=== PATIENT | female | born 1950 | race Caucasian/White ===

== ENCOUNTER 2016-08-23 17:43 | Emergency (ER) | payer MEDICARE ==
[2016-08-23 17:59] VITALS: BP 163/94
--- NOTE | 2016-08-23 18:48 | EDM.PDOC ---
ED HISTORY OF PRESENT ILLNESS - General Chief Complaint: Chest Pain Stated Complaint: [facility] Time Seen by Provider: 08/23/16 18:20 Source of Information: Reports: Patient History Limitations: Reports: No limitations - History of Present Illness INITIAL COMMENTS - FREE TEXT/NARRATIVE: Marina is a 66yo female patient from [facility] who presents with intermittent chest pain, off and on throughout the day today. She states pain is left sided, intermittent. She summoned nursing for help who gave her one nitroglycerine, CP resolved and then came back. This pain started initially this morning and has come and gone several times throughout the day today. She denies sensation of palpitations, headache. She is chronically SOB and has chronic GALVAN- these are no worse than usual today. She wears supplemental oxygen at the [place] chronically. Upon my exam she states her pain is completely gone and she is hungry, would like something to eat. Timing/Duration: Reports: Hour(s): Severity: mild Quality: Reports: Dull, Pressure Improves with: Reports: None Worsens with: Reports: None Associated Symptoms (General): Reports: no other symptoms. 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: Other (see below) (see HPI; she had nitro SL x 1 at [place] ) - Related Data Allergies/ADRs: Allergies Allergy/AdvReac Type Severity Reaction Status Date / Time cefepime Allergy Hives Verified 07/16/16 15:14 ciprofloxacin [From Cipro] Allergy Hives Verified 07/16/16 15:14 ciprofloxacin HCl Allergy Hives Verified 07/16/16 15:14 [From Cipro] fosfomycin Allergy Hives Verified 07/16/16 15:14 levofloxacin [From Levaquin] Allergy Anaphylactic Verified 08/23/16 17:54 Shock metronidazole [From Flagyl] Allergy Rash Verified 07/16/16 15:14 Metronidazole HCl Allergy Hives Verified 07/16/16 15:14 [From Flagyl] pertussis vaccine,adsorbed Allergy Cannot Verified 07/16/16 15:14 [Pertussis Vaccine,Adsorbed] Remember vancomycin Allergy Hives Verified 07/16/16 15:14 meperidine HCl [From Demerol] AdvReac Vomiting Verified 07/16/16 15:14 Home Meds: Home Meds Aspirin [Halfprin] 81 mg PO DAILY 10/10/14 [History] Levothyroxine 25 mcg PO DAILY 10/10/14 [History] Metoprolol Tartrate [Lopressor] 75 mg PO BID 10/10/14 [History] Multivitamin [Daily Vitamin] 1 tab PO DAILY 10/10/14 [History] Sertraline [Zoloft] 100 mg PO DAILY 10/10/14 [History] Zolpidem Tartrate [Ambien] 5 mg PO BEDTIME PRN 10/10/14 [History] amLODIPine [Norvasc] 10 mg PO DAILY 10/10/14 [History] atorvaSTATin [Lipitor] 10 mg PO BEDTIME 10/10/14 [History] oxyCODONE HCl/Acetaminophen [Percocet 5-325 mg Tablet] 1 tab PO Q6H PRN [History] Albuterol [Proventil Neb Soln] 1 dose INH Q6HR PRN 07/16/16 [History] Indomethacin [Indocin] 25 mg PO BID 07/16/16 [History] SitaGLIPtin [Januvia] 50 mg PO DAILY 07/16/16 [History] Tapentadol HCl [Nucynta] 75 mg PO Q6HR PRN 07/16/16 [History] Triamcinolone Acetonide [Nasacort] 1 spray INH Q6HR PRN 07/16/16 [History] Levothyroxine Sodium [Synthroid] 200 mcg PO DAILY 07/17/16 [History] Miconazole [Miconazole 2% Crm] 1 applic TOP BID PRN 07/17/16 [History] Nystatin [Nystop] 1 applic TP BID PRN 07/17/16 [History] Acetaminophen [Tylenol] 650 mg PO Q4H PRN #0 tablet 07/22/16 [Rx] Albuterol/Ipratropium [DuoNeb 3.0-0.5 MG/3 ML] 3 ml NEB QIDRT PRN #1 box [Rx] Bumetanide [Bumex] 1 mg PO DAILY #30 tablet 07/22/16 [Rx] Docusate Sodium [Colace] 200 mg PO BID #60 cap 07/22/16 [Rx] Hydrochlorothiazide 25 mg PO BIDDIURETIC #60 tablet 07/22/16 [Rx] Losartan [Cozaar] 25 mg PO DAILY #30 tablet 07/22/16 [Rx] Magnesium Hydroxide [Milk of Magnesia] 30 ml PO BID PRN #1 bottle 07/22/16 [Rx] Prednisone [IJD: Prednisone] 10 mg PO DAILY #30 tab 07/22/16 [Rx] SitaGLIPtin [Januvia] 50 mg PO DAILY #30 tablet 07/22/16 [Rx] Spironolactone [Aldactone] 25 mg PO DAILY #30 tablet 07/22/16 [Rx] amLODIPine [Norvasc] 10 mg PO BEDTIME #30 tablet 07/22/16 [Rx] Past Medical History HEENT History: Reports: Impaired vision Other HEENT History: wears eyeglasses Cardiovascular History: Reports: Heart murmur, Hypertension, Other (see below) Other Cardiovascular History: bundle branch block, lymphedema Respiratory History: Reports: COPD Other Respiratory History: wears O2 at night while at home; but is now on 2L at [facility] (rehab) Gastrointestinal History: Reports: Hemorrhoids, Other (see below) Other Gastrointestinal History: hx:cdiff Genitourinary History: Reports: Chronic renal insuffiency, Renal calculus, UTI, recurrent Other Genitourinary History: renal failure from an infection Musculoskeletal History: Reports: Arthritis Neurological History: Reports: Migraines, Neuropathy, peripheral, Vertigo Other Neuro History: Lupus Psychiatric History: Reports: Anxiety, Depression, Panic attack Endocrine/Metabolic History: Reports: Diabetes, type II, Hypothyroidism Hematologic History: Reports: Iron deficiency Immunologic History: Reports: SLE Oncologic (Cancer) History: Reports: Basal cell carcinoma, Other (see below) Other Oncologic History: Basal cell carcinoma face Dermatologic History: Reports: Cellulitis, Other (see below) Other Dermatologic History: Lymphedema, severe dry skin, Chronic sores to backs of legs, - Infectious Disease History Infectious Disease History: Reports: C-difficile, Chicken pox, Hepatitis A, Influenza, Measles, Mumps, Rubella, Shingles - Past Surgical History HEENT Surgical History: Reports: Tonsillectomy GI Surgical History: Reports: Appendectomy, Colonoscopy Neurological Surgical History: Reports: Lumbar spine Musculoskeletal Surgical History: Reports: Arthroscopic knee, Hip replacement, Other (see below) Other Musculoskeletal Surgeries/Procedures:: back surgery L3, knee surgery Social & Family History - Family History Family Medical History: Noncontributory Cardiac: Reports: Heart failure : Reports: Renal disease/insufficiency Oncologic: Reports: Lung - Tobacco Use Smoking Status *Q: Former Smoker Years of Tobacco use: 18 Packs/Tins Daily: 2 Used Tobacco, but Quit: Yes Month Tobacco Last Used: 1986 Second Hand Smoke Exposure: No - Caffeine Use Caffeine Use: Reports: Coffee - Alcohol Use Days Per Week of Alcohol Use: 0 - Recreational Drug Use Recreational Drug Use: No ED ROS GENERAL - Review of Systems Review Of Systems: See Below Constitutional: Reports: weakness, fatigue HEENT: Reports: No symptoms Respiratory: Reports: Shortness of Breath (chronic, no owrse than usual) Cardiovascular: Reports: Chest pain (atypical, left sided, intermittent throughout the day today), Dyspnea on exertion (no worse than usual), Edema ( chronic; legs with flavio wraps bilat for lympyhedema). Denies: Lightheadedness, Palpitations Endocrine: Reports: no symptoms GI/Abdominal: Reports: No symptoms. Denies: Abdominal pain, Nausea, Vomiting : Reports: no symptoms, incontinence (chronic) Neurological: Reports: No Symptoms Psychiatric: Reports: Anxiety, Depression ED EXAM, GENERAL - Physical Exam Exam: See Below General Appearance: alert, WD/WN, no apparent distress Eye Exam: bilateral eye: EOMI, PERRL Ears: normal external exam, hearing grossly normal Nose: normal inspection, normal mucosa Throat/Mouth: Normal inspection, Normal lips, Normal voice, No airway compromise Head: atraumatic, normocephalic Neck: normal inspection, supple Respiratory/Chest: no respiratory distress, lungs clear, normal breath sounds, other (decreased mid to lower lobes) Cardiovascular: regular rate, rhythm, systolic murmur Peripheral Pulses: 1+: dorsalis pedis (L), dorsalis pedis (R) GI/Abdominal: normal bowel sounds, soft, other (obese) (Female) Exam: Deferred Rectal (Female) Exam: Deferred Extremities: other (flavio wraps to LE bilat due to chronic lymphedema) Neurological: alert, oriented, CN II-XII intact, normal cognition, normal gait Psychiatric: normal affect, normal mood Skin Exam: Warm, Dry, Intact EKG INTERPRETATION EKG Date: 08/23/16 Rhythm: other (sinus rhythm with LBBB rate of 60bpm) EKG Interpretation Comments: reviewed with Dr. Capone Course - Vital Signs Last Recorded V/S: Last Vital Signs Temp 98.1 F 08/23/16 17:55 Pulse 61 08/23/16 17:55 Resp 17 08/23/16 17:55 BP 163/94 H 08/23/16 17:55 Pulse Ox 94 L 08/23/16 17:55 - Orders/Labs/Meds Labs: Laboratory Tests 08/23/16 08/23/16 Range/Units 19:07 19:07 WBC 3.89 L (3.98-10.04) K/mm3 RBC 4.20 (3.98-5.22) M/mm3 Hgb 13.3 (11.2-15.7) gm/L Hct 41.2 (34.1-44.9) % MCV 98.1 H (79.4-94.8) fl MCH 31.7 (25.6-32.2) pg MCHC 32.3 (32.2-35.5) g/dl RDW Std Deviation 50.0 H (36.4-46.3) fL Plt Count 95 L (182-369) K/mm3 MPV 11.0 (9.4-12.3) fl Neut % (Auto) 55.5 (34.0-71.1) % Lymph % (Auto) 26.7 (19.3-51.7) % [place] % (Auto) 14.4 H (4.7-12.5) % Eos % (Auto) 2.6 (0.7-5.8) Baso % (Auto) 0.5 (0.1-1.2) % Neut # (Auto) 2.16 (1.56-6.13) K/mm3 Lymph # (Auto) 1.04 L (1.18-3.74) K/mm3 [place] # (Auto) 0.56 H (0.24-0.36) K/mm3 Eos # (Auto) 0.10 (0.04-0.36) K/mm3 Baso # (Auto) 0.02 (0.01-0.08) K/mm3 Manual Slide Review Abnormal smear Sodium 141 (136-145) mEq/L Potassium 4.5 (3.5-5.1) mEq/L Chloride 104 (98-107) mEq/L Carbon Dioxide 34 H (21-32) mEq/L Anion Gap 7.5 (5-15) BUN 27 H (7-18) mg/dL Creatinine 1.1 H (0.55-1.02) mg/dL Est Cr Clr Drug Dosing 50.06 mL/min Estimated GFR (MDRD) 50 (>60) mL/min BUN/Creatinine Ratio 24.5 H (14-18) Glucose 103 (80-115) mg/dL Calcium 8.9 (8.5-10.1) mg/dL Total Bilirubin 0.4 (0.2-1.0) mg/dL AST 14 L (15-37) U/L ALT 22 (14-59) U/L Alkaline Phosphatase 93 (46-116) U/L Troponin I < 0.017 (0.00-0.056) ng/mL Total Protein 7.1 (6.4-8.2) g/dl Albumin 3.5 (3.4-5.0) g/dl Globulin 3.6 gm/dL Albumin/Globulin Ratio 1.0 (1-2) - Radiology Interpretation Free Text/Narrative:: One view CXR: unremarkable for acute infiltrates/consolidations by my review; will await [facility] final report - Re-Assessments/Exams Free Text/Narrative Re-Assessment/Exam: 08/23/16 20:24 Reviewed essentially negative cardiac workup with patient today. She states chest pain was gone upon arrival or shortly thereafter and has not had further chest pain since arriving. Will discharge patient back to [facility], continue all usual medications and orders. Departure - Departure Time of Disposition: 20:26 Disposition: DC/Tfer to [place] [id number] Reason for Transfer *Q: Other Clinical Impression: Atypical chest pain Instructions: Nonspecific Chest Pain, [id number] Referrals: Jose Alfredo Hale MD [Primary Care Provider] - Forms: ED Department Discharge Additional Instructions: Eval in ER today is essentially unremarkable for acute findings -Chest xray is unremarkable or normal -labs are essentially normal, without acute findings, normal or negative troponin, electrolytes WNL and stable Continue with all current medications, treatments and orders; nitroglycerine sublingual if needed for chest pain
--- NOTE | 2016-08-25 06:52 | CR ---
Chest: Portable view of the chest was obtained. Comparison: Previous chest x-ray of 07/16/16 and 10/19/15. Nodular density seen within the right hilum compatible with slightly enlarged pulmonary artery which is stable. Heart size is within normal limits for portable technique. Tortuous thoracic aorta is noted. Lungs are clear with no acute infiltrates. Bony structures are osteopenic. Old healed right lower rib fracture is noted. Impression: 1. Incidental findings. Nothing acute is seen on portable chest x-ray. Diagnostic code #2
== END 2016-08-23 21:22 ==
LOC: JD.ED 17:43
DX: R07.89 Other chest pain (principal); J44.9 Chronic obstructive pulmonary disease, unspecified; I12.9 Hypertensive chronic kidney disease with stage 1 through stage 4 chronic kidney disease, or unspecified chronic kidney disease; N18.9 Chronic kidney disease, unspecified; E11.42 Type 2 diabetes mellitus with diabetic polyneuropathy; F41.0 Panic disorder [episodic paroxysmal anxiety]; F32.9 Major depressive disorder, single episode, unspecified; E03.9 Hypothyroidism, unspecified; Z85.828 Personal history of other malignant neoplasm of skin; M32.9 Systemic lupus erythematosus, unspecified; Z90.49 Acquired absence of other specified parts of digestive tract; Z98.890 Other specified postprocedural states; Z96.649 Presence of unspecified artificial hip joint; Z79.899 Other long term (current) drug therapy; Z88.6 Allergy status to analgesic agent; Z88.7 Allergy status to serum and vaccine; Z88.8 Allergy status to other drugs, medicaments and biological substances; Z88.1 Allergy status to other antibiotic agents
CPT/HCPCS: 36415; 71010; 71010-26; 80053; 84484; 85025; 93005; 99285; 99285-25

== ENCOUNTER 2017-02-07 20:24 | Inpatient (IN) | payer MEDICARE ==
[2017-02-07] MEDS ORDERED: Sodium Chloride 0.9% 10 ML Syringe FLUSH PRN (20:59)
--- NOTE | 2017-02-07 21:00 | EDM.PDOC ---
ED HPI GENERAL MEDICAL PROBLEM - General Chief Complaint: Genitourinary Problem Stated Complaint: [facility] Time Seen by Provider: 02/07/17 20:52 Source of Information: Reports: Patient History Limitations: Reports: No Limitations - History of Present Illness INITIAL COMMENTS - FREE TEXT/NARRATIVE: 66-year-old female presents to the ED per ambulance from local [facility]. She reports that she was started on Bactrim no strength yesterday for urinary tract infection received first dose last night and second dose this evening. She is appreciated a temperature of 101.1 with intermittent rigors and chills since yesterday. She feels more short of breath and dyspneic today. She reports that she feels she's gained about 5 pounds over the last week. Did eat today but appetite is less than normal. She's had urinary tract sepsis several times in the past. She has known multiple renal stones. She is type II diabetic. Sugar in the ED was 150. Patient is allergic to multiple medications. Particularly to Levaquin and Cipro. Patient is oxygen dependent at 2 L/m at all times due to COPD. She is increased to 3 L at this time to keep her sats at 95% . She has or has a history of congestive heart failure and is on Bumex 1 mg twice daily. Onset: Gradual Onset Date: 02/05/17 (Mild dysuria and low-grade fever.) Duration: Day(s): Location: Reports: Other (Genitourinary symptoms.) Quality: Reports: Ache, Other Severity: Moderate (Generalized weakness and myalgia.) Improves with: Reports: None Worsens with: Reports: Movement Associated Symptoms: Reports: Cough, Diaphoresis, Fever/Chills (With rigors), Headaches, Loss of Appetite, Malaise, Shortness of Breath, Weakness (Two-week to do her own). Denies: Confusion, Chest Pain, cough w sputum (Nonproductive), Rash, Seizure Treatments PRIVACY MANAGER: Reports: Acetaminophen ( activities such as brushing her teeth etc.) Lower Back Pain Score (Numeric/FACES): 6 - Related Data Allergies Allergy/AdvReac Type Severity Reaction Status Date / Time cefepime Allergy Hives Verified 07/16/16 15:14 ciprofloxacin [From Cipro] Allergy Hives Verified 07/16/16 15:14 ciprofloxacin HCl Allergy Hives Verified 07/16/16 15:14 [From Cipro] fosfomycin Allergy Hives Verified 07/16/16 15:14 levofloxacin [From Levaquin] Allergy Anaphylactic Verified 08/23/16 17:54 Shock metronidazole [From Flagyl] Allergy Rash Verified 07/16/16 15:14 Metronidazole HCl Allergy Hives Verified 07/16/16 15:14 [From Flagyl] pertussis vaccine,adsorbed Allergy Cannot Verified 07/16/16 15:14 [Pertussis Vaccine,Adsorbed] Remember vancomycin Allergy Hives Verified 07/16/16 15:14 meperidine HCl [From Demerol] AdvReac Vomiting Verified 07/16/16 15:14 Home Meds: Home Meds Aspirin [Halfprin] 81 mg PO DAILY 10/10/14 [History] Metoprolol Tartrate [Lopressor] 75 mg PO BID 10/10/14 [History] Multivitamin [Daily Vitamin] 1 tab PO DAILY 10/10/14 [History] Sertraline [Zoloft] 150 mg PO DAILY 10/10/14 [History] atorvaSTATin [Lipitor] 10 mg PO BEDTIME 10/10/14 [History] oxyCODONE HCl/Acetaminophen [Percocet 5-325 mg Tablet] 1 tab PO Q6H PRN [History] Albuterol [Proventil Neb Soln] 1 dose INH Q6HR PRN 07/16/16 [History] Indomethacin [Indocin] 25 mg PO BID PRN 07/16/16 [History] Tapentadol HCl [Nucynta] 75 mg PO Q6HR PRN 07/16/16 [History] Triamcinolone Acetonide [Nasacort] 1 spray INH Q6HR PRN 07/16/16 [History] Levothyroxine Sodium [Synthroid] 250 mcg PO DAILY 07/17/16 [History] Miconazole [Miconazole 2% Crm] 1 applic TOP BID PRN 07/17/16 [History] Albuterol/Ipratropium [DuoNeb 3.0-0.5 MG/3 ML] 3 ml NEB QIDRT PRN #1 box [Rx] Docusate Sodium [Colace] 200 mg PO BID #60 cap 07/22/16 [Rx] Losartan [Cozaar] 25 mg PO DAILY #30 tablet 07/22/16 [Rx] SitaGLIPtin [Januvia] 50 mg PO DAILY #30 tablet 07/22/16 [Rx] Spironolactone [Aldactone] 25 mg PO DAILY #30 tablet 07/22/16 [Rx] Aspirin/Acetaminophen/Caffeine [Eql Migraine Formula Caplet] 1 each PO TID PRN 02/07/17 [History] Bumetanide [Bumex] 1 mg PO BID 02/07/17 [History] Chlorhexidine Gluconate [Peridex 0.12% Rinse] 15 ml MM BID 02/07/17 [History] Ipratropium/Albuterol Sulfate [Iprat-Albut 0.5-3(2.5) MG/3 ML] 3 ml IH Q6H PRN 02/07/17 [History] Nitroglycerin [Nitrostat] 0.4 mg SL Q5M PRN 02/07/17 [History] Sulfamethoxazole/Trimethoprim [Bactrim Ds Tablet] 1 each PO BID 02/07/17 [ History] T-Pump 1 dose TOP TID PRN 02/07/17 [History] Temazepam [Restoril] 15 mg PO BEDTIME 02/07/17 [History] Umeclidinium [place] [Incruse Ellipta*] 62.5 mcg IH DAILY 02/07/17 [History] Zinc Oxide [Diaper Rash Ointment] 1 dose TP DAILY 02/07/17 [History] amLODIPine [Norvasc] 10 mg PO DAILY 02/07/17 [History] Past Medical History HEENT History: Reports: Impaired Vision Other HEENT History: wears eyeglasses Cardiovascular History: Reports: Heart Murmur, Hypertension, Other (See Below) Other Cardiovascular History: bundle branch block, lymphedema Respiratory History: Reports: COPD Other Respiratory History: wears O2 at night while at home; but is now on 2L at [facility] (rehab) Gastrointestinal History: Reports: Hemorrhoids, Other (See Below) Other Gastrointestinal History: hx:cdiff Genitourinary History: Reports: Chronic Renal Insuffiency, Renal Calculus, UTI, Recurrent (Has known renal calculi whether they're continuing to recurrent infection is unclear. She has been septic twice in the last year from urosepsis. ) Other Genitourinary History: renal failure from an infection Musculoskeletal History: Reports: Arthritis Neurological History: Reports: Migraines, Neuropathy, Peripheral, Vertigo Other Neuro History: Lupus Psychiatric History: Reports: Anxiety, Depression, Panic Attack Endocrine/Metabolic History: Reports: Diabetes, Type II, Hypothyroidism Hematologic History: Reports: Iron Deficiency Immunologic History: Reports: SLE Oncologic (Cancer) History: Reports: Basal Cell Carcinoma, Other (See Below) Other Oncologic History: Basal cell carcinoma face Dermatologic History: Reports: Cellulitis, Other (See Below) Other Dermatologic History: Lymphedema, severe dry skin, Chronic sores to backs of legs, - Infectious Disease History Infectious Disease History: Reports: C-Difficile, Chicken Pox, Hepatitis A, Influenza, Measles, Mumps, Rubella, Shingles - Past Surgical History Endocrine Surgical History: Reports: None, Other (See Below) Neurological Surgical History: Reports: Lumbar Spine Musculoskeletal Surgical History: Reports: Arthroscopic Knee, Hip Replacement, Other (See Below) Social & Family History - Family History Family Medical History: Noncontributory Cardiac: Reports: Heart Failure : Reports: Renal Disease/Insufficiency Oncologic: Reports: Lung - Tobacco Use Smoking Status *Q: Former Smoker Years of Tobacco use: 18 Packs/Tins Daily: 2 Used Tobacco, but Quit: Yes Month Tobacco Last Used: 1986 Second Hand Smoke Exposure: No - Caffeine Use Caffeine Use: Reports: Coffee - Alcohol Use Days Per Week of Alcohol Use: 0 - Recreational Drug Use Recreational Drug Use: No - Living Situation & Occupation Living situation: Reports: Extended Care Facility Occupation: Retired ED ROS GENERAL - Review of Systems Review Of Systems: See Below Constitutional: Reports: Fever, Chills, Malaise, Weakness, Fatigue, Weight Gain (5-6 pounds over the last week. She feels that her lower extremities and her abdomen feel full and she feels she can't get a full deep breath.) HEENT: Reports: No Symptoms Respiratory: Reports: Shortness of Breath, Cough. Denies: Wheezing (At rest but much worse with minimal exertion), Pleuritic Chest Pain, Sputum, Hemoptysis (Dry cough) Cardiovascular: Reports: Blood Pressure Problem, Dyspnea on Exertion ( Chronically in her lower extremities), Edema, Lightheadedness. Denies: Chest Pain, Claudication (Running low the last few days.), Orthopnea Endocrine: Reports: Fatigue, Other GI/Abdominal: Reports: Constipation, Other (Markedly obese.). Denies: Abdominal Pain : Reports: Incontinence (Stress and urge components.) Musculoskeletal: Reports: Back Pain, Joint Pain Skin: Reports: No Symptoms (Hips back and shoulders at times) Neurological: Reports: No Symptoms Psychiatric: Reports: No Symptoms Hematologic/Lymphatic: Reports: No Symptoms ED EXAM, GENERAL - Physical Exam Exam: See Below Exam Limited By: No Limitations General Appearance: Alert, WD/WN, Mild Distress, Other (He is quite anxious does feel warm to palpation. Temperature recheck was 100) Eye Exam: Bilateral Eye: Normal Inspection Ears: Normal TMs Throat/Mouth: Normal Inspection, Normal Lips, Normal Oropharynx, Other Head: Atraumatic, Normocephalic Neck: Normal Inspection, Supple, Non-Tender, Full Range of Motion. No: Carotid Bruit, Lymphadenopathy (L), Lymphadenopathy (R) Respiratory/Chest: Respiratory Distress (Mild tachypnea at rest 22-26/m. O2 sats were 91% on 2 L but 95% on 3 L/m by nasal specks.), Decreased Breath Sounds (Breasts undiminished of the lower 30% of lung beltran.), Rales (In both lower lung beltran a little worse on the left as compared to the right.). No: Rhonchi, Wheezing Cardiovascular: Regular Rate, Rhythm, No Gallop, No Murmur, No Rub. No: Normal Peripheral Pulses, No Edema Peripheral Pulses: 1+: Posterior Tibial (L), Posterior Tibial (R), Dorsalis Pedis (L), Dorsalis Pedis (R) GI/Abdominal: Normal Bowel Sounds, Soft, Non-Tender, No Organomegaly, Other ( Abdominal girth limits ability to palpate any solid organs.) Extremities: Normal Inspection, Normal Range of Motion, Non-Tender, No Pedal Edema, Normal Capillary Refill Neurological: Alert, Oriented, CN II-XII Intact, Normal Cognition, Other Psychiatric: Normal Affect (Patient is usually able to ambulate with the aid of a walker on her own volition but could not do so today.), Normal Mood Skin Exam: Warm, Dry, Intact, Normal Color EKG INTERPRETATION EKG Date: 02/07/17 Time: 20:00 Rhythm: NSR Rate (Beats/Min): 67 [place]: LAD-Left [place] Deviation (-31) P-Wave: Present QRS: LBBB ST-T: Normal QT: Prolonged EKG Interpretation Comments: Unchanged from previous ECGs Course - Vital Signs Last Recorded V/S: Last Vital Signs Temp 37.8 C 02/07/17 21:29 Pulse 64 02/07/17 20:31 Resp 22 H 02/07/17 20:31 BP 125/44 L 02/07/17 20:31 Pulse Ox 91 L 02/07/17 20:31 - Orders/Labs/Meds Orders: Active Orders 24 hr Category Date Time Status EKG Documentation Completion [RC] STAT Care 02/07/17 21:39 Active Jeffries Catheter Insertion [Insert Urinary Catheter] [OM. Care 02/07/17 21:00 Ordered PC] Q24H Oxygen Therapy [RC] ASDIRECTED Care 02/07/17 20:58 Active Peripheral IV Care [RC] . DIRECTED Care 02/07/17 20:59 Active Urinary Catheter Assessment [RC] ASDIRECTED Care 02/07/17 20:57 Active Chest 1V Frontal [CR] Stat Exams 02/07/17 20:55 Taken CULTURE BLOOD [BC] Stat Lab 02/07/17 21:30 Received CULTURE BLOOD [BC] Stat Lab 02/07/17 21:42 Received CULTURE URINE [RM] Stat Lab 02/07/17 21:05 Received Sodium Chloride 0.9% [Saline Flush] Med 02/07/17 20:59 Active 10 ml FLUSH ASDIRECTED PRN Blood Culture x2 Reflex Set [OM.PC] Stat Oth 02/07/17 20:59 Ordered Peripheral IV Insertion Adult [OM.PC] Stat Oth 02/07/17 20:59 Ordered Medication Orders Sodium Chloride (Saline Flush) 10 ml FLUSH ASDIRECTED PRN PRN Reason: Keep Vein Open Last Admin: 02/07/17 21:31 Dose: 10 ml Labs: Laboratory Tests 02/07/17 02/07/17 02/07/17 Range/Units 21:05 21:15 21:15 WBC 5.77 (3.98-10.04) K/mm3 RBC 4.34 (3.98-5.22) M/mm3 Hgb 13.9 (11.2-15.7) gm/L Hct 43.6 (34.1-44.9) % MCV 100.5 H (79.4-94.8) fl MCH 32.0 (25.6-32.2) pg MCHC 31.9 L (32.2-35.5) g/dl RDW Std Deviation 46.0 (36.4-46.3) fL Plt Count 106 L (182-369) K/mm3 MPV 11.4 (9.4-12.3) fl Neutrophils % (Manual) 86 H (40-60) % Band Neutrophils % 0 (0-10) % Lymphocytes % (Manual) 7 L (20-40) % Atypical Lymphs % 0 % Monocytes % (Manual) 3 (2-10) % Eosinophils % (Manual) 3 (0.7-5.8) % Basophils % (Manual) 1 (0.1-1.2) Platelet Estimate Decreased RBC Morph Comment Normal ESR (0-20) mm/hr PT 11.4 (8.0-13.0) SECONDS INR 1.04 Sodium (136-145) mEq/L Potassium (3.5-5.1) mEq/L Chloride (98-107) mEq/L Carbon Dioxide (21-32) mEq/L Anion Gap (5-15) BUN (7-18) mg/dL Creatinine (0.55-1.02) mg/dL Est Cr Clr Drug Dosing Estimated GFR (MDRD) (>60) mL/min BUN/Creatinine Ratio (14-18) Glucose (80-115) mg/dL Lactic Acid (0.4-2.0) mmol/L Calcium (8.5-10.1) mg/dL Magnesium (1.8-2.4) mg/dl Total Bilirubin (0.2-1.0) mg/dL AST (15-37) U/L ALT (14-59) U/L Alkaline Phosphatase (46-116) U/L CK-MB (CK-2) (0-3.6) ng/ml Troponin I (0.00-0.056) ng/mL C-Reactive Protein (<1.0) mg/dL NT-Pro-B Natriuret Pep (0-125) pg/mL Total Protein (6.4-8.2) g/dl Albumin (3.4-5.0) g/dl Globulin gm/dL Albumin/Globulin Ratio (1-2) Urine Color Yellow (Yellow) Urine Appearance Clear (Clear) Urine pH 7.0 (5.0-8.0) Ur Specific [place] 1.015 (1.005-1.030) Urine Protein Negative (Negative) Urine Glucose (UA) Negative (Negative) Urine Ketones Negative (Negative) Urine Occult Blood Negative (Negative) Urine Nitrite Negative (Negative) Urine Bilirubin Negative (Negative) Urine Urobilinogen 0.2 (0.2-1.0) Ur Leukocyte Esterase Trace H (Negative) Urine RBC 0-5 (0-5) /hpf Urine WBC 5-10 H (0-5) /hpf Ur Epithelial Cells 0-5 (0-5) /hpf Urine Bacteria Few (FEW) /hpf Urine Mucus Not seen (FEW) /hpf 02/07/17 02/07/17 02/07/17 Range/Units 21:15 21:15 21:30 WBC (3.98-10.04) K/mm3 RBC (3.98-5.22) M/mm3 Hgb (11.2-15.7) gm/L Hct (34.1-44.9) % MCV (79.4-94.8) fl MCH (25.6-32.2) pg MCHC (32.2-35.5) g/dl RDW Std Deviation (36.4-46.3) fL Plt Count (182-369) K/mm3 MPV (9.4-12.3) fl Neutrophils % (Manual) (40-60) % Band Neutrophils % (0-10) % Lymphocytes % (Manual) (20-40) % Atypical Lymphs % % Monocytes % (Manual) (2-10) % Eosinophils % (Manual) (0.7-5.8) % Basophils % (Manual) (0.1-1.2) Platelet Estimate RBC Morph Comment ESR 36 H (0-20) mm/hr PT (8.0-13.0) SECONDS INR Sodium 136 (136-145) mEq/L Potassium 4.2 (3.5-5.1) mEq/L Chloride 99 (98-107) mEq/L Carbon Dioxide 34 H (21-32) mEq/L Anion Gap 7.2 (5-15) BUN 24 H (7-18) mg/dL Creatinine 1.3 H (0.55-1.02) mg/dL Est Cr Clr Drug Dosing TNP Estimated GFR (MDRD) 41 (>60) mL/min BUN/Creatinine Ratio 18.5 H (14-18) Glucose 130 H (80-115) mg/dL Lactic Acid 0.6 (0.4-2.0) mmol/L Calcium 9.4 (8.5-10.1) mg/dL Magnesium 2.0 (1.8-2.4) mg/dl Total Bilirubin 0.7 (0.2-1.0) mg/dL AST 18 (15-37) U/L ALT 26 (14-59) U/L Alkaline Phosphatase 79 (46-116) U/L CK-MB (CK-2) < 0.5 (0-3.6) ng/ml Troponin I < 0.017 (0.00-0.056) ng/mL C-Reactive Protein 1.9 H* (<1.0) mg/dL NT-Pro-B Natriuret Pep 1035 H (0-125) pg/mL Total Protein 7.3 (6.4-8.2) g/dl Albumin 3.4 (3.4-5.0) g/dl Globulin 3.9 gm/dL Albumin/Globulin Ratio 0.9 L (1-2) Urine Color (Yellow) Urine Appearance (Clear) Urine pH (5.0-8.0) Ur Specific [place] (1.005-1.030) Urine Protein (Negative) Urine Glucose (UA) (Negative) Urine Ketones (Negative) Urine Occult Blood (Negative) Urine Nitrite (Negative) Urine Bilirubin (Negative) Urine Urobilinogen (0.2-1.0) Ur Leukocyte Esterase (Negative) Urine RBC (0-5) /hpf Urine WBC (0-5) /hpf Ur Epithelial Cells (0-5) /hpf Urine Bacteria (FEW) /hpf Urine Mucus (FEW) /hpf Meds: Medications Generic Name Dose Route Start Last Admin Trade Name Freq PRN Reason Stop Dose Admin Sodium Chloride 10 ml 02/07/17 20:59 02/07/17 21:31 Saline Flush FLUSH 10 ml ASDIRECTED PRN Administration Keep Vein Open Discontinued Medications Generic Name Dose Route Start Last Admin Trade Name Freq PRN Reason Stop Dose Admin Acetaminophen 325 mg 02/07/17 21:13 02/07/17 21:29 Tylenol PO 09/09/17 21:14 325 mg NOW ONE Administration Bumetanide 1 mg 02/07/17 21:11 02/07/17 21:29 Bumex IVPUSH 02/07/17 21:12 1 mg ONETIME ONE Administration Linezolid 600 mg/ Premix 300 mls @ 300 mls/hr 02/07/17 21:12 02/07/17 21:29 IV 02/07/17 22:11 300 mls/hr ONETIME ONE Administration Oxycodone/Acetaminophen 1 tab 02/07/17 21:12 02/07/17 21:30 Percocet 325-5 Mg PO 02/07/17 21:13 1 tab ONETIME ONE Administration - Radiology Interpretation Free Text/Narrative:: 66-year-old female [facility] ED [facility] local [facility] with a temperature of 101.1 reported throughout most of today. Illness started 2 days ago with low-grade fever and mild urinary tract symptoms with foul-smelling urine. She was started on Bactrim double strength last evening and took one dose this morning. She hasn't had fever chills riders since yesterday afternoon. They continued this morning. Appetite has remained about half normal. Meaning no diarrhea. She came because she is feeling much more short of breath than normal. Feels she is filling up with fluid. Just be the fever causing high output failure. Feels so she may have gained 5 or 6 pounds over the last week. No history of COPD and is oxygen dependent at 2 L/m all times. She is increased to 3 litres per minute her to keep her at 95%. Plan chest x- ray routine labs blood cultures 2 serum magnesium. I will give her Zosyn 600 mg IV as soon as blood cultures are collected. Given 1 Percocet 5//25 milligrams and 325 mg of Tylenol for fever and pain relief. - Re-Assessments/Exams Free Text/Narrative Re-Assessment/Exam: 02/07/17 22:38 ECG reveals sinus rhythm at 67/m. There is a left bundle branch block pattern which is unchanged from previous ECGs QT is moderately prolonged. Chest x-ray reveals mild cardiomegaly. There is a tortuous thoracic aorta. There is diffuse vascular congestion pattern. 02/07/17 23:39 lab work shows a normal white count at 5.77 with 86% neutrophil count however--Lt shift. Hemoglobin is normal at 13.9 with hematocrit of 43.6. Platelets low normal at 106,000. Coags are essentially normal. Urinalysis shows 5-10+ cells per high-power field. Urine culture ordered. Sodium is 136 potassium is 4.2. Chloride 99 bicarbonate is 34 i.e. CO2 retainer. Anion gap is 7.2 be when was 24. Creatinine 1.3 EGFR is 41 stage III kidney disease glucose 1 :30 CRP is mildly elevated 1.9 BNP is elevated at 1035 he needs them 2.0. Troponin and CK-MB fractions are normal. 02/07/17 23:40 patient reports she is having more pain in her left flank area she believes it's or kidney. A pressure remains low with systolics of 93-95. Makes it difficult for pain management give fentanyl 50 g IV as it's less likely to lower her blood pressure. Currently she's diaphoretic as her fever is breaking. Case discussed with on-call hospice and the patient be admitted to the med surgery floor on telemetry. Diagnosis is acute exacerbation of congestive heart failure likely due to high output failure from febrile illness. Urinary tract infection --upper. Stable type 2 diabetes mellitus. Acute febrile illness Departure - Departure Time of Disposition: 23:43 Disposition: Admitted As Inpatient 65 Condition: Fair Clinical Impression: Acute febrile illness, Upper urinary tract infection Acute exacerbation of congestive heart failure Qualifiers: Congestive heart failure type: diastolic Qualified Code(s): I50.33 - Acute on chronic diastolic (congestive) heart failure Hypotension Qualifiers: Hypotension type: other hypotension type Qualified Code(s): I95.89 - Other hypotension COPD (chronic obstructive pulmonary disease) Qualifiers: COPD type: unspecified COPD Qualified Code(s): J44.9 - Chronic obstructive pulmonary disease, unspecified Forms: ED Department Discharge - My Orders Last 24 Hours: My Active Orders 02/07/17 20:55 Chest 1V Frontal [CR] Stat 02/07/17 20:57 Urinary Catheter Assessment [RC] ASDIRECTED 02/07/17 20:58 Oxygen Therapy [RC] ASDIRECTED 02/07/17 20:59 Peripheral IV Care [RC] . DIRECTED Sodium Chloride 0.9% [Saline Flush] 10 ml FLUSH ASDIRECTED PRN Blood Culture x2 Reflex Set [OM.PC] Stat Peripheral IV Insertion Adult [OM.PC] Stat 02/07/17 21:00 Jeffries Catheter Insertion [Insert Urinary Catheter] [OM.PC] Q24H 02/07/17 21:05 CULTURE URINE [RM] Stat 02/07/17 21:30 CULTURE BLOOD [BC] Stat 02/07/17 21:39 EKG Documentation Completion [RC] STAT 02/07/17 21:42 CULTURE BLOOD [BC] Stat - Assessment/Plan Last 24 Hours: My Active Orders 02/07/17 20:55 Chest 1V Frontal [CR] Stat 02/07/17 20:57 Urinary Catheter Assessment [RC] ASDIRECTED 02/07/17 20:58 Oxygen Therapy [RC] ASDIRECTED 02/07/17 20:59 Peripheral IV Care [RC] . DIRECTED Sodium Chloride 0.9% [Saline Flush] 10 ml FLUSH ASDIRECTED PRN Blood Culture x2 Reflex Set [OM.PC] Stat Peripheral IV Insertion Adult [OM.PC] Stat 02/07/17 21:00 Jeffries Catheter Insertion [Insert Urinary Catheter] [OM.PC] Q24H 02/07/17 21:05 CULTURE URINE [RM] Stat 02/07/17 21:30 CULTURE BLOOD [BC] Stat 02/07/17 21:39 EKG Documentation Completion [RC] STAT 02/07/17 21:42 CULTURE BLOOD [BC] Stat
[2017-02-07] MEDS ORDERED: Bumetanide 1 MG/4 ML MDV IVPUSH ONE (21:11)
[2017-02-07] MEDS ORDERED: Acetaminophen/oxyCODONE 325-5 MG Tab PO ONE (21:12)
[2017-02-07] MEDS ORDERED: Linezolid 600 MG in Premix Bag 1 BAG IV ONE (21:12)
[2017-02-07] MEDS ORDERED: Acetaminophen 325 MG Tab PO ONE (21:13)
[2017-02-07] MEDS ORDERED: fentaNYL 100 MCG/2 ML SDV IVPUSH ONE (23:44)
[2017-02-08] MEDS ORDERED: HYDROmorphone 1 MG/ML Syringe IM ONE (02:49)
[2017-02-08] MEDS ORDERED: Pneumococcal Polyvalent-23 Vaccine 0.5 ML SDV IM ONE (02:53)
[2017-02-08] MEDS ORDERED: Piperacillin/Tazobactam 4.5 GM in Sodium Chloride 0.9% 100 ML IV ONE (06:00)
[2017-02-08] MEDS ORDERED: Enoxaparin 30 MG/0.3 ML Syringe SUBCUT SCH (09:00)
[2017-02-08] MEDS ORDERED: Furosemide 40 MG/4 ML VIAL IVPUSH ONE (09:00)
[2017-02-08] MEDS ORDERED: Piperacillin/Tazobactam 4.5 GM in Sodium Chloride 0.9% 100 ML IV SCH (09:45)
--- NOTE | 2017-02-08 10:35 | PCM.HP ---
H&P History of Present Illness - General Date of Service: 02/08/17 Source of Information: Patient, Provider History Limitations: Reports: No Limitations - History of Present Illness Initial Comments - Free Text/Narative: 66 year old patient [facility] resident has not been feeling well for over a week. Had a UA/UC performed at [facility], she was not started on Bactrim DS until the sensitivity had been reported. In the meantime, she became more ill, and progressed from malaise and weakness to fever/chills/rigor with SOB. By the time she was started on Bactrim 4-5 days after her initial complaint she required treatment for AUTI as well as CHF. She has been admitted to [facility] for AUTI and acute exacerbation of CHF. Onset of Symptoms: Reports: Unknown/Unsure Duration of Symptoms: Reports: Getting Worse Location: Reports: Abdomen, Generalized Quality: Reports: Same as Previous Episode Severity: Moderate Improves with: Reports: Medication Worsens with: Reports: None Context: Reports: Other Lower Back Pain Score (Numeric/FACES): 6 - Related Data Allergies/Adverse Reactions: Allergies Allergy/AdvReac Type Severity Reaction Status Date / Time cefepime Allergy Hives Verified 07/16/16 15:14 ciprofloxacin [From Cipro] Allergy Hives Verified 07/16/16 15:14 ciprofloxacin HCl Allergy Hives Verified 07/16/16 15:14 [From Cipro] fosfomycin Allergy Hives Verified 07/16/16 15:14 levofloxacin [From Levaquin] Allergy Anaphylactic Verified 08/23/16 17:54 Shock metronidazole [From Flagyl] Allergy Rash Verified 07/16/16 15:14 Metronidazole HCl Allergy Hives Verified 07/16/16 15:14 [From Flagyl] pertussis vaccine,adsorbed Allergy Cannot Verified 07/16/16 15:14 [Pertussis Vaccine,Adsorbed] Remember vancomycin Allergy Hives Verified 07/16/16 15:14 meperidine HCl [From Demerol] AdvReac Vomiting Verified 07/16/16 15:14 Home Medications: Home Meds Aspirin [Halfprin] 81 mg PO DAILY 10/10/14 [History] Metoprolol Tartrate [Lopressor] 75 mg PO BID 10/10/14 [History] Multivitamin [Daily Vitamin] 1 tab PO DAILY 10/10/14 [History] Sertraline [Zoloft] 150 mg PO DAILY 10/10/14 [History] atorvaSTATin [Lipitor] 10 mg PO BEDTIME 10/10/14 [History] oxyCODONE HCl/Acetaminophen [Percocet 5-325 mg Tablet] 1 tab PO Q6H PRN [History] Albuterol [Proventil Neb Soln] 1 dose INH Q6HR PRN 07/16/16 [History] Indomethacin [Indocin] 25 mg PO BID PRN 07/16/16 [History] Tapentadol HCl [Nucynta] 75 mg PO Q6HR PRN 07/16/16 [History] Triamcinolone Acetonide [Nasacort] 1 spray INH Q6HR PRN 07/16/16 [History] Levothyroxine Sodium [Synthroid] 250 mcg PO DAILY 07/17/16 [History] Miconazole [Miconazole 2% Crm] 1 applic TOP BID PRN 07/17/16 [History] Albuterol/Ipratropium [DuoNeb 3.0-0.5 MG/3 ML] 3 ml NEB QIDRT PRN #1 box [Rx] Docusate Sodium [Colace] 200 mg PO BID #60 cap 07/22/16 [Rx] Losartan [Cozaar] 25 mg PO DAILY #30 tablet 07/22/16 [Rx] SitaGLIPtin [Januvia] 50 mg PO DAILY #30 tablet 07/22/16 [Rx] Spironolactone [Aldactone] 25 mg PO DAILY #30 tablet 07/22/16 [Rx] Aspirin/Acetaminophen/Caffeine [Eql Migraine Formula Caplet] 1 each PO TID PRN 02/07/17 [History] Bumetanide [Bumex] 1 mg PO BID 02/07/17 [History] Chlorhexidine Gluconate [Peridex 0.12% Rinse] 15 ml MM BID 02/07/17 [History] Ipratropium/Albuterol Sulfate [Iprat-Albut 0.5-3(2.5) MG/3 ML] 3 ml IH Q6H PRN 02/07/17 [History] Nitroglycerin [Nitrostat] 0.4 mg SL Q5M PRN 02/07/17 [History] Sulfamethoxazole/Trimethoprim [Bactrim Ds Tablet] 1 each PO BID 02/07/17 [ History] T-Pump 1 dose TOP TID PRN 02/07/17 [History] Temazepam [Restoril] 15 mg PO BEDTIME 02/07/17 [History] Umeclidinium Lund [Incruse Ellipta*] 62.5 mcg IH DAILY 02/07/17 [History] Zinc Oxide [Diaper Rash Ointment] 1 dose TP DAILY 02/07/17 [History] amLODIPine [Norvasc] 10 mg PO DAILY 02/07/17 [History] Furosemide [Lasix] 20 mg PO DAILY 02/08/17 [History] Nystatin 100,000 units TOP DAILY PRN 02/08/17 [History] Past Medical History HEENT History: Reports: Impaired Vision Other HEENT History: wears eyeglasses Cardiovascular History: Reports: Heart Failure, Heart Murmur, Hypertension, Other (See Below) Other Cardiovascular History: bundle branch block, lymphedema Respiratory History: Reports: COPD, SOB Other Respiratory History: wears O2 at night while at home; but is now on 2L at [facility] (rehab) Gastrointestinal History: Reports: Chronic Constipation, Hemorrhoids, Other ( See Below) Other Gastrointestinal History: hx:cdiff Genitourinary History: Reports: Chronic Renal Insuffiency, Renal Calculus, UTI, Recurrent Other Genitourinary History: renal failure from an infection, stage 3 kidney disease Musculoskeletal History: Reports: Arthritis Neurological History: Reports: Migraines, Neuropathy, Peripheral, Vertigo Other Neuro History: Lupus Psychiatric History: Reports: Anxiety, Depression, Panic Attack, Other (See Below) Other Psychiatric History: insomnia Endocrine/Metabolic History: Reports: Diabetes, Type II, Hypothyroidism Hematologic History: Reports: Heparin Induced Thrombocytopenia, Iron Deficiency Immunologic History: Reports: SLE Oncologic (Cancer) History: Reports: Basal Cell Carcinoma, Other (See Below) Other Oncologic History: Basal cell carcinoma face Dermatologic History: Reports: Cellulitis, Other (See Below) Other Dermatologic History: Lymphedema, severe dry skin, Chronic sores to backs of legs, history of pressure ulcers - Infectious Disease History Infectious Disease History: Reports: C-Difficile, Chicken Pox, Hepatitis A, Influenza, Measles, Mumps, Rubella, Shingles - Past Surgical History Endocrine Surgical History: Reports: None, Other (See Below) Neurological Surgical History: Reports: Lumbar Spine Musculoskeletal Surgical History: Reports: Arthroscopic Knee, Hip Replacement, Other (See Below) Social & Family History - Family History Family Medical History: Noncontributory Cardiac: Reports: Heart Failure : Reports: Renal Disease/Insufficiency Oncologic: Reports: Lung - Tobacco Use Smoking Status *Q: Former Smoker Years of Tobacco use: 20 Packs/Tins Daily: 1 Used Tobacco, but Quit: Yes Month Tobacco Last Used: 1986 Second Hand Smoke Exposure: No - Caffeine Use Caffeine Use: Reports: Coffee - Alcohol Use Days Per Week of Alcohol Use: 0 - Recreational Drug Use Recreational Drug Use: No - Living Situation & Occupation Living situation: Reports: Extended Care Facility Occupation: Retired H&P Review of Systems - Review of Systems: Review Of Systems: See Below General: Reports: Fever, Chills, Malaise, Weakness, Decreased Appetite HEENT: Reports: No Symptoms Pulmonary: Reports: Shortness of Breath Cardiovascular: Reports: Lightheadedness Gastrointestinal: Reports: No Symptoms Genitourinary: Reports: Dysuria, Frequency, Burning, Urgency Musculoskeletal: Reports: No Symptoms Skin: Reports: No Symptoms Psychiatric: Reports: No Symptoms Neurological: Reports: No Symptoms Hematologic/Lymphatic: Reports: No Symptoms Immunologic: Reports: No Symptoms Exam - Exam Exam: See Below - Vital Signs Vital Signs: Last Vital Signs Temp 36.7 C 02/08/17 07:54 Pulse 59 L 02/08/17 07:54 Resp 18 02/08/17 07:54 BP 102/61 02/08/17 07:54 Pulse Ox 97 02/08/17 07:54 Weight: 143.789 kg - Exam Quality Assessment: Supplemental Oxygen General: Alert, Oriented HEENT: Conjunctiva Clear, EOMI, Pupils Equal, Pupils Reactive, PERRLA Neck: Supple, Trachea Midline Lungs: Normal Respiratory Effort Cardiovascular: Regular Rate, Regular Rhythm GI/Abdominal Exam: Normal Bowel Sounds, Soft, Non-Tender, No Distention (Female) Exam: Deferred Rectal (Female) Exam: Deferred Back Exam: Normal Inspection Extremities: Normal Inspection, Pedal Edema Skin: Warm Neurological: Cranial Nerves Intact Neuro Extensive - Mental Status: Alert Neuro Extensive - Motor, Sensory, Reflexes: CN II-XII Intact Psychiatric: Alert, Normal Affect, Normal Mood - Patient Data Lab Results Last 24 hrs: Laboratory Results - last 24 hr 02/08/17 02/08/17 Range/Units 06:23 06:23 WBC 3.87 L (3.98-10.04) K/mm3 RBC 4.15 (3.98-5.22) M/mm3 Hgb 13.5 (11.2-15.7) gm/L Hct 42.6 (34.1-44.9) % MCV 102.7 H (79.4-94.8) fl MCH 32.5 H (25.6-32.2) pg MCHC 31.7 L (32.2-35.5) g/dl RDW Std Deviation 47.7 H (36.4-46.3) fL Plt Count 96 L (182-369) K/mm3 MPV 11.5 (9.4-12.3) fl Sodium 137 (136-145) mEq/L Potassium 3.9 (3.5-5.1) mEq/L Chloride 99 (98-107) mEq/L Carbon Dioxide 34 H (21-32) mEq/L Anion Gap 7.9 (5-15) BUN 21 H (7-18) mg/dL Creatinine 1.3 H (0.55-1.02) mg/dL Est Cr Clr Drug Dosing 40.84 mL/min Estimated GFR (MDRD) 41 (>60) mL/min BUN/Creatinine Ratio 16.2 (14-18) Glucose 128 H (80-115) mg/dL Calcium 8.8 (8.5-10.1) mg/dL Magnesium 2.1 (1.8-2.4) mg/dl Troponin I < 0.017 (0.00-0.056) ng/mL Result Diagrams: 02/08/17 06:23 02/08/17 06:23 *Q Meaningful Use (ADM) - VTE *Q VTE Criteria *Q: - Stroke *Q Stroke Criteria *Q: - AMI *Q AMI Criteria *Q: - Problem List (1) Lymphedema SNOMED Code(s): 611068373 ICD Code: I89.0 - LYMPHEDEMA, NOT ELSEWHERE CLASSIFIED Status: Chronic Current Visit: Yes (2) Acute exacerbation of congestive heart failure SNOMED Code(s): 76119342 ICD Code: I50.9 - HEART FAILURE, UNSPECIFIED Status: Acute Current Visit : Yes Qualifiers: Congestive heart failure type: unspecified congestive heart failure type Qualified Code(s): I50.9 - Heart failure, unspecified (3) COPD (chronic obstructive pulmonary disease) SNOMED Code(s): 39882546 ICD Code: J44.9 - CHRONIC OBSTRUCTIVE PULMONARY DISEASE, UNSPECIFIED Status : Chronic Priority: Medium Current Visit: Yes Qualifiers: COPD type: unspecified COPD Qualified Code(s): J44.9 - Chronic obstructive pulmonary disease, unspecified (4) Bundle branch block SNOMED Code(s): 0166823 ICD Code: I45.4 - NONSPECIFIC INTRAVENTRICULAR BLOCK Status: Chronic Current Visit: No (5) UTI (lower urinary tract infection) SNOMED Code(s): 5743221 ICD Code: N39.0 - URINARY TRACT INFECTION, SITE NOT SPECIFIED Status: Acute Current Visit: No (6) Diabetes SNOMED Code(s): 69055140 ICD Code: E11.9 - TYPE 2 DIABETES MELLITUS WITHOUT COMPLICATIONS Status: Chronic Priority: Medium Current Visit: No Qualifiers: Diabetes mellitus type: type 2 Diabetes mellitus complication status: with unspecified complications Diabetes mellitus correction insulin use: with correction use Qualified Code(s): E11.8 - Type 2 diabetes mellitus with unspecified complications; Z79.4 - long term care pharmacist (current) use of insulin (7) Hyperlipidemia SNOMED Code(s): 29917716 ICD Code: E78.5 - HYPERLIPIDEMIA, UNSPECIFIED Status: Chronic Current Visit: Yes (8) Hypertension SNOMED Code(s): 84299343 ICD Code: I10 - ESSENTIAL (PRIMARY) HYPERTENSION Status: Chronic Current Visit: Yes (9) Chronic kidney disease SNOMED Code(s): 779156239 ICD Code: N18.9 - CHRONIC KIDNEY DISEASE, UNSPECIFIED Status: Acute Current Visit: Yes (10) Anxiety SNOMED Code(s): 46156369 ICD Code: F41.9 - ANXIETY DISORDER, UNSPECIFIED Status: Chronic Current Visit: Yes (11) Depression SNOMED Code(s): 09019507 ICD Code: F32.9 - MAJOR DEPRESSIVE DISORDER, SINGLE EPISODE, UNSPECIFIED Status: Chronic Current Visit: Yes (12) Panic attacks SNOMED Code(s): 018378682 ICD Code: F41.0 - PANIC DISORDER WITHOUT AGORAPHOBIA Status: Chronic Current Visit: Yes Problem List Initiated/Reviewed/Updated: Yes Orders Last 24hrs: Active Orders 24 hr Category Date Time Status Fluid Restriction [DIET] Diet 02/08/17 Breakfast Active Heart Healthy Diet [DIET] Diet 02/08/17 Breakfast Active METH-RESIST S.AUR,MRSA BY PCR [MOLEC] Routine Lab 02/08/17 03:50 Received Enoxaparin [Lovenox] Med 02/08/17 09:00 Active 30 mg SUBCUT DAILY Piperacillin/Tazobactam [Zosyn] 4.5 gm Med 02/08/17 14:00 Active Sodium Chloride 0.9% [Normal Saline] 100 ml IV Q8H Code Status [Resuscitation Status] Routine Resus Stat 02/08/17 03:38 Ordered Medication Orders Enoxaparin Sodium (Lovenox) 30 mg SUBCUT DAILY JACQUI Last Admin: 02/08/17 09:34 Dose: 30 mg Piperacillin Sod/Tazobactam (Sod 4.5 gm/ Sodium Chloride) 100 mls @ 25 mls/hr IV Q8H JACQUI Sodium Chloride (Saline Flush) 10 ml FLUSH ASDIRECTED PRN PRN Reason: Keep Vein Open Last Admin: 02/07/17 21:31 Dose: 10 ml Assessment/Plan Comment:: Impression: AUTI Acute exacerbation of CHF Chronic: LBBB HTN HLD CKD Lymphedema Anxiety Depression Panic Attack Plan: Zosyn 4.5 Gm Q 8 hours Diurese Home meds Ur Cx/BC CM/PT/OT DVT/GI prophylaxis
[2017-02-08] MEDS ORDERED: Albuterol 0.083% 2.5 MG/3 ML Neb Soln INH PRN (12:07)
[2017-02-08] MEDS ORDERED: ASPIRIN PO PRN (12:07)
[2017-02-08] MEDS ORDERED: CAFFEINE PO PRN (12:07)
[2017-02-08] MEDS ORDERED: Albuterol/Ipratropium 3.0-0.5 MG/3 ML Neb Soln NEB PRN (12:07)
[2017-02-08] MEDS ORDERED: ACETAMINOPHEN PO PRN (12:07)
[2017-02-08] MEDS ORDERED: Nitroglycerin 0.4 MG Tab.SL SL PRN (12:07)
[2017-02-08] MEDS ORDERED: Miconazole 2% Crm 42.5 GM Tube TOP PRN (12:30)
[2017-02-08] MEDS ORDERED: Nystatin Topical Powder 15 GM Bottle TOP PRN (12:45)
[2017-02-08] MEDS: Spironolactone 25 MG Tab PO SCH (13:15)
[2017-02-08] MEDS: Piperacillin/Tazobactam 4.5 GM in Sodium Chloride 0.9% 100 ML IV SCH ×2 (13:16→21:47)
[2017-02-08] MEDS: Acetaminophen/oxyCODONE 325-5 MG Tab PO PRN ×2 (13:48→21:07)
[2017-02-08] MEDS ORDERED: Magnesium Hydroxide 400 MG/5 ML Susp 30 ML Cup PO PRN (13:53)
[2017-02-08] MEDS: Insulin Aspart 100 Units/ML 3 ML Pen SUBCUT SCH ×2 (19:59→22:27)
[2017-02-08] MEDS: Docusate Sodium 100 MG Cap PO SCH (21:07)
[2017-02-08] MEDS: Chlorhexidine Gluconate 0.12% Oral Rinse 15 ML Cup PO SCH (21:07)
[2017-02-08] MEDS: Saccharomyces Boulardii (Probiotic) 250 MG Cap PO SCH (21:07)
[2017-02-08] MEDS: Metoprolol Tartrate 50 MG Tab PO SCH (21:07)
[2017-02-08] MEDS: Temazepam 15 MG Cap PO SCH (21:08)
[2017-02-08] MEDS: Simvastatin 10 MG Tab PO SCH (21:08)
[2017-02-09] MEDS: Acetaminophen/oxyCODONE 325-5 MG Tab PO PRN ×3 (06:07→21:43)
[2017-02-09] MEDS: Levothyroxine 125 MCG Tab PO SCH (06:07)
[2017-02-09] MEDS: Piperacillin/Tazobactam 4.5 GM in Sodium Chloride 0.9% 100 ML IV SCH ×3 (06:10→21:39)
[2017-02-09] MEDS: Insulin Aspart 100 Units/ML 3 ML Pen SUBCUT SCH ×4 (06:47→21:37)
[2017-02-09] MEDS ORDERED: Furosemide 20 MG/2 ML VIAL IVPUSH ONE (07:00)
[2017-02-09] MEDS: Aspirin 81 MG Tab.EC PO SCH (08:11)
[2017-02-09] MEDS: Saccharomyces Boulardii (Probiotic) 250 MG Cap PO SCH ×2 (08:11→21:38)
[2017-02-09] MEDS: Docusate Sodium 100 MG Cap PO SCH ×2 (08:11→21:36)
[2017-02-09] MEDS: Spironolactone 25 MG Tab PO SCH (08:11)
[2017-02-09] MEDS: Enoxaparin 40 MG/0.4 ML Syringe SUBCUT SCH (08:12)
[2017-02-09] MEDS: Metoprolol Tartrate 50 MG Tab PO SCH ×2 (08:12→21:38)
[2017-02-09] MEDS: Chlorhexidine Gluconate 0.12% Oral Rinse 15 ML Cup PO SCH ×2 (08:13→21:38)
[2017-02-09] MEDS: Sertraline 50 MG Tab PO SCH (08:14)
--- NOTE | 2017-02-09 08:58 | CR ---
Chest: Portable view of the chest was obtained. Comparison: Previous chest x-ray of 08/23/14. Heart is slightly enlarged. Tortuous thoracic aorta is seen. Pulmonary vessels are increased which appear to be fairly chronic. Old right-sided rib fracture is seen which is healed. Previous lumbar spine surgery is noted. Impression: 1. Findings similar to prior chest x-ray nothing acute is definitely identified. Diagnostic code #2
[2017-02-09] MEDS ORDERED: amLODIPine 5 MG Tab PO SCH (09:00)
--- NOTE | 2017-02-09 12:12 | PCM.PN ---
<Jessica Arguelles M - Last Filed: 02/09/17 11:43> - General Info Date of Service: 02/09/17 Admission Dx/Problem (Free Text): Patient is seen this morning. Doing well, breathing easier today. Denies cough, SOB, wheezing. Feels mild fluid retention to hands/arms this morning but overall "much better". Denies abd pain, pelvic pain, frequency, urgency. VSS. Functional Status: Reports: Pain Controlled, Tolerating Diet, Ambulating, Urinating. Denies: New Symptoms - Review of Systems General: Reports: No Symptoms. Denies: Fever HEENT: Reports: No Symptoms Pulmonary: Reports: No Symptoms. Denies: Shortness of Breath (resolved), Cough Cardiovascular: Reports: No Symptoms. Denies: Chest Pain, Palpitations, Dyspnea on Exertion Gastrointestinal: Reports: No Symptoms, Diarrhea (s/p taking MOM for constipation). Denies: Abdominal Pain, Nausea, Vomiting Genitourinary: Reports: No Symptoms. Denies: Dysuria, Frequency, Incontinence ( resolved) Musculoskeletal: Reports: No Symptoms Skin: Reports: No Symptoms Neurological: Reports: No Symptoms Psychiatric: Reports: No Symptoms - Patient Data Vitals - Most Recent: Last Vital Signs Temp 98.4 F 02/09/17 07:59 Pulse 64 02/09/17 08:12 Resp 14 02/09/17 07:59 BP 113/56 L 02/09/17 08:13 Pulse Ox 93 L 02/09/17 07:59 Weight - Most Recent: 142.882 kg I&O - Last 24 Hours: Intake & Output 02/08/17 02/09/17 02/09/17 22:59 06:59 14:59 Intake Total 1040 500 120 Output Total 1750 350 Balance -710 150 120 Lab Results Last 24 Hours: Laboratory Results - last 24 hr 02/08/17 02/09/17 02/09/17 Range/Units 21:37 05:55 05:55 WBC 3.65 L (3.98-10.04) K/mm3 RBC 4.12 (3.98-5.22) M/mm3 Hgb 13.6 (11.2-15.7) gm/L Hct 42.3 (34.1-44.9) % MCV 102.7 H (79.4-94.8) fl MCH 33.0 H (25.6-32.2) pg MCHC 32.2 (32.2-35.5) g/dl RDW Std Deviation 47.1 H (36.4-46.3) fL Plt Count 92 L (182-369) K/mm3 MPV 12.7 H (9.4-12.3) fl Neut % (Auto) 68.4 (34.0-71.1) % Lymph % (Auto) 11.8 L (19.3-51.7) % Wilson % (Auto) 11.0 (4.7-12.5) % Eos % (Auto) 8.2 H (0.7-5.8) Baso % (Auto) 0.3 (0.1-1.2) % Neut # (Auto) 2.50 (1.56-6.13) K/mm3 Lymph # (Auto) 0.43 L (1.18-3.74) K/mm3 Wilson # (Auto) 0.40 H (0.24-0.36) K/mm3 Eos # (Auto) 0.30 (0.04-0.36) K/mm3 Baso # (Auto) 0.01 (0.01-0.08) K/mm3 Manual Slide Review Abnormal smear Sodium 138 (136-145) mEq/L Potassium 4.4 (3.5-5.1) mEq/L Chloride 99 (98-107) mEq/L Carbon Dioxide 34 H (21-32) mEq/L Anion Gap 9.4 (5-15) BUN 25 H (7-18) mg/dL Creatinine 1.3 H (0.55-1.02) mg/dL Est Cr Clr Drug Dosing 40.84 mL/min Estimated GFR (MDRD) 41 (>60) mL/min BUN/Creatinine Ratio 19.2 H (14-18) Glucose 133 H (80-115) mg/dL POC Glucose 135 H (80-115) mg/dL Calcium 9.0 (8.5-10.1) mg/dL Magnesium 2.2 (1.8-2.4) mg/dl C-Reactive Protein 2.0 H* (<1.0) mg/dL 02/09/17 02/09/17 Range/Units 05:56 11:03 WBC (3.98-10.04) K/mm3 RBC (3.98-5.22) M/mm3 Hgb (11.2-15.7) gm/L Hct (34.1-44.9) % MCV (79.4-94.8) fl MCH (25.6-32.2) pg MCHC (32.2-35.5) g/dl RDW Std Deviation (36.4-46.3) fL Plt Count (182-369) K/mm3 MPV (9.4-12.3) fl Neut % (Auto) (34.0-71.1) % Lymph % (Auto) (19.3-51.7) % Wilson % (Auto) (4.7-12.5) % Eos % (Auto) (0.7-5.8) Baso % (Auto) (0.1-1.2) % Neut # (Auto) (1.56-6.13) K/mm3 Lymph # (Auto) (1.18-3.74) K/mm3 Wilson # (Auto) (0.24-0.36) K/mm3 Eos # (Auto) (0.04-0.36) K/mm3 Baso # (Auto) (0.01-0.08) K/mm3 Manual Slide Review Sodium (136-145) mEq/L Potassium (3.5-5.1) mEq/L Chloride (98-107) mEq/L Carbon Dioxide (21-32) mEq/L Anion Gap (5-15) BUN (7-18) mg/dL Creatinine (0.55-1.02) mg/dL Est Cr Clr Drug Dosing mL/min Estimated GFR (MDRD) (>60) mL/min BUN/Creatinine Ratio (14-18) Glucose (80-115) mg/dL POC Glucose 142 H 114 (80-115) mg/dL Calcium (8.5-10.1) mg/dL Magnesium (1.8-2.4) mg/dl C-Reactive Protein (<1.0) mg/dL Med Orders - Current: Current Medications Albuterol (Proventil Neb Soln) 2.5 mg INH Q4H PRN PRN Reason: Shortness of Breath Albuterol/Ipratropium (Duoneb 3.0-0.5 Mg/3 Ml) 3 ml NEB QIDRT PRN PRN Reason: wheezing, SOB Amlodipine Besylate (Norvasc) 10 mg PO DAILY [facility] Last Admin: 02/09/17 08:13 Dose: 10 mg Aspirin (Halfprin) 81 mg PO DAILY [facility] Last Admin: 02/09/17 08:11 Dose: 81 mg Bumetanide (Bumex) 1 mg PO BID [facility] Chlorhexidine Gluconate (Peridex 0.12% Rinse) 15 ml PO BID [facility] Last Admin: 02/09/17 08:13 Dose: 15 ml Docusate Sodium (Colace) 200 mg PO BID [facility] Last Admin: 02/09/17 08:11 Dose: 200 mg Enoxaparin Sodium (Lovenox) 40 mg SUBCUT DAILY [facility] Last Admin: 02/09/17 08:12 Dose: 40 mg Flunisolide (Nasalide Nasal [place]) 0 ml VÍCTOR Q12H PRN PRN Reason: NASAL CONGESTION Furosemide (Lasix) 20 mg PO DAILY [facility] Piperacillin Sod/Tazobactam (Sod 4.5 gm/ Sodium Chloride) 100 mls @ 25 mls/hr IV Q8H [facility] Last Admin: 02/09/17 06:10 Dose: 25 mls/hr Insulin Aspart (Novolog) 0 unit SUBCUT QIDACANDBED [facility] PRN Reason: Protocol Last Admin: 02/09/17 11:32 Dose: Not Given Levothyroxine Sodium (Levothyroxine) 250 mcg PO DAILY@0700 [facility] Last Admin: 02/09/17 06:07 Dose: 250 mcg Magnesium Hydroxide (Milk Of Magnesia) 30 ml PO DAILY PRN PRN Reason: Constipation Last Admin: 02/09/17 08:14 Dose: 30 ml Metoprolol Tartrate (Lopressor) 50 mg PO BID [facility] Last Admin: 02/09/17 08:12 Dose: 50 mg Miconazole (Micatin 2% Crm) 0 gm TOP BID PRN PRN Reason: INFLAMMATION Multi-Ingred Cream/Lotion/Oil/Oint (Zinc Oxide) 0 gm TOP DAILY [facility] Last Admin: 02/09/17 11:32 Dose: Not Given Multivitamins (Thera) 1 each PO DAILY [facility] Nitroglycerin (Nitrostat) 0.4 mg SL Q5M PRN PRN Reason: Chest Pain Nystatin (Nystop) 0 gm TOP DAILY PRN PRN Reason: RASH Oxycodone/Acetaminophen (Percocet 325-5 Mg) 1 tab PO Q6H PRN PRN Reason: Pain Last Admin: 02/09/17 06:07 Dose: 1 tab Aspirin/Acetaminophen/Caffeine Caplets 0 each PO TID PRN PRN Reason: Pain Saccharomyces Boulardii (Florastor) 250 mg PO BID [facility] Last Admin: 02/09/17 08:11 Dose: 250 mg Sertraline HCl (Zoloft) 150 mg PO DAILY [facility] Last Admin: 02/09/17 08:14 Dose: 150 mg Simvastatin (Zocor) 10 mg PO BEDTIME [facility] Last Admin: 02/08/17 21:08 Dose: 10 mg Sitagliptin Phosphate (Januvia) 50 mg PO DAILY [facility] Sodium Chloride (Saline Flush) 10 ml FLUSH ASDIRECTED PRN PRN Reason: Keep Vein Open Last Admin: 02/07/17 21:31 Dose: 10 ml Spironolactone (Aldactone) 25 mg PO DAILY [facility] Last Admin: 02/09/17 08:11 Dose: 25 mg Temazepam (Restoril) 15 mg PO BEDTIME [facility] Last Admin: 02/08/17 21:08 Dose: 15 mg Discontinued Medications Acetaminophen (Tylenol) 325 mg PO NOW ONE Stop: 02/07/17 21:14 Last Admin: 02/07/17 21:29 Dose: 325 mg Bumetanide (Bumex) 1 mg IVPUSH ONETIME ONE Stop: 02/07/17 21:12 Last Admin: 02/07/17 21:29 Dose: 1 mg Enoxaparin Sodium (Lovenox) 30 mg SUBCUT DAILY [facility] Last Admin: 02/08/17 09:34 Dose: 30 mg Fentanyl (Sublimaze) 50 mcg IVPUSH ONETIME ONE Stop: 02/07/17 23:45 Last Admin: 02/07/17 23:53 Dose: 50 mcg Furosemide (Lasix) 40 mg IVPUSH DAILY ONE Stop: 02/08/17 09:01 Last Admin: 02/08/17 09:35 Dose: 40 mg Furosemide (Lasix) 20 mg IVPUSH NOW ONE Stop: 02/10/17 07:01 Furosemide (Lasix) 20 mg IVPUSH ONETIME ONE Stop: 02/09/17 07:01 Last Admin: 02/09/17 06:07 Dose: 20 mg Hydromorphone HCl (Dilaudid) 1 mg IM ONETIME ONE Stop: 02/08/17 02:50 Last Admin: 02/08/17 03:10 Dose: 1 mg Linezolid 600 mg/ Premix 300 mls @ 300 mls/hr IV ONETIME ONE Stop: 02/07/17 22:11 Last Admin: 02/07/17 21:29 Dose: 300 mls/hr Piperacillin Sod/Tazobactam (Sod 4.5 gm/ Sodium Chloride) 100 mls @ 200 mls/hr IV ONETIME ONE Stop: 02/08/17 06:29 Last Admin: 02/08/17 06:45 Dose: 200 mls/hr Piperacillin Sod/Tazobactam (Sod 4.5 gm/ Sodium Chloride) 100 mls @ 25 mls/hr IV Q8H JACQUI Oxycodone/Acetaminophen (Percocet 325-5 Mg) 1 tab PO ONETIME ONE Stop: 02/07/17 21:13 Last Admin: 02/07/17 21:30 Dose: 1 tab Pneumococcal Polyvalent Vaccine (Pneumovax 23) 0.5 ml IM .ONCE ONE Stop: 02/08/17 02:54 - Exam Quality Assessment: Supplemental Oxygen, DVT Prophylaxis General: Alert, Oriented, Cooperative, No Acute Distress HEENT: Pupils Equal, EOMI, Mucous Membr. Moist/[place] Neck: Supple Lungs: Clear to Auscultation, Normal Respiratory Effort, Decreased Breath Sounds (bases) Cardiovascular: Regular Rate, Regular Rhythm, Other (distant heart tones) GI/Abdominal Exam: Normal Bowel Sounds, Soft, Non-Tender, Other (round/obese) (Female) Exam: Deferred Extremities: Normal Inspection, No Pedal Edema, Other Peripheral Pulses: 1+: Dorsalis Pedis (L), Dorsalis Pedis (R) Neurological: No New Focal Deficit Psy/Mental Status: Alert, Normal Affect, Normal Mood - Problem List & Annotations (1) UTI, Urinary tract infectious disease SNOMED Code(s): 29644159 Code(s): N39.0 - URINARY TRACT INFECTION, SITE NOT SPECIFIED Status: Acute Priority: High Current Visit: Yes (2) Acute exacerbation of congestive heart failure SNOMED Code(s): 65902564 Code(s): I50.9 - HEART FAILURE, UNSPECIFIED Status: Acute Priority: Medium Current Visit: Yes QualifierTitle: Congestive heart failure type: unspecified congestive heart failure type Qualified Code(s): I50.9 - Heart failure, unspecified (3) Diabetes SNOMED Code(s): 95221251 Code(s): E11.9 - TYPE 2 DIABETES MELLITUS WITHOUT COMPLICATIONS Status: Chronic Priority: High Current Visit: Yes QualifierTitle: Diabetes mellitus type: type 2 Diabetes mellitus complication status: with unspecified complications Diabetes mellitus oil heaterman insulin use: with oil heaterman use Qualified Code(s): E11.8 - Type 2 diabetes mellitus with unspecified complications; Z79.4 - MCFP (current) use of insulin (4) Chronic kidney disease SNOMED Code(s): 063564367 Code(s): N18.9 - CHRONIC KIDNEY DISEASE, UNSPECIFIED Status: Chronic Priority: Medium Current Visit: Yes QualifierTitle: Chronic kidney disease stage: stage 3 (moderate) Qualified Code(s): N18.3 - Chronic kidney disease, stage 3 (moderate) - Problem List Review Problem List Initiated/Reviewed/Updated: Yes - My Orders Last 24 Hours: My Active Orders 02/09/17 11:41 FOLIC ACID [CHEM] Routine VITAMIN B12 [CHEM] Routine 02/09/17 11:42 FE, TIBC, TRANSFERRIN, FE SAT [CHEM] Routine 02/09/17 21:00 Bumetanide [Bumex] 1 mg PO BID 02/10/17 05:00 PRO B-TYPE NATRIUR PEPT,BNPPRO [CHEM] Routine 02/10/17 09:00 Furosemide [Lasix] 20 mg PO DAILY Multivitamin 1 tab PO DAILY SitaGLIPtin [Januvia] 50 mg PO DAILY - Plan Plan:: Impression/Plan: AUTI -UC with ecoli; sensitivity pending -ABX with zosyn, despite allergies she has done well with this in the past. She is tolerating well and feels much better already -Florastor Acute exacerbation of CHF -BNP on admit 1035; IV lasix, will transition back to PO doses/home doses -Will check on most recent echo status -Telemetry -Clinically much improved; will lift fluid restriction to cont monitor fluid status/weights/recheck BNP in am, lungs clear, today, VSS. Chronic: LBBB HTN--stable HLD CKD--stable with creat at 1.3 Lymphedema--stable Anxiety Depression Panic Attack Other: PT/OT IS/RT/O2 to keep sats >90% CM/SW Patient is Full Code status. Likely plan to DC back to [facility] within 48 hours. <Geetha Jones - Last Filed: 02/09/17 16:45> - Patient Data Vitals - Most Recent: Last Vital Signs Temp 36.4 C 02/09/17 15:24 Pulse 58 L 02/09/17 14:50 Resp 12 02/09/17 14:50 BP 119/50 L 02/09/17 14:50 Pulse Ox 94 L 02/09/17 14:50 I&O - Last 24 Hours: Intake & Output 02/09/17 02/09/17 02/09/17 06:59 14:59 22:59 Intake Total 500 240 900 Output Total 350 600 Balance 150 240 300 Lab Results Last 24 Hours: Laboratory Results - last 24 hr 02/08/17 02/09/17 02/09/17 Range/Units 21:37 05:55 05:55 WBC 3.65 L (3.98-10.04) K/mm3 RBC 4.12 (3.98-5.22) M/mm3 Hgb 13.6 (11.2-15.7) gm/L Hct 42.3 (34.1-44.9) % MCV 102.7 H (79.4-94.8) fl MCH 33.0 H (25.6-32.2) pg MCHC 32.2 (32.2-35.5) g/dl RDW Std Deviation 47.1 H (36.4-46.3) fL Plt Count 92 L (182-369) K/mm3 MPV 12.7 H (9.4-12.3) fl Neut % (Auto) 68.4 (34.0-71.1) % Lymph % (Auto) 11.8 L (19.3-51.7) % Wilson % (Auto) 11.0 (4.7-12.5) % Eos % (Auto) 8.2 H (0.7-5.8) Baso % (Auto) 0.3 (0.1-1.2) % Neut # (Auto) 2.50 (1.56-6.13) K/mm3 Lymph # (Auto) 0.43 L (1.18-3.74) K/mm3 Wilson # (Auto) 0.40 H (0.24-0.36) K/mm3 Eos # (Auto) 0.30 (0.04-0.36) K/mm3 Baso # (Auto) 0.01 (0.01-0.08) K/mm3 Manual Slide Review Abnormal smear Sodium 138 (136-145) mEq/L Potassium 4.4 (3.5-5.1) mEq/L Chloride 99 (98-107) mEq/L Carbon Dioxide 34 H (21-32) mEq/L Anion Gap 9.4 (5-15) BUN 25 H (7-18) mg/dL Creatinine 1.3 H (0.55-1.02) mg/dL Est Cr Clr Drug Dosing 40.84 mL/min Estimated GFR (MDRD) 41 (>60) mL/min BUN/Creatinine Ratio 19.2 H (14-18) Glucose 133 H (80-115) mg/dL POC Glucose 135 H (80-115) mg/dL Calcium 9.0 (8.5-10.1) mg/dL Magnesium 2.2 (1.8-2.4) mg/dl Iron (50-170) ug/dL TIBC (100-400) ug/dL % Saturation (20-55) % Transferrin (202-364) mg/dL C-Reactive Protein 2.0 H* (<1.0) mg/dL Vitamin B12 (193-986) pg/ml Folate (8.6-58.9) ng/mL 02/09/17 02/09/17 02/09/17 Range/Units 05:56 11:03 12:20 WBC (3.98-10.04) K/mm3 RBC (3.98-5.22) M/mm3 Hgb (11.2-15.7) gm/L Hct (34.1-44.9) % MCV (79.4-94.8) fl MCH (25.6-32.2) pg MCHC (32.2-35.5) g/dl RDW Std Deviation (36.4-46.3) fL Plt Count (182-369) K/mm3 MPV (9.4-12.3) fl Neut % (Auto) (34.0-71.1) % Lymph % (Auto) (19.3-51.7) % Wilson % (Auto) (4.7-12.5) % Eos % (Auto) (0.7-5.8) Baso % (Auto) (0.1-1.2) % Neut # (Auto) (1.56-6.13) K/mm3 Lymph # (Auto) (1.18-3.74) K/mm3 Wilson # (Auto) (0.24-0.36) K/mm3 Eos # (Auto) (0.04-0.36) K/mm3 Baso # (Auto) (0.01-0.08) K/mm3 Manual Slide Review Sodium (136-145) mEq/L Potassium (3.5-5.1) mEq/L Chloride (98-107) mEq/L Carbon Dioxide (21-32) mEq/L Anion Gap (5-15) BUN (7-18) mg/dL Creatinine (0.55-1.02) mg/dL Est Cr Clr Drug Dosing mL/min Estimated GFR (MDRD) (>60) mL/min BUN/Creatinine Ratio (14-18) Glucose (80-115) mg/dL POC Glucose 142 H 114 (80-115) mg/dL Calcium (8.5-10.1) mg/dL Magnesium (1.8-2.4) mg/dl Iron (50-170) ug/dL TIBC (100-400) ug/dL % Saturation (20-55) % Transferrin (202-364) mg/dL C-Reactive Protein (<1.0) mg/dL Vitamin B12 434 (193-986) pg/ml Folate 44.0 (8.6-58.9) ng/mL 02/09/17 Range/Units 12:20 WBC (3.98-10.04) K/mm3 RBC (3.98-5.22) M/mm3 Hgb (11.2-15.7) gm/L Hct (34.1-44.9) % MCV (79.4-94.8) fl MCH (25.6-32.2) pg MCHC (32.2-35.5) g/dl RDW Std Deviation (36.4-46.3) fL Plt Count (182-369) K/mm3 MPV (9.4-12.3) fl Neut % (Auto) (34.0-71.1) % Lymph % (Auto) (19.3-51.7) % Wilson % (Auto) (4.7-12.5) % Eos % (Auto) (0.7-5.8) Baso % (Auto) (0.1-1.2) % Neut # (Auto) (1.56-6.13) K/mm3 Lymph # (Auto) (1.18-3.74) K/mm3 Wilson # (Auto) (0.24-0.36) K/mm3 Eos # (Auto) (0.04-0.36) K/mm3 Baso # (Auto) (0.01-0.08) K/mm3 Manual Slide Review Sodium (136-145) mEq/L Potassium (3.5-5.1) mEq/L Chloride (98-107) mEq/L Carbon Dioxide (21-32) mEq/L Anion Gap (5-15) BUN (7-18) mg/dL Creatinine (0.55-1.02) mg/dL Est Cr Clr Drug Dosing mL/min Estimated GFR (MDRD) (>60) mL/min BUN/Creatinine Ratio (14-18) Glucose (80-115) mg/dL POC Glucose (80-115) mg/dL Calcium (8.5-10.1) mg/dL Magnesium (1.8-2.4) mg/dl Iron 77 (50-170) ug/dL TIBC 270 (100-400) ug/dL % Saturation 29 (20-55) % Transferrin 216 (202-364) mg/dL C-Reactive Protein (<1.0) mg/dL Vitamin B12 (193-986) pg/ml Folate (8.6-58.9) ng/mL Med Orders - Current: Current Medications Albuterol (Proventil Neb Soln) 2.5 mg INH Q4H PRN PRN Reason: Shortness of Breath Albuterol/Ipratropium (Duoneb 3.0-0.5 Mg/3 Ml) 3 ml NEB QIDRT PRN PRN Reason: wheezing, SOB Amlodipine Besylate (Norvasc) 10 mg PO DAILY JACQUI Aspirin (Halfprin) 81 mg PO DAILY JACQUI Last Admin: 02/09/17 08:11 Dose: 81 mg Bumetanide (Bumex) 1 mg PO BIDDIURETIC [facility] Last Admin: 02/09/17 14:46 Dose: 1 mg Chlorhexidine Gluconate (Peridex 0.12% Rinse) 15 ml PO BID [facility] Last Admin: 02/09/17 08:13 Dose: 15 ml Docusate Sodium (Colace) 200 mg PO BID [facility] Last Admin: 02/09/17 08:11 Dose: 200 mg Enoxaparin Sodium (Lovenox) 40 mg SUBCUT DAILY [facility] Last Admin: 02/09/17 08:12 Dose: 40 mg Flunisolide (Nasalide Nasal [place]) 0 ml VÍCTOR Q12H PRN PRN Reason: NASAL CONGESTION Furosemide (Lasix) 20 mg PO DAILY [facility] Piperacillin Sod/Tazobactam (Sod 4.5 gm/ Sodium Chloride) 100 mls @ 25 mls/hr IV Q8H [facility] Last Admin: 02/09/17 14:47 Dose: 25 mls/hr Insulin Aspart (Novolog) 0 unit SUBCUT QIDACANDBED [facility] PRN Reason: Protocol Last Admin: 02/09/17 11:32 Dose: Not Given Levothyroxine Sodium (Levothyroxine) 250 mcg PO DAILY@0700 [facility] Last Admin: 02/09/17 06:07 Dose: 250 mcg Magnesium Hydroxide (Milk Of Magnesia) 30 ml PO DAILY PRN PRN Reason: Constipation Last Admin: 02/09/17 08:14 Dose: 30 ml Metoprolol Tartrate (Lopressor) 50 mg PO BID [facility] Last Admin: 02/09/17 08:12 Dose: 50 mg Miconazole (Micatin 2% Crm) 0 gm TOP BID PRN PRN Reason: INFLAMMATION Multi-Ingred Cream/Lotion/Oil/Oint (Zinc Oxide) 0 gm TOP DAILY [facility] Last Admin: 02/09/17 11:32 Dose: Not Given Multivitamins (Thera) 1 each PO DAILY [facility] Nitroglycerin (Nitrostat) 0.4 mg SL Q5M PRN PRN Reason: Chest Pain Nystatin (Nystop) 0 gm TOP DAILY PRN PRN Reason: RASH Oxycodone/Acetaminophen (Percocet 325-5 Mg) 1 tab PO Q6H PRN PRN Reason: Pain Last Admin: 02/09/17 14:47 Dose: 1 tab Aspirin/Acetaminophen/Caffeine Caplets 0 each PO TID PRN PRN Reason: Pain Saccharomyces Boulardii (Florastor) 250 mg PO BID [facility] Last Admin: 02/09/17 08:11 Dose: 250 mg Saxagliptin Hydrochloride (Onglyza) 5 mg PO DAILY [facility] Sertraline HCl (Zoloft) 150 mg PO DAILY [facility] Last Admin: 02/09/17 08:14 Dose: 150 mg Simvastatin (Zocor) 10 mg PO BEDTIME [facility] Last Admin: 02/08/17 21:08 Dose: 10 mg Sodium Chloride (Saline Flush) 10 ml FLUSH ASDIRECTED PRN PRN Reason: Keep Vein Open Last Admin: 02/07/17 21:31 Dose: 10 ml Spironolactone (Aldactone) 25 mg PO DAILY [facility] Last Admin: 02/09/17 08:11 Dose: 25 mg Temazepam (Restoril) 15 mg PO BEDTIME [facility] Last Admin: 02/08/17 21:08 Dose: 15 mg Discontinued Medications Acetaminophen (Tylenol) 325 mg PO NOW ONE Stop: 02/07/17 21:14 Last Admin: 02/07/17 21:29 Dose: 325 mg Amlodipine Besylate (Norvasc) 10 mg PO DAILY [facility] Last Admin: 02/09/17 08:13 Dose: 10 mg Bumetanide (Bumex) 1 mg IVPUSH ONETIME ONE Stop: 02/07/17 21:12 Last Admin: 02/07/17 21:29 Dose: 1 mg Enoxaparin Sodium (Lovenox) 30 mg SUBCUT DAILY [facility] Last Admin: 02/08/17 09:34 Dose: 30 mg Fentanyl (Sublimaze) 50 mcg IVPUSH ONETIME ONE Stop: 02/07/17 23:45 Last Admin: 02/07/17 23:53 Dose: 50 mcg Furosemide (Lasix) 40 mg IVPUSH DAILY ONE Stop: 02/08/17 09:01 Last Admin: 02/08/17 09:35 Dose: 40 mg Furosemide (Lasix) 20 mg IVPUSH NOW ONE Stop: 02/10/17 07:01 Furosemide (Lasix) 20 mg IVPUSH ONETIME ONE Stop: 02/09/17 07:01 Last Admin: 02/09/17 06:07 Dose: 20 mg Hydromorphone HCl (Dilaudid) 1 mg IM ONETIME ONE Stop: 02/08/17 02:50 Last Admin: 02/08/17 03:10 Dose: 1 mg Linezolid 600 mg/ Premix 300 mls @ 300 mls/hr IV ONETIME ONE Stop: 02/07/17 22:11 Last Admin: 02/07/17 21:29 Dose: 300 mls/hr Piperacillin Sod/Tazobactam (Sod 4.5 gm/ Sodium Chloride) 100 mls @ 200 mls/hr IV ONETIME ONE Stop: 02/08/17 06:29 Last Admin: 02/08/17 06:45 Dose: 200 mls/hr Piperacillin Sod/Tazobactam (Sod 4.5 gm/ Sodium Chloride) 100 mls @ 25 mls/hr IV Q8H JACQUI Oxycodone/Acetaminophen (Percocet 325-5 Mg) 1 tab PO ONETIME ONE Stop: 02/07/17 21:13 Last Admin: 02/07/17 21:30 Dose: 1 tab Pneumococcal Polyvalent Vaccine (Pneumovax 23) 0.5 ml IM .ONCE ONE Stop: 02/08/17 02:54 - Problem List & Annotations (1) Lymphedema SNOMED Code(s): 538991878 Code(s): I89.0 - LYMPHEDEMA, NOT ELSEWHERE CLASSIFIED Status: Chronic Current Visit: Yes (2) Acute exacerbation of congestive heart failure SNOMED Code(s): 91380971 Code(s): I50.9 - HEART FAILURE, UNSPECIFIED Status: Acute Priority: Medium Current Visit: Yes Qualifiers: Congestive heart failure type: unspecified congestive heart failure type Qualified Code(s): I50.9 - Heart failure, unspecified (3) COPD (chronic obstructive pulmonary disease) SNOMED Code(s): 63143494 Code(s): J44.9 - CHRONIC OBSTRUCTIVE PULMONARY DISEASE, UNSPECIFIED Status : Chronic Priority: Medium Current Visit: Yes Qualifiers: COPD type: unspecified COPD Qualified Code(s): J44.9 - Chronic obstructive pulmonary disease, unspecified (4) Bundle branch block SNOMED Code(s): 2543383 Code(s): I45.4 - NONSPECIFIC INTRAVENTRICULAR BLOCK Status: Chronic Current Visit: No (5) UTI (lower urinary tract infection) SNOMED Code(s): 9648856 Code(s): N39.0 - URINARY TRACT INFECTION, SITE NOT SPECIFIED Status: Acute Current Visit: No (6) Diabetes SNOMED Code(s): 87195674 Code(s): E11.9 - TYPE 2 DIABETES MELLITUS WITHOUT COMPLICATIONS Status: Chronic Priority: High Current Visit: Yes Qualifiers: Diabetes mellitus type: type 2 Diabetes mellitus complication status: with unspecified complications Diabetes mellitus oil heaterman insulin use: with halfway use Qualified Code(s): E11.8 - Type 2 diabetes mellitus with unspecified complications; 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 (7) Hyperlipidemia SNOMED Code(s): 36684244 Code(s): E78.5 - HYPERLIPIDEMIA, UNSPECIFIED Status: Chronic Current Visit: Yes (8) Hypertension SNOMED Code(s): 47044154 Code(s): I10 - ESSENTIAL (PRIMARY) HYPERTENSION Status: Chronic Current Visit: Yes (9) Chronic kidney disease SNOMED Code(s): 262829635 Code(s): N18.9 - CHRONIC KIDNEY DISEASE, UNSPECIFIED Status: Chronic Priority: Medium Current Visit: Yes Qualifiers: Chronic kidney disease stage: stage 3 (moderate) Qualified Code(s): N18.3 - Chronic kidney disease, stage 3 (moderate) (10) Anxiety SNOMED Code(s): 75217565 Code(s): F41.9 - ANXIETY DISORDER, UNSPECIFIED Status: Chronic Current Visit: Yes (11) Depression SNOMED Code(s): 74837687 Code(s): F32.9 - MAJOR DEPRESSIVE DISORDER, SINGLE EPISODE, UNSPECIFIED Status: Chronic Current Visit: Yes (12) Panic attacks SNOMED Code(s): 502237668 Code(s): F41.0 - PANIC DISORDER WITHOUT AGORAPHOBIA Status: Chronic Current Visit: Yes - My Orders Last 24 Hours: My Active Orders 02/08/17 19:46 Blood Glucose Check, Bedside [RC] QIDACANDBED 02/08/17 20:00 Insulin Aspart [NovoLOG] See Protocol SUBCUT QIDACANDBED 02/08/17 21:00 Chlorhexidine Gluconate [Peridex 0.12% Rinse] 15 ml PO BID Docusate Sodium [Colace] 200 mg PO BID Metoprolol Tartrate [Lopressor] 50 mg PO BID Saccharomyces Boulardii [Florastor] 250 mg PO BID Simvastatin [Zocor] 10 mg PO BEDTIME Temazepam [Restoril] 15 mg PO BEDTIME 02/09/17 07:00 Levothyroxine 250 mcg PO DAILY@0700 02/09/17 07:34 Up With Assistance [RC] ASDIRECTED 02/09/17 08:00 Consult to Occupational Therapy [OT Evaluation and Treatment] [CONS] Routine Consult to Physical Therapy [PT Evaluation and Treatment] [CONS] Routine 02/09/17 09:00 Consult to Case Management [CONS] Routine Aspirin [Halfprin] 81 mg PO DAILY Enoxaparin [Lovenox] 40 mg SUBCUT DAILY Sertraline [Zoloft] 150 mg PO DAILY Zinc Oxide 0 gm TOP DAILY 02/10/17 05:00 BMP [BASIC METABOLIC PANEL,BMP] [CHEM] DAILY CBC WITH AUTO DIFF [HEME] DAILY CRP [C-REACTIVE PROTEIN] [CHEM] DAILY MG [MAGNESIUM] [CHEM] DAILY 02/10/17 09:00 amLODIPine [Norvasc] 10 mg PO DAILY 02/11/17 05:00 BMP [BASIC METABOLIC PANEL,BMP] [CHEM] DAILY CBC WITH AUTO DIFF [HEME] DAILY CRP [C-REACTIVE PROTEIN] [CHEM] DAILY MG [MAGNESIUM] [CHEM] DAILY 02/12/17 05:00 BMP [BASIC METABOLIC PANEL,BMP] [CHEM] DAILY CBC WITH AUTO DIFF [HEME] DAILY CRP [C-REACTIVE PROTEIN] [CHEM] DAILY MG [MAGNESIUM] [CHEM] DAILY - Plan Plan:: Expected LOS within 96 hours; however, patient is not motivated eg, personal hygiene with the nursing staff, has asked them to wipe her on more than one occasion.
[2017-02-09] MEDS: Bumetanide 1 MG Tab PO SCH (14:46)
[2017-02-09] MEDS: Temazepam 15 MG Cap PO SCH (21:38)
[2017-02-09] MEDS: Simvastatin 10 MG Tab PO SCH (21:39)
[2017-02-10] MEDS: Acetaminophen/oxyCODONE 325-5 MG Tab PO PRN ×3 (04:24→21:37)
[2017-02-10] MEDS: Piperacillin/Tazobactam 4.5 GM in Sodium Chloride 0.9% 100 ML IV SCH ×3 (06:09→21:38)
[2017-02-10] MEDS: Bumetanide 1 MG Tab PO SCH ×2 (06:09→14:19)
[2017-02-10] MEDS: Levothyroxine 125 MCG Tab PO SCH (06:09)
[2017-02-10] MEDS: Insulin Aspart 100 Units/ML 3 ML Pen SUBCUT SCH ×4 (06:10→21:47)
[2017-02-10] MEDS ORDERED: Furosemide 20 MG/2 ML VIAL IVPUSH ONE ×2 (06:49→07:00)
--- NOTE | 2017-02-10 06:58 | PCM.PN ---
- General Info Date of Service: 02/10/17 Admission Dx/Problem (Free Text): Patient is seen this afternoon. She is breathing easier, no SOB, cough, wheezing. No chest pain. No abd or back pain, no dysuria or frequency. Incontinence has resolved. She is having loose stools today after MOM given yesterday for constipation. UC returned with pseudomonas, pansensitive. Functional Status: Reports: Pain Controlled, Tolerating Diet, Ambulating, Urinating, Incentive Spirometry - Review of Systems General: Denies: Fever HEENT: Reports: No Symptoms Pulmonary: Reports: No Symptoms. Denies: Shortness of Breath, Pleuritic Chest Pain, Cough Cardiovascular: Reports: No Symptoms Gastrointestinal: Reports: Diarrhea. Denies: Abdominal Pain, Nausea, Vomiting Genitourinary: Denies: Dysuria, Frequency, Incontinence - Patient Data Vitals - Most Recent: Last Vital Signs Temp 97.7 F 02/10/17 04:05 Pulse 58 L 02/10/17 04:05 Resp 17 02/10/17 04:05 BP 124/65 02/10/17 04:05 Pulse Ox 96 02/10/17 04:05 Weight - Most Recent: 312 lb 3.2 oz I&O - Last 24 Hours: Intake & Output 02/09/17 02/09/17 02/10/17 14:59 22:59 06:59 Intake Total 240 1020 1000 Output Total 600 300 Balance 240 420 700 Lab Results Last 24 Hours: Laboratory Results - last 24 hr 02/09/17 02/09/17 02/09/17 Range/Units 05:55 05:55 11:03 WBC 3.65 L (3.98-10.04) K/mm3 RBC 4.12 (3.98-5.22) M/mm3 Hgb 13.6 (11.2-15.7) gm/L Hct 42.3 (34.1-44.9) % MCV 102.7 H (79.4-94.8) fl MCH 33.0 H (25.6-32.2) pg MCHC 32.2 (32.2-35.5) g/dl RDW Std Deviation 47.1 H (36.4-46.3) fL Plt Count 92 L (182-369) K/mm3 MPV 12.7 H (9.4-12.3) fl Neut % (Auto) 68.4 (34.0-71.1) % Lymph % (Auto) 11.8 L (19.3-51.7) % [place] % (Auto) 11.0 (4.7-12.5) % Eos % (Auto) 8.2 H (0.7-5.8) Baso % (Auto) 0.3 (0.1-1.2) % Neut # (Auto) 2.50 (1.56-6.13) K/mm3 Lymph # (Auto) 0.43 L (1.18-3.74) K/mm3 [place] # (Auto) 0.40 H (0.24-0.36) K/mm3 Eos # (Auto) 0.30 (0.04-0.36) K/mm3 Baso # (Auto) 0.01 (0.01-0.08) K/mm3 Manual Slide Review Abnormal smear Sodium 138 (136-145) mEq/L Potassium 4.4 (3.5-5.1) mEq/L Chloride 99 (98-107) mEq/L Carbon Dioxide 34 H (21-32) mEq/L Anion Gap 9.4 (5-15) BUN 25 H (7-18) mg/dL Creatinine 1.3 H (0.55-1.02) mg/dL Est Cr Clr Drug Dosing 40.84 mL/min Estimated GFR (MDRD) 41 (>60) mL/min BUN/Creatinine Ratio 19.2 H (14-18) Glucose 133 H (80-115) mg/dL POC Glucose 114 (80-115) mg/dL Calcium 9.0 (8.5-10.1) mg/dL Magnesium 2.2 (1.8-2.4) mg/dl Iron (50-170) ug/dL TIBC (100-400) ug/dL % Saturation (20-55) % Transferrin (202-364) mg/dL C-Reactive Protein 2.0 H* (<1.0) mg/dL Vitamin B12 (193-986) pg/ml Folate (8.6-58.9) ng/mL 02/09/17 02/09/17 02/09/17 Range/Units 12:20 12:20 17:01 WBC (3.98-10.04) K/mm3 RBC (3.98-5.22) M/mm3 Hgb (11.2-15.7) gm/L Hct (34.1-44.9) % MCV (79.4-94.8) fl MCH (25.6-32.2) pg MCHC (32.2-35.5) g/dl RDW Std Deviation (36.4-46.3) fL Plt Count (182-369) K/mm3 MPV (9.4-12.3) fl Neut % (Auto) (34.0-71.1) % Lymph % (Auto) (19.3-51.7) % [place] % (Auto) (4.7-12.5) % Eos % (Auto) (0.7-5.8) Baso % (Auto) (0.1-1.2) % Neut # (Auto) (1.56-6.13) K/mm3 Lymph # (Auto) (1.18-3.74) K/mm3 [place] # (Auto) (0.24-0.36) K/mm3 Eos # (Auto) (0.04-0.36) K/mm3 Baso # (Auto) (0.01-0.08) K/mm3 Manual Slide Review Sodium (136-145) mEq/L Potassium (3.5-5.1) mEq/L Chloride (98-107) mEq/L Carbon Dioxide (21-32) mEq/L Anion Gap (5-15) BUN (7-18) mg/dL Creatinine (0.55-1.02) mg/dL Est Cr Clr Drug Dosing mL/min Estimated GFR (MDRD) (>60) mL/min BUN/Creatinine Ratio (14-18) Glucose (80-115) mg/dL POC Glucose 103 (80-115) mg/dL Calcium (8.5-10.1) mg/dL Magnesium (1.8-2.4) mg/dl Iron 77 (50-170) ug/dL TIBC 270 (100-400) ug/dL % Saturation 29 (20-55) % Transferrin 216 (202-364) mg/dL C-Reactive Protein (<1.0) mg/dL Vitamin B12 434 (193-986) pg/ml Folate 44.0 (8.6-58.9) ng/mL 02/09/17 02/10/17 Range/Units 21:31 06:08 WBC (3.98-10.04) K/mm3 RBC (3.98-5.22) M/mm3 Hgb (11.2-15.7) gm/L Hct (34.1-44.9) % MCV (79.4-94.8) fl MCH (25.6-32.2) pg MCHC (32.2-35.5) g/dl RDW Std Deviation (36.4-46.3) fL Plt Count (182-369) K/mm3 MPV (9.4-12.3) fl Neut % (Auto) (34.0-71.1) % Lymph % (Auto) (19.3-51.7) % [place] % (Auto) (4.7-12.5) % Eos % (Auto) (0.7-5.8) Baso % (Auto) (0.1-1.2) % Neut # (Auto) (1.56-6.13) K/mm3 Lymph # (Auto) (1.18-3.74) K/mm3 [place] # (Auto) (0.24-0.36) K/mm3 Eos # (Auto) (0.04-0.36) K/mm3 Baso # (Auto) (0.01-0.08) K/mm3 Manual Slide Review Sodium (136-145) mEq/L Potassium (3.5-5.1) mEq/L Chloride (98-107) mEq/L Carbon Dioxide (21-32) mEq/L Anion Gap (5-15) BUN (7-18) mg/dL Creatinine (0.55-1.02) mg/dL Est Cr Clr Drug Dosing mL/min Estimated GFR (MDRD) (>60) mL/min BUN/Creatinine Ratio (14-18) Glucose (80-115) mg/dL POC Glucose 123 H 126 H (80-115) mg/dL Calcium (8.5-10.1) mg/dL Magnesium (1.8-2.4) mg/dl Iron (50-170) ug/dL TIBC (100-400) ug/dL % Saturation (20-55) % Transferrin (202-364) mg/dL C-Reactive Protein (<1.0) mg/dL Vitamin B12 (193-986) pg/ml Folate (8.6-58.9) ng/mL Med Orders - Current: Current Medications Albuterol (Proventil Neb Soln) 2.5 mg INH Q4H PRN PRN Reason: Shortness of Breath Albuterol/Ipratropium (Duoneb 3.0-0.5 Mg/3 Ml) 3 ml NEB QIDRT PRN PRN Reason: wheezing, SOB Amlodipine Besylate (Norvasc) 10 mg PO DAILY [facility] Aspirin (Halfprin) 81 mg PO DAILY [facility] Last Admin: 02/09/17 08:11 Dose: 81 mg Bumetanide (Bumex) 1 mg PO BIDDIURETIC [facility] Last Admin: 02/10/17 06:09 Dose: 1 mg Chlorhexidine Gluconate (Peridex 0.12% Rinse) 15 ml PO BID [facility] Last Admin: 02/09/17 21:38 Dose: 15 ml Docusate Sodium (Colace) 200 mg PO BID [facility] Last Admin: 02/09/17 21:36 Dose: Not Given Enoxaparin Sodium (Lovenox) 40 mg SUBCUT DAILY [facility] Last Admin: 02/09/17 08:12 Dose: 40 mg Flunisolide (Nasalide Nasal [place]) 0 ml VÍCTOR Q12H PRN PRN Reason: NASAL CONGESTION Furosemide (Lasix) 20 mg PO DAILY [facility] Furosemide (Lasix) 20 mg IVPUSH NOW ONE Stop: 02/10/17 06:50 Piperacillin Sod/Tazobactam (Sod 4.5 gm/ Sodium Chloride) 100 mls @ 25 mls/hr IV Q8H [facility] Last Admin: 02/10/17 06:09 Dose: 25 mls/hr Insulin Aspart (Novolog) 0 unit SUBCUT QIDACANDBED [facility] PRN Reason: Protocol Last Admin: 02/10/17 06:10 Dose: Not Given Levothyroxine Sodium (Levothyroxine) 250 mcg PO DAILY@0700 [facility] Last Admin: 02/10/17 06:09 Dose: 250 mcg Magnesium Hydroxide (Milk Of Magnesia) 30 ml PO DAILY PRN PRN Reason: Constipation Last Admin: 02/09/17 08:14 Dose: 30 ml Metoprolol Tartrate (Lopressor) 50 mg PO BID [facility] Last Admin: 02/09/17 21:38 Dose: 50 mg Miconazole (Micatin 2% Crm) 0 gm TOP BID PRN PRN Reason: INFLAMMATION Multi-Ingred Cream/Lotion/Oil/Oint (Zinc Oxide) 0 gm TOP DAILY [facility] Last Admin: 02/09/17 11:32 Dose: Not Given Multivitamins (Thera) 1 each PO DAILY [facility] Nitroglycerin (Nitrostat) 0.4 mg SL Q5M PRN PRN Reason: Chest Pain Nystatin (Nystop) 0 gm TOP DAILY PRN PRN Reason: RASH Oxycodone/Acetaminophen (Percocet 325-5 Mg) 1 tab PO Q6H PRN PRN Reason: Pain Last Admin: 02/10/17 04:24 Dose: 1 tab Aspirin/Acetaminophen/Caffeine Caplets 0 each PO TID PRN PRN Reason: Pain Saccharomyces Boulardii (Florastor) 250 mg PO BID [facility] Last Admin: 02/09/17 21:38 Dose: 250 mg Saxagliptin Hydrochloride (Onglyza) 5 mg PO DAILY [facility] Sertraline HCl (Zoloft) 150 mg PO DAILY [facility] Last Admin: 02/09/17 08:14 Dose: 150 mg Simvastatin (Zocor) 10 mg PO BEDTIME [facility] Last Admin: 02/09/17 21:39 Dose: 10 mg Sodium Chloride (Saline Flush) 10 ml FLUSH ASDIRECTED PRN PRN Reason: Keep Vein Open Last Admin: 02/07/17 21:31 Dose: 10 ml Spironolactone (Aldactone) 25 mg PO DAILY [facility] Last Admin: 02/09/17 08:11 Dose: 25 mg Temazepam (Restoril) 15 mg PO BEDTIME [facility] Last Admin: 02/09/17 21:38 Dose: 15 mg Discontinued Medications Acetaminophen (Tylenol) 325 mg PO NOW ONE Stop: 02/07/17 21:14 Last Admin: 02/07/17 21:29 Dose: 325 mg Amlodipine Besylate (Norvasc) 10 mg PO DAILY [facility] Last Admin: 02/09/17 08:13 Dose: 10 mg Bumetanide (Bumex) 1 mg IVPUSH ONETIME ONE Stop: 02/07/17 21:12 Last Admin: 02/07/17 21:29 Dose: 1 mg Enoxaparin Sodium (Lovenox) 30 mg SUBCUT DAILY [facility] Last Admin: 02/08/17 09:34 Dose: 30 mg Fentanyl (Sublimaze) 50 mcg IVPUSH ONETIME ONE Stop: 02/07/17 23:45 Last Admin: 02/07/17 23:53 Dose: 50 mcg Furosemide (Lasix) 40 mg IVPUSH DAILY ONE Stop: 02/08/17 09:01 Last Admin: 02/08/17 09:35 Dose: 40 mg Furosemide (Lasix) 20 mg IVPUSH NOW ONE Stop: 02/10/17 07:01 Furosemide (Lasix) 20 mg IVPUSH ONETIME ONE Stop: 02/09/17 07:01 Last Admin: 02/09/17 06:07 Dose: 20 mg Hydromorphone HCl (Dilaudid) 1 mg IM ONETIME ONE Stop: 02/08/17 02:50 Last Admin: 02/08/17 03:10 Dose: 1 mg Linezolid 600 mg/ Premix 300 mls @ 300 mls/hr IV ONETIME ONE Stop: 02/07/17 22:11 Last Admin: 02/07/17 21:29 Dose: 300 mls/hr Piperacillin Sod/Tazobactam (Sod 4.5 gm/ Sodium Chloride) 100 mls @ 200 mls/hr IV ONETIME ONE Stop: 02/08/17 06:29 Last Admin: 02/08/17 06:45 Dose: 200 mls/hr Piperacillin Sod/Tazobactam (Sod 4.5 gm/ Sodium Chloride) 100 mls @ 25 mls/hr IV Q8H [facility]ACQUI Oxycodone/Acetaminophen (Percocet 325-5 Mg) 1 tab PO ONETIME ONE Stop: 02/07/17 21:13 Last Admin: 02/07/17 21:30 Dose: 1 tab Pneumococcal Polyvalent Vaccine (Pneumovax 23) 0.5 ml IM .ONCE ONE Stop: 02/08/17 02:54 - Exam Quality Assessment: DVT Prophylaxis General: Alert, Oriented, No Acute Distress HEENT: Pupils Equal, EOMI, Mucous Membr. Moist/[place] Neck: Supple Lungs: Clear to Auscultation, Normal Respiratory Effort, Decreased Breath Sounds (bases) Cardiovascular: Regular Rate, Regular Rhythm GI/Abdominal Exam: Normal Bowel Sounds, Soft, Non-Tender (Female) Exam: Deferred Extremities: Normal Inspection, Other (flavio wraps bilat to LE for edema; she states "feel much better with the wraps on") Neurological: No New Focal Deficit Psy/Mental Status: Alert - Problem List & Annotations (1) UTI, Urinary tract infectious disease SNOMED Code(s): 59706807 Code(s): N39.0 - URINARY TRACT INFECTION, SITE NOT SPECIFIED Status: Acute Priority: High Current Visit: Yes (2) Acute exacerbation of congestive heart failure SNOMED Code(s): 34536510 Code(s): I50.9 - HEART FAILURE, UNSPECIFIED Status: Acute Priority: Medium Current Visit: Yes Qualifiers: Congestive heart failure type: unspecified congestive heart failure type Qualified Code(s): I50.9 - Heart failure, unspecified (3) Diabetes SNOMED Code(s): 01566172 Code(s): E11.9 - TYPE 2 DIABETES MELLITUS WITHOUT COMPLICATIONS Status: Chronic Priority: Medium Current Visit: Yes Qualifiers: Diabetes mellitus type: type 2 Diabetes mellitus complication status: with unspecified complications Diabetes mellitus termite exterminator helper insulin use: with termite exterminator helper use Qualified Code(s): E11.8 - Type 2 diabetes mellitus with unspecified complications; Z79.4 - [facility] (current) use of insulin (4) Chronic kidney disease SNOMED Code(s): 279356402 Code(s): N18.9 - CHRONIC KIDNEY DISEASE, UNSPECIFIED Status: Chronic Priority: Medium Current Visit: Yes Qualifiers: Chronic kidney disease stage: stage 3 (moderate) Qualified Code(s): N18.3 - Chronic kidney disease, stage 3 (moderate) - Problem List Review Problem List Initiated/Reviewed/Updated: Yes - My Orders Last 24 Hours: My Active Orders 02/09/17 12:25 Antiembolic Devices [RC] .Routine 02/09/17 14:00 Bumetanide [Bumex] 1 mg PO BIDDIURETIC 02/09/17 Dinner Heart Healthy Diet [DIET] 02/10/17 06:10 PRO B-TYPE NATRIUR PEPT,BNPPRO [CHEM] Routine 02/10/17 06:49 Furosemide [Lasix] 20 mg IVPUSH NOW ONE 02/10/17 06:51 PRO B-TYPE NATRIUR PEPT,BNPPRO [CHEM] Routine 02/10/17 09:00 Furosemide [Lasix] 20 mg PO DAILY Multivitamins,Therapeutic [Thera] 1 each PO DAILY Saxagliptin [Onglyza] 5 mg PO DAILY - Plan Plan:: Impression/Plan: AUTI -UC with pseudomonas, pansensitive -Continue Zosyn, plan for Augmentin PO upon discharge x 1 wk -Florastor Acute exacerbation of CHF--[id number] -BNP on admit 1035; today 469; will transition back to PO doses/home doses -Will check on most recent echo status -Telemetry- without abnormalities -Clinically much improved; will lift fluid restriction to cont monitor fluid status/weights/recheck BNP in am, lungs clear, today, VSS. Chronic: LBBB HTN--stable HLD CKD--stable with creat at 1.3-->1.2 today Lymphedema--stable Anxiety Depression Panic Attack Other: PT/OT IS/RT/O2 to keep sats >90% CM/SW Patient is Full Code status. Likely plan to DC back to [facility] likely tomorrow. Patient is demanding and controlling of her care during her hospital stay. She is refusing PT this afternoon, wishes to be "left alone so I can sleep", does not want to be up and ambulatory, requests nursing to wipe her and provide pericares. SW discussed discharge plan and issues/concerns with her care with her today as did primary nurse and this provider at length, Feeder Switchboard Operator was also present for discussion.
[2017-02-10] MEDS: Spironolactone 25 MG Tab PO SCH (09:27)
[2017-02-10] MEDS: Saccharomyces Boulardii (Probiotic) 250 MG Cap PO SCH ×2 (09:28→21:36)
[2017-02-10] MEDS: Docusate Sodium 100 MG Cap PO SCH ×2 (09:28→21:38)
[2017-02-10] MEDS: Aspirin 81 MG Tab.EC PO SCH (09:28)
[2017-02-10] MEDS: Furosemide 20 MG Tab PO SCH (09:28)
[2017-02-10] MEDS: Enoxaparin 40 MG/0.4 ML Syringe SUBCUT SCH (09:29)
[2017-02-10] MEDS: Chlorhexidine Gluconate 0.12% Oral Rinse 15 ML Cup PO SCH ×2 (09:30→21:37)
[2017-02-10] MEDS: Saxagliptin 5 MG Tab PO SCH (09:30)
[2017-02-10] MEDS: amLODIPine 10 MG Tab PO SCH (09:30)
[2017-02-10] MEDS: Sertraline 50 MG Tab PO SCH (09:31)
[2017-02-10] MEDS: Multivitamins,Therapeutic Tab PO SCH (09:31)
[2017-02-10] MEDS: Metoprolol Tartrate 50 MG Tab PO SCH ×2 (09:35→21:41)
--- NOTE | 2017-02-10 12:02 | PCM.DCSUM1 ---
Discharge Summary - Hospital Course Free Text/Narrative:: 66 year old patient [facility] resident has not been feeling well for over a week. Had a UA/UC performed at [facility], she was not started on Bactrim DS until the sensitivity had been reported. In the meantime, she became more ill, and progressed from malaise and weakness to fever/chills/rigor with SOB. By the time she was started on Bactrim 4-5 days after her initial complaint she required treatment for AUTI as well as CHF exacerbation. She has been admitted to [facility] for AUTI and acute exacerbation of CHF. Course of hospital stay was uneventful, She was treated with IV zosyn x 4 days. UC was with pseudomonas growth which was pansensitive. Due to her allergy history she will be discharged on Augmentin BID x 7 days. Patient will have repeat UA and creatinine rechecked in 2 weeks per her request with results forwarded to Dr. Hale, PCP. Mild CHF exacerbation was treated with IV lasix x 2 days then transitioned back to her home diuretic dosing. BNP went from 1035 to 469, chest heaviness resolved, urination returned to "normal" frequency for her. Overall she was feeling significant improvement. She will be discharged back to [facility], [facility] with PT/OT to cont with therapies. She should have f/ up with Dr. Hale within 1 week. - Discharge Data Discharge Date: 02/11/17 (admit date 02/07/17) Discharge Disposition: DC/Tfer to SNF 03 Condition: Good - Discharge Diagnosis/Problem(s) (1) UTI, Urinary tract infectious disease SNOMED Code(s): 76033079 ICD Code: N39.0 - URINARY TRACT INFECTION, SITE NOT SPECIFIED Status: Acute Priority: High (2) Acute exacerbation of congestive heart failure SNOMED Code(s): 14608463 ICD Code: I50.9 - HEART FAILURE, UNSPECIFIED Status: Acute Priority: Medium Qualifiers: Congestive heart failure type: unspecified congestive heart failure type Qualified Code(s): I50.9 - Heart failure, unspecified (3) Diabetes SNOMED Code(s): 82075834 ICD Code: E11.9 - TYPE 2 DIABETES MELLITUS WITHOUT COMPLICATIONS Status: Chronic Priority: Medium Qualifiers: Diabetes mellitus type: type 2 Diabetes mellitus complication status: with unspecified complications 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: with fdc use Qualified Code(s): E11.8 - Type 2 diabetes mellitus with unspecified complications; Z79.4 - senior care (current) use of insulin (4) Chronic kidney disease SNOMED Code(s): 347727429 ICD Code: N18.9 - CHRONIC KIDNEY DISEASE, UNSPECIFIED Status: Chronic Priority: Medium Qualifiers: Chronic kidney disease stage: stage 3 (moderate) Qualified Code(s): N18.3 - Chronic kidney disease, stage 3 (moderate) - Patient Summary/Data Operative Procedure(s) Performed: None Complications: None Consults: Consultations 02/09/17 08:00 Consult to Occupational Therapy [OT Evaluation and Treatment] [CONS] Routine Consult to Physical Therapy [PT Evaluation and Treatment] [CONS] Routine 02/09/17 09:00 Consult to Case Management [CONS] Routine Labs Pending at D/C: None Recommended Follow-up Testing/Procedures: Continue home oxygen per your prior home oxygen orders. 3L [place] continuously. Titrate to maintain sats >88%. Check blood sugars before meals, at bedtime and as needed. Physical and occupational therapy to evaluate and treat--continue at SNF. Daily morning weights Follow up with PCP, Dr Hale within one week of discharge Planned Operative Procedure(s) after DC: None Hospital Course: As above - Patient Instructions Diet: Heart Healthy Diet, Low Sodium, Diabetic Diet Activity: As Tolerated (cont with PT/OT) Driving: Do Not Drive Showering/Bathing: May Shower Notify Provider of: Fever, Increased Pain, Swelling and Redness, Nausea and/or Vomiting - Discharge Plan Prescriptions/Med Rec: Amoxicillin/Potassium Clav [Augmentin 500-125 Tablet] 1 each PO BID #14 tablet Metoprolol Tartrate [Lopressor] 50 mg PO BID #60 tablet Home Medications: Home Meds Aspirin [Halfprin] 81 mg PO DAILY 10/10/14 [History] Multivitamin [Daily Vitamin] 1 tab PO DAILY 10/10/14 [History] Sertraline [Zoloft] 150 mg PO DAILY 10/10/14 [History] atorvaSTATin [Lipitor] 10 mg PO BEDTIME 10/10/14 [History] oxyCODONE HCl/Acetaminophen [Percocet 5-325 mg Tablet] 1 tab PO Q6H PRN [History] Albuterol [Proventil Neb Soln] 1 dose INH Q6HR PRN 07/16/16 [History] Indomethacin [Indocin] 25 mg PO BID PRN 07/16/16 [History] Tapentadol HCl [Nucynta] 75 mg PO Q6HR PRN 07/16/16 [History] Triamcinolone Acetonide [Nasacort] 1 spray INH Q6HR PRN 07/16/16 [History] Levothyroxine Sodium [Synthroid] 250 mcg PO DAILY 07/17/16 [History] Miconazole [Miconazole 2% Crm] 1 applic TOP BID PRN 07/17/16 [History] Albuterol/Ipratropium [DuoNeb 3.0-0.5 MG/3 ML] 3 ml NEB QIDRT PRN #1 box [Rx] Docusate Sodium [Colace] 200 mg PO BID #60 cap 07/22/16 [Rx] Losartan [Cozaar] 25 mg PO DAILY #30 tablet 07/22/16 [Rx] SitaGLIPtin [Januvia] 50 mg PO DAILY #30 tablet 07/22/16 [Rx] Spironolactone [Aldactone] 25 mg PO DAILY #30 tablet 07/22/16 [Rx] Aspirin/Acetaminophen/Caffeine [Eql Migraine Formula Caplet] 1 each PO TID PRN 02/07/17 [History] Bumetanide [Bumex] 1 mg PO BID 02/07/17 [History] Chlorhexidine Gluconate [Peridex 0.12% Rinse] 15 ml MM BID 02/07/17 [History] Ipratropium/Albuterol Sulfate [Iprat-Albut 0.5-3(2.5) MG/3 ML] 3 ml IH Q6H PRN 02/07/17 [History] Nitroglycerin [Nitrostat] 0.4 mg SL Q5M PRN 02/07/17 [History] T-Pump 1 dose TOP TID PRN 02/07/17 [History] Temazepam [Restoril] 15 mg PO BEDTIME 02/07/17 [History] Umeclidinium Spring [Incruse Ellipta*] 62.5 mcg IH DAILY 02/07/17 [History] Zinc Oxide [Diaper Rash Ointment] 1 dose TP DAILY 02/07/17 [History] amLODIPine [Norvasc] 10 mg PO DAILY 02/07/17 [History] Furosemide [Lasix] 20 mg PO DAILY 02/08/17 [History] Nystatin 100,000 units TOP DAILY PRN 02/08/17 [History] Amoxicillin/Potassium Clav [Augmentin 500-125 Tablet] 1 each PO BID #14 tablet 02/10/17 [Rx] Metoprolol Tartrate [Lopressor] 50 mg PO BID #60 tablet 02/10/17 [Rx] Patient Handouts: Urinary Tract Infection, Adult, [id number], Heart Failure, [id number] Forms: ED Department Discharge Referrals: Jose Alfredo Hale MD [Primary Care Provider] - - Discharge Summary/Plan Comment DC Time >30 min.: Yes (40 min) - General Info Date of Service: 02/11/17 Admission Dx/Problem (Free Text: Patient is seen this morning. Doing well, breathing easier today. Denies cough, SOB, wheezing. Feels mild fluid retention to hands/arms this morning but overall "much better". Denies abd pain, pelvic pain, frequency, urgency. VSS. Functional Status: Reports: Pain Controlled, Tolerating Diet, Ambulating, Urinating. Denies: New Symptoms - Review of Systems General: Reports: Weakness (generalized) HEENT: Reports: No Symptoms Pulmonary: Reports: No Symptoms. Denies: Shortness of Breath, Cough Cardiovascular: Reports: No Symptoms. Denies: Chest Pain, Palpitations Gastrointestinal: Reports: No Symptoms, Diarrhea (improved to resolved with pepto bismol given yesterday). Denies: Abdominal Pain, Nausea, Vomiting Genitourinary: Reports: No Symptoms. Denies: Dysuria, Frequency, Burning, Pain , Incontinence Musculoskeletal: Reports: No Symptoms Skin: Reports: No Symptoms Neurological: Reports: No Symptoms - Patient Data Vitals - Most Recent: Last Vital Signs Temp 97.5 F 02/10/17 07:52 Pulse 57 L 02/10/17 09:35 Resp 20 02/10/17 07:52 BP 131/55 L 02/10/17 09:35 Pulse Ox 94 L 02/10/17 07:52 Weight - Most Recent: 312 lb 3.2 oz I&O - Last 24 hours: Intake & Output 02/09/17 02/10/1717 22:59 06:59 14:59 Intake Total 1020 1000 120 Output Total 600 300 Balance 420 700 120 Lab Results - Last 24 hrs: Laboratory Results - last 24 hr 02/09/17 02/09/17 02/09/17 Range/Units 12:20 12:20 17:01 WBC (3.98-10.04) K/mm3 RBC (3.98-5.22) M/mm3 Hgb (11.2-15.7) gm/L Hct (34.1-44.9) % MCV (79.4-94.8) fl MCH (25.6-32.2) pg MCHC (32.2-35.5) g/dl RDW Std Deviation (36.4-46.3) fL Plt Count (182-369) K/mm3 MPV (9.4-12.3) fl Neut % (Auto) (34.0-71.1) % Lymph % (Auto) (19.3-51.7) % [place] % (Auto) (4.7-12.5) % Eos % (Auto) (0.7-5.8) Baso % (Auto) (0.1-1.2) % Neut # (Auto) (1.56-6.13) K/mm3 Lymph # (Auto) (1.18-3.74) K/mm3 [place] # (Auto) (0.24-0.36) K/mm3 Eos # (Auto) (0.04-0.36) K/mm3 Baso # (Auto) (0.01-0.08) K/mm3 Manual Slide Review Sodium (136-145) mEq/L Potassium (3.5-5.1) mEq/L Chloride (98-107) mEq/L Carbon Dioxide (21-32) mEq/L Anion Gap (5-15) BUN (7-18) mg/dL Creatinine (0.55-1.02) mg/dL Est Cr Clr Drug Dosing mL/min Estimated GFR (MDRD) (>60) mL/min BUN/Creatinine Ratio (14-18) Glucose (80-115) mg/dL POC Glucose 103 (80-115) mg/dL Calcium (8.5-10.1) mg/dL Magnesium (1.8-2.4) mg/dl Iron 77 (50-170) ug/dL TIBC 270 (100-400) ug/dL % Saturation 29 (20-55) % Transferrin 216 (202-364) mg/dL C-Reactive Protein (<1.0) mg/dL NT-Pro-B Natriuret Pep (0-125) pg/mL Vitamin B12 434 (193-986) pg/ml Folate 44.0 (8.6-58.9) ng/mL 02/09/17 02/10/17 02/10/17 Range/Units 21:31 06:08 06:10 WBC 3.32 L (3.98-10.04) K/mm3 RBC 4.06 (3.98-5.22) M/mm3 Hgb 13.3 (11.2-15.7) gm/L Hct 41.7 (34.1-44.9) % MCV 102.7 H (79.4-94.8) fl MCH 32.8 H (25.6-32.2) pg MCHC 31.9 L (32.2-35.5) g/dl RDW Std Deviation 46.4 H (36.4-46.3) fL Plt Count 97 L (182-369) K/mm3 MPV 12.0 (9.4-12.3) fl Neut % (Auto) 65.7 (34.0-71.1) % Lymph % (Auto) 15.7 L (19.3-51.7) % [place] % (Auto) 11.4 (4.7-12.5) % Eos % (Auto) 6.6 H (0.7-5.8) Baso % (Auto) 0.3 (0.1-1.2) % Neut # (Auto) 2.18 (1.56-6.13) K/mm3 Lymph # (Auto) 0.52 L (1.18-3.74) K/mm3 [place] # (Auto) 0.38 H (0.24-0.36) K/mm3 Eos # (Auto) 0.22 (0.04-0.36) K/mm3 Baso # (Auto) 0.01 (0.01-0.08) K/mm3 Manual Slide Review Abnormal smear Sodium (136-145) mEq/L Potassium (3.5-5.1) mEq/L Chloride (98-107) mEq/L Carbon Dioxide (21-32) mEq/L Anion Gap (5-15) BUN (7-18) mg/dL Creatinine (0.55-1.02) mg/dL Est Cr Clr Drug Dosing mL/min Estimated GFR (MDRD) (>60) mL/min BUN/Creatinine Ratio (14-18) Glucose (80-115) mg/dL POC Glucose 123 H 126 H (80-115) mg/dL Calcium (8.5-10.1) mg/dL Magnesium (1.8-2.4) mg/dl Iron (50-170) ug/dL TIBC (100-400) ug/dL % Saturation (20-55) % Transferrin (202-364) mg/dL C-Reactive Protein (<1.0) mg/dL NT-Pro-B Natriuret Pep (0-125) pg/mL Vitamin B12 (193-986) pg/ml Folate (8.6-58.9) ng/mL 02/10/17 02/10/17 02/10/17 Range/Units 06:10 06:10 11:17 WBC (3.98-10.04) K/mm3 RBC (3.98-5.22) M/mm3 Hgb (11.2-15.7) gm/L Hct (34.1-44.9) % MCV (79.4-94.8) fl MCH (25.6-32.2) pg MCHC (32.2-35.5) g/dl RDW Std Deviation (36.4-46.3) fL Plt Count (182-369) K/mm3 MPV (9.4-12.3) fl Neut % (Auto) (34.0-71.1) % Lymph % (Auto) (19.3-51.7) % [place] % (Auto) (4.7-12.5) % Eos % (Auto) (0.7-5.8) Baso % (Auto) (0.1-1.2) % Neut # (Auto) (1.56-6.13) K/mm3 Lymph # (Auto) (1.18-3.74) K/mm3 [place] # (Auto) (0.24-0.36) K/mm3 Eos # (Auto) (0.04-0.36) K/mm3 Baso # (Auto) (0.01-0.08) K/mm3 Manual Slide Review Sodium 138 (136-145) mEq/L Potassium 4.2 (3.5-5.1) mEq/L Chloride 100 (98-107) mEq/L Carbon Dioxide 33 H (21-32) mEq/L Anion Gap 9.2 (5-15) BUN 19 H (7-18) mg/dL Creatinine 1.2 H (0.55-1.02) mg/dL Est Cr Clr Drug Dosing 44.24 mL/min Estimated GFR (MDRD) 45 (>60) mL/min BUN/Creatinine Ratio 15.8 (14-18) Glucose 120 H (80-115) mg/dL POC Glucose 119 H (80-115) mg/dL Calcium 8.8 (8.5-10.1) mg/dL Magnesium 2.2 (1.8-2.4) mg/dl Iron (50-170) ug/dL TIBC (100-400) ug/dL % Saturation (20-55) % Transferrin (202-364) mg/dL C-Reactive Protein 1.3 H* (<1.0) mg/dL NT-Pro-B Natriuret Pep 469 H (0-125) pg/mL Vitamin B12 (193-986) pg/ml Folate (8.6-58.9) ng/mL Med Orders - Current: Current Medications Albuterol (Proventil Neb Soln) 2.5 mg INH Q4H PRN PRN Reason: Shortness of Breath Albuterol/Ipratropium (Duoneb 3.0-0.5 Mg/3 Ml) 3 ml NEB QIDRT PRN PRN Reason: wheezing, SOB Amlodipine Besylate (Norvasc) 10 mg PO DAILY [facility] Last Admin: 02/10/17 09:30 Dose: 10 mg Aspirin (Halfprin) 81 mg PO DAILY [facility] Last Admin: 02/10/17 09:28 Dose: 81 mg Bumetanide (Bumex) 1 mg PO BIDDIURETIC [facility] Last Admin: 02/10/17 06:09 Dose: 1 mg Chlorhexidine Gluconate (Peridex 0.12% Rinse) 15 ml PO BID [facility] Last Admin: 02/10/17 09:30 Dose: 15 ml Docusate Sodium (Colace) 200 mg PO BID [facility] Last Admin: 02/10/17 09:28 Dose: Not Given Enoxaparin Sodium (Lovenox) 40 mg SUBCUT DAILY [facility] Last Admin: 02/10/17 09:29 Dose: 40 mg Flunisolide (Nasalide Nasal [place]) 0 ml VÍCTOR Q12H PRN PRN Reason: NASAL CONGESTION Furosemide (Lasix) 20 mg PO DAILY [facility] Last Admin: 02/10/17 09:28 Dose: 20 mg Piperacillin Sod/Tazobactam (Sod 4.5 gm/ Sodium Chloride) 100 mls @ 25 mls/hr IV Q8H [facility] Last Admin: 02/10/17 06:09 Dose: 25 mls/hr Insulin Aspart (Novolog) 0 unit SUBCUT QIDACANDBED [facility] PRN Reason: Protocol Last Admin: 02/10/17 11:24 Dose: Not Given Levothyroxine Sodium (Levothyroxine) 250 mcg PO DAILY@0700 [facility] Last Admin: 02/10/17 06:09 Dose: 250 mcg Magnesium Hydroxide (Milk Of Magnesia) 30 ml PO DAILY PRN PRN Reason: Constipation Last Admin: 02/09/17 08:14 Dose: 30 ml Metoprolol Tartrate (Lopressor) 50 mg PO BID [facility] Last Admin: 02/10/17 09:35 Dose: Not Given Miconazole (Micatin 2% Crm) 0 gm TOP BID PRN PRN Reason: INFLAMMATION Multi-Ingred Cream/Lotion/Oil/Oint (Zinc Oxide) 0 gm TOP DAILY [facility] Last Admin: 02/10/17 09:43 Dose: Not Given Multivitamins (Thera) 1 each PO DAILY [facility] Last Admin: 02/10/17 09:31 Dose: 1 each Nitroglycerin (Nitrostat) 0.4 mg SL Q5M PRN PRN Reason: Chest Pain Nystatin (Nystop) 0 gm TOP DAILY PRN PRN Reason: RASH Last Admin: 02/10/17 10:12 Dose: 1 applic Oxycodone/Acetaminophen (Percocet 325-5 Mg) 1 tab PO Q6H PRN PRN Reason: Pain Last Admin: 02/10/17 10:28 Dose: 1 tab Aspirin/Acetaminophen/Caffeine Caplets 0 each PO TID PRN PRN Reason: Pain Saccharomyces Boulardii (Florastor) 250 mg PO BID [facility] Last Admin: 02/10/17 09:28 Dose: 250 mg Saxagliptin Hydrochloride (Onglyza) 5 mg PO DAILY [facility] Last Admin: 02/10/17 09:30 Dose: 5 mg Sertraline HCl (Zoloft) 150 mg PO DAILY [facility] Last Admin: 02/10/17 09:31 Dose: 150 mg Simvastatin (Zocor) 10 mg PO BEDTIME [facility] Last Admin: 02/09/17 21:39 Dose: 10 mg Sodium Chloride (Saline Flush) 10 ml FLUSH ASDIRECTED PRN PRN Reason: Keep Vein Open Last Admin: 02/07/17 21:31 Dose: 10 ml Spironolactone (Aldactone) 25 mg PO DAILY [facility] Last Admin: 02/10/17 09:27 Dose: 25 mg Temazepam (Restoril) 15 mg PO BEDTIME [facility] Last Admin: 02/09/17 21:38 Dose: 15 mg Discontinued Medications Acetaminophen (Tylenol) 325 mg PO NOW ONE Stop: 02/07/17 21:14 Last Admin: 02/07/17 21:29 Dose: 325 mg Amlodipine Besylate (Norvasc) 10 mg PO DAILY [facility] Last Admin: 02/09/17 08:13 Dose: 10 mg Bumetanide (Bumex) 1 mg IVPUSH ONETIME ONE Stop: 02/07/17 21:12 Last Admin: 02/07/17 21:29 Dose: 1 mg Enoxaparin Sodium (Lovenox) 30 mg SUBCUT DAILY [facility] Last Admin: 02/08/17 09:34 Dose: 30 mg Fentanyl (Sublimaze) 50 mcg IVPUSH ONETIME ONE Stop: 02/07/17 23:45 Last Admin: 02/07/17 23:53 Dose: 50 mcg Furosemide (Lasix) 40 mg IVPUSH DAILY ONE Stop: 02/08/17 09:01 Last Admin: 02/08/17 09:35 Dose: 40 mg Furosemide (Lasix) 20 mg IVPUSH NOW ONE Stop: 02/10/17 07:01 Furosemide (Lasix) 20 mg IVPUSH ONETIME ONE Stop: 02/09/17 07:01 Last Admin: 02/09/17 06:07 Dose: 20 mg Furosemide (Lasix) 20 mg IVPUSH NOW ONE Stop: 02/10/17 06:50 Last Admin: 02/10/17 07:26 Dose: Not Given Hydromorphone HCl (Dilaudid) 1 mg IM ONETIME ONE Stop: 02/08/17 02:50 Last Admin: 02/08/17 03:10 Dose: 1 mg Linezolid 600 mg/ Premix 300 mls @ 300 mls/hr IV ONETIME ONE Stop: 02/07/17 22:11 Last Admin: 02/07/17 21:29 Dose: 300 mls/hr Piperacillin Sod/Tazobactam (Sod 4.5 gm/ Sodium Chloride) 100 mls @ 200 mls/hr IV ONETIME ONE Stop: 02/08/17 06:29 Last Admin: 02/08/17 06:45 Dose: 200 mls/hr Piperacillin Sod/Tazobactam (Sod 4.5 gm/ Sodium Chloride) 100 mls @ 25 mls/hr IV Q8H [facility]ACQUI Oxycodone/Acetaminophen (Percocet 325-5 Mg) 1 tab PO ONETIME ONE Stop: 02/07/17 21:13 Last Admin: 02/07/17 21:30 Dose: 1 tab Pneumococcal Polyvalent Vaccine (Pneumovax 23) 0.5 ml IM .ONCE ONE Stop: 02/08/17 02:54 - Exam Quality Assessment: Reports: DVT Prophylaxis General: Reports: Alert, Cooperative, No Acute Distress HEENT: Reports: Pupils Equal, EOMI, Mucous Membr. Moist/[place] Neck: Reports: Supple Lungs: Reports: Clear to Auscultation, Normal Respiratory Effort, Decreased Breath Sounds (bases) Cardiovascular: Reports: Regular Rate, Regular Rhythm, Other (distant heart tones) GI/Abdominal Exam: Normal Bowel Sounds, Soft, Non-Tender, Other (round and obese ) (Female) Exam: Deferred Rectal (Female) Exam: Deferred Extremities: Normal Inspection, Non-Tender, Other (IMMANUEL wraps to lower ext bilat) Skin: Reports: Warm, Dry, Intact, Other (skin is in very good repair) Neurological: Reports: No New Focal Deficit Psy/Mental Status: Reports: Alert, Normal Affect, Normal Mood, Labile Mood ( intermittently irritated and agitated) *Q Meaningful Use (DIS) - VTE *Q VTE Criteria *Q: - Stroke *Q Stroke Criteria *Q: - AMI *Q AMI Criteria *Q:
[2017-02-10] MEDS: Bismuth Subsalicylate 262 MG/15 ML Susp 236 ML Bottle PO PRN ×2 (14:29→19:55)
[2017-02-10] MEDS: Simvastatin 10 MG Tab PO SCH (21:36)
[2017-02-10] MEDS: Temazepam 15 MG Cap PO SCH (21:36)
[2017-02-11] MEDS: Bismuth Subsalicylate 262 MG/15 ML Susp 236 ML Bottle PO PRN ×2 (04:43→09:56)
[2017-02-11] MEDS: Acetaminophen/oxyCODONE 325-5 MG Tab PO PRN (04:47)
[2017-02-11] MEDS: Bumetanide 1 MG Tab PO SCH (06:25)
[2017-02-11] MEDS: Levothyroxine 125 MCG Tab PO SCH (06:25)
[2017-02-11] MEDS: Piperacillin/Tazobactam 4.5 GM in Sodium Chloride 0.9% 100 ML IV SCH (06:25)
[2017-02-11] MEDS: Insulin Aspart 100 Units/ML 3 ML Pen SUBCUT SCH (06:26)
[2017-02-11 09:06] VITALS: BP 145/78
[2017-02-11] MEDS: Aspirin 81 MG Tab.EC PO SCH (09:24)
[2017-02-11] MEDS: Saccharomyces Boulardii (Probiotic) 250 MG Cap PO SCH (09:24)
[2017-02-11] MEDS: Furosemide 20 MG Tab PO SCH (09:24)
[2017-02-11] MEDS: Sertraline 50 MG Tab PO SCH (09:25)
[2017-02-11] MEDS: Saxagliptin 5 MG Tab PO SCH (09:25)
[2017-02-11] MEDS: Chlorhexidine Gluconate 0.12% Oral Rinse 15 ML Cup PO SCH (09:25)
[2017-02-11] MEDS: Metoprolol Tartrate 50 MG Tab PO SCH (09:25)
[2017-02-11] MEDS: Enoxaparin 40 MG/0.4 ML Syringe SUBCUT SCH (09:26)
[2017-02-11] MEDS: amLODIPine 10 MG Tab PO SCH (09:26)
[2017-02-11] MEDS: Spironolactone 25 MG Tab PO SCH (09:26)
[2017-02-11] MEDS: Multivitamins,Therapeutic Tab PO SCH (09:26)
[2017-02-11] MEDS: Docusate Sodium 100 MG Cap PO SCH (09:44)
== END 2017-02-11 10:05 | DRG 291 ==
LOC: JD.ED 20:24 → JD.MS 23:45 → UNDOADMIN 02-08 00:14 → JD.MS 02-08 00:14
PROVIDERS: ADMIT Internal Medicine Cardiovascular Disease; ATTEND Internal Medicine Cardiovascular Disease
DX: I13.0 Hypertensive heart and chronic kidney disease with heart failure and stage 1 through stage 4 chronic kidney disease, or unspecified chronic kidney disease (principal); R50.9 Fever, unspecified; I95.89 Other hypotension; I50.33 Acute on chronic diastolic (congestive) heart failure; N39.0 Urinary tract infection, site not specified; N18.9 Chronic kidney disease, unspecified; N18.3 Chronic kidney disease, stage 3 (moderate); E11.22 Type 2 diabetes mellitus with diabetic chronic kidney disease; E11.42 Type 2 diabetes mellitus with diabetic polyneuropathy; Z79.84 Long term (current) use of oral hypoglycemic drugs; Z87.891 Personal history of nicotine dependence; I89.0 Lymphedema, not elsewhere classified; J44.9 Chronic obstructive pulmonary disease, unspecified; I45.4 Nonspecific intraventricular block; E78.5 Hyperlipidemia, unspecified; F41.9 Anxiety disorder, unspecified; F32.9 Major depressive disorder, single episode, unspecified; F41.0 Panic disorder [episodic paroxysmal anxiety]; M19.90 Unspecified osteoarthritis, unspecified site; E03.9 Hypothyroidism, unspecified; Z88.1 Allergy status to other antibiotic agents; Z88.6 Allergy status to analgesic agent; Z88.7 Allergy status to serum and vaccine; Z79.82 Long term (current) use of aspirin; Z99.81 Dependence on supplemental oxygen; Z79.899 Other long term (current) drug therapy
CPT/HCPCS: 36415; 51702; 71010; 80053; 81001; 82553; 83605; 83735; 83880; 84484; 85025; 85610; 85652; 86140; 87040 ×2; 87086; 87088; 87186; 93005; 96365; 96375; 99285; A9270 ×2; J2020; J3010; J7050; 80048; 82607; 82746; 82962; 83540; 84466; 85027; 87641; 97110-GP; 97162-GP; 97165-GO; 97530-GP; J1170; J1650; J1940; J2543; J7030

== ENCOUNTER 2017-09-04 14:02 | Emergency (ER) | payer MEDICARE ==
[2017-09-04 14:16] VITALS: BP 113/53
[2017-09-04] MEDS ORDERED: Ondansetron 4 MG/2 ML SDV IVPUSH ONE (14:44)
[2017-09-04] MEDS ORDERED: Morphine 4 MG/ML Syringe IVPUSH ONE (14:44)
[2017-09-04] MEDS ORDERED: Sodium Chloride 0.9% 10 ML Syringe FLUSH PRN (14:45)
--- NOTE | 2017-09-04 14:56 | EDM.PDOC ---
ED HPI GENERAL MEDICAL PROBLEM - General Chief Complaint: Back Pain or Injury Stated Complaint: [facility] Time Seen by Provider: 09/04/17 14:49 Source of Information: Reports: Patient History Limitations: Reports: No Limitations - History of Present Illness INITIAL COMMENTS - FREE TEXT/NARRATIVE: 67-year-old female presents via ambulance service for evaluation and treatment of left-sided back pain. Reports that the back pain started last night. She states that she received a Percocet last night which relieved her pain and she fell sleep. She is given a Percocet again around noon today but continues to have pain. Patient is currently on Nucynta and Percocet for chronic pain. Reports the pain as a 9 out of 10 and describes as a steady ache and spasming in her back. States the pain is worse with movement. States it is located on the left side her back and radiates into her left flank and left buttocks. She reports associated symptoms of nausea. No fevers, vomiting, dysuria or hematuria. She states she has trouble emptying her bladder and reports she was just over a bladder infection. Patient has a history of back pain as well as kidney stones. Patient is a type II diabetic. She is a resident of [facility]. Primary care provider is Dr. Samuels. Left Lower Back Pain Score (Numeric/FACES): 9 - Related Data Allergies Allergy/AdvReac Type Severity Reaction Status Date / Time cefepime Allergy Hives Verified 09/04/17 14:16 ciprofloxacin [From Cipro] Allergy Hives Verified 09/04/17 14:16 ciprofloxacin HCl Allergy Hives Verified 09/04/17 14:16 [From Cipro] fosfomycin Allergy Hives Verified 09/04/17 14:16 levofloxacin [From Levaquin] Allergy Anaphylactic Verified 09/04/17 14:16 Shock metronidazole [From Flagyl] Allergy Rash Verified 09/04/17 14:16 Metronidazole HCl Allergy Hives Verified 09/04/17 14:16 [From Flagyl] pertussis vaccine,adsorbed Allergy Cannot Verified 09/04/17 14:16 [Pertussis Vaccine,Adsorbed] Remember vancomycin Allergy Hives Verified 09/04/17 14:16 meperidine HCl [From Demerol] AdvReac Vomiting Verified 09/04/17 14:16 Home Meds: Home Meds Aspirin [Halfprin] 81 mg PO DAILY 10/10/14 [History] Multivitamin [Daily Vitamin] 1 tab PO DAILY 10/10/14 [History] Sertraline [Zoloft] 150 mg PO DAILY 10/10/14 [History] atorvaSTATin [Lipitor] 10 mg PO BEDTIME 10/10/14 [History] oxyCODONE HCl/Acetaminophen [Percocet 5-325 mg Tablet] 1 tab PO Q6H PRN [History] Albuterol [Proventil Neb Soln] 1 dose INH Q6HR PRN 07/16/16 [History] Indomethacin [Indocin] 25 mg PO BID PRN 07/16/16 [History] Tapentadol HCl [Nucynta] 75 mg PO Q6HR PRN 07/16/16 [History] Triamcinolone Acetonide [Nasacort] 1 spray INH Q6HR PRN 07/16/16 [History] Levothyroxine Sodium [Synthroid] 250 mcg PO DAILY 07/17/16 [History] Docusate Sodium [Colace] 200 mg PO BID #60 cap 07/22/16 [Rx] Losartan [Cozaar] 25 mg PO DAILY #30 tablet 07/22/16 [Rx] SitaGLIPtin [Januvia] 50 mg PO DAILY #30 tablet 07/22/16 [Rx] Spironolactone [Aldactone] 25 mg PO DAILY #30 tablet 07/22/16 [Rx] Aspirin/Acetaminophen/Caffeine [Eql Migraine Formula Caplet] 1 each PO TID PRN 02/07/17 [History] Bumetanide [Bumex] 3 mg PO BID 02/07/17 [History] Chlorhexidine Gluconate [Peridex 0.12% Rinse] 15 ml MM BID 02/07/17 [History] Nitroglycerin [Nitrostat] 0.4 mg SL Q5M PRN 02/07/17 [History] Temazepam [Restoril] 30 mg PO BEDTIME 02/07/17 [History] Umeclidinium [place] [Incruse Ellipta*] 62.5 mcg IH BEDTIME 02/07/17 [History] amLODIPine [Norvasc] 10 mg PO BEDTIME 02/07/17 [History] Metoprolol Tartrate [Lopressor] 50 mg PO BID #60 tablet 02/10/17 [Rx] Orphenadrine [Norflex] 100 mg PO QID PRN #20 tab.er 09/04/17 [Rx] Acetaminophen 650 mg PO Q4H PRN 09/05/17 [History] Albuterol Sulfate 1 vial IH Q6H PRN 09/05/17 [History] Bismuth Subsalicylate [Bismatrol] 262 mg PO QID PRN 09/05/17 [History] Cyclobenzaprine [Flexeril] 10 mg PO TID #12 tab 09/05/17 [Rx] Insulin Aspart [Novolog] 1 - 5 unit SQ BIDMEALS 09/05/17 [History] Lactobacillus Acidophilus [Acidophilus] 1 each PO BID 09/05/17 [History] Loperamide HCl [Imodium A-D] 2 mg PO ASDIRECTED PRN 09/05/17 [History] Sulfamethoxazole/Trimethoprim [Bactrim Ds Tablet] 1 each PO BID 09/05/17 [ History] oxyCODONE 5 mg PO Q4HR PRN #24 tab 09/05/17 [Rx] Past Medical History HEENT History: Reports: Impaired Vision Other HEENT History: wears eyeglasses Cardiovascular History: Reports: Heart Failure, Heart Murmur, Hypertension, Other (See Below) Other Cardiovascular History: bundle branch block, lymphedema Respiratory History: Reports: COPD, SOB Other Respiratory History: wears O2 at night while at home; but is now on 2L at [facility] (rehab) Gastrointestinal History: Reports: Chronic Constipation, Hemorrhoids, Other ( See Below) Other Gastrointestinal History: hx:cdiff Genitourinary History: Reports: Chronic Renal Insuffiency, Renal Calculus, UTI, Recurrent Other Genitourinary History: renal failure from an infection, stage 3 kidney disease Musculoskeletal History: Reports: Arthritis Neurological History: Reports: Migraines, Neuropathy, Peripheral, Vertigo Other Neuro History: Lupus Psychiatric History: Reports: Anxiety, Depression, Panic Attack, Other (See Below) Other Psychiatric History: insomnia Endocrine/Metabolic History: Reports: Diabetes, Type II, Hypothyroidism Hematologic History: Reports: Heparin Induced Thrombocytopenia, Iron Deficiency Immunologic History: Reports: SLE Oncologic (Cancer) History: Reports: Basal Cell Carcinoma, Other (See Below) Other Oncologic History: Basal cell carcinoma face Dermatologic History: Reports: Cellulitis, Other (See Below) Other Dermatologic History: Lymphedema, severe dry skin, Chronic sores to backs of legs, history of pressure ulcers - Infectious Disease History Infectious Disease History: Reports: C-Difficile, Chicken Pox, Hepatitis A, Influenza, Measles, Mumps, Rubella, Shingles - Past Surgical History Endocrine Surgical History: Reports: None, Other (See Below) Neurological Surgical History: Reports: Lumbar Spine Musculoskeletal Surgical History: Reports: Arthroscopic Knee, Hip Replacement, Other (See Below) Social & Family History - Family History Family Medical History: Noncontributory Cardiac: Reports: Heart Failure : Reports: Renal Disease/Insufficiency Oncologic: Reports: Lung - Tobacco Use Smoking Status *Q: Former Smoker Years of Tobacco use: 20 Packs/Tins Daily: 1 Used Tobacco, but Quit: Yes Month/Year Tobacco Last Used: 1986 Second Hand Smoke Exposure: No - Caffeine Use Caffeine Use: Reports: Coffee - Alcohol Use Days Per Week of Alcohol Use: 0 - Recreational Drug Use Recreational Drug Use: No - Living Situation & Occupation Living situation: Reports: Extended Care Facility Occupation: Retired ED ROS GENERAL - Review of Systems Review Of Systems: See Below Constitutional: Denies: Fever GI/Abdominal: Reports: Nausea. Denies: Abdominal Pain, Vomiting : Reports: Flank Pain (left), Other (reports trouble emptying bladder). Denies: Dysuria, Hematuria Musculoskeletal: Reports: Back Pain (left low back) ED EXAM,LOWER BACK PAIN/INJURY - Physical Exam Exam: See Below Exam Limited By: No Limitations General Appearance: Alert, Moderate Distress, Obese Ears: Normal External Exam Throat/Mouth: Normal Inspection, Normal Voice, No Airway Compromise Respiratory/Chest: No Respiratory Distress, Lungs Clear, Normal Breath Sounds Cardiovascular: Normal Peripheral Pulses, Regular Rate, Rhythm, Systolic Murmur (grade 3) GI/Abdominal: Normal Bowel Sounds, Soft, Non-Tender Back Exam: Other (patient refused to sit up or turn to evaluate her back) Extremities: Pedal Edema Neurological: Alert, Normal Mood/Affect, Normal Dorsiflexion, Normal Plantar Flexion Psychiatric: Normal Affect, Normal Mood Skin Exam: Warm, Dry, Normal Color Course - Vital Signs Last Recorded V/S: Last Vital Signs Temp 36.5 C 09/04/17 14:09 Pulse 58 L 09/04/17 14:09 Resp 16 09/04/17 14:09 BP 113/53 L 09/04/17 14:09 Pulse Ox 96 09/04/17 14:09 - Orders/Labs/Meds Labs: Laboratory Tests 09/04/17 09/04/17 09/04/17 Range/Units 16:15 16:15 16:30 WBC 6.18 (3.98-10.04) K/mm3 RBC 3.68 L (3.98-5.22) M/mm3 Hgb 12.3 (11.2-15.7) gm/L Hct 39.8 (34.1-44.9) % MCV 108.2 H (79.4-94.8) fl MCH 33.4 H (25.6-32.2) pg MCHC 30.9 L (32.2-35.5) g/dl RDW Std Deviation 49.4 H (36.4-46.3) fL Plt Count 93 L (182-369) K/mm3 MPV 11.6 (9.4-12.3) fl Neut % (Auto) 74.9 H (34.0-71.1) % Lymph % (Auto) 11.5 L (19.3-51.7) % [place] % (Auto) 8.9 (4.7-12.5) % Eos % (Auto) 4.2 (0.7-5.8) Baso % (Auto) 0.2 (0.1-1.2) % Neut # (Auto) 4.63 (1.56-6.13) K/mm3 Lymph # (Auto) 0.71 L (1.18-3.74) K/mm3 [place] # (Auto) 0.55 H (0.24-0.36) K/mm3 Eos # (Auto) 0.26 (0.04-0.36) K/mm3 Baso # (Auto) 0.01 (0.01-0.08) K/mm3 Manual Slide Review Abnormal smear Sodium 140 (136-145) mEq/L Potassium 4.5 (3.5-5.1) mEq/L Chloride 99 (98-107) mEq/L Carbon Dioxide 39 H (21-32) mEq/L Anion Gap 6.5 (5-15) BUN 25 H (7-18) mg/dL Creatinine 1.1 H (0.55-1.02) mg/dL Est Cr Clr Drug Dosing 47.60 mL/min Estimated GFR (MDRD) 49 (>60) mL/min BUN/Creatinine Ratio 22.7 H (14-18) Glucose 112 (80-115) mg/dL Calcium 9.0 (8.5-10.1) mg/dL Total Bilirubin 0.4 (0.2-1.0) mg/dL AST 15 (15-37) U/L ALT 16 (14-59) U/L Alkaline Phosphatase 125 H (46-116) U/L Total Protein 7.4 (6.4-8.2) g/dl Albumin 3.4 (3.4-5.0) g/dl Globulin 4.0 gm/dL Albumin/Globulin Ratio 0.9 L (1-2) Urine Color Yellow (Yellow) Urine Appearance Slt cloudy H (Clear) Urine pH 6.5 (5.0-8.0) Ur Specific Cope 1.020 (1.005-1.030) Urine Protein Negative (Negative) Urine Glucose (UA) Negative (Negative) Urine Ketones Negative (Negative) Urine Occult Blood Trace-intact H (Negative) Urine Nitrite Positive H (Negative) Urine Bilirubin Negative (Negative) Urine Urobilinogen 0.2 (0.2-1.0) Ur Leukocyte Esterase 2+ H (Negative) Urine RBC 0-5 (0-5) /hpf Urine WBC 50-75 H (0-5) /hpf Ur Epithelial Cells 5-10 H (0-5) /hpf Urine Bacteria Many H (FEW) /hpf Urine Mucus Not seen (FEW) /hpf Meds: Medications Discontinued Medications Generic Name Dose Route Start Last Admin Trade Name Cele PRN Reason Stop Dose Admin Morphine Sulfate 4 mg 09/04/17 14:44 09/04/17 15:35 Morphine IVPUSH 09/04/17 14:45 4 mg ONETIME ONE Administration Ondansetron HCl 4 mg 09/04/17 14:44 09/04/17 15:35 Zofran IVPUSH 09/04/17 14:45 4 mg ONETIME ONE Administration Orphenadrine Citrate 100 mg 09/04/17 16:44 09/04/17 17:01 Norflex PO 09/04/17 16:45 100 mg NOW STA Administration Sodium Chloride 10 ml 09/04/17 14:45 09/04/17 15:35 Saline Flush FLUSH 10 ml ASDIRECTED PRN Administration Keep Vein Open Trimethoprim/Sulfamethoxazole 1 tab 09/04/17 17:52 09/04/17 18:11 Septra Ds PO 09/04/17 17:53 1 tab ONETIME ONE Administration - Radiology Interpretation Free Text/Narrative:: CT abdomen and pelvis Technique: Multiple axial sections were obtained from above the dome of the diaphragm inferiorly to the pubic symphysis. Intravenous and oral contrast was not utilized. Study has been performed as a ureteral stone protocol. Comparison: Prior CT abdomen and pelvis exam of 10/21/6015. Findings: 2 calcifications are seen within the left kidney. These measure less than 5 mm. These are likely due to nonobstructing calculi. No abnormal calcifications are seen within the right kidney. Distal portions of the ureters are obscured due to left hip prosthesis. No ureteral dilatation is seen. No definite findings of ureteral calculi are seen. Visualized lung bases shows nothing acute. Numerous calcified granulomas are seen within the spleen. Noncontrast appearance of the liver appears within normal limits. Surgical clips are seen from prior cholecystectomy. Adrenal glands show no nodule. Pancreas is within normal limits. Aorta shows atherosclerotic change which continues into the iliac vessels without aneurysm. No retroperitoneal adenopathy or mesenteric abnormalities are seen. Fat- containing hernia is identified which starts of the umbilicus and then extends more inferiorly. Opening of this fat-containing hernia is approximately 2.1 cm. No pelvic mass or adenopathy is seen. Artifact is noted from previous lumbar spine surgery. Scattered degenerative change is also seen within the spine. Impression: 1. Distal ureter is not seen secondary to left hip prosthesis. No ureteral dilatation or definite ureteral stone is seen. 2 nonobstructing calculi are seen within the left kidney. 2. Incidental fat-containing anterior abdominal wall hernia near the umbilicus. 3. Other incidental findings. Nothing acute is appreciated on noncontrast CT study of the abdomen and pelvis. - Re-Assessments/Exams Free Text/Narrative Re-Assessment/Exam: 09/04/17 17:43 I reviewed the labs and imaging with the patient. Plan will be to discharge her back to [facility] with a prescription for Bactrim for urinary tract infection. Urine has been sent for culture. Bactrim selected due to her multiple allergies. She may continue on her Percocet and her Nucynta as needed for pain relief. Discharge instructions as documented. 09/05/17 19:43 As I was finishing the patient's chart today, I appreciated that there was no Bactrim prescription in her discharge instructions. I cannot recall if I hand wrote this. nursing staff called [facility] and confirm that she is currently on Bactrim. Departure - Departure Time of Disposition: 17:52 Disposition: DC/Tfer to [facility] Condition: Fair Clinical Impression: UTI, Urinary tract infectious disease - Discharge Information Prescriptions: Orphenadrine [Norflex] 100 mg PO QID PRN #20 tab.er PRN Reason: Muscle Spasm Instructions: Urinary Tract Infection, Adult Referrals: Alexandra Samuels MD [Primary Care Provider] - Forms: ED Department Discharge Additional Instructions: Take the Bactrim 1 tab twice a day for 10 days. First dose was given in the ER. Start your prescription tomorrow. Continue on your current pain medications as needed for pain. continue on your Nucynta or your Percocet as needed for pain. Norflex 1 tab twice a day as needed for muscle spasms. Also recommend using ice or moist heat for additional pain relief. Follow-up with your primary care provider for recheck of your symptoms in 7-10 days. Make sure drinking plenty of fluids. Please return to the ER for symptoms change or worsen.
--- NOTE | 2017-09-04 15:21 | CT ---
CT abdomen and pelvis Technique: Multiple axial sections were obtained from above the dome of the diaphragm inferiorly to the pubic symphysis. Intravenous and oral contrast was not utilized. Study has been performed as a ureteral stone protocol. Comparison: Prior CT abdomen and pelvis exam of 10/21/6015. Findings: 2 calcifications are seen within the left kidney. These measure less than 5 mm. These are likely due to nonobstructing calculi. No abnormal calcifications are seen within the right kidney. Distal portions of the ureters are obscured due to left hip prosthesis. No ureteral dilatation is seen. No definite findings of ureteral calculi are seen. Visualized lung bases shows nothing acute. Numerous calcified granulomas are seen within the spleen. Noncontrast appearance of the liver appears within normal limits. Surgical clips are seen from prior cholecystectomy. Adrenal glands show no nodule. Pancreas is within normal limits. Aorta shows atherosclerotic change which continues into the iliac vessels without aneurysm. No retroperitoneal adenopathy or mesenteric abnormalities are seen. Fat-containing hernia is identified which starts of the umbilicus and then extends more inferiorly. Opening of this fat-containing hernia is approximately 2.1 cm. No pelvic mass or adenopathy is seen. Artifact is noted from previous lumbar spine surgery. Scattered degenerative change is also seen within the spine. Impression: 1. Distal ureter is not seen secondary to left hip prosthesis. No ureteral dilatation or definite ureteral stone is seen. 2 nonobstructing calculi are seen within the left kidney. 2. Incidental fat-containing anterior abdominal wall hernia near the umbilicus. 3. Other incidental findings. Nothing acute is appreciated on noncontrast CT study of the abdomen and pelvis. Diagnostic code #2
[2017-09-04] MEDS ORDERED: Orphenadrine 100 MG Tab.ER PO STA (16:44)
[2017-09-04] MEDS ORDERED: Sulfamethoxazole/Trimethoprim 800-160 MG Tab PO ONE (17:52)
== END 2017-09-04 18:42 ==
LOC: JD.ED 14:02
DX: N39.0 Urinary tract infection, site not specified (principal); I50.9 Heart failure, unspecified; I13.0 Hypertensive heart and chronic kidney disease with heart failure and stage 1 through stage 4 chronic kidney disease, or unspecified chronic kidney disease; N18.9 Chronic kidney disease, unspecified; E11.22 Type 2 diabetes mellitus with diabetic chronic kidney disease; E11.42 Type 2 diabetes mellitus with diabetic polyneuropathy; E03.9 Hypothyroidism, unspecified; Z88.8 Allergy status to other drugs, medicaments and biological substances; Z88.1 Allergy status to other antibiotic agents; Z79.82 Long term (current) use of aspirin; Z79.899 Other long term (current) drug therapy; Z79.4 Long term (current) use of insulin; Z87.891 Personal history of nicotine dependence
CPT/HCPCS: 36415; 74176; 80053; 81001; 85025; 87086; 96374; 96375; 99284; A9270; J2270; J2405; J7050; 87088; 87186; 99283

== ENCOUNTER 2017-09-05 08:57 | Emergency (ER) | payer MEDICARE ==
[2017-09-05 09:03] VITALS: BP 111/61
[2017-09-05] MEDS ORDERED: HYDROmorphone 0.5 MG/0.5 ML SYRINGE IM ONE (09:57)
[2017-09-05] MEDS ORDERED: Cyclobenzaprine 10 MG Tab PO ONE (09:57)
[2017-09-05] MEDS ORDERED: Ketorolac 30 MG/ML SDV IM ONE (09:58)
--- NOTE | 2017-09-05 09:59 | EDM.PDOC ---
ED HPI GENERAL MEDICAL PROBLEM - General Chief Complaint: Back Pain or Injury Stated Complaint: [facility] Time Seen by Provider: 09/05/17 09:19 Source of Information: Reports: Patient History Limitations: Reports: No Limitations - History of Present Illness INITIAL COMMENTS - FREE TEXT/NARRATIVE: 67 y/o F with hx morbid obesity, chronic back pain, prior kidney stones, and current UTI presents from intermediate by EMS for back pain. She states she's had severe pain in her low back for a few days. Denies injury. Pain is located in L flank and also across her low back, worse on the left. Usually walks with a walker, this is difficult due to pain. She has been taking percocet BID with no relief. Also on day 2 of antibiotic for UTI. She was here yesterday, at which time labs and CT a/p were neg except for positive UTI. No sign of ureterolithiasis, though exam limited by artifact. Today she is requesting admission for pain control. Lower Back Pain Score (Numeric/FACES): 9 - Related Data Allergies Allergy/AdvReac Type Severity Reaction Status Date / Time cefepime Allergy Hives Verified 09/04/17 14:16 ciprofloxacin [From Cipro] Allergy Hives Verified 09/04/17 14:16 ciprofloxacin HCl Allergy Hives Verified 09/04/17 14:16 [From Cipro] fosfomycin Allergy Hives Verified 09/04/17 14:16 levofloxacin [From Levaquin] Allergy Anaphylactic Verified 09/04/17 14:16 Shock metronidazole [From Flagyl] Allergy Rash Verified 09/04/17 14:16 Metronidazole HCl Allergy Hives Verified 09/04/17 14:16 [From Flagyl] pertussis vaccine,adsorbed Allergy Cannot Verified 09/04/17 14:16 [Pertussis Vaccine,Adsorbed] Remember vancomycin Allergy Hives Verified 09/04/17 14:16 meperidine HCl [From Demerol] AdvReac Vomiting Verified 09/04/17 14:16 Home Meds: Home Meds Aspirin [Halfprin] 81 mg PO DAILY 10/10/14 [History] Multivitamin [Daily Vitamin] 1 tab PO DAILY 10/10/14 [History] Sertraline [Zoloft] 150 mg PO DAILY 10/10/14 [History] atorvaSTATin [Lipitor] 10 mg PO BEDTIME 10/10/14 [History] oxyCODONE HCl/Acetaminophen [Percocet 5-325 mg Tablet] 1 tab PO Q6H PRN [History] Albuterol [Proventil Neb Soln] 1 dose INH Q6HR PRN 07/16/16 [History] Indomethacin [Indocin] 25 mg PO BID PRN 07/16/16 [History] Tapentadol HCl [Nucynta] 75 mg PO Q6HR PRN 07/16/16 [History] Triamcinolone Acetonide [Nasacort] 1 spray INH Q6HR PRN 07/16/16 [History] Levothyroxine Sodium [Synthroid] 250 mcg PO DAILY 07/17/16 [History] Docusate Sodium [Colace] 200 mg PO BID #60 cap 07/22/16 [Rx] Losartan [Cozaar] 25 mg PO DAILY #30 tablet 07/22/16 [Rx] SitaGLIPtin [Januvia] 50 mg PO DAILY #30 tablet 07/22/16 [Rx] Spironolactone [Aldactone] 25 mg PO DAILY #30 tablet 07/22/16 [Rx] Aspirin/Acetaminophen/Caffeine [Eql Migraine Formula Caplet] 1 each PO TID PRN 02/07/17 [History] Bumetanide [Bumex] 3 mg PO BID 02/07/17 [History] Chlorhexidine Gluconate [Peridex 0.12% Rinse] 15 ml MM BID 02/07/17 [History] Nitroglycerin [Nitrostat] 0.4 mg SL Q5M PRN 02/07/17 [History] Temazepam [Restoril] 30 mg PO BEDTIME 02/07/17 [History] Umeclidinium [place] [Incruse Ellipta*] 62.5 mcg IH BEDTIME 02/07/17 [History] amLODIPine [Norvasc] 10 mg PO BEDTIME 02/07/17 [History] Metoprolol Tartrate [Lopressor] 50 mg PO BID #60 tablet 02/10/17 [Rx] Orphenadrine [Norflex] 100 mg PO QID PRN #20 tab.er 09/04/17 [Rx] Acetaminophen 650 mg PO Q4H PRN 09/05/17 [History] Albuterol Sulfate 1 vial IH Q6H PRN 09/05/17 [History] Bismuth Subsalicylate [Bismatrol] 262 mg PO QID PRN 09/05/17 [History] Cyclobenzaprine [Flexeril] 10 mg PO TID #12 tab 09/05/17 [Rx] Insulin Aspart [Novolog] 1 - 5 unit SQ BIDMEALS 09/05/17 [History] Lactobacillus Acidophilus [Acidophilus] 1 each PO BID 09/05/17 [History] Loperamide HCl [Imodium A-D] 2 mg PO ASDIRECTED PRN 09/05/17 [History] Sulfamethoxazole/Trimethoprim [Bactrim Ds Tablet] 1 each PO BID 09/05/17 [ History] oxyCODONE 5 mg PO Q4HR PRN #24 tab 09/05/17 [Rx] Past Medical History HEENT History: Reports: Impaired Vision Other HEENT History: wears eyeglasses Cardiovascular History: Reports: Heart Failure, Heart Murmur, Hypertension, Other (See Below) Other Cardiovascular History: bundle branch block, lymphedema Respiratory History: Reports: COPD, SOB Other Respiratory History: wears O2 at night while at home; but is now on 2L at [facility] (rehab) Gastrointestinal History: Reports: Chronic Constipation, Hemorrhoids, Other ( See Below) Other Gastrointestinal History: hx:cdiff Genitourinary History: Reports: Chronic Renal Insuffiency, Renal Calculus, UTI, Recurrent Other Genitourinary History: renal failure from an infection, stage 3 kidney disease Musculoskeletal History: Reports: Arthritis Neurological History: Reports: Migraines, Neuropathy, Peripheral, Vertigo Other Neuro History: Lupus Psychiatric History: Reports: Anxiety, Depression, Panic Attack, Other (See Below) Other Psychiatric History: insomnia Endocrine/Metabolic History: Reports: Diabetes, Type II, Hypothyroidism Hematologic History: Reports: Heparin Induced Thrombocytopenia, Iron Deficiency Immunologic History: Reports: SLE Oncologic (Cancer) History: Reports: Basal Cell Carcinoma, Other (See Below) Other Oncologic History: Basal cell carcinoma face Dermatologic History: Reports: Cellulitis, Other (See Below) Other Dermatologic History: Lymphedema, severe dry skin, Chronic sores to backs of legs, history of pressure ulcers - Infectious Disease History Infectious Disease History: Reports: C-Difficile, Chicken Pox, Hepatitis A, Influenza, Measles, Mumps, Rubella, Shingles - Past Surgical History Endocrine Surgical History: Reports: None, Other (See Below) Neurological Surgical History: Reports: Lumbar Spine Musculoskeletal Surgical History: Reports: Arthroscopic Knee, Hip Replacement, Other (See Below) Social & Family History - Family History Family Medical History: Noncontributory Cardiac: Reports: Heart Failure : Reports: Renal Disease/Insufficiency Oncologic: Reports: Lung - Tobacco Use Smoking Status *Q: Never Smoker Years of Tobacco use: 20 Packs/Tins Daily: 1 Used Tobacco, but Quit: Yes Month/Year Tobacco Last Used: 1986 Second Hand Smoke Exposure: No - Caffeine Use Caffeine Use: Reports: None - Alcohol Use Days Per Week of Alcohol Use: 0 - Recreational Drug Use Recreational Drug Use: No - Living Situation & Occupation Living situation: Reports: Extended Care Facility Occupation: Retired ED ROS GENERAL - Review of Systems Review Of Systems: See Below Constitutional: Denies: Fever HEENT: Reports: No Symptoms Respiratory: Denies: Shortness of Breath Cardiovascular: Denies: Chest Pain Endocrine: Reports: No Symptoms GI/Abdominal: Denies: Abdominal Pain : Reports: Flank Pain. Denies: Frequency, Urgency Musculoskeletal: Reports: Back Pain Skin: Reports: No Symptoms Neurological: Reports: No Symptoms ED EXAM, UPPER BACK/NECK PAIN - Physical Exam Exam: See Below Exam Limited By: No Limitations General Appearance: Alert, WD/WN, No Apparent Distress Eye Exam: Bilateral Eye: Normal Inspection Ears Exam: Normal External Exam Nose Exam: Normal Inspection Throat/Mouth Exam: Normal Inspection, Normal Voice, No Airway Compromise Head Exam: Atraumatic, Normocephalic Neck Exam: Non-Tender, Full Range of Motion, Normal Alignment, Normal Inspection Cardiovascular/Respiratory: Regular Rate, Rhythm, No M/R/G, Normal Peripheral Pulses, Normal Breath Sounds, No Respiratory Distress GI/Abdominal: Soft, Non-Tender, No Distention, Other (morbidly obses) Back Exam: Normal Inspection, CVA Tenderness (L), Other (+ diffuse soft tissue TTP of lower back throughout L spine area. No focal mass/fluctuance or skin abnormality. No point tenderness. Tenderness is most pronounce in the L paraspinal musculature). No: CVA Tenderness (R) Extremities: Normal Inspection Course - Vital Signs Last Recorded V/S: Last Vital Signs Temp 36.9 C 09/05/17 08:58 Pulse 61 09/05/17 08:58 Resp 16 09/05/17 08:58 BP 111/61 09/05/17 08:58 Pulse Ox 91 L 09/05/17 08:58 - Orders/Labs/Meds Meds: Medications Discontinued Medications Generic Name Dose Route Start Last Admin Trade Name Celsoq PRN Reason Stop Dose Admin Cyclobenzaprine HCl 10 mg 09/05/17 09:57 09/05/17 10:07 Flexeril PO 09/05/17 09:58 10 mg ONETIME ONE Administration Hydromorphone HCl 1 mg 09/05/17 09:57 09/05/17 10:06 Dilaudid IM 09/05/17 09:58 1 mg ONETIME ONE Administration Ketorolac Tromethamine 30 mg 09/05/17 09:58 09/05/17 10:07 Toradol IM 09/05/17 09:59 30 mg ONETIME ONE Administration Oxycodone/Acetaminophen 1 tab 09/05/17 10:56 09/05/17 11:39 Percocet 325-5 Mg PO 09/05/17 10:57 1 tab ONETIME ONE Administration - Re-Assessments/Exams Free Text/Narrative Re-Assessment/Exam: 09/05/17 15:09 Studies from yesterday's visit reviewed, including normal CBC/chem, UTI positive for infection, and CT a/p neg for ureterolithiasis or other abnormality but limited by artifact. her hx/exam are more consistent with an acute exacerbation of musculoskeletal back pain. Primary issue seems to be pain control. Her pain is poorly controlled on percocet BID. We will temporarily increase her narcotic dose and add cyclobenzaprine to help with her pain control. Departure - Departure Time of Disposition: 15:10 Disposition: Home, Self-Care 01 Clinical Impression: Acute low back pain Qualifiers: Back pain laterality: bilateral Sciatica presence: without sciatica Qualified Code(s): M54.5 - Low back pain - Discharge Information Prescriptions: oxyCODONE 5 mg PO Q4HR PRN #24 tab PRN Reason: Pain Cyclobenzaprine [Flexeril] 10 mg PO TID #12 tab Instructions: Back Pain, Adult Referrals: Alexandra Samuels MD [Primary Care Provider] - Forms: ED Department Discharge Additional Instructions: 1. Take percocet or oxycodone as prescribed for pain. OK to take every 4 hours for the next few days. This is not a long-term dosing or solution to your pain but may help you get through the worst of this exacerbation 2. Take acetaminophen for pain as well 3. Take cyclobenzaprine as prescribed for muscle relaxation 4. Follow up with your primary doctor next week Thursday for further care, including further management of your medications and possible referral for physical therapy or additional testing as needed 5. Return to the ED if you have severe poorly controlled pain, worsening weakness, fever, or other concerning symptoms
[2017-09-05] MEDS ORDERED: Acetaminophen/oxyCODONE 325-5 MG Tab PO ONE (10:56)
== END 2017-09-05 12:25 | disposition home or self-care (01) ==
LOC: JD.ED 08:57
DX: M54.5 Low back pain (principal); I13.0 Hypertensive heart and chronic kidney disease with heart failure and stage 1 through stage 4 chronic kidney disease, or unspecified chronic kidney disease; I50.9 Heart failure, unspecified; N18.9 Chronic kidney disease, unspecified; E11.42 Type 2 diabetes mellitus with diabetic polyneuropathy; E11.22 Type 2 diabetes mellitus with diabetic chronic kidney disease; E03.9 Hypothyroidism, unspecified; E66.8 Other obesity; Z88.8 Allergy status to other drugs, medicaments and biological substances; Z88.1 Allergy status to other antibiotic agents; Z88.5 Allergy status to narcotic agent; Z79.82 Long term (current) use of aspirin; Z79.899 Other long term (current) drug therapy; Z79.4 Long term (current) use of insulin; Z87.891 Personal history of nicotine dependence; Z87.442 Personal history of urinary calculi
CPT/HCPCS: 96372; 99285; A9270; J1170; J1885; 99283

== ENCOUNTER 2018-07-23 08:59 | Emergency (ER) | payer MEDICARE ==
[2018-07-23 09:19] VITALS: BP 144/66
--- NOTE | 2018-07-23 09:43 | EDM.PDOC ---
ED HPI GENERAL MEDICAL PROBLEM - General Chief Complaint: Lower Extremity Injury/Pain Stated Complaint: RT FOOT INJURY Time Seen by Provider: 07/23/18 09:39 Source of Information: Reports: Patient History Limitations: Reports: No Limitations - History of Present Illness INITIAL COMMENTS - FREE TEXT/NARRATIVE: 68-year-old female presents to the ED for evaluation of injuries sustained from a fall in the senior care yesterday. She states was getting up from her wheelchair which "scooted" out a bit from behind her. Geetha a walker at the time and she believes her knees just simply gave out causing her to fall hard to the floor. She landed hard on both knees and she's unsure what happened to her right foot. She is unable to weight-bear since time of injury. Pain mostly through the medial aspect of the foot. In Good portion of the night last night as well. She suffered a mild cut just above her right eye which is covered with a bandage. She contused her right shoulder and dorsal aspect right hand as well but no bony injuries are evident. Onset: Sudden Onset Date: 07/22/18 ( fell yesterday morning in the senior care.) Duration: Day(s): (4 hours) Location: Reports: Lower Extremity, Left (Injury to the right knee left knee), Lower Extremity, Right (Right great toe and medial foot) Quality: Reports: Ache, Throbbing Severity: Moderate (Tic. The great toe.) Improves with: Reports: None Worsens with: Reports: Other Context: Reports: Trauma (Got tripped up forgetting from the wheelchair to the walker legs gave out causing her to fall hard to the tile floor). Denies: Activity, Exercise (Riding to weight-bear), Lifting, Sick Contact Associated Symptoms: Reports: No Other Symptoms Treatments HEDIS SPECIALIST: Reports: Acetaminophen Right Feet Pain Score (Numeric/FACES): 8 - Related Data Allergies Allergy/AdvReac Type Severity Reaction Status Date / Time cefepime Allergy Hives Verified 09/04/17 14:16 ciprofloxacin [From Cipro] Allergy Hives Verified 09/04/17 14:16 ciprofloxacin HCl Allergy Hives Verified 09/04/17 14:16 [From Cipro] fosfomycin Allergy Hives Verified 09/04/17 14:16 levofloxacin [From Levaquin] Allergy Anaphylactic Verified 09/04/17 14:16 Shock metronidazole [From Flagyl] Allergy Rash Verified 09/04/17 14:16 Metronidazole HCl Allergy Hives Verified 09/04/17 14:16 [From Flagyl] pertussis vaccine,adsorbed Allergy Cannot Verified 09/04/17 14:16 [Pertussis Vaccine,Adsorbed] Remember vancomycin Allergy Hives Verified 09/04/17 14:16 meperidine HCl [From Demerol] AdvReac Vomiting Verified 09/04/17 14:16 Home Meds: Home Meds Aspirin [Halfprin] 81 mg PO DAILY 10/10/14 [History] Multivitamin [Daily Vitamin] 1 tab PO DAILY 10/10/14 [History] Sertraline [Zoloft] 150 mg PO DAILY 10/10/14 [History] atorvaSTATin [Lipitor] 10 mg PO BEDTIME 10/10/14 [History] oxyCODONE HCl/Acetaminophen [Percocet 5-325 mg Tablet] 1 tab PO Q6H PRN [History] Albuterol [Proventil Neb Soln] 1 dose INH Q6HR PRN 07/16/16 [History] Indomethacin [Indocin] 25 mg PO BID PRN 07/16/16 [History] Tapentadol HCl [Nucynta] 75 mg PO Q6HR PRN 07/16/16 [History] Triamcinolone Acetonide [Nasacort] 1 spray INH Q6HR PRN 07/16/16 [History] Levothyroxine Sodium [Synthroid] 250 mcg PO DAILY 07/17/16 [History] Docusate Sodium [Colace] 200 mg PO BID #60 cap 07/22/16 [Rx] Losartan [Cozaar] 25 mg PO DAILY #30 tablet 07/22/16 [Rx] SitaGLIPtin [Januvia] 50 mg PO DAILY #30 tablet 07/22/16 [Rx] Spironolactone [Aldactone] 25 mg PO DAILY #30 tablet 07/22/16 [Rx] Aspirin/Acetaminophen/Caffeine [Eql Migraine Formula Caplet] 1 each PO TID PRN 02/07/17 [History] Bumetanide [Bumex] 3 mg PO BID 02/07/17 [History] Chlorhexidine Gluconate [Peridex 0.12% Rinse] 15 ml MM BID 02/07/17 [History] Nitroglycerin [Nitrostat] 0.4 mg SL Q5M PRN 02/07/17 [History] Temazepam [Restoril] 30 mg PO BEDTIME 02/07/17 [History] Umeclidinium Flom [Incruse Ellipta*] 62.5 mcg IH BEDTIME 02/07/17 [History] amLODIPine [Norvasc] 10 mg PO BEDTIME 02/07/17 [History] Metoprolol Tartrate [Lopressor] 50 mg PO BID #60 tablet 02/10/17 [Rx] Orphenadrine [Norflex] 100 mg PO QID PRN #20 tab.er 09/04/17 [Rx] Acetaminophen 650 mg PO Q4H PRN 09/05/17 [History] Albuterol Sulfate 1 vial IH Q6H PRN 09/05/17 [History] Bismuth Subsalicylate [Bismatrol] 262 mg PO QID PRN 09/05/17 [History] Cyclobenzaprine [Flexeril] 10 mg PO TID #12 tab 09/05/17 [Rx] Insulin Aspart [Novolog] 1 - 5 unit SQ BIDMEALS 09/05/17 [History] Lactobacillus Acidophilus [Acidophilus] 1 each PO BID 09/05/17 [History] Loperamide HCl [Imodium A-D] 2 mg PO ASDIRECTED PRN 09/05/17 [History] Sulfamethoxazole/Trimethoprim [Bactrim Ds Tablet] 1 each PO BID 09/05/17 [ History] oxyCODONE 5 mg PO Q4HR PRN #24 tab 09/05/17 [Rx] Past Medical History HEENT History: Reports: Impaired Vision Other HEENT History: wears eyeglasses Cardiovascular History: Reports: Heart Failure, Heart Murmur, Hypertension, Other (See Below) Other Cardiovascular History: bundle branch block, lymphedema Respiratory History: Reports: COPD, SOB Other Respiratory History: wears O2 at night while at home; but is now on 2L at [facility] (rehab) Gastrointestinal History: Reports: Chronic Constipation, Hemorrhoids, Other ( See Below) Other Gastrointestinal History: hx:cdiff Genitourinary History: Reports: Chronic Renal Insuffiency, Renal Calculus, UTI, Recurrent Other Genitourinary History: renal failure from an infection, stage 3 kidney disease Musculoskeletal History: Reports: Arthritis Neurological History: Reports: Migraines, Neuropathy, Peripheral, Vertigo Other Neuro History: Lupus Psychiatric History: Reports: Anxiety, Depression, Panic Attack, Other (See Below) Other Psychiatric History: insomnia Endocrine/Metabolic History: Reports: Diabetes, Type II, Hypothyroidism, Obesity /BMI 30+ Hematologic History: Reports: Heparin Induced Thrombocytopenia, Iron Deficiency Immunologic History: Reports: SLE Oncologic (Cancer) History: Reports: Basal Cell Carcinoma, Other (See Below) Other Oncologic History: Basal cell carcinoma face Dermatologic History: Reports: Cellulitis, Other (See Below) Other Dermatologic History: Lymphedema, severe dry skin, Chronic sores to backs of legs, history of pressure ulcers - Infectious Disease History Infectious Disease History: Reports: C-Difficile, Chicken Pox, Hepatitis A, Influenza, Measles, Mumps, Rubella, Shingles - Past Surgical History Endocrine Surgical History: Reports: None, Other (See Below) Neurological Surgical History: Reports: Lumbar Spine Musculoskeletal Surgical History: Reports: Arthroscopic Knee, Hip Replacement, Other (See Below) Social & Family History - Family History Family Medical History: Noncontributory Cardiac: Reports: Heart Failure : Reports: Renal Disease/Insufficiency Oncologic: Reports: Lung - Tobacco Use Smoking Status *Q: Unknown Ever Smoked - Caffeine Use Caffeine Use: Reports: None - Living Situation & Occupation Living situation: Reports: Extended Care Facility Occupation: Retired Review of Systems - Review of Systems Review Of Systems: See Below Constitutional: Reports: Weakness. Denies: Chills, Diaphoresis, Fever Eyes: Reports: Other Ears: Reports: No Symptoms (Does have poor vision.) Nose: Reports: No Symptoms Mouth/Throat: Reports: No Symptoms Respiratory: Reports: No Symptoms Cardiovascular: Reports: No Symptoms GI/Abdominal: Reports: Other (Obesity) Genitourinary: Reports: Other (Incontinence both urge and stress components) Musculoskeletal: Reports: Other (Severe rest or arthritis in both lower extremities hips knees.) Skin: Reports: Bruising Neurological: Reports: No Symptoms (Was is easily) Psychiatric: Reports: No Symptoms ED EXAM, GENERAL - Physical Exam Exam: See Below Exam Limited By: No Limitations General Appearance: Alert, WD/WN, Moderate Distress, Obese Eye Exam: Right Eye: Periorbital Changes (She has a superficial laceration to the medial aspect of her left right eyebrow area. This resulted in ecchymoses of the) Ears: Normal TMs Throat/Mouth: Normal Inspection, Normal Lips, Normal Oropharynx, Other Head: Atraumatic, Normocephalic (No injuries to her tongue), Facial Swelling ( Right face above her right eye medial eyebrow area with swelling of the medial canthus upper eyelid) Neck: Normal Inspection, Limited Range of Motion, Tender Lateral (Limited range of motion due to arthritis) Respiratory/Chest: Lungs Clear, Normal Breath Sounds, No Accessory Muscle Use, Respiratory Distress Cardiovascular: Regular Rate, Rhythm, No Gallop, No Murmur, No Rub Peripheral Pulses: 1+: Posterior Tibial (L), Posterior Tibial (R), Dorsalis Pedis (L), Dorsalis Pedis (R) GI/Abdominal: Normal Bowel Sounds, Soft, Non-Tender, No Organomegaly, Other ( Abdominal girth limits ability to palpate solid organs.) Extremities: Other (Inspection of her lower extremity shows significant ecchymoses medial aspect of the left knee. Knee shows severe ecchymoses of across the patella and involving both the lateral and medial aspects of the knee. She is able to only flex about 30. Impossible to tell if there is any damage to the patella. She has some pain in the right ankle on from compression. The right foot shows quite a bit of ecchymoses around the proximal and distal phalanx of the great toe and medial aspect of the foot.) Neurological: Normal Cognition. No: Alert Psychiatric: Anxious Skin Exam: Warm, Dry, Intact, Ecchymosis (Ecchymoses as described above.) Course - Vital Signs Last Recorded V/S: Last Vital Signs Temp 36.0 C 07/23/18 09:15 Pulse 63 07/23/18 09:15 Resp 20 07/23/18 09:15 BP 144/66 H 07/23/18 09:15 Pulse Ox 92 L 07/23/18 09:15 - Radiology Interpretation Free Text/Narrative:: 68-year-old female presents to the ED after a fall at the senior care yesterday morning. This occurred when she was trying to get up from her wheelchair and get a hold of her walker. Her legs buckled or gave out on her and she fell directly to her knees right got banged up much more than the left. She also hyperextended her right toe on the right side which is causing most of her pain. The right foot shows marked ecchymoses of the great toe and medial first metatarsal bone. Also marked ecchymoses and swelling of the right knee with inability to flex past 40. X-ray of the right knee tib-fib a foot to be done.nd - Re-Assessments/Exams Free Text/Narrative Re-Assessment/Exam: 07/23/18 10:38 x-rays of the right knee reveal extensive degenerative arthritis with [id number] both medial and lateral compartments of the knee. There is also extensive degenerative arthritis of the patellofemoral joint. There is a possible undisplaced fracture of the superior aspect of the patella which is a spur. O2 sats is intact. Tib-fib is very osteopenic as she is not walking but there is no fractures identified. The ankle is within normal limits. There is a fracture of the medial aspect of the proximal phalanx of her right great toe. Other fractures are identified within the foot. The toe will be annia taped to the second toe to provide stability. 07/23/18 11:16 plan will be to annia tape the great toe to the second toe with a piece of cotton gaudencio in between. Submitted D need to be changed about every third day. Should has Percocet tablets that she can use on a when necessary basis at the senior care. She is on a fentanyl patch chronically. Annia tape the toes together for the next month. He will be limited in her ability to weight-bear and walk. Departure - Departure Time of Disposition: 11:17 Disposition: Home, Self-Care 01 Condition: Fair Clinical Impression: Contusion of right knee Fall as cause of accidental injury at home as place of occurrence Qualifiers: Encounter type: initial encounter Qualified Code(s): W19.XXXA - Unspecified fall, initial encounter Fracture of toe of right foot Qualifiers: Encounter type: initial encounter Toe: great toe Fracture type: closed Phalanx : proximal Fracture alignment: displaced Qualified Code(s): S92.411A - Displaced fracture of proximal phalanx of right great toe, initial encounter for closed fracture - Discharge Information *PRESCRIPTION DRUG MONITORING PROGRAM REVIEWED*: Not Applicable *COPY OF PRESCRIPTION DRUG MONITORING REPORT IN PATIENT ENEDINA: Not Applicable Instructions: Toe Fracture, [id number] Referrals: Alexandra Samuels MD [Primary Care Provider] - Forms: ED Department Discharge Additional Instructions: Evaluation the emergency room today in regards to any sustained from a fall yesterday at the senior care. You have suffered blunt trauma to both knees with significant bruising of the right knee. X-rays do not reveal any broken bones but reveal significant bruising. There is severe degenerative arthritis of the underlying knee joint and patellofemoral joint. Excision of the tib-fib reveal the bones to be quite thin are osteopenic but show no fractures in that leg bone or ankle. X-rays of the foot confirm a fracture at the base of the proximal phalanx of the big toe. This is in fairly good alignment. Treatment is annia tape the great toe to the second toe for the next month. Tape should be changed every third day with a piece of cotton gaudencio between the toes to keep it from macerating her getting infected. Will have to be limited significantly as you only build to heel walk on the right side. Suggest an increased dose of Percocet tabs 5// one every 6 hours as necessary for pain relief for the next 3-4 days and then back to as needed basis. Follow-up with personal care physician in regards to fractured toe was suggested x-ray in 6 weeks' time
--- NOTE | 2018-07-23 10:51 | CR ---
Right knee: AP, lateral and sunrise patellar views were obtained. Comparison: No previous knee exam. Severe joint space narrowing is noted within the lateral patellofemoral joint. Large osteophyte is seen off the lateral patella. Severe joint space narrowing is seen within the medial joint compartment. Osteophytes are noted off the medial and lateral joints. Bony structures are osteopenic. No definite acute abnormality is appreciated. Impression: 1. Degenerative change and osteopenia. 2. No definite acute abnormality is appreciated. Diagnostic code #2
--- NOTE | 2018-07-23 10:51 | CR ---
Right tibia and fibula: Two views of the right tibia and fibula were obtained. Comparison: No prior study. Bony structures are osteoporotic. Degenerative change is again seen within the knee. Ankle mortise is symmetric. No discrete fracture or other abnormality is appreciated. Impression: 1. Findings as noted above. Nothing acute is appreciated on two-view right tibia and fibula study. Diagnostic code #2
--- NOTE | 2018-07-23 11:07 | CR ---
Right foot: Four views of the right foot were obtained. Comparison: No previous foot exam. Slight cortical disruption is felt to be present within the corner base of the proximal phalanx of the first toe suspicious for small corner fracture. Bony structures are osteoporotic. No additional fracture or other abnormality is appreciated. Impression: 1. Findings suspicious for small corner fracture within the base of the proximal phalanx of the first digit. 2. No other acute abnormality is definitely appreciated. Diagnostic code #3
== END 2018-07-23 11:33 | disposition home or self-care (01) ==
LOC: JD.ED 08:59
DX: S92.411A Displaced fracture of proximal phalanx of right great toe, initial encounter for closed fracture (principal); S80.01XA Contusion of right knee, initial encounter; S80.02XA Contusion of left knee, initial encounter; I13.0 Hypertensive heart and chronic kidney disease with heart failure and stage 1 through stage 4 chronic kidney disease, or unspecified chronic kidney disease; E11.22 Type 2 diabetes mellitus with diabetic chronic kidney disease; N18.9 Chronic kidney disease, unspecified; I50.9 Heart failure, unspecified; E03.9 Hypothyroidism, unspecified; E11.40 Type 2 diabetes mellitus with diabetic neuropathy, unspecified; F41.9 Anxiety disorder, unspecified; F32.9 Major depressive disorder, single episode, unspecified; Z79.4 Long term (current) use of insulin; Z79.899 Other long term (current) drug therapy; Z79.82 Long term (current) use of aspirin; Z88.1 Allergy status to other antibiotic agents; Z88.8 Allergy status to other drugs, medicaments and biological substances; Z88.5 Allergy status to narcotic agent; W19.XXXA Unspecified fall, initial encounter; Y92.009 Unspecified place in unspecified non-institutional (private) residence as the place of occurrence of the external cause
CPT/HCPCS: 73562-26-RT; 73562-RT; 73590-26-RT; 73590-RT; 73630-26-RT; 73630-RT; 99284

== ENCOUNTER 2018-10-16 19:38 | Emergency (ER) | payer MEDICARE ==
[2018-10-16 19:51] VITALS: BP 114/62
[2018-10-16] MEDS ORDERED: Sodium Chloride 0.9% 10 ML Syringe FLUSH PRN (20:07)
--- NOTE | 2018-10-16 20:09 | EDM.PDOC ---
ED HPI GENERAL MEDICAL PROBLEM - General Chief Complaint: Respiratory Problem Stated Complaint: [facility] Time Seen by Provider: 10/16/18 19:48 Source of Information: Reports: Patient, EMS, [facility] Records - History of Present Illness INITIAL COMMENTS - FREE TEXT/NARRATIVE: 68-year-old female presents to the ED from [facility] where she resides. She presents due to increased dyspnea over the last several days. Of note the patient has chronic dyspnea and is on oxygen at 3 L/m at all times. Is a combination of severe congestive heart failure as well as COPD. He denies any recent changes to her medications. She denies any cough or sputum production. Denies any fever or chills. Denies any recent central chest pains. Bowels have been looser the last couple of days she had diarrhea 2 yesterday without blood. Has chronic venous insufficiency in both lower extremities. Has them cleansed and wrapped daily. Has arthritis quite badly in her hips and knees lower back with recent compression fracture of a lumbar vertebra according to the patient. She is on a fentanyl patch 50 g per hour. She takes her Percocet tablets when necessary for pain relief. Since CODE STATUS is code level I or Full code. Onset: Gradual Onset Date: 10/12/18 (Vaginally increasing dyspnea over the last 4-5 days.) Duration: Day(s):, Getting Worse Location: Reports: Chest (Shortness of breath even at rest.) Quality: Reports: Other (Dyspnea without cough) Severity: Moderate Improves with: Reports: Rest Worsens with: Reports: Movement Context: Denies: Activity, Exercise, Lifting, Sick Contact, Trauma, Other Associated Symptoms: Reports: Malaise, Shortness of Breath, Weakness. Denies: No Other Symptoms, Confusion, Chest Pain, Cough, cough w sputum, Diaphoresis, Fever/Chills, Headaches, Loss of Appetite, Nausea/Vomiting, Seizure ( Chronically .Worse as of recent), Syncope Treatments STATOR WINDER: Reports: Other (see below) - Related Data Allergies Allergy/AdvReac Type Severity Reaction Status Date / Time cefepime Allergy Hives Verified 10/16/18 21:30 ciprofloxacin [From Cipro] Allergy Hives Verified 10/16/18 21:30 ciprofloxacin HCl Allergy Hives Verified 10/16/18 21:30 [From Cipro] fosfomycin Allergy Hives Verified 10/16/18 21:30 levofloxacin [From Levaquin] Allergy Anaphylactic Verified 10/16/18 21:30 Shock metronidazole [From Flagyl] Allergy Rash Verified 10/16/18 21:30 Metronidazole HCl Allergy Hives Verified 10/16/18 21:30 [From Flagyl] pertussis vaccine,adsorbed Allergy Cannot Verified 10/16/18 21:30 [Pertussis Vaccine,Adsorbed] Remember vancomycin Allergy Hives Verified 10/16/18 21:30 meperidine HCl [From Demerol] AdvReac Vomiting Verified 10/16/18 21:30 Home Meds: Home Meds Aspirin [Halfprin] 81 mg PO DAILY 10/10/14 [History] Multivitamin [Daily Vitamin] 1 tab PO DAILY 10/10/14 [History] Sertraline [Zoloft] 200 mg PO BEDTIME 10/10/14 [History] atorvaSTATin [Lipitor] 10 mg PO BEDTIME 10/10/14 [History] oxyCODONE HCl/Acetaminophen [Percocet 5-325 mg Tablet] 1 tab PO Q6H PRN [History] Albuterol [Proventil Neb Soln] 1 dose INH Q6HR PRN 07/16/16 [History] Triamcinolone Acetonide [Nasacort] 1 spray INH Q6HR PRN 07/16/16 [History] Levothyroxine Sodium [Synthroid] 250 mcg PO DAILY 07/17/16 [History] Docusate Sodium [Colace] 200 mg PO BID #60 cap 07/22/16 [Rx] SitaGLIPtin [Januvia] 50 mg PO DAILY #30 tablet 07/22/16 [Rx] Spironolactone [Aldactone] 25 mg PO DAILY #30 tablet 07/22/16 [Rx] Bumetanide [Bumex] 3 mg PO BID 02/07/17 [History] Chlorhexidine Gluconate [Peridex 0.12% Rinse] 15 ml MM BID 02/07/17 [History] Nitroglycerin [Nitrostat] 0.4 mg SL Q5M PRN 02/07/17 [History] Temazepam [Restoril] 30 mg PO BEDTIME 02/07/17 [History] amLODIPine [Norvasc] 10 mg PO DAILY 02/07/17 [History] Acetaminophen 650 mg PO Q4H PRN 09/05/17 [History] Bismuth Subsalicylate [Bismatrol] 262 mg PO QID PRN 09/05/17 [History] Insulin Aspart [Novolog] 1 - 5 unit SQ BIDMEALS 09/05/17 [History] Lactobacillus Acidophilus [Acidophilus] 1 each PO BID 09/05/17 [History] Loperamide HCl [Imodium A-D] 2 mg PO ASDIRECTED PRN 09/05/17 [History] Cranberry 400 mg PO TID 10/16/18 [History] Losartan [Cozaar] 25 mg PO WITHLUNCH 10/16/18 [History] Metoprolol Tartrate [Lopressor] 25 mg PO BID 10/16/18 [History] Omeprazole 20 mg PO ACBREAKFAST 10/16/18 [History] Ondansetron [Zofran ODT] 4 mg SL TID PRN 10/16/18 [History] Orphenadrine [Norflex] 100 mg PO BID 10/16/18 [History] Pilocarpine HCl [Salagen] 5 mg PO TID 10/16/18 [History] Polyethylene Glycol 3350 [MiraLAX] 17 gm PO ASDIRECTED 10/16/18 [History] Sodium Bicarbonate 1,300 mg PO TID 10/16/18 [History] Umeclidinium Brm/Vilanterol Tr [Anoro Ellipta 62.5-25 MCG] 1 each IH BEDTIME [History] acetaZOLAMIDE [Acetazolamide] 250 mg PO DAILY 10/16/18 [History] fentaNYL [Fentanyl] 50 mcg TOP ASDIRECTED 10/16/18 [History] guaiFENesin [Mucinex] 600 mg PO BID 10/16/18 [History] Nitrofurantoin Monohyd/M-Cryst [Macrobid 100 mg Capsule] 100 mg PO BID #14 capsule 10/17/18 [Rx] Past Medical History HEENT History: Reports: Impaired Vision Other HEENT History: wears eyeglasses Cardiovascular History: Reports: Heart Failure, Heart Murmur, Hypertension, Other (See Below) Other Cardiovascular History: bundle branch block, lymphedema Respiratory History: Reports: COPD, SOB Other Respiratory History: wears O2 at night while at home; but is now on 2L at [facility] (rehab) Gastrointestinal History: Reports: Chronic Constipation, Hemorrhoids, Other ( See Below) Other Gastrointestinal History: hx:cdiff Genitourinary History: Reports: Chronic Renal Insuffiency, Renal Calculus, UTI, Recurrent Other Genitourinary History: renal failure from an infection, stage 3 kidney disease Musculoskeletal History: Reports: Arthritis, Other (See Below) (Patient is no longer able to walk. She is bedridden or in the wheelchair.) Neurological History: Reports: Migraines, Neuropathy, Peripheral, Vertigo Other Neuro History: Lupus Psychiatric History: Reports: Anxiety, Depression, Panic Attack, Other (See Below) Other Psychiatric History: insomnia Endocrine/Metabolic History: Reports: Diabetes, Type II, Hypothyroidism, Obesity /BMI 30+ Hematologic History: Reports: Heparin Induced Thrombocytopenia, Iron Deficiency Immunologic History: Reports: SLE Oncologic (Cancer) History: Reports: Basal Cell Carcinoma, Other (See Below) Other Oncologic History: Basal cell carcinoma face Dermatologic History: Reports: Cellulitis, Other (See Below) Other Dermatologic History: Lymphedema, severe dry skin, Chronic sores to backs of legs, history of pressure ulcers - Infectious Disease History Infectious Disease History: Reports: C-Difficile, Chicken Pox, Hepatitis A, Influenza, Measles, Mumps, Rubella, Shingles - Past Surgical History Endocrine Surgical History: Reports: None, Other (See Below) Neurological Surgical History: Reports: Lumbar Spine Musculoskeletal Surgical History: Reports: Arthroscopic Knee, Hip Replacement, Other (See Below) Social & Family History - Family History Family Medical History: Noncontributory Cardiac: Reports: Heart Failure : Reports: Renal Disease/Insufficiency Oncologic: Reports: Lung - Tobacco Use Smoking Status *Q: Former Smoker Used Tobacco, but Quit: Yes Month/Year Tobacco Last Used: 1999 - Caffeine Use Caffeine Use: Reports: Coffee - Recreational Drug Use Recreational Drug Use: No - Living Situation & Occupation Living situation: Reports: Extended Care Facility ([facility] senior living.) Occupation: Retired ED ROS GENERAL - Review of Systems Review Of Systems: See Below Constitutional: Reports: Malaise, Weakness, Fatigue, Decreased Appetite. Denies : Fever, Chills HEENT: Reports: Glasses Respiratory: Reports: Shortness of Breath. Denies: Wheezing, Pleuritic Chest Pain, Cough, Sputum, Hemoptysis Cardiovascular: Reports: Dyspnea on Exertion (Chronic dependent edema in both lower extremities), Edema. Denies: Chest Pain, Blood Pressure Problem, Claudication, Lightheadedness, Orthopnea, Palpitations Endocrine: Reports: Fatigue, High Glucose GI/Abdominal: Reports: Diarrhea. Denies: Difficulty Swallowing, Hematochezia, Melena (2 loose stools yesterday. No blood noted.) : Reports: Frequency, Incontinence Musculoskeletal: Reports: Joint Pain (Both knees hips low back with compression fractures recently identified in her back.) Skin: Reports: Bruising Neurological: Reports: No Symptoms Psychiatric: Reports: No Symptoms Hematologic/Lymphatic: Reports: No Symptoms Immunologic: Reports: No Symptoms ED EXAM, GENERAL - Physical Exam Exam: See Below Exam Limited By: No Limitations General Appearance: Alert, WD/WN, Mild Distress, Other (Respiratory distress and is 24/m with O2 sats of 92% but on 3 L she is as high as 9697% at times.) Eye Exam: Bilateral Eye: Normal Inspection Throat/Mouth: Normal Inspection, Normal Oropharynx, Other Head: Atraumatic (Tongue is mildly dry.), Normocephalic Neck: Normal Inspection, Supple, Non-Tender, Full Range of Motion. No: Carotid Bruit, Lymphadenopathy (L), Lymphadenopathy (R) Respiratory/Chest: No Accessory Muscle Use, Respiratory Distress (Mild tachypnea at rest.), Rales (There are rales both lower lung beltran in the lower 10%. Some dullness to percussion on the left side.). No: Lungs Clear, Normal Breath Sounds, Chest Non-Tender, Rhonchi, Wheezing Cardiovascular: Regular Rate, Rhythm, No Gallop, No Murmur, No Rub. No: Normal Peripheral Pulses, No Edema Peripheral Pulses: 0: Posterior Tibial (L) (No pulses are palpable in her feet is a obscured by dependent edema.), Posterior Tibial (R), Dorsalis Pedis (L), Dorsalis Pedis (R) GI/Abdominal: Normal Bowel Sounds, Soft, Non-Tender, No Mass, Pelvis Stable, Other (Abdominal girth is very large and therefore not ). No: Guarding, Rigid, Rebound, Tender Back Exam: Other (Pain in her mid and lower back with sitting up. Apparently she has a recently diagnosed compression fracture a month or so.). No: Full Range of Motion Extremities: Increased Warmth (Increased warmth in both knees particularly the right side due to), Other (She has chronic venous insufficiency both lower extremities and they're both wrapped with Steve wraps up to the knees bilaterally. ) Neurological: Alert ( inflammation. Markedly decreased range of motion of both hips. Severe arthritis), Oriented, CN II-XII Intact, Normal Cognition Psychiatric: Anxious Skin Exam: Warm, Dry, Intact, Normal Color, No Rash EKG INTERPRETATION EKG Date: 10/16/18 Time: 20:05 Rhythm: Other Rate (Beats/Min): 50 [place]: LAD-Left [place] Deviation (-29) P-Wave: Present QRS: Other (Likely old inferior wall myocardial infarction.) ST-T: Other (T-wave inversion aVL nonspecific finding) QT: Prolonged Course - Vital Signs Last Recorded V/S: Last Vital Signs Temp 36.8 C 10/16/18 19:45 Pulse 58 L 10/16/18 19:45 Resp 20 10/16/18 19:45 BP 114/62 10/16/18 19:45 Pulse Ox 92 L 10/16/18 19:45 - Orders/Labs/Meds Orders: Active Orders 24 hr Category Date Time Status Blood Glucose Check, Bedside [RC] ONETIME Care 10/16/18 20:14 Active EKG Documentation Completion [RC] STAT Care 10/16/18 19:49 Active EKG Documentation Completion [RC] STAT Care 10/16/18 20:07 Active Insert Jeffries Catheter [Insert Urinary Catheter] [OM.PC] Care 10/16/18 23:48 Ordered Stat Oxygen Therapy [RC] ASDIRECTED Care 10/16/18 20:08 Active Peripheral IV Care [RC] . DIRECTED Care 10/16/18 20:09 Active Urinary Catheter Assessment [RC] ASDIRECTED Care 10/16/18 23:49 Active Chest 1V Frontal [CR] Stat Exams 10/16/18 20:07 Taken CULTURE URINE [RM] Stat Lab 10/17/18 01:57 Received Peripheral IV Insertion Adult [OM.PC] Stat Oth 10/16/18 20:08 Ordered Labs: Laboratory Tests 10/16/18 10/16/18 10/16/18 Range/Units 20:10 20:10 20:10 WBC (3.98-10.04) K/mm3 RBC (3.98-5.22) M/mm3 Hgb (11.2-15.7) gm/L Hct (34.1-44.9) % MCV (79.4-94.8) fl MCH (25.6-32.2) pg MCHC (32.2-35.5) g/dl RDW Std Deviation (36.4-46.3) fL Plt Count (182-369) K/mm3 MPV (9.4-12.3) fl Neut % (Auto) (34.0-71.1) % Lymph % (Auto) (19.3-51.7) % [place] % (Auto) (4.7-12.5) % Eos % (Auto) (0.7-5.8) Baso % (Auto) (0.1-1.2) % Neut # (Auto) (1.56-6.13) K/mm3 Lymph # (Auto) (1.18-3.74) K/mm3 [place] # (Auto) (0.24-0.36) K/mm3 Eos # (Auto) (0.04-0.36) K/mm3 Baso # (Auto) (0.01-0.08) K/mm3 Manual Slide Review ESR (0-20) mm/hr PT (9.5-12.1) SECONDS INR Sodium 138 (136-145) mEq/L Potassium 4.3 (3.5-5.1) mEq/L Chloride 99 (98-107) mEq/L Carbon Dioxide 34 H (21-32) mEq/L Anion Gap 9.3 (5-15) BUN 28 H (7-18) mg/dL Creatinine 1.3 H (0.55-1.02) mg/dL Est Cr Clr Drug Dosing 39.72 mL/min Estimated GFR (MDRD) 41 (>60) mL/min BUN/Creatinine Ratio 21.5 H (14-18) Glucose 151 H (80-115) mg/dL POC Glucose (80-115) mg/dL Hemoglobin A1c (4.50-6.20) % Calcium 9.2 (8.5-10.1) mg/dL Magnesium 2.3 (1.8-2.4) mg/dl Total Bilirubin 0.3 (0.2-1.0) mg/dL AST 13 L (15-37) U/L ALT 17 (14-59) U/L Alkaline Phosphatase 125 H (46-116) U/L CK-MB (CK-2) 1.0 (0-3.6) ng/ml Troponin I < 0.017 (0.00-0.056) ng/mL C-Reactive Protein 2.0 H* (<1.0) mg/dL NT-Pro-B Natriuret Pep 1504 H (0-125) pg/mL Total Protein 7.7 (6.4-8.2) g/dl Albumin 3.5 (3.4-5.0) g/dl Globulin 4.2 gm/dL Albumin/Globulin Ratio 0.8 L (1-2) Urine Color (Yellow) Urine Appearance (Clear) Urine pH (5.0-8.0) Ur Specific [place] (1.005-1.030) Urine Protein (Negative) Urine Glucose (UA) (Negative) Urine Ketones (Negative) Urine Occult Blood (Negative) Urine Nitrite (Negative) Urine Bilirubin (Negative) Urine Urobilinogen (0.2-1.0) Ur Leukocyte Esterase (Negative) Urine RBC (0-5) /hpf Urine WBC (0-5) /hpf Ur Epithelial Cells (0-5) /hpf Amorphous Sediment (NOT SEEN) /hpf Urine Bacteria (FEW) /hpf Urine Mucus (FEW) /hpf 10/16/18 10/16/18 10/16/18 Range/Units 20:20 20:20 20:20 WBC 5.57 (3.98-10.04) K/mm3 RBC 3.73 L (3.98-5.22) M/mm3 Hgb 12.2 (11.2-15.7) gm/L Hct 40.3 (34.1-44.9) % MCV 108.0 H (79.4-94.8) fl MCH 32.7 H (25.6-32.2) pg MCHC 30.3 L (32.2-35.5) g/dl RDW Std Deviation 49.9 H (36.4-46.3) fL Plt Count 111 L (182-369) K/mm3 MPV 12.2 (9.4-12.3) fl Neut % (Auto) 79.8 H (34.0-71.1) % Lymph % (Auto) 11.1 L (19.3-51.7) % [place] % (Auto) 7.0 (4.7-12.5) % Eos % (Auto) 1.6 (0.7-5.8) Baso % (Auto) 0.0 L (0.1-1.2) % Neut # (Auto) 4.44 (1.56-6.13) K/mm3 Lymph # (Auto) 0.62 L (1.18-3.74) K/mm3 [place] # (Auto) 0.39 H (0.24-0.36) K/mm3 Eos # (Auto) 0.09 (0.04-0.36) K/mm3 Baso # (Auto) 0.00 L (0.01-0.08) K/mm3 Manual Slide Review Abnormal smear ESR 36 H (0-20) mm/hr PT (9.5-12.1) SECONDS INR Sodium (136-145) mEq/L Potassium (3.5-5.1) mEq/L Chloride (98-107) mEq/L Carbon Dioxide (21-32) mEq/L Anion Gap (5-15) BUN (7-18) mg/dL Creatinine (0.55-1.02) mg/dL Est Cr Clr Drug Dosing mL/min Estimated GFR (MDRD) (>60) mL/min BUN/Creatinine Ratio (14-18) Glucose (80-115) mg/dL POC Glucose (80-115) mg/dL Hemoglobin A1c 6.20 (4.50-6.20) % Calcium (8.5-10.1) mg/dL Magnesium (1.8-2.4) mg/dl Total Bilirubin (0.2-1.0) mg/dL AST (15-37) U/L ALT (14-59) U/L Alkaline Phosphatase (46-116) U/L CK-MB (CK-2) (0-3.6) ng/ml Troponin I (0.00-0.056) ng/mL C-Reactive Protein (<1.0) mg/dL NT-Pro-B Natriuret Pep (0-125) pg/mL Total Protein (6.4-8.2) g/dl Albumin (3.4-5.0) g/dl Globulin gm/dL Albumin/Globulin Ratio (1-2) Urine Color (Yellow) Urine Appearance (Clear) Urine pH (5.0-8.0) Ur Specific [place] (1.005-1.030) Urine Protein (Negative) Urine Glucose (UA) (Negative) Urine Ketones (Negative) Urine Occult Blood (Negative) Urine Nitrite (Negative) Urine Bilirubin (Negative) Urine Urobilinogen (0.2-1.0) Ur Leukocyte Esterase (Negative) Urine RBC (0-5) /hpf Urine WBC (0-5) /hpf Ur Epithelial Cells (0-5) /hpf Amorphous Sediment (NOT SEEN) /hpf Urine Bacteria (FEW) /hpf Urine Mucus (FEW) /hpf 10/16/18 10/16/18 10/16/18 Range/Units 20:35 21:16 23:57 WBC (3.98-10.04) K/mm3 RBC (3.98-5.22) M/mm3 Hgb (11.2-15.7) gm/L Hct (34.1-44.9) % MCV (79.4-94.8) fl MCH (25.6-32.2) pg MCHC (32.2-35.5) g/dl RDW Std Deviation (36.4-46.3) fL Plt Count (182-369) K/mm3 MPV (9.4-12.3) fl Neut % (Auto) (34.0-71.1) % Lymph % (Auto) (19.3-51.7) % [place] % (Auto) (4.7-12.5) % Eos % (Auto) (0.7-5.8) Baso % (Auto) (0.1-1.2) % Neut # (Auto) (1.56-6.13) K/mm3 Lymph # (Auto) (1.18-3.74) K/mm3 [place] # (Auto) (0.24-0.36) K/mm3 Eos # (Auto) (0.04-0.36) K/mm3 Baso # (Auto) (0.01-0.08) K/mm3 Manual Slide Review ESR (0-20) mm/hr PT 11.0 (9.5-12.1) SECONDS INR 1.01 Sodium (136-145) mEq/L Potassium (3.5-5.1) mEq/L Chloride (98-107) mEq/L Carbon Dioxide (21-32) mEq/L Anion Gap (5-15) BUN (7-18) mg/dL Creatinine (0.55-1.02) mg/dL Est Cr Clr Drug Dosing mL/min Estimated GFR (MDRD) (>60) mL/min BUN/Creatinine Ratio (14-18) Glucose (80-115) mg/dL POC Glucose 146 H (80-115) mg/dL Hemoglobin A1c (4.50-6.20) % Calcium (8.5-10.1) mg/dL Magnesium (1.8-2.4) mg/dl Total Bilirubin (0.2-1.0) mg/dL AST (15-37) U/L ALT (14-59) U/L Alkaline Phosphatase (46-116) U/L CK-MB (CK-2) (0-3.6) ng/ml Troponin I (0.00-0.056) ng/mL C-Reactive Protein (<1.0) mg/dL NT-Pro-B Natriuret Pep (0-125) pg/mL Total Protein (6.4-8.2) g/dl Albumin (3.4-5.0) g/dl Globulin gm/dL Albumin/Globulin Ratio (1-2) Urine Color Yellow (Yellow) Urine Appearance Clear (Clear) Urine pH 6.0 (5.0-8.0) Ur Specific [place] 1.015 (1.005-1.030) Urine Protein Negative (Negative) Urine Glucose (UA) Negative (Negative) Urine Ketones Negative (Negative) Urine Occult Blood Trace-intact H (Negative) Urine Nitrite Positive H (Negative) Urine Bilirubin Negative (Negative) Urine Urobilinogen 0.2 (0.2-1.0) Ur Leukocyte Esterase 2+ H (Negative) Urine RBC 5-10 H (0-5) /hpf Urine WBC 20-30 H (0-5) /hpf Ur Epithelial Cells 0-5 (0-5) /hpf Amorphous Sediment Moderate H (NOT SEEN) /hpf Urine Bacteria Many H (FEW) /hpf Urine Mucus Not seen (FEW) /hpf Meds: Medications Discontinued Medications Generic Name Dose Route Start Last Admin Trade Name Freq PRN Reason Stop Dose Admin Bumetanide 1 mg 10/16/18 20:10 10/16/18 20:28 Bumex IVPUSH 10/16/18 20:11 1 mg ONETIME ONE Administration Bumetanide 1 mg 10/17/18 04:00 10/17/18 04:05 Bumex IVPUSH 10/17/18 04:01 1 mg ONETIME ONE Administration Nitrofurantoin Macrocrystals 100 mg 10/17/18 02:06 10/17/18 02:30 Macrobid PO 10/17/18 02:07 100 mg ONETIME ONE Administration Oxycodone/Acetaminophen 1 tab 10/17/18 06:56 10/17/18 07:01 Percocet 325-5 Mg PO 10/17/18 06:57 1 tab ONETIME ONE Administration Sodium Chloride 10 ml 10/16/18 20:07 10/16/18 20:28 Saline Flush FLUSH 10 ml ASDIRECTED PRN Administration Keep Vein Open Temazepam 30 mg 10/16/18 23:30 10/16/18 23:50 Restoril PO 10/16/18 23:31 30 mg BEDTIME ONE Administration - Radiology Interpretation Free Text/Narrative:: Extent 8-year-old female from [facility] presents to the ED for due to increased shortness of breath. This is been gradually getting worse over the last 4 or 5 days. No associated cough fever or chills. Examination reveals O2 sats of 92% on 3 L/m. She is usually on 3 L/m all times. On examination she has crackles in both lower lung beltran. She does have a history of congestive heart failure. No recent central chest pain. Chronic venous insufficiency and severe edema in both lower extremities up to her knees. - Re-Assessments/Exams Free Text/Narrative Re-Assessment/Exam: 10/16/18 20:50 Total white count is 5.57 with automated differential showing 80 % neutrophils and hemoglobin is 12.2 with hematocrit of 40.3. MCV is markedly elevated at 108.0. This appears to be due to renal insufficiency. Platelet counts 111,000. He was 138 with a potassium of 4.3. Chloride is 99 with a bicarbonate of 34 i.e. she is a CO2 retainer. Anion gap is 9.3. BUN is 28 with a creatinine of 1.3. Estimated GFR is 41. Stage III chronic kidney disease. Glucose is 151. Calcium is 9.2. Liver function is normal. Troponin I is less than 0.017. Total protein is 7.7. Albumin is 3.5. 10/16/18 21:05 chest x-ray has been finally completed. It reveals moderate cardiomegaly with diffuse vascular congestion pattern. Aorta is mildly tortuous. 10/16/18 21:06 BNP is 1504. Magnesium is 2.3. CRP was 2.0. 10/16/18 21:23 Discussed the findings with the patient. She is already on 3 mg of Bumex first thing in the morning of the between 2 and 3 in the afternoon. Therefore not much room for increasing dosage. Her potassium is 4.3 and it's doubtful that she would tolerate a second dose of Aldactone. She wishes to stay in the ED for observation status overnight and I will repeat Bumex about 0300 hrs. this morning to provide further diuresis. 10/16/18 23:11 [facility] staff is brought over her CPAP machine and her morning medications. She will receive Restoril--30mg po for sleep tonight. 10/17/18 00:46 patient is sleeping with CPAP in place. Heart rate is in the 46- 48 sinus bradycardia range. Sats are 92-94%. BP is 116/54. 10/17/18 01:57 Urinalysis obtained by catheterization. She is nitrate positive trace. Blood positive. 2+ leukocyte Estrace with 5-10 RBCs and 20-30 WBCs per power field. Moderate amorphous sediment and many bacteria appreciated. Urine culture will be ordered. She'll be given Macrobid 100 mg by mouth as she has multiple drug allergies. She is not acutely ill with any fever. 10/17/18 06:25 Patient remains in sinus rhythm at 70/m. O2 sats 95-96%. BP is 116/64. She has received a second dose of Bumex 1 mg IV at 0400 hrs. and has diuresed further. This should improve her congestive heart failure and dyspnea. Tentatively she will be discharged back to [facility] senior living later this morning. 10/17/18 06:57 patient is asking for pain pill. She usually uses Percocet when necessary. She has a bit of a headache and of course a bit of a backache from lying in a small bed in the ED overnight. Tentatively she'll be discharged back to [facility] this morning. Departure - Departure Time of Disposition: 08:40 Disposition: DC/Tfer to [facility] 62 Condition: Fair Clinical Impression: UTI, Urinary tract infectious disease Congestive heart failure Qualifiers: Qualified Code(s): I50.9 - Heart failure, unspecified - Discharge Information *PRESCRIPTION DRUG MONITORING PROGRAM REVIEWED*: Not Applicable *COPY OF PRESCRIPTION DRUG MONITORING REPORT IN PATIENT ENEDINA: Not Applicable Prescriptions: Nitrofurantoin Monohyd/M-Cryst [Macrobid 100 mg Capsule] 100 mg PO BID #14 capsule Instructions: Urinary Tract Infection, Adult, Heart Failure, [id number] Referrals: Alexandra Samuels MD [Primary Care Provider] - Forms: ED Department Discharge Additional Instructions: Evaluation the emergency room in regards to subjective this sensation of increased shortness of breath gradually worsening over the last 4-5 days. O2 sats have remained in satisfactory levels on oxygen supplementation primarily at 3 L/m while in the ED. Rate remains in the 60s and 70s. Heart pressure remained satisfactory. Lab testing confirmed mild exacerbation of congestive heart failure and therefore you received Bumex 1 mg IV 6 hours apart in an effort to provide further diuresis and resolve some of the shortness of breath. Also identified to have eye recurrent urinary tract infection and started on Macrobid antibiotic 100 mg twice daily in the ED and this is to be continued twice daily for the next 7 days to clear up infection completely. Follow-up with personal care physician if further problems occur. - My Orders Last 24 Hours: My Active Orders 10/16/18 20:07 EKG Documentation Completion [RC] STAT Chest 1V Frontal [CR] Stat 10/16/18 20:08 Oxygen Therapy [RC] ASDIRECTED Peripheral IV Insertion Adult [OM.PC] Stat 10/16/18 20:09 Peripheral IV Care [RC] . DIRECTED 10/16/18 20:14 Blood Glucose Check, Bedside [RC] ONETIME 10/16/18 23:48 Insert Jeffries Catheter [Insert Urinary Catheter] [OM.PC] Stat 10/16/18 23:49 Urinary Catheter Assessment [RC] ASDIRECTED 10/17/18 01:57 CULTURE URINE [RM] Stat - Assessment/Plan Last 24 Hours: My Active Orders 10/16/18 20:07 EKG Documentation Completion [RC] STAT Chest 1V Frontal [CR] Stat 10/16/18 20:08 Oxygen Therapy [RC] ASDIRECTED Peripheral IV Insertion Adult [OM.PC] Stat 10/16/18 20:09 Peripheral IV Care [RC] . DIRECTED 10/16/18 20:14 Blood Glucose Check, Bedside [RC] ONETIME 10/16/18 23:48 Insert Jeffries Catheter [Insert Urinary Catheter] [OM.PC] Stat 10/16/18 23:49 Urinary Catheter Assessment [RC] ASDIRECTED 10/17/18 01:57 CULTURE URINE [RM] Stat
[2018-10-16] MEDS ORDERED: Bumetanide 1 MG/4 ML MDV IVPUSH ONE (20:10)
[2018-10-16 20:55] LABS: HEMOGLOBIN A1C 6.2 % (4.50-6.20)
[2018-10-16] MEDS ORDERED: Temazepam 30 MG Cap PO ONE (23:30)
[2018-10-17] MEDS ORDERED: Nitrofurantoin Monohydrate/Macrocrystalline 100 MG Cap PO ONE (02:06)
[2018-10-17] MEDS ORDERED: Bumetanide 1 MG/4 ML MDV IVPUSH ONE (04:00)
[2018-10-17] MEDS ORDERED: Acetaminophen/oxyCODONE 325-5 MG Tab PO ONE (06:56)
--- NOTE | 2018-10-18 07:28 | CR ---
Chest: Portable view of the chest was obtained. Comparison: Prior chest x-ray of 02/07/17. Heart is mildly enlarged. Tortuous thoracic aorta is seen. Increasing pulmonary vascular congestion is noted. Lungs otherwise are clear. Bony structures are grossly intact. Impression: 1. Findings which are felt compatible with CHF. Diagnostic code #3
== END 2018-10-17 08:46 ==
LOC: JD.ED 19:38
DX: I13.0 Hypertensive heart and chronic kidney disease with heart failure and stage 1 through stage 4 chronic kidney disease, or unspecified chronic kidney disease (principal); E11.22 Type 2 diabetes mellitus with diabetic chronic kidney disease; N18.9 Chronic kidney disease, unspecified; I50.9 Heart failure, unspecified; N39.0 Urinary tract infection, site not specified; E03.9 Hypothyroidism, unspecified; E11.42 Type 2 diabetes mellitus with diabetic polyneuropathy; J44.9 Chronic obstructive pulmonary disease, unspecified; Z79.899 Other long term (current) drug therapy; Z79.82 Long term (current) use of aspirin; Z79.4 Long term (current) use of insulin; Z88.1 Allergy status to other antibiotic agents; Z88.8 Allergy status to other drugs, medicaments and biological substances
CPT/HCPCS: 36415; 71045; 80053; 81001; 82553; 82962; 83036; 83735; 83880; 84484; 85025; 85610; 85652; 86140; 87086; 93005; 96374; 96376; 99285; A9270; J3490; 87088; 87186; 93010; 99284

== ENCOUNTER 2018-11-26 10:02 | Emergency (ER) | payer MEDICARE ==
[2018-11-26 10:10] VITALS: BP 90/35
[2018-11-26] MEDS ORDERED: Lactated Ringers 1,000 ML IV ONE ×2 (10:36→13:21)
--- NOTE | 2018-11-26 10:41 | EDM.PDOC ---
ED HPI GENERAL MEDICAL PROBLEM - General Chief Complaint: General Stated Complaint: [facility] Time Seen by Provider: 11/26/18 10:13 Source of Information: Reports: Patient, RN Notes Reviewed History Limitations: Reports: No Limitations - History of Present Illness INITIAL COMMENTS - FREE TEXT/NARRATIVE: The patient is transferred from [facility] after her potassium was found to be 2.3 this morning. The patient does not recall that she has had hypokalemia in the past. The patient reports that she has lost 31 pounds over the past 2 months, largely due to diuresis. She also reports lightheadedness when upright for the past 2-3 weeks, and states that her blood pressure has been low for the past 2-3 weeks, with a systolic BP of 90 to 120 mmHg. Here in the ED, her initial BP was 90/35, with a repeat BP of 86/61. Those numbers did not surprise the patient. The patient also reports a cough slightly productive of off whitish sputum for the past 4 weeks. She denies recent fever or dyspnea at rest, although she does report 4 weeks of dyspnea on exertion. No recent chest discomfort or palpitations. The patient's medical record indicates that she is on acetazolamide, spironolactone, and Bumex. She also states that she takes albuterol at least 3 times a day. She states that she is given potassium chloride daily, including today. The patient's PCP is Dr. Alexandra Samuels. - Related Data Allergies Allergy/AdvReac Type Severity Reaction Status Date / Time cefepime Allergy Hives Verified 11/26/18 10:10 ciprofloxacin [From Cipro] Allergy Hives Verified 11/26/18 10:10 ciprofloxacin HCl Allergy Hives Verified 11/26/18 10:10 [From Cipro] fosfomycin Allergy Hives Verified 11/26/18 10:10 levofloxacin [From Levaquin] Allergy Anaphylactic Verified 11/26/18 10:10 Shock metronidazole [From Flagyl] Allergy Rash Verified 11/26/18 10:10 Metronidazole HCl Allergy Hives Verified 11/26/18 10:10 [From Flagyl] pertussis vaccine,adsorbed Allergy Cannot Verified 11/26/18 10:10 [Pertussis Vaccine,Adsorbed] Remember vancomycin Allergy Hives Verified 11/26/18 10:10 meperidine HCl [From Demerol] AdvReac Vomiting Verified 11/26/18 10:10 Home Meds: Home Meds Aspirin [Halfprin] 81 mg PO DAILY 10/10/14 [History] Multivitamin [Daily Vitamin] 1 tab PO DAILY 10/10/14 [History] Sertraline [Zoloft] 200 mg PO BEDTIME 10/10/14 [History] Albuterol [Proventil Neb Soln] 1 dose INH Q4HR PRN 07/16/16 [History] Levothyroxine Sodium [Synthroid] 250 mcg PO DAILY 07/17/16 [History] Docusate Sodium [Colace] 200 mg PO BID #60 cap 07/22/16 [Rx] Bumetanide [Bumex] 3 mg PO BID 02/07/17 [History] Chlorhexidine Gluconate [Peridex 0.12% Rinse] 15 ml MM BID 02/07/17 [History] Nitroglycerin [Nitrostat] 0.4 mg SL Q5M PRN 02/07/17 [History] amLODIPine [Norvasc] 5 mg PO DAILY 02/07/17 [History] Acetaminophen 650 mg PO BID PRN 09/05/17 [History] Bismuth Subsalicylate [Bismatrol] 262 mg PO QID PRN 09/05/17 [History] Insulin Aspart [Novolog] 1 - 5 unit SQ BIDMEALS 09/05/17 [History] Lactobacillus Acidophilus [Acidophilus] 1 each PO BID 09/05/17 [History] Cranberry 405 mg PO TID 10/16/18 [History] Losartan [Cozaar] 25 mg PO WITHLUNCH 10/16/18 [History] Metoprolol Tartrate [Lopressor] 25 mg PO BID 10/16/18 [History] Omeprazole 20 mg PO ACBREAKFAST 10/16/18 [History] Ondansetron [Zofran ODT] 4 mg SL TID PRN 10/16/18 [History] Pilocarpine HCl [Salagen] 5 mg PO TID 10/16/18 [History] Polyethylene Glycol 3350 [MiraLAX] 17 gm PO ASDIRECTED 10/16/18 [History] Sodium Bicarbonate 1,300 mg PO TID 10/16/18 [History] Umeclidinium Brm/Vilanterol Tr [Anoro Ellipta 62.5-25 MCG] 1 each IH BEDTIME [History] acetaZOLAMIDE [Acetazolamide] 250 mg PO DAILY 10/16/18 [History] fentaNYL [Fentanyl] 50 mcg TOP ASDIRECTED 10/16/18 [History] Acetaminophen [Tylenol] 650 mg PO TID PRN 11/26/18 [History] Acetaminophen/oxyCODONE [Percocet 325-5 MG] 1 tab PO Q12HR PRN 11/26/18 [History ] Albuterol [Proventil HFA] 2 puff INH Q6HR PRN 11/26/18 [History] Bisacodyl [Dulcolax] 10 mg PO DAILY PRN 11/26/18 [History] Ipratropium/Albuterol Sulfate [Iprat-Albut 0.5-3(2.5) mg/3 ml] 3 ml INH Q6HR PRN 11/26/18 [History] Meclizine [Antivert] 25 mg PO Q8HR PRN 11/26/18 [History] Methylnaltrexone [place] [Relistor] 150 mg PO ACBREAKFAST 11/26/18 [History] Nystatin 1 applic TOP BID PRN 11/26/18 [History] Polyethylene Glycol 3350 [Miralax] 17 gm PO DAILY 11/26/18 [History] Potassium Chloride [Klor-Con 10] 10 meq PO DAILY 11/26/18 [History] Sertraline [Zoloft] 200 mg PO DAILY 11/26/18 [History] SitaGLIPtin [Januvia] 50 mg PO DAILY 11/26/18 [History] Spironolactone [Aldactone] 25 mg PO DAILY 11/26/18 [History] Triamcinolone Acetonide [Nasacort] 1 spray INH DAILY 11/26/18 [History] atorvaSTATin [Lipitor] 10 mg PO BEDTIME 11/26/18 [History] guaiFENesin [Mucus ER] 1,200 mg PO BID 11/26/18 [History] guaiFENesin/Dextromethorphan [Tussin DM Clear] 2 tsp PO Q4HR PRN 11/26/18 [ History] metOLazone [Metolazone] 5 mg PO ASDIRECTED 11/26/18 [History] traZODone HCl [Trazodone HCl] 50 mg PO BEDTIME 11/26/18 [History] Past Medical History HEENT History: Reports: Impaired Vision Other HEENT History: wears eyeglasses Cardiovascular History: Reports: Heart Failure, High Cholesterol, Hypertension, Other (See Below) (LBBB) Respiratory History: Reports: COPD (on 3L O2 continuously) Gastrointestinal History: Reports: Hemorrhoids Genitourinary History: Reports: Chronic Renal Insuffiency, Renal Calculus Musculoskeletal History: Reports: Arthritis, Fracture (vertebral compression) Neurological History: Reports: Neuropathy, Peripheral Psychiatric History: Reports: Anxiety, Depression, Panic Attack, Other (See Below) (Insomnia) Endocrine/Metabolic History: Reports: Diabetes, Type II, Hypothyroidism, Obesity /BMI 30+ Hematologic History: Reports: Heparin Induced Thrombocytopenia, Iron Deficiency Immunologic History: Reports: SLE Oncologic (Cancer) History: Reports: Basal Cell Carcinoma (face) Dermatologic History: Reports: Cellulitis, Other (See Below) Other Dermatologic History: Lymphedema, severe dry skin, Chronic sores to backs of legs, history of pressure ulcers - Infectious Disease History Infectious Disease History: Reports: C-Difficile, Chicken Pox, Hepatitis A, Influenza, Measles, Mumps, Rubella, Shingles - Past Surgical History HEENT Surgical History: Reports: Adenoidectomy, Oral Surgery (wisdom teeth extraction), Tonsillectomy GI Surgical History: Reports: Appendectomy, Cholecystectomy Neurological Surgical History: Reports: Lumbar Spine (kyphoplasty) Musculoskeletal Surgical History: Reports: Arthroscopic Knee (left), Carpal Tunnel (bilateral), Hip Replacement (left) Social & Family History - Family History Family Medical History: Noncontributory Cardiac: Reports: Heart Failure : Reports: Renal Disease/Insufficiency Oncologic: Reports: Lung - Tobacco Use Smoking Status *Q: Former Smoker Years of Tobacco use: 19 Packs/Tins Daily: 1.5 Month/Year Tobacco Last Used: Quit 1986 - Caffeine Use Caffeine Use: Reports: Tea - Alcohol Use Alcohol Use History: No - Recreational Drug Use Recreational Drug Use: No - Living Situation & Occupation Living situation: Reports: Single, Extended Care Facility ([facility] Occupation: Retired ED ROS GENERAL - Review of Systems Review Of Systems: ROS reveals no pertinent complaints other than HPI. ED EXAM, GENERAL - Physical Exam Exam: See Below Exam Limited By: No Limitations General Appearance: Alert, WD/WN, No Apparent Distress Eye Exam: Bilateral Eye: EOMI, Normal Inspection Ears: Normal External Exam, Hearing Grossly Normal Nose: Normal Inspection Throat/Mouth: Normal Inspection, Normal Lips, Normal Voice, No Airway Compromise Head: Atraumatic, Normocephalic Neck: Normal Inspection, Full Range of Motion Respiratory/Chest: No Respiratory Distress, Lungs Clear, Normal Breath Sounds, No Accessory Muscle Use Cardiovascular: Normal Peripheral Pulses, Regular Rate, Rhythm, No Gallop, No JVD, No Murmur, No Rub Peripheral Pulses: 2+: Radial (L), Radial (R) GI/Abdominal: Normal Bowel Sounds, Soft, Non-Tender, No Organomegaly, No Distention, No Abnormal Bruit, No Mass, Other (Obese) (Female) Exam: Deferred Rectal (Female) Exam: Deferred Extremities: Normal Capillary Refill, Other (BLEs IMMANUEL wrapped) Neurological: Alert, Oriented, Normal Cognition, No Motor/Sensory Deficits Psychiatric: Normal Affect Skin Exam: Warm, Dry, Intact, Normal Color, No Rash EKG INTERPRETATION EKG Date: 11/26/18 Time: 10:56 Rhythm: Other (Sinus bradycardia) Rate (Beats/Min): 57 QRS: LBBB QT: Prolonged (QTc 638 ms) Comparison: Change From Previous EKG (QTc prolongation new since 10/16/2018) Course - Vital Signs Last Recorded V/S: Last Vital Signs Temp 36.0 C 11/26/18 10:07 Pulse 64 11/26/18 10:07 Resp 16 11/26/18 10:07 BP 90/35 L 11/26/18 10:07 Pulse Ox 98 11/26/18 10:07 - Orders/Labs/Meds Orders: Active Orders 24 hr Category Date Time Status EKG Documentation Completion [RC] STAT Care 11/26/18 10:45 Active CULTURE BLOOD [BC] Stat Lab 11/26/18 11:50 Received CULTURE BLOOD [BC] Stat Lab 11/26/18 12:01 Received Potassium Chloride [KCl 10 MEQ in Water 100 ML] 10 meq Med 11/26/18 12:00 Active Premix Bag 1 bag IV Q1H Blood Culture x2 Reflex Set [OM.PC] Stat Oth 11/26/18 10:44 Ordered Medication Orders Potassium Chloride 10 meq/ (Premix) 100 mls @ 100 mls/hr IV Q1H JACQUI Last Admin: 11/26/18 14:13 Dose: 100 mls/hr Infusion: 11/26/18 14:11 Dose: 100 mls/hr Admin: 11/26/18 13:11 Dose: 100 mls/hr Infusion: 11/26/18 13:10 Dose: 100 mls/hr Admin: 11/26/18 12:10 Dose: 100 mls/hr Labs: Laboratory Tests 11/26/18 11/26/18 11/26/18 Range/Units 10:13 10:13 10:36 WBC 5.23 (3.98-10.04) K/mm3 RBC 3.79 L (3.98-5.22) M/mm3 Hgb 12.4 (11.2-15.7) gm/L Hct 37.6 (34.1-44.9) % MCV 99.2 H (79.4-94.8) fl MCH 32.7 H (25.6-32.2) pg MCHC 33.0 (32.2-35.5) g/dl RDW Std Deviation 41.1 (36.4-46.3) fL Plt Count 120 L (182-369) K/mm3 MPV 12.2 (9.4-12.3) fl Neutrophils % (Manual) 83 H (40-60) % Band Neutrophils % 0 (0-10) % Lymphocytes % (Manual) 11 L (20-40) % Atypical Lymphs % 0 % Monocytes % (Manual) 5 (2-10) % Eosinophils % (Manual) 1 (0.7-5.8) % Basophils % (Manual) 0 L (0.1-1.2) Platelet Estimate Decreased Plt Morphology Comment Normal Stomatocytes Moderate RBC Morph Comment Not Reportable D-Dimer, Quantitative 0.89 H (0.19-0.50) mg/L Sodium 125 L D (136-145) mEq/L Potassium 2.2 L* D (3.5-5.1) mEq/L Chloride 79 L D (98-107) mEq/L Carbon Dioxide 41 H* (21-32) mEq/L Anion Gap 7.2 (5-15) BUN 78 H D (7-18) mg/dL Creatinine 1.8 H (0.55-1.02) mg/dL Est Cr Clr Drug Dosing 29.76 mL/min Estimated GFR (MDRD) 28 (>60) mL/min BUN/Creatinine Ratio 43.3 H (14-18) Glucose 136 H (80-115) mg/dL Lactic Acid (0.4-2.0) mmol/L Calcium 9.3 (8.5-10.1) mg/dL Magnesium 2.5 H (1.8-2.4) mg/dl Total Bilirubin 0.7 (0.2-1.0) mg/dL AST 38 H (15-37) U/L ALT 33 (14-59) U/L Alkaline Phosphatase 101 (46-116) U/L Troponin I (0.00-0.056) ng/mL Total Protein 8.4 H (6.4-8.2) g/dl Albumin 3.8 (3.4-5.0) g/dl Globulin 4.6 gm/dL Albumin/Globulin Ratio 0.8 L (1-2) 11/26/18 11/26/18 11/26/18 Range/Units 10:36 11:50 13:40 WBC (3.98-10.04) K/mm3 RBC (3.98-5.22) M/mm3 Hgb (11.2-15.7) gm/L Hct (34.1-44.9) % MCV (79.4-94.8) fl MCH (25.6-32.2) pg MCHC (32.2-35.5) g/dl RDW Std Deviation (36.4-46.3) fL Plt Count (182-369) K/mm3 MPV (9.4-12.3) fl Neutrophils % (Manual) (40-60) % Band Neutrophils % (0-10) % Lymphocytes % (Manual) (20-40) % Atypical Lymphs % % Monocytes % (Manual) (2-10) % Eosinophils % (Manual) (0.7-5.8) % Basophils % (Manual) (0.1-1.2) Platelet Estimate Plt Morphology Comment Stomatocytes RBC Morph Comment D-Dimer, Quantitative (0.19-0.50) mg/L Sodium (136-145) mEq/L Potassium (3.5-5.1) mEq/L Chloride (98-107) mEq/L Carbon Dioxide (21-32) mEq/L Anion Gap (5-15) BUN (7-18) mg/dL Creatinine (0.55-1.02) mg/dL Est Cr Clr Drug Dosing mL/min Estimated GFR (MDRD) (>60) mL/min BUN/Creatinine Ratio (14-18) Glucose (80-115) mg/dL Lactic Acid 1.5 (0.4-2.0) mmol/L Calcium (8.5-10.1) mg/dL Magnesium (1.8-2.4) mg/dl Total Bilirubin (0.2-1.0) mg/dL AST (15-37) U/L ALT (14-59) U/L Alkaline Phosphatase (46-116) U/L Troponin I 0.161 H* 0.139 H* (0.00-0.056) ng/mL Total Protein (6.4-8.2) g/dl Albumin (3.4-5.0) g/dl Globulin gm/dL Albumin/Globulin Ratio (1-2) Meds: Medications Generic Name Dose Route Start Last Admin Trade Name Freq PRN Reason Stop Dose Admin Potassium Chloride 10 meq/ 100 mls @ 100 mls/hr 11/26/18 12:00 11/26/18 14:13 Premix IV 100 mls/hr Q1H JACQUI Administration Discontinued Medications Generic Name Dose Route Start Last Admin Trade Name Freq PRN Reason Stop Dose Admin Lactated Ringer's 1,000 mls @ 999 mls/hr 11/26/18 10:36 11/26/18 11:15 Ringers, Lactated IV 11/26/18 11:36 999 mls/hr .BOLUS ONE Administration Lactated Ringer's 1,000 mls @ 999 mls/hr 11/26/18 13:21 11/26/18 13:34 Ringers, Lactated IV 11/26/18 14:21 999 mls/hr .BOLUS ONE Administration Potassium Chloride 40 meq 11/26/18 11:48 11/26/18 12:11 Klor-Con M20 PO 11/26/18 11:49 40 meq ONETIME ONE Administration - Re-Assessments/Exams Free Text/Narrative Re-Assessment/Exam: 11/26/18 10:37 The patient's initial BP was 90/35 with a HR of 64, although it should be noted that that BP is checked on her forearm, so it is of questionable accuracy. Before that the patient's room, her BP was down to 86/61. She reports lightheadedness when upright for the past 2-3 weeks, along with a 31 pound weight loss over the past 2 months, and she also states that they gave her a large quantity of diuretics. Her medical record indicates that she is diuresed with acetazolamide, spironolactone, and Bumex. The acetazolamide and Bumex can cause hypokalemia (the spironolactone does not), and the patient also states that she uses albuterol at least 3 times a day, which can also cause hypokalemia. Before we replace the patient's potassium, we need to make sure that her magnesium level is adequate, for it is if it is low, then her kidneys will not be able to retain potassium. Her magnesium would need to be replaced first. In the meantime, because of the patient's history of cough, I have ordered a CBC and a chest x-ray. Because of the patient's report of dizziness, I want to make sure that her other electrolytes are acceptable, therefore I have ordered a CMP. I have also ordered a troponin, D-dimer, and ECG. In the meantime, the patient will receive a 1 L bolus of LR. Unfortunately, we cannot really check orthostatics, as the patient is wheelchair-bound and cannot stand. 11/26/18 11:44 The patient's CBC is remarkable for platelets mildly depressed at 120,000. The remainder of the CBC is unremarkable. Her CMP is remarkable for sodium depressed at 125, potassium depressed at 2.2, chloride depressed at 79, bicarbonate elevated at 41, BUN/Cr elevated at 78/ 1.8. They were 28/1.3 on 10/16/2018. Her blood glucose is mildly elevated at 136. The remainder of the CMP is unremarkable. Her magnesium is elevated at 2.5. Her troponin is elevated at 0.161. It was undetectably low on 10/16/2018. Her D-dimer is mildly elevated at 0.89. The lactic acid level is still pending. The patient's chemistry panel appears to reflect overdiuresis and hypokalemia, likely related to Bumex. Her elevated bicarbonate level and elevated BUN/Cr are consistent with metabolic alkalosis due to volume contraction. I have ordered 40 mg of oral potassium chloride, as well as 10 mEq of IV potassium chloride which will need to be repeated. The patient will need additional IV fluid replacement. None of these can be done too quickly, therefore the patient will need to be admitted. It is unclear if the patient's elevated troponin and D-dimer are related to her renal failure. Her elevated D-dimer is not consistent with a pulmonary embolus, and I do not feel strongly that it needs to be repeated, however, her troponin does. 11/26/18 12:[address] Raya at 12:02. Even if the patient's repeat troponin is not rising, he feels that this patient is too complicated for this facility, and is therefore recommending transfer to [place]. 11/26/18 12:08 The above was discussed with the patient. She prefers [facility]. 11/26/18 12:11 Portable chest x-ray is read by Dr. Chun as: 1. Findings felt to be incidental. 2. Nothing acute is appreciated on portable chest x-ray. 11/26/18 12:12 Chest x-ray image was pushed to [facility]. 11/26/18 12:38 Case discussed with Bri at [facility] at 12:17. I was then placed on hold while she contact the hospitalist. I was notified at 12:37 that she will need to call me back, because they are having some problems with bed placement. 11/26/18 12:41 The patient's lactic acid level is not elevated. 11/26/18 13:39 Called back by Bri at [facility] at 13:24. Case then discussed with Dr. Lee, Hospitalist at [facility], at 13:29. Because of the patient's elevated troponin, he would like the patient to go to the ED before being admitted to his service. Case then discussed with Dr. Diaz, Emergency Physician at [facility], at 13:38. He accepted the patient for transfer to their ED. 11/26/18 14:22 The patient's repeat troponin is 0.139. Departure - Departure Time of Disposition: 13:40 Disposition: DC/Tfer to Acute Hospital 02 Condition: Fair Clinical Impression: Hypokalemia, Hyponatremia, Metabolic alkalosis, Acute on chronic renal failure , Elevated d-dimer, Elevated troponin, QT prolongation Hypotension Qualifiers: Hypotension type: other hypotension type Qualified Code(s): I95.89 - Other hypotension - Discharge Information *PRESCRIPTION DRUG MONITORING PROGRAM REVIEWED*: Not Applicable *COPY OF PRESCRIPTION DRUG MONITORING REPORT IN PATIENT ENEDINA: Not Applicable Referrals: Alexandra Samuels MD [Primary Care Provider] - - My Orders Last 24 Hours: My Active Orders 11/26/18 10:44 Blood Culture x2 Reflex Set [OM.PC] Stat 11/26/18 10:45 EKG Documentation Completion [RC] STAT 11/26/18 11:50 CULTURE BLOOD [BC] Stat 11/26/18 12:00 Potassium Chloride [KCl 10 MEQ in Water 100 ML] 10 meq Premix Bag 1 bag IV Q1H 11/26/18 12:01 CULTURE BLOOD [BC] Stat - Assessment/Plan Last 24 Hours: My Active Orders 11/26/18 10:44 Blood Culture x2 Reflex Set [OM.PC] Stat 11/26/18 10:45 EKG Documentation Completion [RC] STAT 11/26/18 11:50 CULTURE BLOOD [BC] Stat 11/26/18 12:00 Potassium Chloride [KCl 10 MEQ in Water 100 ML] 10 meq Premix Bag 1 bag IV Q1H 11/26/18 12:01 CULTURE BLOOD [BC] Stat
[2018-11-26] MEDS ORDERED: Potassium Chloride 20 MEQ Tab.ER PO ONE (11:48)
--- NOTE | 2018-11-26 11:57 | CR ---
Chest: Portable view of the chest was obtained. Comparison: Prior chest x-ray of 10/16/18. Heart size appears within normal limits for portable technique. Tortuous thoracic aorta is seen. Lungs show no acute parenchymal change. Degenerative change is noted within both shoulders. Osteopenia is present. Impression: 1. Findings felt to be incidental. 2. Nothing acute is appreciated on portable chest x-ray. Diagnostic code #2
[2018-11-26] MEDS: Potassium Chloride 10 MEQ in Premix Bag 1 BAG IV SCH ×3 (12:10→14:13)
== END 2018-11-26 14:33 ==
LOC: JD.ED 10:02
DX: E87.6 Hypokalemia (principal); E87.1 Hypo-osmolality and hyponatremia; I95.89 Other hypotension; E87.3 Alkalosis; N17.9 Acute kidney failure, unspecified; I13.0 Hypertensive heart and chronic kidney disease with heart failure and stage 1 through stage 4 chronic kidney disease, or unspecified chronic kidney disease; E11.22 Type 2 diabetes mellitus with diabetic chronic kidney disease; N18.9 Chronic kidney disease, unspecified; I50.9 Heart failure, unspecified; R79.89 Other specified abnormal findings of blood chemistry; E78.00 Pure hypercholesterolemia, unspecified; F41.9 Anxiety disorder, unspecified; F32.9 Major depressive disorder, single episode, unspecified; Z87.891 Personal history of nicotine dependence; Z79.82 Long term (current) use of aspirin; Z79.899 Other long term (current) drug therapy; Z79.4 Long term (current) use of insulin; Z88.1 Allergy status to other antibiotic agents; Z88.5 Allergy status to narcotic agent; Z88.8 Allergy status to other drugs, medicaments and biological substances
CPT/HCPCS: 36415; 71045; 80053; 83605; 83735; 84484; 85007; 85027; 85379; 87040; 93005; 96361; 96365; 96366; 99285; A9270; J3480; J7120; 93010; 99283

== ENCOUNTER 2020-01-20 15:56 | Inpatient (IN) | payer MEDICARE ==
[2020-01-20] MEDS ORDERED: Sodium Chloride 0.9% 1,000 ML IV ONE (16:55)
[2020-01-20] MEDS ORDERED: Ondansetron 4 MG/2 ML SDV IVPUSH ONE (16:55)
[2020-01-20] MEDS ORDERED: HYDROmorphone 0.5 MG/0.5 ML Syringe IVPUSH ONE (16:55)
[2020-01-20] MEDS ORDERED: Sodium Chloride 0.9% 10 ML Syringe FLUSH PRN (16:55)
--- NOTE | 2020-01-20 17:18 | EDM.PDOC ---
ED HPI GENERAL MEDICAL PROBLEM - General Chief Complaint: Genitourinary Problem Stated Complaint: [facility] Time Seen by Provider: 01/20/20 16:47 Source of Information: Reports: Patient, Provider (Dr. Daya Samuels), RN Notes Reviewed History Limitations: Reports: No Limitations - History of Present Illness INITIAL COMMENTS - FREE TEXT/NARRATIVE: Patient is a 69-year-old female who presents to the ED via [facility] by the direction of her primary care provider. She was seen by Dr. Samuels today at the [facility], had a CT performed for her back pain, and was found to have a 5 mm obstructing stone within the left ureter. She also has a new L1 compression deformity. Dr. Samuels became concerned, as she states the patient has a history of sepsis, respiratory failure and renal failure, and noted that her creatinine at today's visit is 1.7 by their records. Her normal baseline is 1.37. Patient is complaining of ongoing back pain and last took anything at around 11 AM. She is not having any nausea or vomiting, she has no cough shortness of breath or chest pain. She is having no abdomen pain. Patient is from [facility], states that she had a coronavirus test done yesterday, but is unaware of the results. She has no fevers or chills, and her vitals are stable at this time. She was started on Bactrim for a suspected UTI. On the CT report, there was an area in the pre-sacral region that was inflammatory as well, and was unsure of the etiology. Review of retirement notes, demonstrates that the patient was given tamsulosin, tramadol, Bactrim for a suspected UTI along with future labs, and the patient was to present to the ER if her status deteriorated in any way. Bilateral Lower Back Pain Score (Numeric/FACES): 7 - Related Data Allergies Allergy/AdvReac Type Severity Reaction Status Date / Time cefepime Allergy Severe Hives Verified 01/20/20 19:57 ciprofloxacin [From Cipro] Allergy Severe Hives Verified 01/20/20 19:57 ciprofloxacin HCl Allergy Severe Hives Verified 01/20/20 19:57 [From Cipro] fosfomycin Allergy Severe Hives Verified 01/20/20 19:57 levofloxacin [From Levaquin] Allergy Severe Anaphylactic Verified 01/20/20 19:57 Shock metronidazole [From Flagyl] Allergy Severe Rash Verified 01/20/20 19:57 Metronidazole HCl Allergy Severe Hives Verified 01/20/20 19:57 [From Flagyl] pertussis vaccine,adsorbed Allergy Severe Cannot Verified 01/20/20 19:57 [Pertussis Vaccine,Adsorbed] Remember vancomycin Allergy Severe Hives Verified 01/20/20 19:57 meperidine HCl [From Demerol] AdvReac Severe Vomiting Verified 01/20/20 19:57 Home Meds: Home Meds Aspirin [Halfprin] 81 mg PO DAILY 10/10/14 [History] Multivitamin [Daily Vitamin] 1 tab PO DAILY 10/10/14 [History] Sertraline [Zoloft] 200 mg PO BEDTIME 10/10/14 [History] Albuterol [Proventil Neb Soln] 1 dose INH Q4HR PRN 07/16/16 [History] Levothyroxine Sodium [Synthroid] 250 mcg PO DAILY 07/17/16 [History] Docusate Sodium [Colace] 200 mg PO BID #60 cap 07/22/16 [Rx] Bumetanide [Bumex] 3 mg PO BID 02/07/17 [History] Chlorhexidine Gluconate [Peridex 0.12% Rinse] 15 ml MM BID 02/07/17 [History] Nitroglycerin [Nitrostat] 0.4 mg SL Q5M PRN 02/07/17 [History] amLODIPine [Norvasc] 5 mg PO DAILY 02/07/17 [History] Acetaminophen 650 mg PO BID PRN 09/05/17 [History] Bismuth Subsalicylate [Bismatrol] 262 mg PO QID PRN 09/05/17 [History] Insulin Aspart [Novolog] 1 - 5 unit SQ BIDMEALS 09/05/17 [History] Lactobacillus Acidophilus [Acidophilus] 1 each PO BID 09/05/17 [History] Cranberry 405 mg PO TID 10/16/18 [History] Losartan [Cozaar] 25 mg PO WITHLUNCH 10/16/18 [History] Metoprolol Tartrate [Lopressor] 25 mg PO BID 10/16/18 [History] Omeprazole 20 mg PO ACBREAKFAST 10/16/18 [History] Ondansetron [Zofran ODT] 4 mg SL TID PRN 10/16/18 [History] Pilocarpine HCl [Salagen] 5 mg PO TID 10/16/18 [History] Sodium Bicarbonate 1,300 mg PO TID 10/16/18 [History] Umeclidinium Brm/Vilanterol Tr [Anoro Ellipta 62.5-25 MCG] 1 each IH BEDTIME 10/16/18 [History] acetaZOLAMIDE [Acetazolamide] 250 mg PO DAILY 10/16/18 [History] fentaNYL [Fentanyl] 50 mcg TOP ASDIRECTED 10/16/18 [History] polyethylene glycoL 3350 [MiraLAX] 17 gm PO ASDIRECTED 10/16/18 [History] Acetaminophen [Tylenol] 650 mg PO TID PRN 11/26/18 [History] Acetaminophen/oxyCODONE [Percocet 325-5 MG] 1 tab PO Q12HR PRN 11/26/18 [History] Albuterol [Proventil HFA] 2 puff INH Q6HR PRN 11/26/18 [History] Ipratropium/Albuterol Sulfate [Iprat-Albut 0.5-3(2.5) mg/3 ml] 3 ml INH Q6HR PRN 11/26/18 [History] Meclizine [Antivert] 25 mg PO Q8HR PRN 11/26/18 [History] Methylnaltrexone Henriette [Relistor] 150 mg PO ACBREAKFAST 11/26/18 [History] Nystatin 1 applic TOP BID PRN 11/26/18 [History] Potassium Chloride [Klor-Con 10] 10 meq PO DAILY 11/26/18 [History] Sertraline [Zoloft] 200 mg PO DAILY 11/26/18 [History] SitaGLIPtin [Januvia] 50 mg PO DAILY 11/26/18 [History] Spironolactone [Aldactone] 25 mg PO DAILY 11/26/18 [History] Triamcinolone Acetonide [Nasacort] 1 spray INH DAILY 11/26/18 [History] atorvaSTATin [Lipitor] 10 mg PO BEDTIME 11/26/18 [History] bisacodyL [Dulcolax] 10 mg PO DAILY PRN 11/26/18 [History] guaiFENesin [Mucus ER] 1,200 mg PO BID 06/28/19 [History] guaiFENesin/Dextromethorphan [Tussin DM Clear] 2 tsp PO Q4HR PRN 11/26/18 [History] metOLazone [Metolazone] 5 mg PO ASDIRECTED 11/26/18 [History] polyethylene glycoL 3350 [Miralax] 17 gm PO DAILY 11/26/18 [History] traZODone HCl [Trazodone HCl] 50 mg PO BEDTIME 11/26/18 [History] Past Medical History HEENT History: Reports: Impaired Vision Other HEENT History: wears eyeglasses Cardiovascular History: Reports: Heart Failure, High Cholesterol, Hypertension, Other (See Below) Other Cardiovascular History: bundle branch block, lymphedema Respiratory History: Reports: COPD Other Respiratory History: wears O2 at night while at home; but is now on 3L at [facility]. Gastrointestinal History: Reports: Hemorrhoids Other Gastrointestinal History: hx:cdiff Genitourinary History: Reports: Chronic Renal Insuffiency, Renal Calculus Other Genitourinary History: renal failure from an infection, stage 3 kidney disease GENETICS TEACHER History: Reports: None Musculoskeletal History: Reports: Arthritis, Fracture Neurological History: Reports: Neuropathy, Peripheral Other Neuro History: Lupus Psychiatric History: Reports: Anxiety, Depression, Panic Attack, Other (See Below) Other Psychiatric History: insomnia Endocrine/Metabolic History: Reports: Diabetes, Type II, Hypothyroidism, Obesity/BMI 30+ Hematologic History: Reports: Heparin Induced Thrombocytopenia, Iron Deficiency Immunologic History: Reports: SLE Oncologic (Cancer) History: Reports: Basal Cell Carcinoma Other Oncologic History: Basal cell carcinoma face Dermatologic History: Reports: Cellulitis, Other (See Below) Other Dermatologic History: Lymphedema, severe dry skin, Chronic sores to backs of legs, history of pressure ulcers - Infectious Disease History Infectious Disease History: Reports: C-Difficile, Chicken Pox, Hepatitis A, Influenza, Measles, Mumps, Rubella, Shingles - Past Surgical History Head Surgeries/Procedures: Reports: None HEENT Surgical History: Reports: Adenoidectomy, Oral Surgery, Tonsillectomy GI Surgical History: Reports: Appendectomy, Cholecystectomy Neurological Surgical History: Reports: Lumbar Spine Musculoskeletal Surgical History: Reports: Arthroscopic Knee, Carpal Tunnel, Hip Replacement Social & Family History - Family History Family Medical History: Noncontributory Cardiac: Reports: Heart Failure : Reports: Renal Disease/Insufficiency Oncologic: Reports: Lung - Tobacco Use Smoking Status *Q: Never Smoker Second Hand Smoke Exposure: No - Caffeine Use Caffeine Use: Reports: Tea - Living Situation & Occupation Living situation: Reports: Single, Extended Care Facility ([facility] Occupation: Retired ED ROS GENERAL - Review of Systems Review Of Systems: Comprehensive ROS is negative, except as noted in HPI. ED EXAM, RENAL/ - Physical Exam Exam: See Below Exam Limited By: No Limitations General Appearance: Alert, WD/WN, No Apparent Distress Respiratory/Chest: No Respiratory Distress, Lungs Clear, Normal Breath Sounds, No Accessory Muscle Use, Chest Non-Tender Cardiovascular: Normal Peripheral Pulses, Regular Rate, Rhythm, No Murmur GI/Abdominal: Normal Bowel Sounds, Soft, Non-Tender, No Distention Back Exam: No: CVA Tenderness (L), CVA Tenderness (R) Extremities: Normal Inspection, Normal Capillary Refill Neurological: Alert, Oriented, Normal Cognition, No Motor/Sensory Deficits Psychiatric: Normal Affect, Normal Mood Skin Exam: Warm, Dry, Intact, Normal Color, No Rash Course - Vital Signs Last Recorded V/S: Last Vital Signs Temp 98.9 F 01/20/20 16:02 Pulse 81 01/20/20 16:02 Resp 16 01/20/20 16:02 BP 136/82 01/20/20 16:02 Pulse Ox 100 01/20/20 16:02 - Orders/Labs/Meds Orders: Active Orders 24 hr Category Date Time Status Peripheral IV Care [RC] . DIRECTED Care 01/20/20 16:55 Active Strain Urine [RC] ASDIRECTED Care 01/20/20 20:02 Active CULTURE URINE [RM] Routine Lab 01/20/20 19:00 Received Sodium Chloride 0.9% [Normal Saline] 1,000 ml Med 01/20/20 20:02 Active IV ONETIME Sodium Chloride 0.9% [Saline Flush] Med 01/20/20 16:55 Active 10 ml FLUSH ASDIRECTED PRN Peripheral IV Insertion Adult [OM.PC] Routine Oth 01/20/20 16:55 Ordered Medication Orders Sodium Chloride (Normal Saline) 1,000 mls @ 100 mls/hr IV ONETIME ONE Stop: 01/21/20 06:01 Sodium Chloride (Saline Flush) 10 ml FLUSH ASDIRECTED PRN PRN Reason: Keep Vein Open Last Admin: 01/20/20 19:48 Dose: 10 ml Documented by: MAGALIS Labs: Laboratory Tests 01/20/20 01/20/20 01/20/20 Range/Units 17:35 17:35 18:40 WBC 8.74 (3.98-10.04) K/mm3 RBC 3.73 L (3.98-5.22) M/mm3 Hgb 11.6 D (11.2-15.7) gm/dl Hct 37.6 (34.1-44.9) % MCV 100.8 H D (79.4-94.8) fl MCH 31.1 (25.6-32.2) pg MCHC 30.9 L (32.2-35.5) g/dl RDW Std Deviation 46.3 (36.4-46.3) fL Plt Count 69 L (182-369) K/mm3 MPV 13.9 H (9.4-12.3) fl Neut % (Auto) 87.3 H (34.0-71.1) % Lymph % (Auto) 3.4 L (19.3-51.7) % [place] % (Auto) 9.0 (4.7-12.5) % Eos % (Auto) 0 L (0.7-5.8) Baso % (Auto) 0.1 (0.1-1.2) % Neut # (Auto) 7.62 H (1.56-6.13) K/mm3 Lymph # (Auto) 0.30 L (1.18-3.74) K/mm3 [place] # (Auto) 0.79 H (0.24-0.36) K/mm3 Eos # (Auto) 0.00 L (0.04-0.36) K/mm3 Baso # (Auto) 0.01 (0.01-0.08) K/mm3 Manual Slide Review Abnormal smear Sodium 130 L D (136-145) mEq/L Potassium 3.9 (3.5-5.1) mEq/L Chloride 91 L D (98-107) mEq/L Carbon Dioxide 37 H (21-32) mEq/L Anion Gap 5.9 (5-15) BUN 44 H D (7-18) mg/dL Creatinine 1.9 H (0.55-1.02) mg/dL Est Cr Clr Drug Dosing 26.79 mL/min Estimated GFR (MDRD) 26 (>60) mL/min BUN/Creatinine Ratio 23.2 H (14-18) Glucose 130 H (80-115) mg/dL Calcium 9.1 (8.5-10.1) mg/dL Total Bilirubin 0.7 (0.2-1.0) mg/dL AST 18 (15-37) U/L ALT 25 (14-59) U/L Alkaline Phosphatase 80 (46-116) U/L Total Protein 9.0 H (6.4-8.2) g/dl Albumin 3.4 (3.4-5.0) g/dl Globulin 5.6 gm/dL Albumin/Globulin Ratio 0.6 L (1-2) Urine Color (Yellow) Urine Appearance (Clear) Urine pH (5.0-8.0) Ur Specific [place] (1.005-1.030) Urine Protein (Negative) Urine Glucose (UA) (Negative) Urine Ketones (Negative) Urine Occult Blood (Negative) Urine Nitrite (Negative) Urine Bilirubin (Negative) Urine Urobilinogen (0.2-1.0) Ur Leukocyte Esterase (Negative) Urine RBC (0-5) /hpf Urine WBC (0-5) /hpf Ur Squamous Epith Cells (0-5) /hpf Urine Bacteria (FEW) /hpf Urine Mucus (FEW) /hpf COVID-19 (JOSE) Negative (NEGATIVE) 01/20/20 Range/Units 19:04 WBC (3.98-10.04) K/mm3 RBC (3.98-5.22) M/mm3 Hgb (11.2-15.7) gm/dl Hct (34.1-44.9) % MCV (79.4-94.8) fl MCH (25.6-32.2) pg MCHC (32.2-35.5) g/dl RDW Std Deviation (36.4-46.3) fL Plt Count (182-369) K/mm3 MPV (9.4-12.3) fl Neut % (Auto) (34.0-71.1) % Lymph % (Auto) (19.3-51.7) % [place] % (Auto) (4.7-12.5) % Eos % (Auto) (0.7-5.8) Baso % (Auto) (0.1-1.2) % Neut # (Auto) (1.56-6.13) K/mm3 Lymph # (Auto) (1.18-3.74) K/mm3 [place] # (Auto) (0.24-0.36) K/mm3 Eos # (Auto) (0.04-0.36) K/mm3 Baso # (Auto) (0.01-0.08) K/mm3 Manual Slide Review Sodium (136-145) mEq/L Potassium (3.5-5.1) mEq/L Chloride (98-107) mEq/L Carbon Dioxide (21-32) mEq/L Anion Gap (5-15) BUN (7-18) mg/dL Creatinine (0.55-1.02) mg/dL Est Cr Clr Drug Dosing mL/min Estimated GFR (MDRD) (>60) mL/min BUN/Creatinine Ratio (14-18) Glucose (80-115) mg/dL Calcium (8.5-10.1) mg/dL Total Bilirubin (0.2-1.0) mg/dL AST (15-37) U/L ALT (14-59) U/L Alkaline Phosphatase (46-116) U/L Total Protein (6.4-8.2) g/dl Albumin (3.4-5.0) g/dl Globulin gm/dL Albumin/Globulin Ratio (1-2) Urine Color Yellow (Yellow) Urine Appearance Clear (Clear) Urine pH 7.0 (5.0-8.0) Ur Specific [place] 1.015 (1.005-1.030) Urine Protein Negative (Negative) Urine Glucose (UA) Negative (Negative) Urine Ketones Negative (Negative) Urine Occult Blood 2+ H (Negative) Urine Nitrite Negative (Negative) Urine Bilirubin Negative (Negative) Urine Urobilinogen 0.2 (0.2-1.0) Ur Leukocyte Esterase 2+ H (Negative) Urine RBC 5-10 H (0-5) /hpf Urine WBC 5-10 H (0-5) /hpf Ur Squamous Epith Cells 0-5 (0-5) /hpf Urine Bacteria Rare (FEW) /hpf Urine Mucus Rare (FEW) /hpf COVID-19 (JOSE) (NEGATIVE) Meds: Medications Generic Name Dose Route Start Last Admin Trade Name Cele PRN Reason Stop Dose Admin Sodium Chloride 1,000 mls @ 100 mls/hr 01/20/20 20:02 Normal Saline IV 01/21/20 06:01 ONETIME ONE Sodium Chloride 10 ml 01/20/20 16:55 01/20/20 19:48 Saline Flush FLUSH 10 ml ASDIRECTED PRN Administration Keep Vein Open Discontinued Medications Generic Name Dose Route Start Last Admin Trade Name Freq PRN Reason Stop Dose Admin Hydromorphone HCl 0.5 mg 01/20/20 16:55 01/20/20 17:54 Dilaudid IVPUSH 01/20/20 16:56 0.5 mg ONETIME ONE Administration Sodium Chloride 1,000 mls @ 999 mls/hr 01/20/20 16:55 01/20/20 17:49 Normal Saline IV 01/20/20 17:55 999 mls/hr ONETIME ONE Administration Ondansetron HCl 4 mg 01/20/20 16:55 01/20/20 17:53 Zofran IVPUSH 01/20/20 16:56 4 mg ONETIME ONE Administration Tamsulosin HCl 0.4 mg 01/20/20 19:41 01/20/20 19:48 Flomax PO 01/20/20 19:42 0.4 mg ONETIME ONE Administration - Re-Assessments/Exams Free Text/Narrative Re-Assessment/Exam: 01/20/20 19:53 Patient presents to the ED for possible hospital admission. CT done this morning demonstrates a 5 mm obstructing stone felt to be present within the distal left ureter. This was poorly seen due to artifact from left hip p rosthesis. Inflammatory change seen within the presacral region. This is an interval change from previous exam. Please correlate if this relates to previous radiation therapy. I did asked the patient, she states she has not had radiation therapy. There is a new compression deformity of L1, that is an interval change from her prior CT exam. Otherwise no other acute abnormalities are appreciated. Metabolic panel demonstrates an increased creatinine of 1.9, GFR decreased at 26. Metabolic panel otherwise demonstrates a mildly low sodium at 130, with no other remarkable abnormalities. CBC is within normal limits at this time. I did talk with Dr. Raya for hospitalization for fluids and pain management for this obstructing stone. Dr. Mcgovern, urologist at [facility] in [place] recommends fluids, Flomax and pain management as well. He does not think this is an infected stone at this time. Departure - Departure Time of Disposition: 20:05 Disposition: Refer to Observation Condition: Good Clinical Impression: Chronic renal insufficiency, stage IV (severe), Kidney stone on left side - Discharge Information Sepsis Event Note (ED) - Evaluation Sepsis Screening Result: No Definite Risk - Focused Exam Vital Signs: Vital Signs Temp Pulse Resp BP Pulse Ox 01/20/20 16:02 98.9 F 81 16 136/82 100 - My Orders Last 24 Hours: My Active Orders 01/20/20 16:55 Peripheral IV Care [RC] . DIRECTED Sodium Chloride 0.9% [Saline Flush] 10 ml FLUSH ASDIRECTED PRN Peripheral IV Insertion Adult [OM.PC] Routine 01/20/20 19:00 CULTURE URINE [RM] Routine 01/20/20 20:02 Strain Urine [RC] ASDIRECTED Sodium Chloride 0.9% [Normal Saline] 1,000 ml IV ONETIME - Assessment/Plan Last 24 Hours: My Active Orders 01/20/20 16:55 Peripheral IV Care [RC] . DIRECTED Sodium Chloride 0.9% [Saline Flush] 10 ml FLUSH ASDIRECTED PRN Peripheral IV Insertion Adult [OM.PC] Routine 01/20/20 19:00 CULTURE URINE [RM] Routine 01/20/20 20:02 Strain Urine [RC] ASDIRECTED Sodium Chloride 0.9% [Normal Saline] 1,000 ml IV ONETIME
[2020-01-20] MEDS ORDERED: Tamsulosin 0.4 MG Cap.ER PO ONE (19:41)
[2020-01-20] MEDS: Sodium Chloride 0.9% 1,000 ML IV ONE (21:12)
[2020-01-20] MEDS ORDERED: diphenhydrAMINE 50 MG/ML SDV IVPUSH PRN (22:01)
[2020-01-20] MEDS ORDERED: Ondansetron 4 MG/2 ML SDV IV PRN (22:04)
[2020-01-20] MEDS ORDERED: Meclizine 12.5 MG Tab PO PRN (22:15)
[2020-01-20] MEDS ORDERED: CRANBERRY 405 MG PO PRN (22:15)
[2020-01-20] MEDS ORDERED: Bisacodyl 5 MG Tab PO PRN (22:15)
[2020-01-20] MEDS ORDERED: Ondansetron 4 MG Tab.DIS PO PRN (22:15)
[2020-01-20] MEDS ORDERED: Docusate Sodium 100 MG Cap PO PRN (22:15)
[2020-01-20] MEDS ORDERED: Nitroglycerin 0.4 MG Tab.SL SL PRN (22:15)
[2020-01-20] MEDS ORDERED: Bismuth Subsalicylate 262 MG/15 ML Susp 236 ML Bottle PO PRN (22:15)
[2020-01-20] MEDS ORDERED: guaiFENesin/Dextromethorphan 100-10 MG/5 ML Soln 5 ML Cup PO PRN (22:15)
[2020-01-20] MEDS ORDERED: Non-Formulary Medication 1 Each (Nystatin 1 APPLIC) TOP PRN (22:15)
[2020-01-20] MEDS ORDERED: Piperacillin/Tazobactam 4.5 GM in Sodium Chloride 0.9% 100 ML IV ONE (22:22)
--- NOTE | 2020-01-20 22:27 | PCM.HP.2 ---
H&P History of Present Illness - General Date of Service: 01/20/20 Admit Problem/Dx: Admission Diagnosis/Problem Admission Diagnosis/Problem Renal Insufficiency - CHRONIC KIDNEY DISEASE, STAGE IV (SEVERE) - History of Present Illness Initial Comments - Free Text/Narative: 6-year-old female seen by Dr. Samuels today secondary to back pain. A CT scan of the abdomen was performed which showed an obstructing 5 mm stone at the distal left ureter. There is also note of a new L1 compression deformity but no indication of age. Patient was sent to the emergency department secondary to worsening renal function and a creatinine of 1.7. Baseline apparently is 1.4. Patient continues to have ongoing back pain. It started on the left side early this week and then transferred to the right side. She has not had any fever, chills, dysuria, hematuria. Patient resides at [facility]. Pain is moderate to severe. It is sharp in nature. Movement makes it worse. She does have history of chronic neck and back pain and is on fentanyl. Patient also has a history of congestive heart failure and is on Bumex, metaxalone, and spironolactone for diuretics. Patient does state that she is very thirsty. Patient is on pilocarpine for dry mouth syndrome. She denies any shortness of breath or cough. Initial labs: White count 8.74, hemoglobin 11.6, platelets low at 69,000, sodium 130, potassium 3.9, bicarb 37, BUN 44, creatinine 1.9, estimated GFR 26, glucose 130. UA showed 5-10 WBC with 5-10 RBC. Rare bacteria. Nitrite negative. COVID negative Emergency room provider contacted Dr. Mcgovern, urologist at [facility] in [place], who recommended fluids, Flomax, and pain management. He did not think that the stone was infected. Bilateral Lower Back Pain Score (Numeric/FACES): 7 - Related Data Allergies/Adverse Reactions: Allergies Allergy/AdvReac Type Severity Reaction Status Date / Time levofloxacin [From Levaquin] Allergy Severe Anaphylactic Verified 01/20/20 19:57 Shock metronidazole [From Flagyl] Allergy Intermediate Rash Verified 01/21/20 08:12 cefepime Allergy Mild Hives Verified 01/21/20 08:12 ciprofloxacin [From Cipro] Allergy Mild Hives Verified 01/21/20 08:12 ciprofloxacin HCl Allergy Mild Hives Verified 01/21/20 08:12 [From Cipro] fosfomycin Allergy Mild Hives Verified 01/21/20 08:12 Metronidazole HCl Allergy Mild Hives Verified 01/21/20 08:12 [From Flagyl] pertussis vaccine,adsorbed Allergy Mild Cannot Verified 01/21/20 08:12 [Pertussis Vaccine,Adsorbed] Remember vancomycin Allergy Mild Hives Verified 01/21/20 08:12 meperidine HCl [From Demerol] AdvReac Mild Vomiting Verified 01/21/20 08:12 Home Medications: Home Meds Aspirin [Halfprin] 81 mg PO DAILY 10/10/14 [History] Multivitamin [Daily Vitamin] 1 tab PO DAILY 10/10/14 [History] Levothyroxine Sodium [Synthroid] 225 mcg PO DAILY 07/17/16 [History] Bumetanide [Bumex] 3 mg PO DAILY 02/07/17 [History] Chlorhexidine Gluconate [Peridex 0.12% Rinse] 15 ml MM BID PRN 02/07/17 [History] Nitroglycerin [Nitrostat] 0.4 mg SL Q5M PRN 02/07/17 [History] Bismuth Subsalicylate [Bismatrol] 262 mg PO QID PRN 09/05/17 [History] Lactobacillus Acidophilus [Acidophilus] 1 each PO BID 09/05/17 [History] Cranberry 405 mg PO TID PRN 10/16/18 [History] Losartan [Cozaar] 25 mg PO WITHLUNCH 10/16/18 [History] Metoprolol Tartrate [Lopressor] 25 mg PO BID 10/16/18 [History] Omeprazole 20 mg PO ACBREAKFAST 10/16/18 [History] Ondansetron [Zofran ODT] 4 mg PO TID PRN 10/16/18 [History] Pilocarpine HCl [Salagen] 5 mg PO TID 10/16/18 [History] Sodium Bicarbonate 650 mg PO TID 10/16/18 [History] Umeclidinium Brm/Vilanterol Tr [Anoro Ellipta 62.5-25 MCG] 1 each IH BEDTIME 10/16/18 [History] fentaNYL [Fentanyl] 12 mcg TOP ASDIRECTED 10/16/18 [History] Ipratropium/Albuterol Sulfate [Iprat-Albut 0.5-3(2.5) mg/3 ml] 3 ml INH TID 11/26/18 [History] Potassium Chloride [Klor-Con 10] 20 meq PO DAILY 11/26/18 [History] Sertraline [Zoloft] 200 mg PO BEDTIME 11/26/18 [History] Spironolactone [Aldactone] 25 mg PO DAILY 11/26/18 [History] Triamcinolone Acetonide [Nasacort] 1 spray INH DAILY 11/26/18 [History] atorvaSTATin [Lipitor] 10 mg PO BEDTIME 11/26/18 [History] bisacodyL [Dulcolax] 10 mg PO DAILY PRN 11/26/18 [History] guaiFENesin [Mucus ER] 1,200 mg PO BID 11/26/18 [History] guaiFENesin/Dextromethorphan [Tussin DM Clear] 2 tsp PO Q4HR PRN 11/26/18 [History] metOLazone [Metolazone] 2.5 mg PO ASDIRECTED 11/26/18 [History] polyethylene glycoL 3350 [Miralax] 17 gm PO DAILY PRN 11/26/18 [History] traZODone HCl [Trazodone HCl] 100 mg PO BEDTIME 11/26/18 [History] Bumetanide [Bumex] 2 mg PO QPM 01/20/20 [History] Docusate Sodium [Colace] 200 mg PO BID PRN 01/20/20 [History] Acetaminophen [Tylenol] 975 mg PO BID PRN 01/21/20 [History] Albuterol [Proventil HFA] 90 mcg INH Q6H PRN 01/21/20 [History] Hydrocortisone Acetate [Anusol-Hc] 25 mg RECTAL BEDTIME PRN 01/21/20 [History] Sennosides [Senna] 8.6 mg PO DAILY PRN 01/21/20 [History] Sulfamethoxazole/Trimethoprim [Bactrim 400-80 MG] 800 mg PO BID 01/21/20 [History] traMADol [Ultram] 75 mg PO Q8H 01/21/20 [History] Past Medical History HEENT History: Reports: Impaired Vision Other HEENT History: wears eyeglasses Cardiovascular History: Reports: Heart Failure, High Cholesterol, Hypertension, Other (See Below) Other Cardiovascular History: bundle branch block, lymphedema Respiratory History: Reports: COPD Other Respiratory History: wears O2 3 liters nasal cannula all the time at [facility]. Gastrointestinal History: Reports: Hemorrhoids Other Gastrointestinal History: hx:cdiff Genitourinary History: Reports: Chronic Renal Insuffiency, Renal Calculus Other Genitourinary History: renal failure from an infection, stage 3 kidney disease, stents placed in ureters for kidney stones but now gone CHAIR INSTALLER History: Reports: None Musculoskeletal History: Reports: Arthritis, Fracture Neurological History: Reports: Neuropathy, Peripheral Other Neuro History: Lupus Psychiatric History: Reports: Anxiety, Depression, Panic Attack, Other (See Below) Other Psychiatric History: insomnia Endocrine/Metabolic History: Reports: Diabetes, Type II, Hypothyroidism, Obesity/BMI 30+ Hematologic History: Reports: Heparin Induced Thrombocytopenia, Iron Deficiency Immunologic History: Reports: SLE Oncologic (Cancer) History: Reports: Basal Cell Carcinoma Other Oncologic History: Basal cell carcinoma face Dermatologic History: Reports: Cellulitis, Other (See Below) Other Dermatologic History: Lymphedema, severe dry skin, Chronic sores to backs of legs, history of pressure ulcers - Infectious Disease History Infectious Disease History: Reports: C-Difficile, Chicken Pox, Hepatitis A, Influenza, Measles, Mumps, Rubella, Shingles - Past Surgical History Head Surgeries/Procedures: Reports: None HEENT Surgical History: Reports: Adenoidectomy, Oral Surgery, Tonsillectomy Other HEENT Surgeries/Procedures: states she needs cataract surgery but has not got it done yet. Cardiovascular Surgical History: Reports: None Respiratory Surgical History: Reports: None GI Surgical History: Reports: Appendectomy, Cholecystectomy Endocrine Surgical History: Reports: None Neurological Surgical History: Reports: Lumbar Spine Musculoskeletal Surgical History: Reports: Arthroscopic Knee, Carpal Tunnel, Hip Replacement Other Musculoskeletal Surgeries/Procedures:: 2005 broke back after getting knocked down by a cow. L 2 or 3 she reports having had surgery....doesn't remember what kind. Oncologic Surgical History: Reports: None Dermatological Surgical History: Reports: None Social & Family History - Family History Family Medical History: Noncontributory Cardiac: Reports: Heart Failure : Reports: Renal Disease/Insufficiency Oncologic: Reports: Lung - Tobacco Use Smoking Status *Q: Never Smoker Second Hand Smoke Exposure: No - Caffeine Use Caffeine Use: Reports: Tea - Living Situation & Occupation Living situation: Reports: Single, Extended Care Facility ([facility] Occupation: Retired H&P Review of Systems - Review of Systems: Review Of Systems: Comprehensive ROS is negative, except as noted in HPI. Exam - Exam Exam: See Below - Vital Signs Vital Signs: Last Vital Signs Temp 98.9 F 01/20/20 16:02 Pulse 81 01/20/20 16:02 Resp 16 01/20/20 16:02 BP 136/82 01/20/20 16:02 Pulse Ox 100 01/20/20 16:02 Weight: 122.016 kg - Exam General: Alert, Oriented, 4 HEENT: Conjunctiva Clear, Hearing Intact, Mucosa Moist & [place] Neck: Supple, Trachea Midline, 2 Lungs: Clear to Auscultation, Normal Respiratory Effort Cardiovascular: Regular Rate, Regular Rhythm GI/Abdominal Exam: Normal Bowel Sounds, Soft, No Organomegaly, No Distention, No Abnormal Bruit, Tender (Left upper quadrant tenderness) Extremities: Normal Inspection, Non-Tender, Normal Capillary Refill, Pedal Edema (1+ bilateral pitting edema) Peripheral Pulses: 2+: Posterior Tibial (L), Posterior Tibial (R), Dorsalis Pedis (L), Dorsalis Pedis (R) Skin: Warm, Dry, Intact Neuro Extensive - Mental Status: Alert, Oriented x3, Normal Mood/Affect, Normal Cognition, Memory Intact Psychiatric: Alert, Normal Affect, Normal Mood - Patient Data Lab Results Last 24 hrs: Laboratory Results - last 24 hr 01/20/20 01/20/20 01/20/20 Range/Units 17:35 17:35 18:40 WBC 8.74 (3.98-10.04) K/mm3 RBC 3.73 L (3.98-5.22) M/mm3 Hgb 11.6 D (11.2-15.7) gm/dl Hct 37.6 (34.1-44.9) % MCV 100.8 H D (79.4-94.8) fl MCH 31.1 (25.6-32.2) pg MCHC 30.9 L (32.2-35.5) g/dl RDW Std Deviation 46.3 (36.4-46.3) fL Plt Count 69 L (182-369) K/mm3 MPV 13.9 H (9.4-12.3) fl Neut % (Auto) 87.3 H (34.0-71.1) % Lymph % (Auto) 3.4 L (19.3-51.7) % [place] % (Auto) 9.0 (4.7-12.5) % Eos % (Auto) 0 L (0.7-5.8) Baso % (Auto) 0.1 (0.1-1.2) % Neut # (Auto) 7.62 H (1.56-6.13) K/mm3 Lymph # (Auto) 0.30 L (1.18-3.74) K/mm3 Forest # (Auto) 0.79 H (0.24-0.36) K/mm3 Eos # (Auto) 0.00 L (0.04-0.36) K/mm3 Baso # (Auto) 0.01 (0.01-0.08) K/mm3 Manual Slide Review Abnormal smear Sodium 130 L D (136-145) mEq/L Potassium 3.9 (3.5-5.1) mEq/L Chloride 91 L D (98-107) mEq/L Carbon Dioxide 37 H (21-32) mEq/L Anion Gap 5.9 (5-15) BUN 44 H D (7-18) mg/dL Creatinine 1.9 H (0.55-1.02) mg/dL Est Cr Clr Drug Dosing 26.79 mL/min Estimated GFR (MDRD) 26 (>60) mL/min BUN/Creatinine Ratio 23.2 H (14-18) Glucose 130 H (80-115) mg/dL Lactic Acid (0.4-2.0) mmol/L Calcium 9.1 (8.5-10.1) mg/dL Total Bilirubin 0.7 (0.2-1.0) mg/dL AST 18 (15-37) U/L ALT 25 (14-59) U/L Alkaline Phosphatase 80 (46-116) U/L Total Protein 9.0 H (6.4-8.2) g/dl Albumin 3.4 (3.4-5.0) g/dl Globulin 5.6 gm/dL Albumin/Globulin Ratio 0.6 L (1-2) Urine Color (Yellow) Urine Appearance (Clear) Urine pH (5.0-8.0) Ur Specific [place] (1.005-1.030) Urine Protein (Negative) Urine Glucose (UA) (Negative) Urine Ketones (Negative) Urine Occult Blood (Negative) Urine Nitrite (Negative) Urine Bilirubin (Negative) Urine Urobilinogen (0.2-1.0) Ur Leukocyte Esterase (Negative) Urine RBC (0-5) /hpf Urine WBC (0-5) /hpf Ur Squamous Epith Cells (0-5) /hpf Urine Bacteria (FEW) /hpf Urine Mucus (FEW) /hpf COVID-19 (JOSE) Negative (NEGATIVE) 01/20/20 01/20/20 Range/Units 19:04 20:15 WBC (3.98-10.04) K/mm3 RBC (3.98-5.22) M/mm3 Hgb (11.2-15.7) gm/dl Hct (34.1-44.9) % MCV (79.4-94.8) fl MCH (25.6-32.2) pg MCHC (32.2-35.5) g/dl RDW Std Deviation (36.4-46.3) fL Plt Count (182-369) K/mm3 MPV (9.4-12.3) fl Neut % (Auto) (34.0-71.1) % Lymph % (Auto) (19.3-51.7) % [place] % (Auto) (4.7-12.5) % Eos % (Auto) (0.7-5.8) Baso % (Auto) (0.1-1.2) % Neut # (Auto) (1.56-6.13) K/mm3 Lymph # (Auto) (1.18-3.74) K/mm3 [place] # (Auto) (0.24-0.36) K/mm3 Eos # (Auto) (0.04-0.36) K/mm3 Baso # (Auto) (0.01-0.08) K/mm3 Manual Slide Review Sodium (136-145) mEq/L Potassium (3.5-5.1) mEq/L Chloride (98-107) mEq/L Carbon Dioxide (21-32) mEq/L Anion Gap (5-15) BUN (7-18) mg/dL Creatinine (0.55-1.02) mg/dL Est Cr Clr Drug Dosing mL/min Estimated GFR (MDRD) (>60) mL/min BUN/Creatinine Ratio (14-18) Glucose (80-115) mg/dL Lactic Acid 0.8 (0.4-2.0) mmol/L Calcium (8.5-10.1) mg/dL Total Bilirubin (0.2-1.0) mg/dL AST (15-37) U/L ALT (14-59) U/L Alkaline Phosphatase (46-116) U/L Total Protein (6.4-8.2) g/dl Albumin (3.4-5.0) g/dl Globulin gm/dL Albumin/Globulin Ratio (1-2) Urine Color Yellow (Yellow) Urine Appearance Clear (Clear) Urine pH 7.0 (5.0-8.0) Ur Specific [place] 1.015 (1.005-1.030) Urine Protein Negative (Negative) Urine Glucose (UA) Negative (Negative) Urine Ketones Negative (Negative) Urine Occult Blood 2+ H (Negative) Urine Nitrite Negative (Negative) Urine Bilirubin Negative (Negative) Urine Urobilinogen 0.2 (0.2-1.0) Ur Leukocyte Esterase 2+ H (Negative) Urine RBC 5-10 H (0-5) /hpf Urine WBC 5-10 H (0-5) /hpf Ur Squamous Epith Cells 0-5 (0-5) /hpf Urine Bacteria Rare (FEW) /hpf Urine Mucus Rare (FEW) /hpf COVID-19 (JOSE) (NEGATIVE) Result Diagrams: 01/21/20 05:18 01/21/20 05:18 Sepsis Event Note - Evaluation Sepsis Screening Result: No Definite Risk - Focused Exam Vital Signs: Vital Signs Temp Pulse Resp BP Pulse Ox 01/20/20 16:02 98.9 F 81 16 136/82 100 - Problem List (1) [id number] kidney injury SNOMED Code(s): 265166920 ICD Code: N17.9 - ACUTE KIDNEY FAILURE, UNSPECIFIED; N18.9 - CHRONIC KIDNEY DISEASE, UNSPECIFIED Status: Acute Current Visit: Yes (2) Chronic renal insufficiency, stage IV (severe) SNOMED Code(s): 305759379 ICD Code: N18.4 - CHRONIC KIDNEY DISEASE, STAGE 4 (SEVERE) Status: Acute Current Visit: Yes (3) Kidney stone on left side SNOMED Code(s): 19915914 ICD Code: N20.0 - CALCULUS OF KIDNEY Status: Acute Current Visit: Yes (4) CHF (congestive heart failure) SNOMED Code(s): 15044629 ICD Code: I50.9 - HEART FAILURE, UNSPECIFIED Status: Acute Current Visit: No (5) UTI, Urinary tract infectious disease SNOMED Code(s): 37488522 ICD Code: N39.0 - URINARY TRACT INFECTION, SITE NOT SPECIFIED Status: Acute Priority: High Current Visit: No (6) Diabetes SNOMED Code(s): 08312303 ICD Code: E11.9 - TYPE 2 DIABETES MELLITUS WITHOUT COMPLICATIONS Status: Chronic Priority: Medium Current Visit: No Qualifiers: Diabetes mellitus type: type 2 Diabetes mellitus senior living insulin use: with salvage determiner use Diabetes mellitus complication status: with unspecified complications Problem List Initiated/Reviewed/Updated: Yes Orders Last 24hrs: Active Orders 24 hr Category Date Time Status Admission Status [Patient Status] [ADT] Routine ADT 01/20/20 20:03 Active Oxygen Therapy [RC] PRN Care 01/20/20 22:04 Ordered Peripheral IV Care [RC] . DIRECTED Care 01/20/20 16:55 Active RT Aerosol Therapy [RC] ASDIRECTED Care 01/20/20 22:19 Ordered Strain Urine [RC] ASDIRECTED Care 01/20/20 20:02 Active Up With Assistance [RC] ASDIRECTED Care 01/20/20 22:04 Ordered VTE/DVT Education [RC] PER UNIT ROUTINE Care 01/20/20 22:04 Ordered Vital Signs [RC] Q4H Care 01/20/20 22:04 Ordered PT Evaluation and Treatment [CONS] Routine Cons 01/20/20 22:06 Ordered Consistent Carbohydrate Diet [DIET] Diet 01/21/20 Breakfast Ordered C-REACTIVE PROTEIN [CHEM] AM Lab 01/21/20 05:11 Ordered C-REACTIVE PROTEIN [CHEM] AM Lab 01/22/20 05:11 Ordered CBC WITH AUTO DIFF [HEME] AM Lab 01/21/20 05:11 Ordered CBC WITH AUTO DIFF [HEME] AM Lab 01/22/20 05:11 Ordered COMPREHENSIVE METABOLIC PN,CMP [CHEM] AM Lab 01/21/20 05:11 Ordered COMPREHENSIVE METABOLIC PN,CMP [CHEM] AM Lab 01/22/20 05:11 Ordered CULTURE URINE [RM] Routine Lab 01/20/20 19:00 Received MAGNESIUM [CHEM] AM Lab 01/21/20 05:11 Ordered MAGNESIUM [CHEM] AM Lab 01/22/20 05:11 Ordered TSH [CHEM] AM Lab 01/21/20 05:11 Ordered Acetaminophen [TylenoL] Med 01/20/20 22:04 Ordered 650 mg PO Q4H PRN Albuterol/Ipratropium [DuoNeb 3.0-0.5 MG/3 ML] Med 01/21/20 09:00 Ordered 3 ml INH TID Aspirin [Halfprin] Med 01/21/20 09:00 Ordered 81 mg PO DAILY Bismuth Subsalicylate Med 01/20/20 22:15 Ordered 262 mg PO QID PRN Chlorhexidine Gluconate Med 01/21/20 09:00 Ordered 15 ml MM BID Cranberry [Cranberry] Med 01/20/20 22:15 Ordered 405 mg PO TID PRN Dextromethorphan/guaiFENesin [Robitussin DM] Med 01/20/20 22:15 Ordered 10 ml PO Q4HR PRN Docusate Sodium [Colace] Med 01/20/20 22:15 Ordered 200 mg PO BID PRN Enoxaparin [Lovenox] Med 01/21/20 09:00 Active 30 mg SUBCUT DAILY HYDROmorphone [Dilaudid] Med 01/20/20 22:24 Ordered 0.5 mg IVPUSH Q2H PRN Lactobacillus Acidophilus [Acidophilus] Med 01/21/20 09:00 Ordered 1 each PO BID Levothyroxine Med 01/21/20 09:00 Ordered 225 mcg PO DAILY Meclizine Med 01/20/20 22:15 Ordered 25 mg PO Q8HR PRN Metoprolol Tartrate [Lopressor] Med 01/20/20 22:30 Ordered 25 mg PO BID Nitroglycerin [Nitrostat] Med 01/20/20 22:15 Ordered 0.4 mg SL Q5M PRN Nystatin Med 01/20/20 22:15 Ordered 1 applic TOP BID PRN Omeprazole Med 01/21/20 06:00 Ordered 20 mg PO ACBREAKFAST Ondansetron [Zofran ODT] Med 01/20/20 22:15 Ordered 4 mg PO TID PRN Ondansetron [Zofran] Med 01/20/20 22:04 Ordered 4 mg IV Q4H PRN Pilocarpine HCl Med 01/21/20 09:00 Ordered 5 mg PO TID Piperacillin/Tazobactam 4.5 GM - First Dose Med 01/20/20 22:22 Ordered Piperacillin/Tazobactam [Piperacil-Tazobact] 4.5 gm Sodium Chloride 0.9% [Normal Saline] 100 ml IV ONETIME Piperacillin/Tazobactam [Piperacil-Tazobact] 4.5 gm Med 01/21/20 07:00 Ordered Sodium Chloride 0.9% [Normal Saline] 100 ml IV Q8H Sertraline Med 01/20/20 21:00 Ordered 200 mg PO BEDTIME Sodium Bicarbonate Med 01/21/20 09:00 Ordered 1,300 mg PO TID Sodium Chloride 0.9% [Normal Saline] 1,000 ml Med 01/20/20 20:02 Active IV ONETIME Sodium Chloride 0.9% [Saline Flush] Med 01/20/20 16:55 Active 10 ml FLUSH ASDIRECTED PRN Spironolactone [Aldactone] Med 01/21/20 09:00 Ordered 25 mg PO DAILY Tamsulosin [Flomax] Med 01/21/20 21:00 Ordered 0.4 mg PO BEDTIME Triamcinolone Acetonide [Nasacort] Med 01/21/20 09:00 Ordered 1 spray INH DAILY Umeclidinium Brm/Vilanterol Tr [Anoro Ellipta 62.5-25 Med 01/21/20 21:00 Ordered MCG] 1 each IH BEDTIME atorvaSTATin Med 01/21/20 21:00 Ordered 10 mg PO BEDTIME bisacodyL [Dulcolax] Med 01/20/20 22:15 Ordered 10 mg PO DAILY PRN diphenhydrAMINE [Benadryl] Med 01/20/20 22:01 Ordered 25 mg IVPUSH Q4H PRN fentaNYL [Fentanyl] Med 01/20/20 22:15 Ordered 50 mcg TOP ASDIRECTED guaiFENesin [Mucus ER] Med 01/21/20 09:00 Ordered 1,200 mg PO BID traMADol [Ultram] Med 01/21/20 00:00 Ordered 75 mg PO Q8H traZODone Med 01/20/20 21:00 Ordered 100 mg PO BEDTIME Peripheral IV Insertion Adult [OM.PC] Routine Oth 01/20/20 16:55 Ordered Resuscitation Status Routine Resus Stat 01/20/20 22:04 Ordered Medication Orders Acetaminophen (Tylenol) 650 mg PO Q4H PRN PRN Reason: Pain (Mild 1-3)/fever Albuterol/Ipratropium (Duoneb 3.0-0.5 Mg/3 Ml) 3 ml INH TID JACQUI Aspirin (Halfprin) 81 mg PO DAILY JACQUI Bisacodyl (Dulcolax) 10 mg PO DAILY PRN PRN Reason: Constipation Diphenhydramine HCl (Benadryl) 25 mg IVPUSH Q4H PRN PRN Reason: Rash Docusate Sodium (Colace) 200 mg PO BID PRN PRN Reason: Constipation Enoxaparin Sodium (Lovenox) 30 mg SUBCUT DAILY JACQUI Guaifenesin/Phenylephrine HCl (Robitussin Dm) 10 ml PO Q4HR PRN PRN Reason: Cough Hydromorphone HCl (Dilaudid) 0.5 mg IVPUSH Q2H PRN PRN Reason: Pain (severe 7-10) Sodium Chloride (Normal Saline) 1,000 mls @ 100 mls/hr IV ONETIME ONE Stop: 01/21/20 06:01 Last Admin: 01/20/20 21:12 Dose: 100 mls/hr Documented by: PARVEEN Piperacillin Sod/Tazobactam (Sod 4.5 gm/ Sodium Chloride) 100 mls @ 200 mls/hr IV ONETIME ONE Stop: 01/20/20 22:51 Piperacillin Sod/Tazobactam (Sod 4.5 gm/ Sodium Chloride) 100 mls @ 25 mls/hr IV Q8H [facility] Levothyroxine Sodium (Levothyroxine) 225 mcg PO DAILY [facility] Metoprolol Tartrate (Lopressor) 25 mg PO BID [facility] Nitroglycerin (Nitrostat) 0.4 mg SL Q5M PRN PRN Reason: Chest Pain Non-Formulary Medication (Atorvastatin) 10 mg PO BEDTIME JACQUI Non-Formulary Medication (Bismuth Subsalicylate) 262 mg PO QID PRN PRN Reason: Heartburn Non-Formulary Medication (Chlorhexidine Gluconate) 15 ml MM BID JACQUI Non-Formulary Medication (Cranberry [Cranberry]) 405 mg PO TID PRN PRN Reason: uti Non-Formulary Medication (Fentanyl [Fentanyl]) 50 mcg TOP ASDIRECTED JACQUI Non-Formulary Medication (Guaifenesin [Mucus Er]) 1,200 mg PO BID JACQUI Non-Formulary Medication (Lactobacillus Acidophilus [Acidophilus]) 1 each PO BID JACQUI Non-Formulary Medication (Meclizine) 25 mg PO Q8HR PRN PRN Reason: Dizziness Non-Formulary Medication (Nystatin) 1 applic TOP BID PRN PRN Reason: Rash Non-Formulary Medication (Omeprazole) 20 mg PO ACBREAKFAST JACQUI Non-Formulary Medication (Pilocarpine Hcl) 5 mg PO TID JACQUI Non-Formulary Medication (Sertraline) 200 mg PO BEDTIME JACQUI Non-Formulary Medication (Triamcinolone Acetonide [Nasacort]) 1 spray INH DAILY JACQUI Non-Formulary Medication (Umeclidinium Brm/Vilanterol Tr [Anoro Ellipta 62.5-25 Mcg]) 1 each IH BEDTIME JACQUI Ondansetron HCl (Zofran) 4 mg IV Q4H PRN PRN Reason: Nausea/Vomiting Ondansetron HCl (Zofran Odt) 4 mg PO TID PRN PRN Reason: Nausea Sodium Bicarbonate (Sodium Bicarbonate) 1,300 mg PO TID JACQUI Sodium Chloride (Saline Flush) 10 ml FLUSH ASDIRECTED PRN PRN Reason: Keep Vein Open Last Admin: 01/20/20 19:48 Dose: 10 ml Documented by: MAGALIS Spironolactone (Aldactone) 25 mg PO DAILY [facility] Tamsulosin HCl (Flomax) 0.4 mg PO BEDTIME JACQUI Tramadol HCl (Ultram) 75 mg PO Q8H JACQUI Trazodone HCl (Trazodone) 100 mg PO BEDTIME JACQUI Assessment/Plan Comment:: Assessment * Acute on chronic renal insufficiency * It appears patient may be a bit dry with prerenal kidney disease. She is on 3 diuretics and her BUN to creatinine ratio is 23.2. * On admit: Estimated GFR 26, creatinine 1.9 * Baseline GFR 1.4 * Patient given 1 L fluids in the emergency department * * Possible UTI versus asymptomatic bacteriuria * UA: WBC 5-10 per high-powered field, RBC 5-10 per high-powered field, epithelial cells 0-5 * Urine culture ordered * Hyponatremia * Sodium 130 * Likely worsened by metolazone a thiazide diuretic * Thrombocytopenia * Admit platelet count 69,000 * Platelet count 86,000 on 01/02/2020 * Unknown cause * Metaxalone could be contributing to this as a known side effect Congestive heart failurechronic * Patient appears to be a bit hypovolemic. * Home medications include bumetanide 3 mg in the morning and 2 mg in the evening, spironolactone 25 mg twice daily, metolazone 2.5 mg on Thursday and Thursday, metoprolol 25 mg twice daily, losartan 25 mg daily Chronic: Hypertension, obstructive sleep apnea, centrilobular emphysema, hypothyroidism, type 2 diabetes with diabetic nephropathy, hyperlipidemia, vitamin B12 deficiency, morbid obesity, chronic depression, thrombocytopenia, chronic constipation, chronic gastritis without bleeding, history of C. difficile infection, calculus of kidney, urinary retention, recurrent UTIs, SLE, chronic pain syndrome, Plan * Admit to medical floor with telemetry * Cautious IV rehydration * Hold metaxalone and bumetanide tomorrow morning * Zosyn * Urinary culture * Follow CBC, CMP, magnesium * C-reactive protein, procalcitonin, TSH * VTE prophylaxis with SCDs secondary to chemoprophylaxis contraindicated due to thrombocytopenia * CODE STATUS: Full code * Disposition: Admit to floor for gentle rehydration, IV antibiotics, and close follow-up of her platelets and kidney function. Plan discharge in 1 to 2 days. - Mortality Measure Prognosis:: Poor
[2020-01-20] MEDS ORDERED: cefTRIAXone 1 GM in Sodium Chloride 0.9% 100 ML IV SCH (22:30)
[2020-01-20] MEDS: traMADol 50 MG Tab PO SCH (22:50)
[2020-01-20] MEDS: traZODone 50 MG Tab PO SCH (23:19)
[2020-01-20] MEDS: Metoprolol Tartrate 25 MG Tab PO SCH (23:20)
[2020-01-20] MEDS: Sertraline 50 MG Tab PO SCH (23:22)
[2020-01-21] MEDS: traMADol 50 MG Tab PO SCH ×2 (00:02→09:12)
[2020-01-21] MEDS: Acetaminophen 325 MG Tab PO PRN ×2 (04:40→20:37)
[2020-01-21] MEDS ORDERED: Levothyroxine 75 MCG Tab PO SCH (06:00)
[2020-01-21] MEDS ORDERED: Albuterol/Ipratropium 3.0-0.5 MG/3 ML Neb Soln INH SCH (06:00)
[2020-01-21] MEDS ORDERED: Non-Formulary Medication 1 Each (Omeprazole 20 MG) PO SCH (06:00)
[2020-01-21] MEDS: Piperacillin/Tazobactam 4.5 GM in Sodium Chloride 0.9% 100 ML IV SCH ×4 (06:56→23:56)
[2020-01-21] MEDS ORDERED: Albuterol 6.7 GM Inhaler INH PRN (08:55)
[2020-01-21] MEDS ORDERED: Sennosides 8.6 MG Tab PO PRN (08:55)
[2020-01-21] MEDS ORDERED: Enoxaparin 30 MG/0.3 ML Syringe SUBCUT SCH (09:00)
[2020-01-21] MEDS ORDERED: Non-Formulary Medication 1 Each (Triamcinolone Acetonide [Nasacort] 1 SPRAY) INH SCH (09:00)
[2020-01-21] MEDS ORDERED: Enoxaparin 40 MG/0.4 ML Syringe SUBCUT SCH (09:00)
[2020-01-21] MEDS: Albuterol/Ipratropium 3.0-0.5 MG/3 ML Neb Soln INH SCH ×3 (09:00→20:51)
[2020-01-21] MEDS: Fluticasone Propionate Nasal Spray 16 GM Bottle NASBOTH SCH (09:11)
[2020-01-21] MEDS: Sodium Bicarbonate 650 MG Tab PO SCH ×3 (09:12→20:34)
[2020-01-21] MEDS: guaiFENesin 600 MG Tab.ER PO SCH ×2 (09:12→20:34)
[2020-01-21] MEDS: Aspirin 81 MG Tab.EC PO SCH (09:12)
[2020-01-21] MEDS: Metoprolol Tartrate 25 MG Tab PO SCH ×2 (09:13→20:33)
[2020-01-21] MEDS: Spironolactone 25 MG Tab PO SCH (09:14)
[2020-01-21] MEDS: Chlorhexidine Gluconate 0.12% Oral Rinse 118 ML Bottle MM SCH ×2 (09:15→20:30)
[2020-01-21] MEDS: Pantoprazole 40 MG Tab.CR PO SCH (09:17)
[2020-01-21] MEDS: Pilocarpine Hcl 5 MG PO SCH ×3 (10:35→20:34)
[2020-01-21] MEDS: Sodium Chloride 0.9% 1,000 ML IV SCH (11:03)
[2020-01-21] MEDS: Saccharomyces Boulardii (Probiotic) 250 MG Cap PO SCH ×2 (12:20→20:32)
--- NOTE | 2020-01-21 13:34 | PCM.PN ---
- General Info Date of Service: 01/21/20 Admission Dx/Problem (Free Text): Admission Diagnosis/Problem Admission Diagnosis/Problem Renal Insufficiency - CHRONIC KIDNEY DISEASE, STAGE IV (SEVERE) Subjective Update: Patient without any significant difference overnight. She states she does not like it here because the toilets do not have handrails and seat risers. She was afebrile overnight. She is on 3 L nasal cannula which is her baseline. She complains of neck and back pain but this appears to be chronic. - Review of Systems General: Reports: No Symptoms HEENT: Reports: No Symptoms Pulmonary: Reports: No Symptoms Cardiovascular: Reports: No Symptoms Musculoskeletal: Reports: Neck Pain, Back Pain Neurological: Reports: No Symptoms Psychiatric: Reports: No Symptoms - Patient Data Vitals - Most Recent: Last Vital Signs Temp 98.6 F 01/21/20 12:23 Pulse 73 01/21/20 12:23 Resp 16 01/21/20 12:23 BP 132/84 01/21/20 12:23 Pulse Ox 98 01/21/20 12:23 Weight - Most Recent: 122.016 kg I&O - Last 24 Hours: Intake & Output 01/20/20 01/21/20 01/21/20 22:59 06:59 14:59 Intake Total 1150 420 Output Total 500 Balance 650 420 Lab Results Last 24 Hours: Laboratory Results - last 24 hr 01/20/20 01/20/20 01/20/20 Range/Units 17:35 17:35 18:40 WBC 8.74 (3.98-10.04) K/mm3 RBC 3.73 L (3.98-5.22) M/mm3 Hgb 11.6 D (11.2-15.7) gm/dl Hct 37.6 (34.1-44.9) % MCV 100.8 H D (79.4-94.8) fl MCH 31.1 (25.6-32.2) pg MCHC 30.9 L (32.2-35.5) g/dl RDW Std Deviation 46.3 (36.4-46.3) fL Plt Count 69 L (182-369) K/mm3 MPV 13.9 H (9.4-12.3) fl Neut % (Auto) 87.3 H (34.0-71.1) % Lymph % (Auto) 3.4 L (19.3-51.7) % Edgar % (Auto) 9.0 (4.7-12.5) % Eos % (Auto) 0 L (0.7-5.8) Baso % (Auto) 0.1 (0.1-1.2) % Neut # (Auto) 7.62 H (1.56-6.13) K/mm3 Lymph # (Auto) 0.30 L (1.18-3.74) K/mm3 Edgar # (Auto) 0.79 H (0.24-0.36) K/mm3 Eos # (Auto) 0.00 L (0.04-0.36) K/mm3 Baso # (Auto) 0.01 (0.01-0.08) K/mm3 Manual Slide Review Abnormal smear Sodium 130 L D (136-145) mEq/L Potassium 3.9 (3.5-5.1) mEq/L Chloride 91 L D (98-107) mEq/L Carbon Dioxide 37 H (21-32) mEq/L Anion Gap 5.9 (5-15) BUN 44 H D (7-18) mg/dL Creatinine 1.9 H (0.55-1.02) mg/dL Est Cr Clr Drug Dosing 26.79 mL/min Estimated GFR (MDRD) 26 (>60) mL/min BUN/Creatinine Ratio 23.2 H (14-18) Glucose 130 H (80-115) mg/dL Lactic Acid (0.4-2.0) mmol/L Calcium 9.1 (8.5-10.1) mg/dL Magnesium (1.8-2.4) mg/dl Total Bilirubin 0.7 (0.2-1.0) mg/dL AST 18 (15-37) U/L ALT 25 (14-59) U/L Alkaline Phosphatase 80 (46-116) U/L C-Reactive Protein (<1.0) mg/dL Total Protein 9.0 H (6.4-8.2) g/dl Albumin 3.4 (3.4-5.0) g/dl Globulin 5.6 gm/dL Albumin/Globulin Ratio 0.6 L (1-2) TSH 3rd Generation (0.358-3.74) uIU/mL Urine Color (Yellow) Urine Appearance (Clear) Urine pH (5.0-8.0) Ur Specific Beals (1.005-1.030) Urine Protein (Negative) Urine Glucose (UA) (Negative) Urine Ketones (Negative) Urine Occult Blood (Negative) Urine Nitrite (Negative) Urine Bilirubin (Negative) Urine Urobilinogen (0.2-1.0) Ur Leukocyte Esterase (Negative) Urine RBC (0-5) /hpf Urine WBC (0-5) /hpf Ur Squamous Epith Cells (0-5) /hpf Urine Bacteria (FEW) /hpf Urine Mucus (FEW) /hpf COVID-19 (JOSE) Negative (NEGATIVE) MRSA (PCR) 01/20/20 01/20/20 01/20/20 Range/Units 19:04 20:15 22:50 WBC (3.98-10.04) K/mm3 RBC (3.98-5.22) M/mm3 Hgb (11.2-15.7) gm/dl Hct (34.1-44.9) % MCV (79.4-94.8) fl MCH (25.6-32.2) pg MCHC (32.2-35.5) g/dl RDW Std Deviation (36.4-46.3) fL Plt Count (182-369) K/mm3 MPV (9.4-12.3) fl Neut % (Auto) (34.0-71.1) % Lymph % (Auto) (19.3-51.7) % Edgar % (Auto) (4.7-12.5) % Eos % (Auto) (0.7-5.8) Baso % (Auto) (0.1-1.2) % Neut # (Auto) (1.56-6.13) K/mm3 Lymph # (Auto) (1.18-3.74) K/mm3 Edgar # (Auto) (0.24-0.36) K/mm3 Eos # (Auto) (0.04-0.36) K/mm3 Baso # (Auto) (0.01-0.08) K/mm3 Manual Slide Review Sodium (136-145) mEq/L Potassium (3.5-5.1) mEq/L Chloride (98-107) mEq/L Carbon Dioxide (21-32) mEq/L Anion Gap (5-15) BUN (7-18) mg/dL Creatinine (0.55-1.02) mg/dL Est Cr Clr Drug Dosing mL/min Estimated GFR (MDRD) (>60) mL/min BUN/Creatinine Ratio (14-18) Glucose (80-115) mg/dL Lactic Acid 0.8 (0.4-2.0) mmol/L Calcium (8.5-10.1) mg/dL Magnesium (1.8-2.4) mg/dl Total Bilirubin (0.2-1.0) mg/dL AST (15-37) U/L ALT (14-59) U/L Alkaline Phosphatase (46-116) U/L C-Reactive Protein (<1.0) mg/dL Total Protein (6.4-8.2) g/dl Albumin (3.4-5.0) g/dl Globulin gm/dL Albumin/Globulin Ratio (1-2) TSH 3rd Generation (0.358-3.74) uIU/mL Urine Color Yellow (Yellow) Urine Appearance Clear (Clear) Urine pH 7.0 (5.0-8.0) Ur Specific Beals 1.015 (1.005-1.030) Urine Protein Negative (Negative) Urine Glucose (UA) Negative (Negative) Urine Ketones Negative (Negative) Urine Occult Blood 2+ H (Negative) Urine Nitrite Negative (Negative) Urine Bilirubin Negative (Negative) Urine Urobilinogen 0.2 (0.2-1.0) Ur Leukocyte Esterase 2+ H (Negative) Urine RBC 5-10 H (0-5) /hpf Urine WBC 5-10 H (0-5) /hpf Ur Squamous Epith Cells 0-5 (0-5) /hpf Urine Bacteria Rare (FEW) /hpf Urine Mucus Rare (FEW) /hpf COVID-19 (JOSE) (NEGATIVE) MRSA (PCR) Negative 01/21/20 01/21/20 Range/Units 05:18 05:18 WBC 7.42 (3.98-10.04) K/mm3 RBC 3.42 L (3.98-5.22) M/mm3 Hgb 10.5 L (11.2-15.7) gm/dl Hct 35.0 (34.1-44.9) % MCV 102.3 H (79.4-94.8) fl MCH 30.7 (25.6-32.2) pg MCHC 30.0 L (32.2-35.5) g/dl RDW Std Deviation 47.5 H (36.4-46.3) fL Plt Count 67 L (182-369) K/mm3 MPV 13.3 H (9.4-12.3) fl Neut % (Auto) 80.7 H (34.0-71.1) % Lymph % (Auto) 6.2 L (19.3-51.7) % Edgar % (Auto) 12.7 H (4.7-12.5) % Eos % (Auto) 0.1 L (0.7-5.8) Baso % (Auto) 0.0 L (0.1-1.2) % Neut # (Auto) 5.99 (1.56-6.13) K/mm3 Lymph # (Auto) 0.46 L (1.18-3.74) K/mm3 Edgar # (Auto) 0.94 H (0.24-0.36) K/mm3 Eos # (Auto) 0.01 L (0.04-0.36) K/mm3 Baso # (Auto) 0.00 L (0.01-0.08) K/mm3 Manual Slide Review Abnormal smear Sodium 130 L (136-145) mEq/L Potassium 3.5 (3.5-5.1) mEq/L Chloride 92 L (98-107) mEq/L Carbon Dioxide 35 H (21-32) mEq/L Anion Gap 6.5 (5-15) BUN 43 H (7-18) mg/dL Creatinine 1.9 H (0.55-1.02) mg/dL Est Cr Clr Drug Dosing 26.79 mL/min Estimated GFR (MDRD) 26 (>60) mL/min BUN/Creatinine Ratio 22.6 H (14-18) Glucose 114 (80-115) mg/dL Lactic Acid (0.4-2.0) mmol/L Calcium 8.7 (8.5-10.1) mg/dL Magnesium 1.9 (1.8-2.4) mg/dl Total Bilirubin 0.5 (0.2-1.0) mg/dL AST 16 (15-37) U/L ALT 15 (14-59) U/L Alkaline Phosphatase 63 (46-116) U/L C-Reactive Protein 21.5 H* (<1.0) mg/dL Total Protein 7.8 (6.4-8.2) g/dl Albumin 3.0 L (3.4-5.0) g/dl Globulin 4.8 gm/dL Albumin/Globulin Ratio 0.6 L (1-2) TSH 3rd Generation 0.121 L (0.358-3.74) uIU/mL Urine Color (Yellow) Urine Appearance (Clear) Urine pH (5.0-8.0) Ur Specific Beals (1.005-1.030) Urine Protein (Negative) Urine Glucose (UA) (Negative) Urine Ketones (Negative) Urine Occult Blood (Negative) Urine Nitrite (Negative) Urine Bilirubin (Negative) Urine Urobilinogen (0.2-1.0) Ur Leukocyte Esterase (Negative) Urine RBC (0-5) /hpf Urine WBC (0-5) /hpf Ur Squamous Epith Cells (0-5) /hpf Urine Bacteria (FEW) /hpf Urine Mucus (FEW) /hpf COVID-19 (JOSE) (NEGATIVE) MRSA (PCR) Everardo Results Last 24 Hours: Microbiology 01/20/20 19:00 Urine Culture - Preliminary Urine, Quick Cath (In-Out) Gram Negative Rods Med Orders - Current: Current Medications Acetaminophen (Tylenol) 650 mg PO Q4H PRN PRN Reason: Pain (Mild 1-3)/fever Last Admin: 01/21/20 04:40 Dose: 650 mg Documented by: Albuterol (Proventil Hfa) 0 gm INH Q6H PRN PRN Reason: shortness of breath Albuterol/Ipratropium (Duoneb 3.0-0.5 Mg/3 Ml) 3 ml INH TID [facility] Last Admin: 01/21/20 09:00 Dose: 3 ml Documented by: Aspirin (Halfprin) 81 mg PO DAILY [facility] Last Admin: 01/21/20 09:12 Dose: 81 mg Documented by: Bisacodyl (Dulcolax) 10 mg PO DAILY PRN PRN Reason: Constipation Bismuth Subsalicylate (Pepto Bismol) 15 ml PO QID PRN PRN Reason: Heartburn Chlorhexidine Gluconate (Chlorhexidine Gluconate 0.12% Rinse) 15 ml MM BID [facility] Last Admin: 01/21/20 09:15 Dose: 1 applic Documented by: Diphenhydramine HCl (Benadryl) 25 mg IVPUSH Q4H PRN PRN Reason: Rash Docusate Sodium (Colace) 200 mg PO BID PRN PRN Reason: Constipation Enoxaparin Sodium (Lovenox) 30 mg SUBCUT DAILY [facility] Last Admin: 01/21/20 09:11 Dose: 30 mg Documented by: Fentanyl (Duragesic) 12 mcg TRDERM Q72H [facility] Fluticasone Propionate (Flonase) 0 gm NASBOTH DAILY [facility] Last Admin: 01/21/20 09:11 Dose: 1 spray Documented by: Guaifenesin (Mucinex) 1,200 mg PO BID [facility] Last Admin: 01/21/20 09:12 Dose: 1,200 mg Documented by: Guaifenesin/Phenylephrine HCl (Robitussin Dm) 10 ml PO Q4H PRN PRN Reason: Cough Hydromorphone HCl (Dilaudid) 0.5 mg IVPUSH Q2H PRN PRN Reason: Pain (severe 7-10) Piperacillin Sod/Tazobactam (Sod 4.5 gm/ Sodium Chloride) 100 mls @ 25 mls/hr IV Q8H [facility] Last Admin: 01/21/20 06:56 Dose: 25 mls/hr Documented by: Sodium Chloride (Normal Saline) 1,000 mls @ 75 mls/hr IV ASDIRECTED [facility] Last Admin: 01/21/20 11:03 Dose: 75 mls/hr Documented by: Levothyroxine Sodium (Levothyroxine) 200 mcg PO ACBREAKFAST [facility] Meclizine HCl (Antivert) 25 mg PO Q8H PRN PRN Reason: Dizziness Metoprolol Tartrate (Lopressor) 25 mg PO BID [facility] Last Admin: 01/21/20 09:13 Dose: 25 mg Documented by: Miscellaneous Information (Remove Patch) 0 ea TRDERM Q72H [facility] Nitroglycerin (Nitrostat) 0.4 mg SL Q5M PRN PRN Reason: Chest Pain Ondansetron HCl (Zofran) 4 mg IV Q4H PRN PRN Reason: Nausea/Vomiting Ondansetron HCl (Zofran Odt) 4 mg PO TID PRN PRN Reason: Nausea Oxycodone/Acetaminophen (Percocet 325-5 Mg) 1 tab PO Q4H PRN PRN Reason: Pain (moderate 4-6) Pantoprazole Sodium (Protonix) 40 mg PO ACBREAKFAST [facility] Last Admin: 01/21/20 09:17 Dose: Not Given Documented by: Pilocarpine Hcl 5 Mg 0 each PO TID [facility] Last Admin: 01/21/20 10:35 Dose: Not Given Documented by: Anoro Ellipta 62.5- (25 Mcg Inhaler) 0 each INH BEDTIME JACQUI Saccharomyces Boulardii (Florastor) 250 mg PO BID [facility] Last Admin: 01/21/20 12:20 Dose: 250 mg Documented by: Senna (Senna) 8.6 mg PO DAILY PRN PRN Reason: Constipation Sertraline HCl (Zoloft) 200 mg PO BEDTIME [facility] Last Admin: 01/20/20 23:22 Dose: 200 mg Documented by: Simvastatin (Zocor) 10 mg PO BEDTIME [facility] Sodium Bicarbonate (Sodium Bicarbonate) 1,300 mg PO TID [facility] Last Admin: 01/21/20 09:12 Dose: 1,300 mg Documented by: Sodium Chloride (Saline Flush) 10 ml FLUSH ASDIRECTED PRN PRN Reason: Keep Vein Open Last Admin: 01/20/20 19:48 Dose: 10 ml Documented by: Spironolactone (Aldactone) 25 mg PO DAILY [facility] Last Admin: 01/21/20 09:14 Dose: 25 mg Documented by: Tamsulosin HCl (Flomax) 0.4 mg PO BEDTIME JACQUI Trazodone HCl (Trazodone) 100 mg PO BEDTIME [facility] Last Admin: 01/20/20 23:19 Dose: 100 mg Documented by: Discontinued Medications Albuterol/Ipratropium (Duoneb 3.0-0.5 Mg/3 Ml) 3 ml INH TIDRT [facility] Last Admin: 01/21/20 08:10 Dose: Not Given Documented by: Hydromorphone HCl (Dilaudid) 0.5 mg IVPUSH ONETIME ONE Stop: 01/20/20 16:56 Last Admin: 01/20/20 17:54 Dose: 0.5 mg Documented by: Sodium Chloride (Normal Saline) 1,000 mls @ 999 mls/hr IV ONETIME ONE Stop: 01/20/20 17:55 Last Admin: 01/20/20 17:49 Dose: 999 mls/hr Documented by: Sodium Chloride (Normal Saline) 1,000 mls @ 100 mls/hr IV ONETIME ONE Stop: 01/21/20 06:01 Last Admin: 01/20/20 21:12 Dose: 100 mls/hr Documented by: Ceftriaxone Sodium 1 gm/ (Sodium Chloride) 100 mls @ 200 mls/hr IV Q24H [facility] Piperacillin Sod/Tazobactam (Sod 4.5 gm/ Sodium Chloride) 100 mls @ 200 mls/hr IV ONETIME ONE Stop: 01/20/20 22:51 Last Admin: 01/20/20 22:47 Dose: 200 mls/hr Documented by: Levothyroxine Sodium (Levothyroxine) 225 mcg PO ACBREAKFAST [facility] Last Admin: 01/21/20 06:55 Dose: 225 mcg Documented by: Miscellaneous Information (Remove Patch) 1 ea TRDERM Q72H [facility] Non-Formulary Medication (Cranberry [Cranberry]) 405 mg PO TID PRN PRN Reason: uti Non-Formulary Medication (Nystatin) 1 applic TOP BID PRN PRN Reason: Rash Ondansetron HCl (Zofran) 4 mg IVPUSH ONETIME ONE Stop: 01/20/20 16:56 Last Admin: 01/20/20 17:53 Dose: 4 mg Documented by: Tamsulosin HCl (Flomax) 0.4 mg PO ONETIME ONE Stop: 01/20/20 19:42 Last Admin: 01/20/20 19:48 Dose: 0.4 mg Documented by: Tramadol HCl (Ultram) 75 mg PO Q8H [facility] Last Admin: 01/21/20 09:12 Dose: 75 mg Documented by: - Exam Quality Assessment: Supplemental Oxygen General: Alert, Oriented HEENT: Pupils Equal, Mucous Membr. Moist/[place] Neck: Supple Lungs: Clear to Auscultation, Normal Respiratory Effort, Decreased Breath Sounds Cardiovascular: Regular Rate, Regular Rhythm GI/Abdominal Exam: Normal Bowel Sounds, Soft, Non-Tender, No Organomegaly, No Distention, No Abnormal Bruit Extremities: Normal Inspection, Normal Range of Motion, Non-Tender, Normal Capillary Refill, Pedal Edema (1+ bilateral pitting edema) Skin: Warm, Dry, Intact Neurological: No New Focal Deficit Psy/Mental Status: Alert, Normal Affect, Normal Mood Sepsis Event Note - Evaluation Sepsis Screening Result: No Definite Risk - Focused Exam Vital Signs: Vital Signs Temp Temp Pulse Resp BP Pulse Ox Pulse Ox 01/21/20 12:23 98.6 F 73 16 132/84 98 01/21/20 09:13 81 116/48 L 01/21/20 09:10 81 20 116/48 L 94 L 01/21/20 08:58 95 01/21/20 08:00 98.2 F 01/21/20 04:32 99.0 F 95 14 135/98 H 100 - Problem List & Annotations (1) Kwgds-so-erlkfat kidney injury SNOMED Code(s): 352768113 Code(s): N17.9 - ACUTE KIDNEY FAILURE, UNSPECIFIED; N18.9 - CHRONIC KIDNEY DISEASE, UNSPECIFIED Status: Acute Current Visit: Yes (2) Chronic renal insufficiency, stage IV (severe) SNOMED Code(s): 051208088 Code(s): N18.4 - CHRONIC KIDNEY DISEASE, STAGE 4 (SEVERE) Status: Acute Current Visit: Yes (3) Kidney stone on left side SNOMED Code(s): 71307366 Code(s): N20.0 - CALCULUS OF KIDNEY Status: Acute Current Visit: Yes (4) CHF (congestive heart failure) SNOMED Code(s): 58076490 Code(s): I50.9 - HEART FAILURE, UNSPECIFIED Status: Acute Current Visit: No (5) UTI, Urinary tract infectious disease SNOMED Code(s): 32164928 Code(s): N39.0 - URINARY TRACT INFECTION, SITE NOT SPECIFIED Status: Acute Priority: High Current Visit: No (6) Diabetes SNOMED Code(s): 63410202 Code(s): E11.9 - TYPE 2 DIABETES MELLITUS WITHOUT COMPLICATIONS Status: Chronic Priority: Medium Current Visit: No Qualifiers: Diabetes mellitus type: type 2 Diabetes mellitus snf insulin use: with long term care social worker use Diabetes mellitus complication status: with unspecified complications - Problem List Review Problem List Initiated/Reviewed/Updated: Yes - My Orders Last 24 Hours: My Active Orders 01/20/20 22:01 diphenhydrAMINE [Benadryl] 25 mg IVPUSH Q4H PRN 01/20/20 22:04 Oxygen Therapy [RC] PRN Up With Assistance [RC] ASDIRECTED VTE/DVT Education [RC] PER UNIT ROUTINE Vital Signs [RC] Q4HR Acetaminophen [TylenoL] 650 mg PO Q4H PRN Ondansetron [Zofran] 4 mg IV Q4H PRN Resuscitation Status Routine 01/20/20 22:06 PT Evaluation and Treatment [CONS] Routine 01/20/20 22:15 Bismuth Subsalicylate [Pepto Bismol] 15 ml PO QID PRN Dextromethorphan/guaiFENesin [Robitussin DM] 10 ml PO Q4H PRN Docusate Sodium [Colace] 200 mg PO BID PRN Meclizine [Antivert] 25 mg PO Q8H PRN Nitroglycerin [Nitrostat] 0.4 mg SL Q5M PRN Ondansetron [Zofran ODT] 4 mg PO TID PRN bisacodyL [Dulcolax] 10 mg PO DAILY PRN 01/20/20 22:19 RT Aerosol Therapy [RC] ASDIRECTED 01/20/20 22:24 HYDROmorphone [Dilaudid] 0.5 mg IVPUSH Q2H PRN 01/20/20 22:30 Metoprolol Tartrate [Lopressor] 25 mg PO BID 01/20/20 23:15 Sertraline [Zoloft] 200 mg PO BEDTIME traZODone 100 mg PO BEDTIME 01/21/20 06:00 Pantoprazole [ProTONIX] 40 mg PO ACBREAKFAST Piperacillin/Tazobactam [Piperacil-Tazobact] 4.5 gm Sodium Chloride 0.9% [Normal Saline] 100 ml IV Q8H 01/21/20 Breakfast Consistent Carbohydrate Diet [DIET] 01/21/20 08:55 RT Post Treatment Assessment [RC] PER UNIT ROUTINE RT Pre-Treatment Assessment [RC] Click to Edit Albuterol [Proventil HFA] 0 gm INH Q6H PRN Sennosides [Senna] 8.6 mg PO DAILY PRN 01/21/20 09:00 Albuterol/Ipratropium [DuoNeb 3.0-0.5 MG/3 ML] 3 ml INH TID Aspirin [Halfprin] 81 mg PO DAILY Chlorhexidine Gluconate [Chlorhexidine Gluconate 0.12% Rinse] 15 ml MM BID Enoxaparin [Lovenox] 30 mg SUBCUT DAILY Fluticasone Propionate [Flonase] 0 gm NASBOTH DAILY Patient's Own Medication [Ptom] 0 each PO TID Saccharomyces Boulardii [Florastor] 250 mg PO BID Sodium Bicarbonate 1,300 mg PO TID Sodium Chloride 0.9% [Normal Saline] 1,000 ml IV ASDIRECTED Spironolactone [Aldactone] 25 mg PO DAILY guaiFENesin [Mucinex] 1,200 mg PO BID 01/21/20 09:03 SCD [Sequential Compression Device] [OM.PC] Routine 01/21/20 10:45 Acetaminophen/oxyCODONE [Percocet 325-5 MG] 1 tab PO Q4H PRN 01/21/20 21:00 Patient's Own Medication [Ptom] 0 each INH BEDTIME Simvastatin [Zocor] 10 mg PO BEDTIME Tamsulosin [Flomax] 0.4 mg PO BEDTIME 01/22/20 05:11 C-REACTIVE PROTEIN [CHEM] AM CBC WITH AUTO DIFF [HEME] AM COMPREHENSIVE METABOLIC PN,CMP [CHEM] AM MAGNESIUM [CHEM] AM 01/22/20 06:00 Levothyroxine 200 mcg PO ACBREAKFAST 01/22/20 20:00 fentaNYL [Duragesic] 12 mcg TRDERM Q72H 01/25/20 20:00 Remove Patch 0 ea TRDERM Q72H - Assessment Assessment:: Assessment 01/20/2020day of admission * Acute on chronic renal insufficiency * It appears patient may be a bit dry with prerenal kidney disease. She is on 3 diuretics and her BUN to creatinine ratio is 23.2. * On admit: Estimated GFR 26, creatinine 1.9 * Baseline GFR 1.4 * Patient given 1 L fluids in the emergency department * Possible UTI versus asymptomatic bacteriuria * UA: WBC 5-10 per high-powered field, RBC 5-10 per high-powered field, epithelial cells 0-5 * Urine culture ordered * Hyponatremia * Sodium 130 * Likely worsened by metolazone a thiazide diuretic * Thrombocytopenia * Admit platelet count 69,000 * Platelet count 86,000 on 01/02/2020 * Unknown cause * Metaxalone could be contributing to this as a known side effect * Congestive heart failurechronic * Patient appears to be a bit hypovolemic. * Home medications include bumetanide 3 mg in the morning and 2 mg in the evening, spironolactone 25 mg twice daily, metolazone 2.5 mg on Thursday and Thursday, metoprolol 25 mg twice daily, losartan 25 mg daily Plan * Admit to medical floor with telemetry * Cautious IV rehydration * Hold metaxalone and bumetanide tomorrow morning * Zosyn * Urinary culture * Follow CBC, CMP, magnesium * C-reactive protein, procalcitonin, TSH * VTE prophylaxis with SCDs secondary to chemoprophylaxis contraindicated due to thrombocytopenia * CODE STATUS: Full code * Disposition: Admit to floor for gentle rehydration, IV antibiotics, and close follow-up of her platelets and kidney function. Plan discharge in 1 to 2 days. 01/21/2020 * Acute on chronic renal insufficiency * No significant change * Estimated GFR 26 and creatinine 1.9, no change from overnight * IV fluids not started overnight * Possible UTI versus asymptomatic bacteriuria * Currently on Zosyn * Urine culture pending * C-reactive protein 21.5 * Hyponatremia * No change * Sodium 130 * Thrombocytopenia * Stable * Platelet count 67,000 * Chronic congestive heart failure * No change * Bumetanide held this morning * Hypothyroidism * TSH low 0.121 * On 225 mcg of levothyroxine daily Chronic: Hypertension, obstructive sleep apnea, centrilobular emphysema, hypothyroidism, type 2 diabetes with diabetic nephropathy, hyperlipidemia, vitamin B12 deficiency, morbid obesity, chronic depression, thrombocytopenia, chronic constipation, chronic gastritis without bleeding, history of C. difficile infection, calculus of kidney, urinary retention, recurrent UTIs, SLE, chronic pain syndrome. Plan * Start normal saline 75 mL/h * Continue holding bumetanide * Spironolactone 25 mg twice daily * Continue Zosyn * Awaiting urinary culture * Recheck CBC, CMP, mag, C-reactive protein in the morning * Continue SCDs for VTE prophylaxis * Length of stay 1-2 more days.
[2020-01-21] MEDS: Acetaminophen/oxyCODONE 325-5 MG Tab PO PRN (14:08)
[2020-01-21] MEDS: Tamsulosin 0.4 MG Cap.ER PO SCH (20:32)
[2020-01-21] MEDS: traZODone 50 MG Tab PO SCH (20:35)
[2020-01-21] MEDS: Simvastatin 10 MG Tab PO SCH (20:35)
[2020-01-21] MEDS: Sertraline 50 MG Tab PO SCH (20:35)
[2020-01-21] MEDS ORDERED: Non-Formulary Medication 1 Each (Atorvastatin 10 MG) PO SCH (21:00)
[2020-01-22] MEDS: Sodium Chloride 0.9% 1,000 ML IV SCH ×2 (00:53→22:28)
[2020-01-22] MEDS: Sodium Chloride 0.9% 1,000 ML IV ONE (01:43)
[2020-01-22] MEDS: Acetaminophen 325 MG Tab PO PRN ×4 (01:55→22:48)
[2020-01-22] MEDS: Piperacillin/Tazobactam 4.5 GM in Sodium Chloride 0.9% 100 ML IV SCH ×3 (05:27→22:08)
[2020-01-22] MEDS: Pantoprazole 40 MG Tab.CR PO SCH (05:28)
[2020-01-22] MEDS: Sodium Bicarbonate 650 MG Tab PO SCH ×3 (08:09→22:11)
[2020-01-22] MEDS: Metoprolol Tartrate 25 MG Tab PO SCH ×2 (08:11→22:12)
[2020-01-22] MEDS: Chlorhexidine Gluconate 0.12% Oral Rinse 118 ML Bottle MM SCH ×2 (08:11→22:12)
[2020-01-22] MEDS: Spironolactone 25 MG Tab PO SCH ×2 (08:11→14:13)
[2020-01-22] MEDS: Saccharomyces Boulardii (Probiotic) 250 MG Cap PO SCH ×2 (08:11→22:11)
[2020-01-22] MEDS: guaiFENesin 600 MG Tab.ER PO SCH ×2 (08:11→22:12)
[2020-01-22] MEDS: Fluticasone Propionate Nasal Spray 16 GM Bottle NASBOTH SCH (08:11)
[2020-01-22] MEDS: Aspirin 81 MG Tab.EC PO SCH (08:11)
[2020-01-22] MEDS ORDERED: Bumetanide 1 MG/4 ML MDV IVPUSH ONE (08:13)
[2020-01-22] MEDS: Pilocarpine Hcl 5 MG PO SCH ×3 (08:13→22:14)
[2020-01-22] MEDS ORDERED: Potassium Chloride 20 MEQ Tab.ER PO ONE (08:34)
[2020-01-22] MEDS: Albuterol/Ipratropium 3.0-0.5 MG/3 ML Neb Soln INH SCH ×3 (09:10→20:01)
[2020-01-22] MEDS ORDERED: Lactoperoxi/Gluc Oxid/Pot Thio 42 GM Tube MUCMEM PRN (11:48)
--- NOTE | 2020-01-22 14:10 | PCM.PN ---
- General Info Date of Service: 01/22/20 Admission Dx/Problem (Free Text): Admission Diagnosis/Problem Admission Diagnosis/Problem Renal Insufficiency - CHRONIC KIDNEY DISEASE, STAGE IV (SEVERE) Subjective Update: Patient states that she feels like her hands are puffy and she is more short of breath. She insists that she needs her Demadex because of her shortness of breath. Patient did lose 1 pound over the last 24 hours and renal function has not changed. Functional Status: Reports: Pain Controlled - Review of Systems General: Reports: No Symptoms HEENT: Reports: No Symptoms Pulmonary: Reports: Wheezing Cardiovascular: Reports: No Symptoms Gastrointestinal: Reports: No Symptoms Musculoskeletal: Reports: No Symptoms - Patient Data Vitals - Most Recent: Last Vital Signs Temp 97.5 F 01/22/20 12:50 Pulse 66 01/22/20 12:50 Resp 20 01/22/20 12:50 BP 119/55 L 01/22/20 12:50 Pulse Ox 95 01/22/20 12:50 Weight - Most Recent: 122.289 kg I&O - Last 24 Hours: Intake & Output 01/21/20 01/22/20 01/22/20 22:59 06:59 14:59 Intake Total 2315 1502 Output Total 200 300 Balance 2115 1202 Lab Results Last 24 Hours: Laboratory Results - last 24 hr 01/22/20 01/22/20 Range/Units 06:45 06:45 WBC 4.74 (3.98-10.04) K/mm3 RBC 3.40 L (3.98-5.22) M/mm3 Hgb 10.6 L (11.2-15.7) gm/dl Hct 34.7 (34.1-44.9) % MCV 102.1 H (79.4-94.8) fl MCH 31.2 (25.6-32.2) pg MCHC 30.5 L (32.2-35.5) g/dl RDW Std Deviation 46.6 H (36.4-46.3) fL Plt Count 74 L (182-369) K/mm3 MPV 12.2 (9.4-12.3) fl Neut % (Auto) 83.3 H (34.0-71.1) % Lymph % (Auto) 5.5 L (19.3-51.7) % Sunflower % (Auto) 8.9 (4.7-12.5) % Eos % (Auto) 1.9 (0.7-5.8) Baso % (Auto) 0.2 (0.1-1.2) % Neut # (Auto) 3.95 (1.56-6.13) K/mm3 Lymph # (Auto) 0.26 L (1.18-3.74) K/mm3 Sunflower # (Auto) 0.42 H (0.24-0.36) K/mm3 Eos # (Auto) 0.09 (0.04-0.36) K/mm3 Baso # (Auto) 0.01 (0.01-0.08) K/mm3 Manual Slide Review Abnormal smear Sodium 132 L (136-145) mEq/L Potassium 3.3 L (3.5-5.1) mEq/L Chloride 93 L (98-107) mEq/L Carbon Dioxide 35 H (21-32) mEq/L Anion Gap 7.3 (5-15) BUN 46 H (7-18) mg/dL Creatinine 1.9 H (0.55-1.02) mg/dL Est Cr Clr Drug Dosing 26.79 mL/min Estimated GFR (MDRD) 26 (>60) mL/min BUN/Creatinine Ratio 24.2 H (14-18) Glucose 111 (80-115) mg/dL Calcium 9.1 (8.5-10.1) mg/dL Magnesium 2.1 (1.8-2.4) mg/dl Total Bilirubin 0.4 (0.2-1.0) mg/dL AST 18 (15-37) U/L ALT 17 (14-59) U/L Alkaline Phosphatase 57 (46-116) U/L C-Reactive Protein 19.8 H* (<1.0) mg/dL Total Protein 8.1 (6.4-8.2) g/dl Albumin 2.8 L (3.4-5.0) g/dl Globulin 5.3 gm/dL Albumin/Globulin Ratio 0.5 L (1-2) Everardo Results Last 24 Hours: Microbiology 01/20/20 19:00 Urine Culture - Preliminary Urine, Quick Cath (In-Out) Proteus Mirabilis Gram Negative Rods Med Orders - Current: Current Medications Acetaminophen (Tylenol) 650 mg PO Q4H PRN PRN Reason: Pain (Mild 1-3)/fever Last Admin: 01/22/20 08:10 Dose: 650 mg Documented by: Albuterol (Proventil Hfa) 0 gm INH Q6H PRN PRN Reason: shortness of breath Albuterol/Ipratropium (Duoneb 3.0-0.5 Mg/3 Ml) 3 ml INH TID [facility] Last Admin: 01/22/20 09:10 Dose: 3 ml Documented by: Aspirin (Halfprin) 81 mg PO DAILY [facility] Last Admin: 01/22/20 08:11 Dose: 81 mg Documented by: Bisacodyl (Dulcolax) 10 mg PO DAILY PRN PRN Reason: Constipation Bismuth Subsalicylate (Pepto Bismol) 15 ml PO QID PRN PRN Reason: Heartburn Chlorhexidine Gluconate (Chlorhexidine Gluconate 0.12% Rinse) 15 ml MM BID [facility] Last Admin: 01/22/20 08:11 Dose: 1 applic Documented by: Diphenhydramine HCl (Benadryl) 25 mg IVPUSH Q4H PRN PRN Reason: Rash Docusate Sodium (Colace) 200 mg PO BID PRN PRN Reason: Constipation Fentanyl (Duragesic) 12 mcg TRDERM Q72H [facility] Fluticasone Propionate (Flonase) 0 gm NASBOTH DAILY [facility] Last Admin: 01/22/20 08:11 Dose: 1 spray Documented by: Glucose Oxid/Lactoperoxid/Muramidas (Biotene Oralbalance Gel) 0 gm MUCMEM ASDIRECTED PRN PRN Reason: dry mouth Guaifenesin (Mucinex) 1,200 mg PO BID [facility] Last Admin: 01/22/20 08:11 Dose: 1,200 mg Documented by: Guaifenesin/Phenylephrine HCl (Robitussin Dm) 10 ml PO Q4H PRN PRN Reason: Cough Hydromorphone HCl (Dilaudid) 0.5 mg IVPUSH Q2H PRN PRN Reason: Pain (severe 7-10) Piperacillin Sod/Tazobactam (Sod 4.5 gm/ Sodium Chloride) 100 mls @ 25 mls/hr IV Q8H [facility] Last Admin: 01/22/20 05:27 Dose: 25 mls/hr Documented by: Sodium Chloride (Normal Saline) 1,000 mls @ 75 mls/hr IV ASDIRECTED [facility] Last Admin: 01/22/20 00:53 Dose: 75 mls/hr Documented by: Levothyroxine Sodium (Levothyroxine) 200 mcg PO ACBREAKFAST [facility] Last Admin: 01/22/20 05:28 Dose: 200 mcg Documented by: Meclizine HCl (Antivert) 25 mg PO Q8H PRN PRN Reason: Dizziness Metoprolol Tartrate (Lopressor) 25 mg PO BID [facility] Last Admin: 01/22/20 08:11 Dose: 25 mg Documented by: Miscellaneous Information (Remove Patch) 0 ea TRDERM Q72H [facility] Nitroglycerin (Nitrostat) 0.4 mg SL Q5M PRN PRN Reason: Chest Pain Ondansetron HCl (Zofran) 4 mg IV Q4H PRN PRN Reason: Nausea/Vomiting Ondansetron HCl (Zofran Odt) 4 mg PO TID PRN PRN Reason: Nausea Oxycodone/Acetaminophen (Percocet 325-5 Mg) 1 tab PO Q4H PRN PRN Reason: Pain (moderate 4-6) Last Admin: 01/21/20 14:08 Dose: 1 tab Documented by: Pantoprazole Sodium (Protonix) 40 mg PO ACBREAKFAST [facility] Last Admin: 01/22/20 05:28 Dose: 40 mg Documented by: [place] Hcl 5 Mg 0 each PO TID [facility] Last Admin: 01/22/20 08:13 Dose: Not Given Documented by: Anoro Ellipta 62.5- (25 Mcg Inhaler) 0 each INH BEDTIME [facility] Last Admin: 01/21/20 22:03 Dose: Not Given Documented by: Saccharomyces Boulardii (Florastor) 250 mg PO BID [facility] Last Admin: 01/22/20 08:11 Dose: 250 mg Documented by: Senna (Senna) 8.6 mg PO DAILY PRN PRN Reason: Constipation Sertraline HCl (Zoloft) 200 mg PO BEDTIME [facility] Last Admin: 01/21/20 20:35 Dose: 200 mg Documented by: Simvastatin (Zocor) 10 mg PO BEDTIME [facility] Last Admin: 01/21/20 20:35 Dose: 10 mg Documented by: Sodium Bicarbonate (Sodium Bicarbonate) 1,300 mg PO TID [facility] Last Admin: 01/22/20 08:09 Dose: 1,300 mg Documented by: Sodium Chloride (Saline Flush) 10 ml FLUSH ASDIRECTED PRN PRN Reason: Keep Vein Open Last Admin: 01/20/20 19:48 Dose: 10 ml Documented by: Spironolactone (Aldactone) 25 mg PO BIDDIURETIC JACQUI Tamsulosin HCl (Flomax) 0.4 mg PO BEDTIME [facility] Last Admin: 01/21/20 20:32 Dose: 0.4 mg Documented by: Trazodone HCl (Trazodone) 100 mg PO BEDTIME [facility] Last Admin: 01/21/20 20:35 Dose: 100 mg Documented by: Discontinued Medications Albuterol/Ipratropium (Duoneb 3.0-0.5 Mg/3 Ml) 3 ml INH TIDRT [facility] Last Admin: 01/21/20 08:10 Dose: Not Given Documented by: Bumetanide (Bumex) 2 mg IVPUSH ONETIME ONE Stop: 01/22/20 08:14 Last Admin: 01/22/20 08:37 Dose: 2 mg Documented by: Enoxaparin Sodium (Lovenox) 30 mg SUBCUT DAILY [facility] Last Admin: 01/21/20 09:11 Dose: 30 mg Documented by: Glucose Oxid/Lactoperoxid/Muramidas (Biotene Oralbalance Gel) 1 gm MUCMEM ASDIRECTED PRN PRN Reason: dry mouth Hydromorphone HCl (Dilaudid) 0.5 mg IVPUSH ONETIME ONE Stop: 01/20/20 16:56 Last Admin: 01/20/20 17:54 Dose: 0.5 mg Documented by: Sodium Chloride (Normal Saline) 1,000 mls @ 999 mls/hr IV ONETIME ONE Stop: 01/20/20 17:55 Last Admin: 01/20/20 17:49 Dose: 999 mls/hr Documented by: Sodium Chloride (Normal Saline) 1,000 mls @ 100 mls/hr IV ONETIME ONE Stop: 01/21/20 06:01 Last Admin: 01/22/20 01:43 Dose: 100 mls/hr Documented by: Ceftriaxone Sodium 1 gm/ (Sodium Chloride) 100 mls @ 200 mls/hr IV Q24H [facility] Piperacillin Sod/Tazobactam (Sod 4.5 gm/ Sodium Chloride) 100 mls @ 200 mls/hr IV ONETIME ONE Stop: 01/20/20 22:51 Last Admin: 01/20/20 22:47 Dose: 200 mls/hr Documented by: Levothyroxine Sodium (Levothyroxine) 225 mcg PO ACBREAKFAST [facility] Last Admin: 01/21/20 06:55 Dose: 225 mcg Documented by: Miscellaneous Information (Remove Patch) 1 ea TRDERM Q72H [facility] Non-Formulary Medication (Cranberry [Cranberry]) 405 mg PO TID PRN PRN Reason: uti Non-Formulary Medication (Nystatin) 1 applic TOP BID PRN PRN Reason: Rash Ondansetron HCl (Zofran) 4 mg IVPUSH ONETIME ONE Stop: 01/20/20 16:56 Last Admin: 01/20/20 17:53 Dose: 4 mg Documented by: Potassium Chloride (Klor-Con M20) 40 meq PO ONETIME ONE Stop: 01/22/20 08:35 Last Admin: 01/22/20 08:47 Dose: 40 meq Documented by: Spironolactone (Aldactone) 25 mg PO DAILY [facility] Last Admin: 01/22/20 08:11 Dose: 25 mg Documented by: Tamsulosin HCl (Flomax) 0.4 mg PO ONETIME ONE Stop: 01/20/20 19:42 Last Admin: 01/20/20 19:48 Dose: 0.4 mg Documented by: Tramadol HCl (Ultram) 75 mg PO Q8H [facility] Last Admin: 01/21/20 09:12 Dose: 75 mg Documented by: - Exam Quality Assessment: Supplemental Oxygen General: Alert, Oriented HEENT: Pupils Equal, Mucous Membr. Moist/[place] Lungs: Normal Respiratory Effort, Crackles, Wheezing Cardiovascular: Regular Rate, Regular Rhythm GI/Abdominal Exam: Normal Bowel Sounds, Soft, Non-Tender, No Distention, No Abnormal Bruit Back Exam: Normal Inspection Extremities: Normal Inspection, Normal Range of Motion, Non-Tender, No Pedal Edema, Normal Capillary Refill Skin: Warm, Dry, Intact Wound/Incisions: Healing Well Neurological: No New Focal Deficit Psy/Mental Status: Alert, Normal Affect, Normal Mood Sepsis Event Note - Evaluation Sepsis Screening Result: No Definite Risk - Focused Exam Vital Signs: Vital Signs Temp Pulse Resp BP Pulse Ox Pulse Ox 01/22/20 12:50 97.5 F 66 20 119/55 L 95 01/22/20 09:10 96 01/22/20 08:44 98.1 F 01/22/20 08:12 80 16 122/77 94 L 01/22/20 08:11 80 122/77 01/22/20 06:21 97.2 F 73 13 134/73 97 - Problem List & Annotations (1) [id number] kidney injury SNOMED Code(s): 890177226 Code(s): N17.9 - ACUTE KIDNEY FAILURE, UNSPECIFIED; N18.9 - CHRONIC KIDNEY DISEASE, UNSPECIFIED Status: Acute Current Visit: Yes (2) Chronic renal insufficiency, stage IV (severe) SNOMED Code(s): 222748674 Code(s): N18.4 - CHRONIC KIDNEY DISEASE, STAGE 4 (SEVERE) Status: Acute Current Visit: Yes (3) Kidney stone on left side SNOMED Code(s): 10549969 Code(s): N20.0 - CALCULUS OF KIDNEY Status: Acute Current Visit: Yes (4) CHF (congestive heart failure) SNOMED Code(s): 20687395 Code(s): I50.9 - HEART FAILURE, UNSPECIFIED Status: Acute Current Visit: No (5) UTI, Urinary tract infectious disease SNOMED Code(s): 74702207 Code(s): N39.0 - URINARY TRACT INFECTION, SITE NOT SPECIFIED Status: Acute Priority: High Current Visit: No (6) Diabetes SNOMED Code(s): 11105958 Code(s): E11.9 - TYPE 2 DIABETES MELLITUS WITHOUT COMPLICATIONS Status: Chronic Priority: Medium Current Visit: No Qualifiers: Diabetes mellitus type: type 2 Diabetes 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 insulin use: with snf use Diabetes mellitus complication status: with unspecified complications - Problem List Review Problem List Initiated/Reviewed/Updated: Yes - My Orders Last 24 Hours: My Active Orders 01/21/20 Dinner 2 Gram Sodium Diet [DIET] 01/21/20 21:00 Patient's Own Medication [Ptom] 0 each INH BEDTIME Simvastatin [Zocor] 10 mg PO BEDTIME Tamsulosin [Flomax] 0.4 mg PO BEDTIME 01/22/20 06:00 Levothyroxine 200 mcg PO ACBREAKFAST 01/22/20 11:52 Lactoperoxi/Gluc Oxid/Pot Thio [Biotene Oralbalance Gel] 0 gm MUCMEM ASDIRECTED PRN 01/22/20 14:00 Spironolactone [Aldactone] 25 mg PO BIDDIURETIC 01/22/20 20:00 fentaNYL [Duragesic] 12 mcg TRDERM Q72H 01/25/20 20:00 Remove Patch 0 ea TRDERM Q72H - Assessment Assessment:: Assessment 01/20/2020day of admission * Acute on chronic renal insufficiency * It appears patient may be a bit dry with prerenal kidney disease. She is on 3 diuretics and her BUN to creatinine ratio is 23.2. * On admit: Estimated GFR 26, creatinine 1.9 * Baseline GFR 1.4 * Patient given 1 L fluids in the emergency department * Possible UTI versus asymptomatic bacteriuria * UA: WBC 5-10 per high-powered field, RBC 5-10 per high-powered field, epithelial cells 0-5 * Urine culture ordered * Hyponatremia * Sodium 130 * Likely worsened by metolazone a thiazide diuretic * Thrombocytopenia * Admit platelet count 69,000 * Platelet count 86,000 on 01/02/2020 * Unknown cause * Metaxalone could be contributing to this as a known side effect * Congestive heart failurechronic * Patient appears to be a bit hypovolemic. * Home medications include bumetanide 3 mg in the morning and 2 mg in the evening, spironolactone 25 mg twice daily, metolazone 2.5 mg on Thursday and Thursday, metoprolol 25 mg twice daily, losartan 25 mg daily Plan * Admit to medical floor with telemetry * Cautious IV rehydration * Hold metaxalone and bumetanide tomorrow morning * Zosyn * Urinary culture * Follow CBC, CMP, magnesium * C-reactive protein, procalcitonin, TSH * VTE prophylaxis with SCDs secondary to chemoprophylaxis contraindicated due to thrombocytopenia * CODE STATUS: Full code * Disposition: Admit to floor for gentle rehydration, IV antibiotics, and close follow-up of her platelets and kidney function. Plan discharge in 1 to 2 days. 01/21/2020 * Acute on chronic renal insufficiency * No significant change * Estimated GFR 26 and creatinine 1.9, no change from overnight * IV fluids not started overnight * Possible UTI versus asymptomatic bacteriuria * Currently on Zosyn * Urine culture pending * C-reactive protein 21.5 * Hyponatremia * No change * Sodium 130 * Thrombocytopenia * Stable * Platelet count 67,000 * Chronic congestive heart failure * No change * Bumetanide held this morning * Hypothyroidism * TSH low 0.121 * On 225 mcg of levothyroxine daily Plan * Start normal saline 75 mL/h * Continue holding bumetanide * Spironolactone 25 mg twice daily * Continue Zosyn * Awaiting urinary culture * Recheck CBC, CMP, mag, C-reactive protein in the morning * Continue SCDs for VTE prophylaxis * Length of stay 1-2 more days. 01/22/2020 * Acute on chronic renal insufficiency * No change from yesterday. Creatinine 1.9 and GFR 26 * Patient insistent on Bumex * UTI * Proteus mirabilis sensitive to Zosyn and Bactrim * White count normal at 4.7, C-reactive protein decreased to 19.8. C- reactive protein is probably not elevated solely due to infection. * On Zosyn * Hyponatremiaimproved * Sodium 132 * On IV normal saline * Thrombocytopenia-improved * Platelets of 74,000 * Congestive heart failure stable * On home O2 of 2 L nasal cannula * Hypothyroidism * TSH low 0.121 * Decreased levothyroxine to 200 mcg daily Chronic: Hypertension, obstructive sleep apnea, centrilobular emphysema, hypothyroidism, type 2 diabetes with diabetic nephropathy, hyperlipidemia, vitam in B12 deficiency, morbid obesity, chronic depression, thrombocytopenia, chronic constipation, chronic gastritis without bleeding, history of C. difficile infection, calculus of kidney, urinary retention, recurrent UTIs, SLE, chronic pain syndrome. - Plan Plan:: Plan * Continue cautious IV rehydration * Bumex 2 mg IV now * Continue Zosyn, but if afebrile overnight will switch to Bactrim * Follow CBC, CMP, magnesium,C-reactive protein, * VTE prophylaxis with SCDs secondary to chemoprophylaxis contraindicated due to thrombocytopenia * CODE STATUS: Full code * Disposition: Admit to floor for gentle rehydration, IV antibiotics, and close follow-up of her platelets and kidney function. Plan discharge in 1 to 2 days.
[2020-01-22] MEDS: Lactoperoxi/Gluc Oxid/Pot Thio 42 GM Tube MUCMEM PRN (14:22)
[2020-01-22] MEDS ORDERED: fentaNYL 50 MCG/HR Transdermal Patch TOP SCH (20:00)
[2020-01-22] MEDS ORDERED: Polyethylene Glycol 3350 Powder 17 GM Packet PO ONE (20:01)
[2020-01-22] MEDS: fentaNYL 12 MCG/HR Transdermal Patch TRDERM SCH (22:08)
[2020-01-22] MEDS: Tamsulosin 0.4 MG Cap.ER PO SCH (22:11)
[2020-01-22] MEDS: traZODone 50 MG Tab PO SCH (22:11)
[2020-01-22] MEDS: Simvastatin 10 MG Tab PO SCH (22:11)
[2020-01-22] MEDS: Sertraline 50 MG Tab PO SCH (22:11)
[2020-01-23] MEDS: Piperacillin/Tazobactam 4.5 GM in Sodium Chloride 0.9% 100 ML IV SCH ×3 (06:04→22:12)
[2020-01-23] MEDS: Pantoprazole 40 MG Tab.CR PO SCH (06:04)
[2020-01-23] MEDS: Spironolactone 25 MG Tab PO SCH ×2 (06:04→13:51)
[2020-01-23] MEDS: Lactoperoxi/Gluc Oxid/Pot Thio 42 GM Tube MUCMEM PRN ×2 (06:05→22:10)
[2020-01-23] MEDS: Albuterol/Ipratropium 3.0-0.5 MG/3 ML Neb Soln INH SCH ×4 (06:56→20:15)
[2020-01-23] MEDS: Fluticasone Propionate Nasal Spray 16 GM Bottle NASBOTH SCH (09:04)
[2020-01-23] MEDS: Chlorhexidine Gluconate 0.12% Oral Rinse 118 ML Bottle MM SCH ×2 (09:04→22:10)
[2020-01-23] MEDS: Aspirin 81 MG Tab.EC PO SCH (09:06)
[2020-01-23] MEDS: guaiFENesin 600 MG Tab.ER PO SCH ×2 (09:06→22:09)
[2020-01-23] MEDS: Metoprolol Tartrate 25 MG Tab PO SCH ×2 (09:06→22:09)
[2020-01-23] MEDS: Saccharomyces Boulardii (Probiotic) 250 MG Cap PO SCH ×2 (09:07→22:08)
[2020-01-23] MEDS: Sodium Bicarbonate 650 MG Tab PO SCH ×3 (09:07→22:08)
[2020-01-23] MEDS: Pilocarpine Hcl 5 MG PO SCH ×3 (09:09→22:13)
[2020-01-23] MEDS: Acetaminophen 325 MG Tab PO PRN ×2 (09:14→22:22)
[2020-01-23] MEDS ORDERED: Bumetanide 1 MG/4 ML MDV IVPUSH ONE (09:19)
--- NOTE | 2020-01-23 09:28 | PCM.PN ---
- General Info Date of Service: 01/23/20 Admission Dx/Problem (Free Text): Admission Diagnosis/Problem Admission Diagnosis/Problem Renal Insufficiency - CHRONIC KIDNEY DISEASE, STAGE IV (SEVERE) Subjective Update: Patient continues to complain of shortness of breath. She also complains of wheeze. She states she feels like she has gained a large amount of water. Pulse ox is 99% on 2 L. Patient states she is on 3 L at home. Functional Status: Reports: Pain Controlled - Review of Systems General: Reports: No Symptoms HEENT: Reports: No Symptoms Pulmonary: Reports: Shortness of Breath, Wheezing Cardiovascular: Reports: No Symptoms Gastrointestinal: Reports: No Symptoms Musculoskeletal: Reports: No Symptoms Neurological: Reports: No Symptoms Psychiatric: Reports: No Symptoms - Patient Data Vitals - Most Recent: Last Vital Signs Temp 98.4 F 01/23/20 07:38 Pulse 81 01/23/20 09:06 Resp 20 01/23/20 07:38 BP 141/61 H 01/23/20 09:06 Pulse Ox 93 L 01/23/20 07:38 Weight - Most Recent: 126.462 kg I&O - Last 24 Hours: Intake & Output 01/22/20 01/23/20 01/23/20 22:59 06:59 14:59 Intake Total 2275 1077 Balance 2275 1077 Lab Results Last 24 Hours: Laboratory Results - last 24 hr 01/23/20 01/23/20 Range/Units 08:28 08:28 WBC 2.93 L (3.98-10.04) K/mm3 RBC 3.09 L (3.98-5.22) M/mm3 Hgb 9.5 L (11.2-15.7) gm/dl Hct 31.0 L (34.1-44.9) % MCV 100.3 H (79.4-94.8) fl MCH 30.7 (25.6-32.2) pg MCHC 30.6 L (32.2-35.5) g/dl RDW Std Deviation 44.7 (36.4-46.3) fL Plt Count 71 L (182-369) K/mm3 MPV 11.9 (9.4-12.3) fl Neut % (Auto) 72.1 H (34.0-71.1) % Lymph % (Auto) 11.3 L (19.3-51.7) % [place] % (Auto) 10.9 (4.7-12.5) % Eos % (Auto) 5.1 (0.7-5.8) Baso % (Auto) 0.3 (0.1-1.2) % Neut # (Auto) 2.11 (1.56-6.13) K/mm3 Lymph # (Auto) 0.33 L (1.18-3.74) K/mm3 [place] # (Auto) 0.32 (0.24-0.36) K/mm3 Eos # (Auto) 0.15 (0.04-0.36) K/mm3 Baso # (Auto) 0.01 (0.01-0.08) K/mm3 Manual Slide Review Abnormal smear Sodium 138 (136-145) mEq/L Potassium 3.0 L (3.5-5.1) mEq/L Chloride 99 (98-107) mEq/L Carbon Dioxide 35 H (21-32) mEq/L Anion Gap 7.0 (5-15) BUN 36 H (7-18) mg/dL Creatinine 1.5 H (0.55-1.02) mg/dL Est Cr Clr Drug Dosing 33.94 mL/min Estimated GFR (MDRD) 34 (>60) mL/min BUN/Creatinine Ratio 24.0 H (14-18) Glucose 123 H (80-115) mg/dL Calcium 8.8 (8.5-10.1) mg/dL Magnesium 1.9 (1.8-2.4) mg/dl Total Bilirubin 0.5 (0.2-1.0) mg/dL AST 17 (15-37) U/L ALT 20 (14-59) U/L Alkaline Phosphatase 53 (46-116) U/L Total Protein 7.3 (6.4-8.2) g/dl Albumin 2.5 L (3.4-5.0) g/dl Globulin 4.8 gm/dL Albumin/Globulin Ratio 0.5 L (1-2) Everardo Results Last 24 Hours: Microbiology 01/20/20 19:00 Urine Culture - Final Urine, Quick Cath (In-Out) Proteus Mirabilis Pseudomonas Aeruginosa Med Orders - Current: Current Medications Acetaminophen (Tylenol) 650 mg PO Q4H PRN PRN Reason: Pain (Mild 1-3)/fever Last Admin: 01/23/20 09:14 Dose: 650 mg Documented by: Albuterol (Proventil Hfa) 0 gm INH Q6H PRN PRN Reason: shortness of breath Albuterol/Ipratropium (Duoneb 3.0-0.5 Mg/3 Ml) 3 ml INH TID [facility] Last Admin: 01/23/20 08:00 Dose: Not Given Documented by: Aspirin (Halfprin) 81 mg PO DAILY [facility] Last Admin: 01/23/20 09:06 Dose: 81 mg Documented by: Bisacodyl (Dulcolax) 10 mg PO DAILY PRN PRN Reason: Constipation Bismuth Subsalicylate (Pepto Bismol) 15 ml PO QID PRN PRN Reason: Heartburn Bumetanide (Bumex) 2 mg IVPUSH ONETIME ONE Stop: 01/23/20 09:20 Bumetanide (Bumex) 2 mg PO DAILY [facility] Chlorhexidine Gluconate (Chlorhexidine Gluconate 0.12% Rinse) 15 ml MM BID [facility] Last Admin: 01/23/20 09:04 Dose: 15 ml Documented by: Diphenhydramine HCl (Benadryl) 25 mg IVPUSH Q4H PRN PRN Reason: Rash Docusate Sodium (Colace) 200 mg PO BID PRN PRN Reason: Constipation Fentanyl (Duragesic) 12 mcg TRDERM Q72H [facility] Last Admin: 01/22/20 22:08 Dose: 12 mcg Documented by: Fluticasone Propionate (Flonase) 0 gm NASBOTH DAILY [facility] Last Admin: 01/23/20 09:04 Dose: 1 spray Documented by: Glucose Oxid/Lactoperoxid/Muramidas (Biotene Oralbalance Gel) 0 gm MUCMEM ASDIRECTED PRN PRN Reason: dry mouth Last Admin: 01/23/20 06:05 Dose: 1 applic Documented by: Guaifenesin (Mucinex) 1,200 mg PO BID [facility] Last Admin: 01/23/20 09:06 Dose: 1,200 mg Documented by: Guaifenesin/Phenylephrine HCl (Robitussin Dm) 10 ml PO Q4H PRN PRN Reason: Cough Hydromorphone HCl (Dilaudid) 0.5 mg IVPUSH Q2H PRN PRN Reason: Pain (severe 7-10) Piperacillin Sod/Tazobactam (Sod 4.5 gm/ Sodium Chloride) 100 mls @ 25 mls/hr IV Q8H [facility] Last Admin: 01/23/20 06:04 Dose: 25 mls/hr Documented by: Levothyroxine Sodium (Levothyroxine) 200 mcg PO ACBREAKFAST [facility] Last Admin: 01/23/20 06:04 Dose: 200 mcg Documented by: Meclizine HCl (Antivert) 25 mg PO Q8H PRN PRN Reason: Dizziness Metoprolol Tartrate (Lopressor) 25 mg PO BID [facility] Last Admin: 01/23/20 09:06 Dose: 25 mg Documented by: Miscellaneous Information (Remove Patch) 0 ea TRDERM Q72H [facility] Nitroglycerin (Nitrostat) 0.4 mg SL Q5M PRN PRN Reason: Chest Pain Non-Formulary Medication (Bumetanide [Bumex]) 2 mg PO QPM [facility] Ondansetron HCl (Zofran) 4 mg IV Q4H PRN PRN Reason: Nausea/Vomiting Ondansetron HCl (Zofran Odt) 4 mg PO TID PRN PRN Reason: Nausea Oxycodone/Acetaminophen (Percocet 325-5 Mg) 1 tab PO Q4H PRN PRN Reason: Pain (moderate 4-6) Last Admin: 01/21/20 14:08 Dose: 1 tab Documented by: Pantoprazole Sodium (Protonix) 40 mg PO ACBREAKFAST [facility] Last Admin: 01/23/20 06:04 Dose: 40 mg Documented by: [place] Hcl 5 Mg 0 each PO TID [facility] Last Admin: 01/23/20 09:09 Dose: Not Given Documented by: Anoro Ellipta 62.5- (25 Mcg Inhaler) 0 each INH BEDTIME [facility] Last Admin: 01/22/20 22:12 Dose: Not Given Documented by: Saccharomyces Boulardii (Florastor) 250 mg PO BID [facility] Last Admin: 01/23/20 09:07 Dose: 250 mg Documented by: Senna (Senna) 8.6 mg PO DAILY PRN PRN Reason: Constipation Sertraline HCl (Zoloft) 200 mg PO BEDTIME [facility] Last Admin: 01/22/20 22:11 Dose: 200 mg Documented by: Simvastatin (Zocor) 10 mg PO BEDTIME [facility] Last Admin: 01/22/20 22:11 Dose: 10 mg Documented by: Sodium Bicarbonate (Sodium Bicarbonate) 1,300 mg PO TID [facility] Last Admin: 01/23/20 09:07 Dose: 1,300 mg Documented by: Sodium Chloride (Saline Flush) 10 ml FLUSH ASDIRECTED PRN PRN Reason: Keep Vein Open Last Admin: 01/20/20 19:48 Dose: 10 ml Documented by: Spironolactone (Aldactone) 25 mg PO BIDDIURETIC [facility] Last Admin: 01/23/20 06:04 Dose: 25 mg Documented by: Tamsulosin HCl (Flomax) 0.4 mg PO BEDTIME [facility] Last Admin: 01/22/20 22:11 Dose: 0.4 mg Documented by: Trazodone HCl (Trazodone) 100 mg PO BEDTIME [facility] Last Admin: 01/22/20 22:11 Dose: 100 mg Documented by: Discontinued Medications Albuterol/Ipratropium (Duoneb 3.0-0.5 Mg/3 Ml) 3 ml INH TIDRT [facility] Last Admin: 01/21/20 08:10 Dose: Not Given Documented by: Bumetanide (Bumex) 2 mg IVPUSH ONETIME ONE Stop: 01/22/20 08:14 Last Admin: 01/22/20 08:37 Dose: 2 mg Documented by: Enoxaparin Sodium (Lovenox) 30 mg SUBCUT DAILY [facility] Last Admin: 01/21/20 09:11 Dose: 30 mg Documented by: Glucose Oxid/Lactoperoxid/Muramidas (Biotene Oralbalance Gel) 1 gm MUCMEM ASDIRECTED PRN PRN Reason: dry mouth Hydromorphone HCl (Dilaudid) 0.5 mg IVPUSH ONETIME ONE Stop: 01/20/20 16:56 Last Admin: 01/20/20 17:54 Dose: 0.5 mg Documented by: Sodium Chloride (Normal Saline) 1,000 mls @ 999 mls/hr IV ONETIME ONE Stop: 01/20/20 17:55 Last Admin: 01/20/20 17:49 Dose: 999 mls/hr Documented by: Sodium Chloride (Normal Saline) 1,000 mls @ 100 mls/hr IV ONETIME ONE Stop: 01/21/20 06:01 Last Admin: 01/22/20 01:43 Dose: 100 mls/hr Documented by: Ceftriaxone Sodium 1 gm/ (Sodium Chloride) 100 mls @ 200 mls/hr IV Q24H [facility] Piperacillin Sod/Tazobactam (Sod 4.5 gm/ Sodium Chloride) 100 mls @ 200 mls/hr IV ONETIME ONE Stop: 01/20/20 22:51 Last Admin: 01/20/20 22:47 Dose: 200 mls/hr Documented by: Sodium Chloride (Normal Saline) 1,000 mls @ 75 mls/hr IV ASDIRECTED [facility] Last Admin: 01/22/20 22:28 Dose: 75 mls/hr Documented by: Levothyroxine Sodium (Levothyroxine) 225 mcg PO ACBREAKFAST [facility] Last Admin: 01/21/20 06:55 Dose: 225 mcg Documented by: Miscellaneous Information (Remove Patch) 1 ea TRDERM Q72H [facility] Non-Formulary Medication (Cranberry [Cranberry]) 405 mg PO TID PRN PRN Reason: uti Non-Formulary Medication (Nystatin) 1 applic TOP BID PRN PRN Reason: Rash Ondansetron HCl (Zofran) 4 mg IVPUSH ONETIME ONE Stop: 01/20/20 16:56 Last Admin: 01/20/20 17:53 Dose: 4 mg Documented by: Polyethylene Glycol (Miralax) 17 gm PO ONETIME ONE Stop: 01/22/20 20:02 Last Admin: 01/22/20 21:57 Dose: Not Given Documented by: Potassium Chloride (Klor-Con M20) 40 meq PO ONETIME ONE Stop: 01/22/20 08:35 Last Admin: 01/22/20 08:47 Dose: 40 meq Documented by: Spironolactone (Aldactone) 25 mg PO DAILY [facility] Last Admin: 01/22/20 08:11 Dose: 25 mg Documented by: Tamsulosin HCl (Flomax) 0.4 mg PO ONETIME ONE Stop: 01/20/20 19:42 Last Admin: 01/20/20 19:48 Dose: 0.4 mg Documented by: Tramadol HCl (Ultram) 75 mg PO Q8H [facility] Last Admin: 01/21/20 09:12 Dose: 75 mg Documented by: - Exam Quality Assessment: Supplemental Oxygen General: Alert, Oriented HEENT: Pupils Equal, Mucous Membr. Moist/[place] Neck: Supple Lungs: Clear to Auscultation, Normal Respiratory Effort, Other (Upper airway noise. Very little if any lower expiratory wheeze noted. Upper airway wheeze does mask some of the lower airway sounds.) Cardiovascular: Regular Rate GI/Abdominal Exam: Normal Bowel Sounds, Soft, Non-Tender, No Distention (Morbidly obese) Extremities: Normal Inspection, Non-Tender, Normal Capillary Refill, Pedal Edema (1+ lower extremity pitting edema) Neurological: No New Focal Deficit Psy/Mental Status: Alert, Normal Affect, Normal Mood Sepsis Event Note - Evaluation Sepsis Screening Result: No Definite Risk - Focused Exam Vital Signs: Vital Signs Temp Pulse Resp BP Pulse Ox Pulse Ox 01/23/20 09:06 81 141/61 H 01/23/20 07:38 98.4 F 81 20 141/61 H 93 L 01/23/20 06:57 97 01/23/20 04:33 98.4 F 72 12 131/75 97 01/23/20 01:09 97.3 F 71 20 124/74 96 01/22/20 22:12 67 132/83 01/22/20 21:56 97.2 F 67 20 132/83 99 - Problem List & Annotations (1) Lohcx-et-fowsttr kidney injury SNOMED Code(s): 909486998 Code(s): N17.9 - ACUTE KIDNEY FAILURE, UNSPECIFIED; N18.9 - CHRONIC KIDNEY DISEASE, UNSPECIFIED Status: Acute Current Visit: Yes (2) Chronic renal insufficiency, stage IV (severe) SNOMED Code(s): 312051672 Code(s): N18.4 - CHRONIC KIDNEY DISEASE, STAGE 4 (SEVERE) Status: Acute Current Visit: Yes (3) Kidney stone on left side SNOMED Code(s): 35464058 Code(s): N20.0 - CALCULUS OF KIDNEY Status: Acute Current Visit: Yes (4) CHF (congestive heart failure) SNOMED Code(s): 44171173 Code(s): I50.9 - HEART FAILURE, UNSPECIFIED Status: Acute Current Visit: No (5) UTI, Urinary tract infectious disease SNOMED Code(s): 10647697 Code(s): N39.0 - URINARY TRACT INFECTION, SITE NOT SPECIFIED Status: Acute Priority: High Current Visit: No (6) Diabetes SNOMED Code(s): 71383685 Code(s): E11.9 - TYPE 2 DIABETES MELLITUS WITHOUT COMPLICATIONS Status: Chronic Priority: Medium Current Visit: No Qualifiers: Diabetes mellitus type: type 2 Diabetes mellitus assisted insulin use: with assisted use Diabetes mellitus complication status: with unspecified complications - Problem List Review Problem List Initiated/Reviewed/Updated: Yes - My Orders Last 24 Hours: My Active Orders 01/22/20 11:52 Lactoperoxi/Gluc Oxid/Pot Thio [Biotene Oralbalance Gel] 0 gm MUCMEM ASDIRECTED PRN 01/22/20 14:00 Spironolactone [Aldactone] 25 mg PO BIDDIURETIC 01/22/20 20:00 fentaNYL [Duragesic] 12 mcg TRDERM Q72H 01/23/20 09:19 Bumetanide [Bumex] 2 mg IVPUSH ONETIME ONE 01/23/20 09:20 Convert IV to Saline Lock [OM.PC] Routine 01/23/20 17:00 Potassium Chloride [Klor-Con M20] 20 meq PO ONETIME ONE 01/23/20 18:00 Bumetanide [Bumex] 2 mg PO QPM 01/24/20 09:00 Bumetanide [Bumex] 2 mg PO DAILY 01/25/20 20:00 Remove Patch 0 ea TRDERM Q72H - Assessment Assessment:: Assessment 01/20/2020day of admission * Acute on chronic renal insufficiency * It appears patient may be a bit dry with prerenal kidney disease. She is on 3 diuretics and her BUN to creatinine ratio is 23.2. * On admit: Estimated GFR 26, creatinine 1.9 * Baseline GFR 1.4 * Patient given 1 L fluids in the emergency department * Possible UTI versus asymptomatic bacteriuria * UA: WBC 5-10 per high-powered field, RBC 5-10 per high-powered field, epithelial cells 0-5 * Urine culture ordered * Hyponatremia * Sodium 130 * Likely worsened by metolazone a thiazide diuretic * Thrombocytopenia * Admit platelet count 69,000 * Platelet count 86,000 on 01/02/2020 * Unknown cause * Metaxalone could be contributing to this as a known side effect * Congestive heart failurechronic * Patient appears to be a bit hypovolemic. * Home medications include bumetanide 3 mg in the morning and 2 mg in the evening, spironolactone 25 mg twice daily, metolazone 2.5 mg on Thursday and Thursday, metoprolol 25 mg twice daily, losartan 25 mg daily * 5 mm Obstructing stone in the distal left ureter. (Omitted in previous notes in error.) * Not obstructive. * On Flomax. Plan * Admit to medical floor with telemetry * Cautious IV rehydration * Hold metaxalone and bumetanide tomorrow morning * Zosyn * Urinary culture * Follow CBC, CMP, magnesium * C-reactive protein, procalcitonin, TSH * VTE prophylaxis with SCDs secondary to chemoprophylaxis contraindicated due to thrombocytopenia * CODE STATUS: Full code * Disposition: Admit to floor for gentle rehydration, IV antibiotics, and close follow-up of her platelets and kidney function. Plan discharge in 1 to 2 days. 01/21/2020 * Acute on chronic renal insufficiency * No significant change * Estimated GFR 26 and creatinine 1.9, no change from overnight * IV fluids not started overnight * Possible UTI versus asymptomatic bacteriuria * Currently on Zosyn * Urine culture pending * C-reactive protein 21.5 * Hyponatremia * No change * Sodium 130 * Thrombocytopenia * Stable * Platelet count 67,000 * Chronic congestive heart failure * No change * Bumetanide held this morning * Hypothyroidism * TSH low 0.121 * On 225 mcg of levothyroxine daily * 5 mm Obstructing stone in the distal left ureter. (Omitted in previous notes in error.) * Not obstructive. * On Flomax. Plan * Start normal saline 75 mL/h * Continue holding bumetanide * Spironolactone 25 mg twice daily * Continue Zosyn * Awaiting urinary culture * Recheck CBC, CMP, mag, C-reactive protein in the morning * Continue SCDs for VTE prophylaxis * Length of stay 1-2 more days. 01/22/2020 * Acute on chronic renal insufficiency * No change from yesterday. Creatinine 1.9 and GFR 26 * Patient insistent on Bumex * UTI - 5 mm left ureteral stone. * Proteus mirabilis sensitive to Zosyn and Bactrim * White count normal at 4.7, C-reactive protein decreased to 19.8. C- reactive protein is probably not elevated solely due to infection. * On Zosyn * Hyponatremiaimproved * Sodium 132 * On IV normal saline * Thrombocytopenia-improved * Platelets of 74,000 * Congestive heart failure stable * On home O2 of 2 L nasal cannula * Hypothyroidism * TSH low 0.121 * Decreased levothyroxine to 200 mcg daily * 5 mm Obstructing stone in the distal left ureter. (Omitted in previous notes in error.) * Not obstructive. * On Flomax. Plan * Continue cautious IV rehydration * Bumex 2 mg IV now * Continue Zosyn, but if afebrile overnight will switch to Bactrim * Follow CBC, CMP, magnesium,C-reactive protein, * VTE prophylaxis with SCDs secondary to chemoprophylaxis contraindicated due to thrombocytopenia * CODE STATUS: Full code * Disposition: Admit to floor for gentle rehydration, IV antibiotics, and close follow-up of her platelets and kidney function. Plan discharge in 1 to 2 days. 01/23/2020 * Acute on chronic renal insufficiency * Improved with IV fluids * GFR 34, creatinine 1.5, BUN 36, BUN/creatinine ratio 24 * Still signs of prerenal disease. BUN/creatinine ratio greater than 20. * She has had a 4 kg weight gain since yesterday questioning accurate weights for the day before. * Received Bumex 2 mg IV in the morning yesterday, but evening dose held * UTI * Culture positive for Proteus mirabilis and Pseudomonas both sensitive to Zosyn. * Hyponatremiaresolved; hypokalemia * Sodium 138 * Potassium 3.0 * Received 40 mEq potassium yesterday * On spironolactone 25 mg twice daily * Thrombocytopenia * Stable with platelets 71,000 * COPDstable * Patient states that her home O2 is 3 L per nasal cannula * FiO2 2 L/min per nasal cannula with SPO2 in the upper 90% * 5 mm Obstructing stone in the distal left ureter. * Not obstructive. * On Flomax. * Pain improved Chronic: Hypertension, obstructive sleep apnea, centrilobular emphysema, hypothyroidism, type 2 diabetes with diabetic nephropathy, hyperlipidemia, vitamin B12 deficiency, morbid obesity, chronic depression, thrombocytopenia, chronic constipation, chronic gastritis without bleeding, history of C. difficile infection, calculus of kidney, urinary retention, recurrent UTIs, SLE, chronic pain syndrome. - Plan Plan:: Plan * Stop IV fluids * Bumex 2 mg p.o. twice daily * Continue Zosyn, for total of 5 days. * Follow CBC, CMP, magnesium,C-reactive protein, * VTE prophylaxis with SCDs secondary to chemoprophylaxis contraindicated due to thrombocytopenia * CODE STATUS: Full code * Disposition: Admit to floor for gentle rehydration, IV antibiotics, and close follow-up of her platelets and kidney function. Plan discharge in 1 to 2 days.
[2020-01-23] MEDS ORDERED: Potassium Chloride 20 MEQ Tab.ER PO ONE ×2 (17:00→21:01)
[2020-01-23] MEDS: Bumetanide 1 MG Tab PO SCH (18:05)
[2020-01-23] MEDS: Tamsulosin 0.4 MG Cap.ER PO SCH (22:08)
[2020-01-23] MEDS: Sertraline 50 MG Tab PO SCH (22:08)
[2020-01-23] MEDS: traZODone 50 MG Tab PO SCH (22:08)
[2020-01-23] MEDS: Simvastatin 10 MG Tab PO SCH (22:09)
[2020-01-24] MEDS: Acetaminophen 325 MG Tab PO PRN ×2 (05:23→17:52)
[2020-01-24] MEDS: Pantoprazole 40 MG Tab.CR PO SCH (06:07)
[2020-01-24] MEDS: Piperacillin/Tazobactam 4.5 GM in Sodium Chloride 0.9% 100 ML IV SCH ×3 (06:07→21:43)
[2020-01-24] MEDS: Spironolactone 25 MG Tab PO SCH ×2 (06:07→13:31)
[2020-01-24] MEDS: Albuterol/Ipratropium 3.0-0.5 MG/3 ML Neb Soln INH SCH ×3 (08:32→20:44)
--- NOTE | 2020-01-24 08:37 | PCM.PN ---
- General Info Date of Service: 01/24/20 Admission Dx/Problem (Free Text): Admission Diagnosis/Problem Admission Diagnosis/Problem Renal Insufficiency - CHRONIC KIDNEY DISEASE, STAGE IV (SEVERE) - Patient Data Vitals - Most Recent: Last Vital Signs Temp 97.9 F 01/24/20 04:04 Pulse 73 01/24/20 04:04 Resp 18 01/24/20 04:04 BP 143/89 H 01/24/20 04:04 Pulse Ox 99 01/24/20 08:34 Weight - Most Recent: 274 lb 11.2 oz I&O - Last 24 Hours: Intake & Output 01/23/20 01/24/20 01/24/20 22:59 06:59 14:59 Intake Total 1740 1240 Balance 1740 1240 Lab Results Last 24 Hours: Laboratory Results - last 24 hr 01/23/20 01/23/20 Range/Units 08:28 08:28 WBC 2.93 L (3.98-10.04) K/mm3 RBC 3.09 L (3.98-5.22) M/mm3 Hgb 9.5 L (11.2-15.7) gm/dl Hct 31.0 L (34.1-44.9) % MCV 100.3 H (79.4-94.8) fl MCH 30.7 (25.6-32.2) pg MCHC 30.6 L (32.2-35.5) g/dl RDW Std Deviation 44.7 (36.4-46.3) fL Plt Count 71 L (182-369) K/mm3 MPV 11.9 (9.4-12.3) fl Neut % (Auto) 72.1 H (34.0-71.1) % Lymph % (Auto) 11.3 L (19.3-51.7) % [place] % (Auto) 10.9 (4.7-12.5) % Eos % (Auto) 5.1 (0.7-5.8) Baso % (Auto) 0.3 (0.1-1.2) % Neut # (Auto) 2.11 (1.56-6.13) K/mm3 Lymph # (Auto) 0.33 L (1.18-3.74) K/mm3 [place] # (Auto) 0.32 (0.24-0.36) K/mm3 Eos # (Auto) 0.15 (0.04-0.36) K/mm3 Baso # (Auto) 0.01 (0.01-0.08) K/mm3 Manual Slide Review Abnormal smear Sodium 138 (136-145) mEq/L Potassium 3.0 L (3.5-5.1) mEq/L Chloride 99 (98-107) mEq/L Carbon Dioxide 35 H (21-32) mEq/L Anion Gap 7.0 (5-15) BUN 36 H (7-18) mg/dL Creatinine 1.5 H (0.55-1.02) mg/dL Est Cr Clr Drug Dosing 33.94 mL/min Estimated GFR (MDRD) 34 (>60) mL/min BUN/Creatinine Ratio 24.0 H (14-18) Glucose 123 H (80-115) mg/dL Calcium 8.8 (8.5-10.1) mg/dL Magnesium 1.9 (1.8-2.4) mg/dl Total Bilirubin 0.5 (0.2-1.0) mg/dL AST 17 (15-37) U/L ALT 20 (14-59) U/L Alkaline Phosphatase 53 (46-116) U/L Total Protein 7.3 (6.4-8.2) g/dl Albumin 2.5 L (3.4-5.0) g/dl Globulin 4.8 gm/dL Albumin/Globulin Ratio 0.5 L (1-2) Everardo Results Last 24 Hours: Microbiology 01/20/20 19:00 Urine Culture - Final Urine, Quick Cath (In-Out) Proteus Mirabilis Pseudomonas Aeruginosa Med Orders - Current: Current Medications Acetaminophen (Tylenol) 650 mg PO Q4H PRN PRN Reason: Pain (Mild 1-3)/fever Last Admin: 01/24/20 05:23 Dose: 650 mg Documented by: Albuterol (Proventil Hfa) 0 gm INH Q6H PRN PRN Reason: shortness of breath Albuterol/Ipratropium (Duoneb 3.0-0.5 Mg/3 Ml) 3 ml INH TID [facility] Last Admin: 01/24/20 08:32 Dose: 3 ml Documented by: Aspirin (Halfprin) 81 mg PO DAILY [facility] Last Admin: 01/23/20 09:06 Dose: 81 mg Documented by: Bisacodyl (Dulcolax) 10 mg PO DAILY PRN PRN Reason: Constipation Bismuth Subsalicylate (Pepto Bismol) 15 ml PO QID PRN PRN Reason: Heartburn Bumetanide (Bumex) 2 mg PO QPM [facility] Last Admin: 01/23/20 18:05 Dose: 2 mg Documented by: Bumetanide (Bumex) 2 mg PO DAILY [facility] Chlorhexidine Gluconate (Chlorhexidine Gluconate 0.12% Rinse) 15 ml MM BID [facility] Last Admin: 01/23/20 22:10 Dose: 15 ml Documented by: Diphenhydramine HCl (Benadryl) 25 mg IVPUSH Q4H PRN PRN Reason: Rash Docusate Sodium (Colace) 200 mg PO BID PRN PRN Reason: Constipation Fentanyl (Duragesic) 12 mcg TRDERM Q72H [facility] Last Admin: 01/22/20 22:08 Dose: 12 mcg Documented by: Fluticasone Propionate (Flonase) 0 gm NASBOTH DAILY [facility] Last Admin: 01/23/20 09:04 Dose: 1 spray Documented by: Glucose Oxid/Lactoperoxid/Muramidas (Biotene Oralbalance Gel) 0 gm MUCMEM ASDIRECTED PRN PRN Reason: dry mouth Last Admin: 01/23/20 22:10 Dose: 1 applic Documented by: Guaifenesin (Mucinex) 1,200 mg PO BID [facility] Last Admin: 01/23/20 22:09 Dose: 1,200 mg Documented by: Guaifenesin/Phenylephrine HCl (Robitussin Dm) 10 ml PO Q4H PRN PRN Reason: Cough Hydromorphone HCl (Dilaudid) 0.5 mg IVPUSH Q2H PRN PRN Reason: Pain (severe 7-10) Piperacillin Sod/Tazobactam (Sod 4.5 gm/ Sodium Chloride) 100 mls @ 25 mls/hr IV Q8H [facility] Last Admin: 01/24/20 06:07 Dose: 25 mls/hr Documented by: Levothyroxine Sodium (Levothyroxine) 200 mcg PO ACBREAKFAST [facility] Last Admin: 01/24/20 06:07 Dose: 200 mcg Documented by: Meclizine HCl (Antivert) 25 mg PO Q8H PRN PRN Reason: Dizziness Metoprolol Tartrate (Lopressor) 25 mg PO BID [facility] Last Admin: 01/23/20 22:09 Dose: 25 mg Documented by: Miscellaneous Information (Remove Patch) 0 ea TRDERM Q72H [facility] Nitroglycerin (Nitrostat) 0.4 mg SL Q5M PRN PRN Reason: Chest Pain Ondansetron HCl (Zofran) 4 mg IV Q4H PRN PRN Reason: Nausea/Vomiting Ondansetron HCl (Zofran Odt) 4 mg PO TID PRN PRN Reason: Nausea Oxycodone/Acetaminophen (Percocet 325-5 Mg) 1 tab PO Q4H PRN PRN Reason: Pain (moderate 4-6) Last Admin: 01/21/20 14:08 Dose: 1 tab Documented by: Pantoprazole Sodium (Protonix) 40 mg PO ACBREAKFAST [facility] Last Admin: 01/24/20 06:07 Dose: 40 mg Documented by: [place] Hcl 5 Mg 0 each PO TID [facility] Last Admin: 01/23/20 22:13 Dose: Not Given Documented by: Anoro Ellipta 62.5- (25 Mcg Inhaler) 0 each INH BEDTIME [facility] Last Admin: 01/24/20 00:53 Dose: Not Given Documented by: Saccharomyces Boulardii (Florastor) 250 mg PO BID [facility] Last Admin: 01/23/20 22:08 Dose: 250 mg Documented by: Senna (Senna) 8.6 mg PO DAILY PRN PRN Reason: Constipation Sertraline HCl (Zoloft) 200 mg PO BEDTIME [facility] Last Admin: 01/23/20 22:08 Dose: 200 mg Documented by: Simvastatin (Zocor) 10 mg PO BEDTIME [facility] Last Admin: 01/23/20 22:09 Dose: 10 mg Documented by: Sodium Bicarbonate (Sodium Bicarbonate) 1,300 mg PO TID [facility] Last Admin: 01/23/20 22:08 Dose: 1,300 mg Documented by: Sodium Chloride (Saline Flush) 10 ml FLUSH ASDIRECTED PRN PRN Reason: Keep Vein Open Last Admin: 01/20/20 19:48 Dose: 10 ml Documented by: Spironolactone (Aldactone) 25 mg PO BIDDIURETIC [facility] Last Admin: 01/24/20 06:07 Dose: 25 mg Documented by: Tamsulosin HCl (Flomax) 0.4 mg PO BEDTIME [facility] Last Admin: 01/23/20 22:08 Dose: 0.4 mg Documented by: Trazodone HCl (Trazodone) 100 mg PO BEDTIME [facility] Last Admin: 01/23/20 22:08 Dose: 100 mg Documented by: Discontinued Medications Albuterol/Ipratropium (Duoneb 3.0-0.5 Mg/3 Ml) 3 ml INH TIDRT [facility] Last Admin: 01/21/20 08:10 Dose: Not Given Documented by: Bumetanide (Bumex) 2 mg IVPUSH ONETIME ONE Stop: 01/22/20 08:14 Last Admin: 01/22/20 08:37 Dose: 2 mg Documented by: Bumetanide (Bumex) 2 mg IVPUSH ONETIME ONE Stop: 01/23/20 09:20 Last Admin: 01/23/20 09:36 Dose: 2 mg Documented by: Enoxaparin Sodium (Lovenox) 30 mg SUBCUT DAILY [facility] Last Admin: 01/21/20 09:11 Dose: 30 mg Documented by: Glucose Oxid/Lactoperoxid/Muramidas (Biotene Oralbalance Gel) 1 gm MUCMEM ASDIRECTED PRN PRN Reason: dry mouth Hydromorphone HCl (Dilaudid) 0.5 mg IVPUSH ONETIME ONE Stop: 01/20/20 16:56 Last Admin: 01/20/20 17:54 Dose: 0.5 mg Documented by: Sodium Chloride (Normal Saline) 1,000 mls @ 999 mls/hr IV ONETIME ONE Stop: 01/20/20 17:55 Last Admin: 01/20/20 17:49 Dose: 999 mls/hr Documented by: Sodium Chloride (Normal Saline) 1,000 mls @ 100 mls/hr IV ONETIME ONE Stop: 01/21/20 06:01 Last Admin: 01/22/20 01:43 Dose: 100 mls/hr Documented by: Ceftriaxone Sodium 1 gm/ (Sodium Chloride) 100 mls @ 200 mls/hr IV Q24H [facility] Piperacillin Sod/Tazobactam (Sod 4.5 gm/ Sodium Chloride) 100 mls @ 200 mls/hr IV ONETIME ONE Stop: 01/20/20 22:51 Last Admin: 01/20/20 22:47 Dose: 200 mls/hr Documented by: Sodium Chloride (Normal Saline) 1,000 mls @ 75 mls/hr IV ASDIRECTED [facility] Last Admin: 01/22/20 22:28 Dose: 75 mls/hr Documented by: Levothyroxine Sodium (Levothyroxine) 225 mcg PO ACBREAKFAST [facility] Last Admin: 01/21/20 06:55 Dose: 225 mcg Documented by: Miscellaneous Information (Remove Patch) 1 ea TRDERM Q72H [facility] Non-Formulary Medication (Cranberry [Cranberry]) 405 mg PO TID PRN PRN Reason: uti Non-Formulary Medication (Nystatin) 1 applic TOP BID PRN PRN Reason: Rash Ondansetron HCl (Zofran) 4 mg IVPUSH ONETIME ONE Stop: 01/20/20 16:56 Last Admin: 01/20/20 17:53 Dose: 4 mg Documented by: Polyethylene Glycol (Miralax) 17 gm PO ONETIME ONE Stop: 01/22/20 20:02 Last Admin: 01/22/20 21:57 Dose: Not Given Documented by: Potassium Chloride (Klor-Con M20) 40 meq PO ONETIME ONE Stop: 01/22/20 08:35 Last Admin: 01/22/20 08:47 Dose: 40 meq Documented by: Potassium Chloride (Klor-Con M20) 20 meq PO ONETIME ONE Stop: 01/23/20 17:01 Last Admin: 01/23/20 16:13 Dose: 20 meq Documented by: Potassium Chloride (Klor-Con M20) 40 meq PO ONETIME ONE Stop: 01/23/20 21:02 Last Admin: 01/23/20 22:09 Dose: 40 meq Documented by: Spironolactone (Aldactone) 25 mg PO DAILY [facility] Last Admin: 01/22/20 08:11 Dose: 25 mg Documented by: Tamsulosin HCl (Flomax) 0.4 mg PO ONETIME ONE Stop: 01/20/20 19:42 Last Admin: 01/20/20 19:48 Dose: 0.4 mg Documented by: Tramadol HCl (Ultram) 75 mg PO Q8H [facility] Last Admin: 01/21/20 09:12 Dose: 75 mg Documented by: Sepsis Event Note - Evaluation Sepsis Screening Result: No Definite Risk - Focused Exam Vital Signs: Vital Signs Temp Pulse Resp BP Pulse Ox Pulse Ox 01/24/20 08:34 99 01/24/20 04:04 97.9 F 73 18 143/89 H 99 01/23/20 22:09 70 113/86 - Problem List & Annotations (1) Pncap-pa-jwykwqt kidney injury SNOMED Code(s): 480210916 Code(s): N17.9 - ACUTE KIDNEY FAILURE, UNSPECIFIED; N18.9 - CHRONIC KIDNEY DISEASE, UNSPECIFIED Status: Resolved Priority: High Current Visit: Yes Qualifiers: Acute renal failure type: unspecified Chronic kidney disease stage: unspecified stage Qualified Code(s): N17.9 - Acute kidney failure, unspecified; N18.9 - Chronic kidney disease, unspecified (2) Chronic renal insufficiency, stage IV (severe) SNOMED Code(s): 955989748 Code(s): N18.4 - CHRONIC KIDNEY DISEASE, STAGE 4 (SEVERE) Status: Chronic Priority: High Current Visit: Yes (3) Kidney stone on left side SNOMED Code(s): 38889392 Code(s): N20.0 - CALCULUS OF KIDNEY Status: Chronic Priority: Medium Current Visit: Yes (4) History of Clostridioides difficile infection SNOMED Code(s): 072437916, 872971554 Code(s): Z86.19 - PERSONAL HISTORY OF OTHER INFECTIOUS AND PARASITIC DISEASES Status: Chronic Priority: Low Current Visit: No (5) Chronic respiratory failure with hypoxia, on home O2 therapy SNOMED Code(s): 525068851 Code(s): J96.11 - CHRONIC RESPIRATORY FAILURE WITH HYPOXIA; Z99.81 - DEPENDENCE ON SUPPLEMENTAL OXYGEN Status: Chronic Priority: Medium Current Visit: Yes (6) Peripheral neuropathy SNOMED Code(s): 093830098 Code(s): G62.9 - POLYNEUROPATHY, UNSPECIFIED Status: Chronic Priority: Low Current Visit: No Qualifiers: Peripheral neuropathy type: polyneuropathy, unspecified Qualified Code(s): G62.9 - Polyneuropathy, unspecified (7) SLE (systemic lupus erythematosus) SNOMED Code(s): 80677596 Code(s): M32.9 - SYSTEMIC LUPUS ERYTHEMATOSUS, UNSPECIFIED Status: Chronic Priority: Low Current Visit: No Qualifiers: Systemic lupus erythematosus type: unspecified Systemic lupus erythematosus organ involvement: unspecified Qualified Code(s): M32.9 - Systemic lupus erythematosus, unspecified (8) ARYAN (iron deficiency anemia) SNOMED Code(s): 62398591 Code(s): D50.9 - IRON DEFICIENCY ANEMIA, UNSPECIFIED Status: Chronic Priority: Low Current Visit: No Qualifiers: Iron deficiency anemia type: unspecified iron deficiency Qualified Code(s): D50.9 - Iron deficiency anemia, unspecified (9) History of heparin-induced thrombocytopenia SNOMED Code(s): 238832384 Code(s): Z86.2 - PRSNL HISTORY OF DIS OF THE BLD/BLD-FORM ORG/IMMUN MECHNSM Status: Chronic Priority: Low Current Visit: No (10) Obesity SNOMED Code(s): 890951467, 638741243 Code(s): E66.9 - OBESITY, UNSPECIFIED Status: Chronic Priority: Low Current Visit: No Qualifiers: Obesity type: unspecified obesity type Obesity classification: adult class 3 (BMI >= 40) Serious obesity comorbidity presence: unspecified whether serious comorbidity present Body mass index: BMI 40.0-44.9 Qualified Code(s): E66.01 - Morbid (severe) obesity due to excess calories; Z68.41 - Body mass index (BMI) 40.0-44.9, adult (11) Arthritis SNOMED Code(s): 1286268 Code(s): M19.90 - UNSPECIFIED OSTEOARTHRITIS, UNSPECIFIED SITE Status: Chronic Priority: Low Current Visit: No (12) Hemorrhoids SNOMED Code(s): 44652322 Code(s): K64.9 - UNSPECIFIED HEMORRHOIDS Status: Chronic Priority: Low Current Visit: No Qualifiers: Hemorrhoid type: unspecified Qualified Code(s): K64.9 - Unspecified hemorrhoids (13) Hypokalemia SNOMED Code(s): 37410652 Code(s): E87.6 - HYPOKALEMIA Status: Acute Priority: High Current Visit: Yes (14) Hyponatremia SNOMED Code(s): 50828149 Code(s): E87.1 - HYPO-OSMOLALITY AND HYPONATREMIA Status: Acute Priority: High Current Visit: Yes (15) Hypoxia SNOMED Code(s): 452270912 Code(s): R09.02 - HYPOXEMIA Status: Chronic Priority: Medium Current Visit: Yes (16) UTI (lower urinary tract infection) SNOMED Code(s): 8256674 Code(s): N39.0 - URINARY TRACT INFECTION, SITE NOT SPECIFIED Status: Acute Priority: High Current Visit: Yes (17) Anxiety SNOMED Code(s): 32034928 Code(s): F41.9 - ANXIETY DISORDER, UNSPECIFIED Status: Chronic Priority: Low Current Visit: No (18) Bundle branch block SNOMED Code(s): 9173438 Code(s): I45.4 - NONSPECIFIC INTRAVENTRICULAR BLOCK Status: Chronic Pr iority: Low Current Visit: No (19) CHF (congestive heart failure) SNOMED Code(s): 30576049 Code(s): I50.9 - HEART FAILURE, UNSPECIFIED Status: Chronic Priority: Medium Current Visit: No (20) COPD (chronic obstructive pulmonary disease) SNOMED Code(s): 52045654 Code(s): J44.9 - CHRONIC OBSTRUCTIVE PULMONARY DISEASE, UNSPECIFIED Status: Chronic Priority: Medium Current Visit: No Qualifiers: COPD type: unspecified COPD Qualified Code(s): J44.9 - Chronic obstructive pulmonary disease, unspecified (21) Depression SNOMED Code(s): 53042743 Code(s): F32.9 - MAJOR DEPRESSIVE DISORDER, SINGLE EPISODE, UNSPECIFIED Status: Chronic Priority: Low Current Visit: No Qualifiers: Depression Type: other depression Qualified Code(s): F32.89 - Other specified depressive episodes (22) Diabetes SNOMED Code(s): 73227880 Code(s): E11.9 - TYPE 2 DIABETES MELLITUS WITHOUT COMPLICATIONS Status: Chronic Priority: Medium Current Visit: No Qualifiers: Diabetes mellitus type: type 2 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: with chcf use Diabetes mellitus complication status: with other specified complication Qualified Code(s): E11.69 - Type 2 diabetes mellitus with other specified complication; Z79.4 - intermediate (current) use of insulin (23) Hyperlipidemia SNOMED Code(s): 94632524 Code(s): E78.5 - HYPERLIPIDEMIA, UNSPECIFIED Status: Chronic Priority: Low Current Visit: No Qualifiers: Hyperlipidemia type: unspecified Qualified Code(s): E78.5 - Hyperlipidemia, unspecified (24) Hypertension SNOMED Code(s): 31764527 Code(s): I10 - ESSENTIAL (PRIMARY) HYPERTENSION Status: Chronic Priority: Medium Current Visit: No Qualifiers: Hypertension type: unspecified Qualified Code(s): I10 - Essential (primary) hypertension (25) Lymphedema SNOMED Code(s): 248732094 Code(s): I89.0 - LYMPHEDEMA, NOT ELSEWHERE CLASSIFIED Status: Chronic Priority: Low Current Visit: No (26) Hypomagnesemia SNOMED Code(s): 424228286 Code(s): E83.42 - HYPOMAGNESEMIA Status: Acute Priority: High Current Visit: Yes - Problem List Review Problem List Initiated/Reviewed/Updated: Yes - Assessment Assessment:: Assessment 01/20/2020day of admission * Acute on chronic renal insufficiency * It appears patient may be a bit dry with prerenal kidney disease. She is on 3 diuretics and her BUN to creatinine ratio is 23.2. * On admit: Estimated GFR 26, creatinine 1.9 * Baseline GFR 1.4 * Patient given 1 L fluids in the emergency department * Possible UTI versus asymptomatic bacteriuria * UA: WBC 5-10 per high-powered field, RBC 5-10 per high-powered field, epithelial cells 0-5 * Urine culture ordered * Hyponatremia * Sodium 130 * Likely worsened by metolazone a thiazide diuretic * Thrombocytopenia * Admit platelet count 69,000 * Platelet count 86,000 on 01/02/2020 * Unknown cause * Metaxalone could be contributing to this as a known side effect * Congestive heart failurechronic * Patient appears to be a bit hypovolemic. * Home medications include bumetanide 3 mg in the morning and 2 mg in the evening, spironolactone 25 mg twice daily, metolazone 2.5 mg on Thursday and Thursday, metoprolol 25 mg twice daily, losartan 25 mg daily * 5 mm Obstructing stone in the distal left ureter. (Omitted in previous notes in error.) * Not obstructive. * On Flomax. Plan * Admit to medical floor with telemetry * Cautious IV rehydration * Hold metaxalone and bumetanide tomorrow morning * Zosyn * Urinary culture * Follow CBC, CMP, magnesium * C-reactive protein, procalcitonin, TSH * VTE prophylaxis with SCDs secondary to chemoprophylaxis contraindicated due to thrombocytopenia * CODE STATUS: Full code * Disposition: Admit to floor for gentle rehydration, IV antibiotics, and close follow-up of her platelets and kidney function. Plan discharge in 1 to 2 days. 01/21/2020 * Acute on chronic renal insufficiency * No significant change * Estimated GFR 26 and creatinine 1.9, no change from overnight * IV fluids not started overnight * Possible UTI versus asymptomatic bacteriuria * Currently on Zosyn * Urine culture pending * C-reactive protein 21.5 * Hyponatremia * No change * Sodium 130 * Thrombocytopenia * Stable * Platelet count 67,000 * Chronic congestive heart failure * No change * Bumetanide held this morning * Hypothyroidism * TSH low 0.121 * On 225 mcg of levothyroxine daily * 5 mm Obstructing stone in the distal left ureter. (Omitted in previous notes in error.) * Not obstructive. * On Flomax. Plan * Start normal saline 75 mL/h * Continue holding bumetanide * Spironolactone 25 mg twice daily * Continue Zosyn * Awaiting urinary culture * Recheck CBC, CMP, mag, C-reactive protein in the morning * Continue SCDs for VTE prophylaxis * Length of stay 1-2 more days. 01/22/2020 * Acute on chronic renal insufficiency * No change from yesterday. Creatinine 1.9 and GFR 26 * Patient insistent on Bumex * UTI - 5 mm left ureteral stone. * Proteus mirabilis sensitive to Zosyn and Bactrim * White count normal at 4.7, C-reactive protein decreased to 19.8. C- reactive protein is probably not elevated solely due to infection. * On Zosyn * Hyponatremiaimproved * Sodium 132 * On IV normal saline * Thrombocytopenia-improved * Platelets of 74,000 * Congestive heart failure stable * On home O2 of 2 L nasal cannula * Hypothyroidism * TSH low 0.121 * Decreased levothyroxine to 200 mcg daily * 5 mm Obstructing stone in the distal left ureter. (Omitted in previous notes in error.) * Not obstructive. * On Flomax. Plan * Continue cautious IV rehydration * Bumex 2 mg IV now * Continue Zosyn, but if afebrile overnight will switch to Bactrim * Follow CBC, CMP, magnesium,C-reactive protein, * VTE prophylaxis with SCDs secondary to chemoprophylaxis contraindicated due to thrombocytopenia * CODE STATUS: Full code * Disposition: Admit to floor for gentle rehydration, IV antibiotics, and close follow-up of her platelets and kidney function. Plan discharge in 1 to 2 days. 01/23/2020 * Acute on chronic renal insufficiency * Improved with IV fluids * GFR 34, creatinine 1.5, BUN 36, BUN/creatinine ratio 24 * Still signs of prerenal disease. BUN/creatinine ratio greater than 20. * She has had a 4 kg weight gain since yesterday questioning accurate weights for the day before. * Received Bumex 2 mg IV in the morning yesterday, but evening dose held * UTI * Culture positive for Proteus mirabilis and Pseudomonas both sensitive to Zosyn. * Hyponatremiaresolved; hypokalemia * Sodium 138 * Potassium 3.0 * Received 40 mEq potassium yesterday * On spironolactone 25 mg twice daily * Thrombocytopenia * Stable with platelets 71,000 * COPDstable * Patient states that her home O2 is 3 L per nasal cannula * FiO2 2 L/min per nasal cannula with SPO2 in the upper 90% * 5 mm Obstructing stone in the distal left ureter. * Not obstructive. * On Flomax. * Pain improved Plan * Stop IV fluids * Bumex 2 mg p.o. twice daily * Continue Zosyn, for total of 5 days. * Follow CBC, CMP, magnesium,C-reactive protein, * VTE prophylaxis with SCDs secondary to chemoprophylaxis contraindicated due to thrombocytopenia * CODE STATUS: Full code * Disposition: Admit to floor for gentle rehydration, IV antibiotics, and close follow-up of her platelets and kidney function. Plan discharge in 1 to 2 days. 01/24/2020 * Acute on chronic renal insufficiency * Continues to improve * GFR 40, creatinine 1.3, BUN 28, BUN/creatinine ratio 21.5 * Still signs of prerenal disease. BUN/creatinine ratio greater than 20. * 4Lb weight loss today * Continue Bumex * UTI * Culture positive for Proteus mirabilis and Pseudomonas both sensitive to Zosyn. * Day 4 of treatment. Will discontinue tomorrow * Hyponatremiaresolved; hypokalemia improved * Sodium 139 * Potassium 3.3 * Received 60 mEq potassium PO yesterday * On spironolactone 25 mg twice daily * Thrombocytopenia * Stable with platelets 82,000 * COPDstable * Patient states that her home O2 is 3 L per nasal cannula * FiO2 2 L/min per nasal cannula with SPO2 in the upper 90% * 5 mm Obstructing stone in the distal left ureter. * Not obstructive * On Flomax * Pain improved * Hypomagnesemia * Magnesium 1.7 Chronic: Hypertension, obstructive sleep apnea, centrilobular emphysema, hypothyroidism, type 2 diabetes with diabetic nephropathy, hyperlipidemia, vitamin B12 deficiency, morbid obesity, chronic depression, thrombocytopenia, chronic constipation, chronic gastritis without bleeding, history of C. difficile infection, calculus of kidney, urinary retention, recurrent UTIs, SLE, chronic pain syndrome. - Plan Plan:: Plan * Stop IV fluids * Bumex 2 mg p.o. twice daily * Continue Zosyn, for total of 5 days. Today is day 4 - discontinue tomorrow * Follow CBC, CMP, magnesium * VTE prophylaxis with SCDs secondary to chemoprophylaxis contraindicated due to thrombocytopenia * CODE STATUS: Full code * Disposition: Admit to floor for gentle rehydration, IV antibiotics, and close follow-up of her platelets and kidney function. Plan discharge tomorrow back to [facility]. * Supplement Magnesium * 40meq potassium BID x 3 doses
[2020-01-24] MEDS: Bumetanide 1 MG Tab PO SCH ×2 (09:31→17:54)
[2020-01-24] MEDS: Aspirin 81 MG Tab.EC PO SCH (09:32)
[2020-01-24] MEDS: Sodium Bicarbonate 650 MG Tab PO SCH ×3 (09:32→21:35)
[2020-01-24] MEDS: Saccharomyces Boulardii (Probiotic) 250 MG Cap PO SCH ×2 (09:32→21:36)
[2020-01-24] MEDS: guaiFENesin 600 MG Tab.ER PO SCH ×2 (09:33→21:35)
[2020-01-24] MEDS: Metoprolol Tartrate 25 MG Tab PO SCH ×2 (09:33→21:36)
[2020-01-24] MEDS: Chlorhexidine Gluconate 0.12% Oral Rinse 118 ML Bottle MM SCH ×2 (09:35→21:33)
[2020-01-24] MEDS: Fluticasone Propionate Nasal Spray 16 GM Bottle NASBOTH SCH (09:36)
[2020-01-24] MEDS: Pilocarpine Hcl 5 MG PO SCH ×3 (09:38→22:09)
[2020-01-24] MEDS: Lactoperoxi/Gluc Oxid/Pot Thio 42 GM Tube MUCMEM PRN ×2 (09:42→21:33)
[2020-01-24] MEDS ORDERED: Magnesium Sulfate/Water 2 GM in Premix Bag 1 BAG IV ONE (11:00)
[2020-01-24] MEDS ORDERED: Nystatin Topical Powder 15 GM Bottle TOP PRN (11:38)
[2020-01-24] MEDS: Potassium Chloride 20 MEQ Tab.ER PO SCH ×2 (11:49→21:36)
[2020-01-24] MEDS: Acetaminophen/oxyCODONE 325-5 MG Tab PO PRN (11:57)
[2020-01-24] MEDS: HYDROmorphone 0.5 MG/0.5 ML Syringe IVPUSH PRN (18:44)
[2020-01-24] MEDS: Sertraline 50 MG Tab PO SCH (21:34)
[2020-01-24] MEDS: Simvastatin 10 MG Tab PO SCH (21:35)
[2020-01-24] MEDS: traZODone 50 MG Tab PO SCH (21:35)
[2020-01-24] MEDS: Tamsulosin 0.4 MG Cap.ER PO SCH (21:36)
[2020-01-25] MEDS: Acetaminophen/oxyCODONE 325-5 MG Tab PO PRN ×4 (01:49→23:24)
[2020-01-25] MEDS: Spironolactone 25 MG Tab PO SCH ×2 (06:22→13:34)
[2020-01-25] MEDS: Pantoprazole 40 MG Tab.CR PO SCH (06:22)
[2020-01-25] MEDS: Piperacillin/Tazobactam 4.5 GM in Sodium Chloride 0.9% 100 ML IV SCH ×3 (06:23→21:06)
[2020-01-25] MEDS: Albuterol/Ipratropium 3.0-0.5 MG/3 ML Neb Soln INH SCH ×3 (08:13→20:14)
[2020-01-25] MEDS ORDERED: Magnesium Sulfate/Water 4 GM in Premix Bag 1 BAG IV ONE (08:50)
[2020-01-25] MEDS: Fluticasone Propionate Nasal Spray 16 GM Bottle NASBOTH SCH (09:16)
[2020-01-25] MEDS: guaiFENesin 600 MG Tab.ER PO SCH ×2 (09:18→21:02)
[2020-01-25] MEDS: Sodium Bicarbonate 650 MG Tab PO SCH ×3 (09:18→21:03)
[2020-01-25] MEDS: Saccharomyces Boulardii (Probiotic) 250 MG Cap PO SCH ×2 (09:18→20:58)
[2020-01-25] MEDS: Aspirin 81 MG Tab.EC PO SCH (09:18)
[2020-01-25] MEDS: Metoprolol Tartrate 25 MG Tab PO SCH ×2 (09:18→20:59)
[2020-01-25] MEDS: Potassium Chloride 20 MEQ Tab.ER PO SCH (09:19)
[2020-01-25] MEDS: Bumetanide 1 MG Tab PO SCH ×3 (09:19→17:04)
[2020-01-25] MEDS: Pilocarpine Hcl 5 MG PO SCH ×3 (09:19→22:25)
[2020-01-25] MEDS: Chlorhexidine Gluconate 0.12% Oral Rinse 118 ML Bottle MM SCH ×2 (09:24→21:36)
[2020-01-25] MEDS: Lactoperoxi/Gluc Oxid/Pot Thio 42 GM Tube MUCMEM PRN ×2 (09:37→21:42)
--- NOTE | 2020-01-25 09:56 | PCM.DCSUM1 ---
Discharge Summary - Hospital Course Diagnosis: Stroke: No - Discharge Data Discharge Disposition: DC/Tfer to SNF 03 Condition: Good - Referral to Home Health Primary Care Physician: Alexandra Samuels MD - Discharge Diagnosis/Problem(s) (1) [id number] kidney injury SNOMED Code(s): 841227188 ICD Code: N17.9 - ACUTE KIDNEY FAILURE, UNSPECIFIED; N18.9 - CHRONIC KIDNEY DISEASE, UNSPECIFIED Status: Resolved Priority: High Current Visit: Yes Qualifiers: Acute renal failure type: unspecified Chronic kidney disease stage: unspecified stage Qualified Code(s): N17.9 - Acute kidney failure, unspecified; N18.9 - Chronic kidney disease, unspecified (2) Chronic renal insufficiency, stage IV (severe) SNOMED Code(s): 682996001 ICD Code: N18.4 - CHRONIC KIDNEY DISEASE, STAGE 4 (SEVERE) Status: Chronic Priority: High Current Visit: Yes (3) Kidney stone on left side SNOMED Code(s): 80771933 ICD Code: N20.0 - CALCULUS OF KIDNEY Status: Chronic Priority: Medium Current Visit: Yes (4) History of Clostridioides difficile infection SNOMED Code(s): 363546648, 649661842 ICD Code: Z86.19 - PERSONAL HISTORY OF OTHER INFECTIOUS AND PARASITIC DISEASES Status: Chronic Priority: Low Current Visit: No (5) Chronic respiratory failure with hypoxia, on home O2 therapy SNOMED Code(s): 637412532 ICD Code: J96.11 - CHRONIC RESPIRATORY FAILURE WITH HYPOXIA; Z99.81 - DEPENDENCE ON SUPPLEMENTAL OXYGEN Status: Chronic Priority: Medium Current Visit: Yes (6) Peripheral neuropathy SNOMED Code(s): 187802444 ICD Code: G62.9 - POLYNEUROPATHY, UNSPECIFIED Status: Chronic Priority: Low Current Visit: No Qualifiers: Peripheral neuropathy type: polyneuropathy, unspecified Qualified Code(s): G62.9 - Polyneuropathy, unspecified (7) SLE (systemic lupus erythematosus) SNOMED Code(s): 79943609 ICD Code: M32.9 - SYSTEMIC LUPUS ERYTHEMATOSUS, UNSPECIFIED Status: Chronic Priority: Low Current Visit: No Qualifiers: Systemic lupus erythematosus type: unspecified Systemic lupus erythematosus organ involvement: unspecified Qualified Code(s): M32.9 - Systemic lupus erythematosus, unspecified (8) ARYAN (iron deficiency anemia) SNOMED Code(s): 66965670 ICD Code: D50.9 - IRON DEFICIENCY ANEMIA, UNSPECIFIED Status: Chronic Priority: Low Current Visit: No Qualifiers: Iron deficiency anemia type: unspecified iron deficiency Qualified Code(s): D50.9 - Iron deficiency anemia, unspecified (9) History of heparin-induced thrombocytopenia SNOMED Code(s): 067646721 ICD Code: Z86.2 - PRSNL HISTORY OF DIS OF THE BLD/BLD-FORM ORG/IMMUN MECHNSM Status: Chronic Priority: Low Current Visit: No (10) Obesity SNOMED Code(s): 330373458, 361972726 ICD Code: E66.9 - OBESITY, UNSPECIFIED Status: Chronic Priority: Low Current Visit: No Qualifiers: Obesity type: unspecified obesity type Obesity classification: adult class 3 (BMI >= 40) Serious obesity comorbidity presence: unspecified whether serious comorbidity present Body mass index: BMI 40.0-44.9 Qualified Code(s): E66.01 - Morbid (severe) obesity due to excess calories; Z68.41 - Body mass index (BMI) 40.0-44.9, adult (11) Arthritis SNOMED Code(s): 4010071 ICD Code: M19.90 - UNSPECIFIED OSTEOARTHRITIS, UNSPECIFIED SITE Status: Chronic Priority: Low Current Visit: No (12) Hemorrhoids SNOMED Code(s): 41591533 ICD Code: K64.9 - UNSPECIFIED HEMORRHOIDS Status: Chronic Priority: Low Current Visit: No Qualifiers: Hemorrhoid type: unspecified Qualified Code(s): K64.9 - Unspecified hemorrhoids (13) Hypokalemia SNOMED Code(s): 17707398 ICD Code: E87.6 - HYPOKALEMIA Status: Acute Priority: High Current Visit: Yes (14) Hyponatremia SNOMED Code(s): 26322553 ICD Code: E87.1 - HYPO-OSMOLALITY AND HYPONATREMIA Status: Acute Priority: High Current Visit: Yes (15) Hypoxia SNOMED Code(s): 545250006 ICD Code: R09.02 - HYPOXEMIA Status: Chronic Priority: Medium Current Visit: Yes (16) UTI (lower urinary tract infection) SNOMED Code(s): 8789950 ICD Code: N39.0 - URINARY TRACT INFECTION, SITE NOT SPECIFIED Status: Acute Priority: High Current Visit: Yes (17) Anxiety SNOMED Code(s): 09626756 ICD Code: F41.9 - ANXIETY DISORDER, UNSPECIFIED Status: Chronic Priority: Low Current Visit: No (18) Bundle branch block SNOMED Code(s): 5914278 ICD Code: I45.4 - NONSPECIFIC INTRAVENTRICULAR BLOCK Status: Chronic Priority: Low Current Visit: No (19) CHF (congestive heart failure) SNOMED Code(s): 99929507 ICD Code: I50.9 - HEART FAILURE, UNSPECIFIED Status: Chronic Priority: Medium Current Visit: No (20) COPD (chronic obstructive pulmonary disease) SNOMED Code(s): 00121109 ICD Code: J44.9 - CHRONIC OBSTRUCTIVE PULMONARY DISEASE, UNSPECIFIED St atus: Chronic Priority: Medium Current Visit: No Qualifiers: COPD type: unspecified COPD Qualified Code(s): J44.9 - Chronic obstructive pulmonary disease, unspecified (21) Depression SNOMED Code(s): 59874751 ICD Code: F32.9 - MAJOR DEPRESSIVE DISORDER, SINGLE EPISODE, UNSPECIFIED Status: Chronic Priority: Low Current Visit: No Qualifiers: Depression Type: other depression Qualified Code(s): F32.89 - Other specified depressive episodes (22) Diabetes SNOMED Code(s): 85082460 ICD Code: E11.9 - TYPE 2 DIABETES MELLITUS WITHOUT COMPLICATIONS Status: Chronic Priority: Medium Current Visit: No Qualifiers: Diabetes mellitus type: type 2 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 Diabetes mellitus complication status: with other specified complication Qualified Code(s): E11.69 - Type 2 diabetes mellitus with other specified complication; Z79.4 - intermediate accountant (current) use of insulin (23) Hyperlipidemia SNOMED Code(s): 73824619 ICD Code: E78.5 - HYPERLIPIDEMIA, UNSPECIFIED Status: Chronic Priority: Low Current Visit: No Qualifiers: Hyperlipidemia type: unspecified Qualified Code(s): E78.5 - Hyperlipidemia, unspecified (24) Hypertension SNOMED Code(s): 17054270 ICD Code: I10 - ESSENTIAL (PRIMARY) HYPERTENSION Status: Chronic Priority: Medium Current Visit: No Qualifiers: Hypertension type: unspecified Qualified Code(s): I10 - Essential (primary) hypertension (25) Lymphedema SNOMED Code(s): 786780652 ICD Code: I89.0 - LYMPHEDEMA, NOT ELSEWHERE CLASSIFIED Status: Chronic Priority: Low Current Visit: No (26) Hypomagnesemia SNOMED Code(s): 943283837 ICD Code: E83.42 - HYPOMAGNESEMIA Status: Acute Priority: High Current Visit: Yes - Patient Summary/Data Consults: Consultations 01/20/20 22:06 PT Evaluation and Treatment [CONS] Routine - Patient Instructions Diet: Heart Healthy Diet, Low Sodium (2 gram) Activity: As Tolerated Driving: Do Not Drive Showering/Bathing: May Shower Notify Provider of: Fever, Increased Pain, Nausea and/or Vomiting Other/Special Instructions: -Follow-up with primary care provider within 7-10 days of discharge. -Your bumex was decreased and your metolazone was stopped due to your renal failure. You can discuss resuming this with your primary care provider. -You completed treatment for your urinary tract infection while here and you do not need anymore antiboitic. -You requested a back brace while here. This was provided for you prior to dicharge. -Recommend continuing PT at SNF. -Take your weight daily and record it. Take this list of weights with to all medical appointments. -Should symptoms return or worsen contact primary care provider or return ot the Emergency Department. - Discharge Plan *PRESCRIPTION DRUG MONITORING PROGRAM REVIEWED*: No *COPY OF PRESCRIPTION DRUG MONITORING REPORT IN PATIENT ENEDINA: No Prescriptions/Med Rec: Bumetanide [Bumex] 2 mg PO DAILY #20 tablet Levothyroxine 200 mcg PO ACBREAKFAST #20 tablet Home Medications: Home Meds Aspirin [Halfprin] 81 mg PO DAILY 10/10/14 [History] Multivitamin [Daily Vitamin] 1 tab PO DAILY 10/10/14 [History] Chlorhexidine Gluconate [Peridex 0.12% Rinse] 15 ml MM BID PRN 02/07/17 [History] Nitroglycerin [Nitrostat] 0.4 mg SL Q5M PRN 02/07/17 [History] Bismuth Subsalicylate [Bismatrol] 262 mg PO QID PRN 09/05/17 [History] Lactobacillus Acidophilus [Acidophilus] 1 each PO BID 09/05/17 [History] Cranberry 405 mg PO TID PRN 10/16/18 [History] Losartan [Cozaar] 25 mg PO WITHLUNCH 10/16/18 [History] Metoprolol Tartrate [Lopressor] 25 mg PO BID 10/16/18 [History] Omeprazole 20 mg PO ACBREAKFAST 10/16/18 [History] Ondansetron [Zofran ODT] 4 mg PO TID PRN 10/16/18 [History] Pilocarpine HCl [Salagen] 5 mg PO TID 10/16/18 [History] Sodium Bicarbonate 650 mg PO TID 10/16/18 [History] Umeclidinium Brm/Vilanterol Tr [Anoro Ellipta 62.5-25 MCG] 1 each IH BEDTIME 10/16/18 [History] fentaNYL [Fentanyl] 12 mcg TOP ASDIRECTED 10/16/18 [History] Ipratropium/Albuterol Sulfate [Iprat-Albut 0.5-3(2.5) mg/3 ml] 3 ml INH TID 11/26/18 [History] Potassium Chloride [Klor-Con 10] 20 meq PO DAILY 11/26/18 [History] Sertraline [Zoloft] 200 mg PO BEDTIME 11/26/18 [History] Spironolactone [Aldactone] 25 mg PO DAILY 11/26/18 [History] Triamcinolone Acetonide [Nasacort] 1 spray INH DAILY 11/26/18 [History] atorvaSTATin [Lipitor] 10 mg PO BEDTIME 11/26/18 [History] bisacodyL [Dulcolax] 10 mg PO DAILY PRN 11/26/18 [History] guaiFENesin [Mucus ER] 1,200 mg PO BID 11/26/18 [History] guaiFENesin/Dextromethorphan [Tussin DM Clear] 2 tsp PO Q4HR PRN 11/26/18 [History] polyethylene glycoL 3350 [Miralax] 17 gm PO DAILY PRN 11/26/18 [History] traZODone HCl [Trazodone HCl] 100 mg PO BEDTIME 11/26/18 [History] Bumetanide [Bumex] 2 mg PO QPM 01/20/20 [History] Docusate Sodium [Colace] 200 mg PO BID PRN 01/20/20 [History] Acetaminophen [Tylenol] 975 mg PO BID PRN 01/21/20 [History] Albuterol [Proventil HFA] 90 mcg INH Q6H PRN 01/21/20 [History] Hydrocortisone Acetate [Anusol-Hc] 25 mg RECTAL BEDTIME PRN 01/21/20 [History] Sennosides [Senna] 8.6 mg PO DAILY PRN 01/21/20 [History] traMADol [Ultram] 75 mg PO Q8H 01/21/20 [History] Bumetanide [Bumex] 2 mg PO DAILY #20 tablet 01/25/20 [Rx] Levothyroxine 200 mcg PO ACBREAKFAST #20 tablet 01/25/20 [Rx] Oxygen Therapy Mode: Nasal Cannula Oxygen Flow Rate (L/min): 2 (Saturations in upper 90s on 3L) Patient Handouts: Heart Failure, Self Care Forms: ED Department Discharge Referrals: Alexandra Samuels MD [Primary Care Provider] - - Patient Data Vitals - Most Recent: Last Vital Signs Temp 98.2 F 01/25/20 08:47 Pulse 78 01/25/20 09:18 Resp 24 H 01/25/20 08:47 BP 135/56 L 01/25/20 09:18 Pulse Ox 96 01/25/20 08:47 Weight - Most Recent: 273 lb 1.6 oz I&O - Last 24 hours: Intake & Output 01/24/20 01/25/20 01/25/20 22:59 06:59 14:59 Intake Total 1237 1100 Balance 1237 1100 Lab Results - Last 24 hrs: Laboratory Results - last 24 hr 01/24/20 01/25/20 01/25/20 Range/Units 08:25 04:55 05:50 Sodium 139 (136-145) mEq/L Potassium 3.8 (3.5-5.1) mEq/L Chloride 99 (98-107) mEq/L Carbon Dioxide 37 H (21-32) mEq/L Anion Gap 6.8 (5-15) BUN 28 H (7-18) mg/dL Creatinine 1.3 H (0.55-1.02) mg/dL Est Cr Clr Drug Dosing 39.16 mL/min Estimated GFR (MDRD) 40 (>60) mL/min BUN/Creatinine Ratio 21.5 H (14-18) Glucose 120 H (80-115) mg/dL Calcium 9.1 8.8 (8.5-10.1) mg/dL Magnesium 1.7 L (1.8-2.4) mg/dl COVID-19 (JOSE) Negative (NEGATIVE) Med Orders - Current: Current Medications Acetaminophen (Tylenol) 650 mg PO Q4H PRN PRN Reason: Pain (Mild 1-3)/fever Last Admin: 01/24/20 17:52 Dose: 650 mg Documented by: Albuterol (Proventil Hfa) 0 gm INH Q6H PRN PRN Reason: shortness of breath Albuterol/Ipratropium (Duoneb 3.0-0.5 Mg/3 Ml) 3 ml INH TID [facility] Last Admin: 01/25/20 08:13 Dose: 3 ml Documented by: Aspirin (Halfprin) 81 mg PO DAILY [facility] Last Admin: 01/25/20 09:18 Dose: 81 mg Documented by: Bisacodyl (Dulcolax) 10 mg PO DAILY PRN PRN Reason: Constipation Bismuth Subsalicylate (Pepto Bismol) 15 ml PO QID PRN PRN Reason: Heartburn Bumetanide (Bumex) 2 mg PO QPM [facility] Last Admin: 01/24/20 17:54 Dose: 2 mg Documented by: Bumetanide (Bumex) 2 mg PO DAILY [facility] Last Admin: 01/25/20 09:19 Dose: 2 mg Documented by: Chlorhexidine Gluconate (Chlorhexidine Gluconate 0.12% Rinse) 15 ml MM BID [facility] Last Admin: 01/25/20 09:24 Dose: 15 ml Documented by: Diphenhydramine HCl (Benadryl) 25 mg IVPUSH Q4H PRN PRN Reason: Rash Docusate Sodium (Colace) 200 mg PO BID PRN PRN Reason: Constipation Fentanyl (Duragesic) 12 mcg TRDERM Q72H [facility] Last Admin: 01/22/20 22:08 Dose: 12 mcg Documented by: Fluticasone Propionate (Flonase) 0 gm NASBOTH DAILY [facility] Last Admin: 01/25/20 09:16 Dose: 1 spray Documented by: Glucose Oxid/Lactoperoxid/Muramidas (Biotene Oralbalance Gel) 0 gm MUCMEM ASDIRECTED PRN PRN Reason: dry mouth Last Admin: 01/25/20 09:37 Dose: 1 applic Documented by: Guaifenesin (Mucinex) 1,200 mg PO BID [facility] Last Admin: 01/25/20 09:18 Dose: 1,200 mg Documented by: Guaifenesin/Phenylephrine HCl (Robitussin Dm) 10 ml PO Q4H PRN PRN Reason: Cough Hydromorphone HCl (Dilaudid) 0.5 mg IVPUSH Q2H PRN PRN Reason: Pain (severe 7-10) Last Admin: 01/24/20 18:44 Dose: 0.5 mg Documented by: Piperacillin Sod/Tazobactam (Sod 4.5 gm/ Sodium Chloride) 100 mls @ 25 mls/hr IV Q8H [facility] Last Admin: 01/25/20 06:23 Dose: 25 mls/hr Documented by: Magnesium Sulfate 4 gm/ Premix 50 mls @ 12.5 mls/hr IV ONETIME ONE Stop: 01/25/20 12:49 Last Admin: 01/25/20 09:13 Dose: 12.5 mls/hr Documented by: Levothyroxine Sodium (Levothyroxine) 200 mcg PO ACBREAKFAST [facility] Last Admin: 01/25/20 06:22 Dose: 200 mcg Documented by: Meclizine HCl (Antivert) 25 mg PO Q8H PRN PRN Reason: Dizziness Metoprolol Tartrate (Lopressor) 25 mg PO BID [facility] Last Admin: 01/25/20 09:18 Dose: 25 mg Documented by: Miscellaneous Information (Remove Patch) 0 ea TRDERM Q72H [facility] Nitroglycerin (Nitrostat) 0.4 mg SL Q5M PRN PRN Reason: Chest Pain Nystatin (Nystop) 0 gm TOP TID PRN PRN Reason: skin breakdown Ondansetron HCl (Zofran) 4 mg IV Q4H PRN PRN Reason: Nausea/Vomiting Ondansetron HCl (Zofran Odt) 4 mg PO TID PRN PRN Reason: Nausea Oxycodone/Acetaminophen (Percocet 325-5 Mg) 1 tab PO Q4H PRN PRN Reason: Pain (moderate 4-6) Last Admin: 01/25/20 06:22 Dose: 1 tab Documented by: Pantoprazole Sodium (Protonix) 40 mg PO ACBREAKFAST [facility] Last Admin: 01/25/20 06:22 Dose: 40 mg Documented by: Pilocarpine Hcl 5 Mg 0 each PO TID [facility] Last Admin: 01/25/20 09:19 Dose: Not Given Documented by: Anoro Ellipta 62.5- (25 Mcg Inhaler) 0 each INH BEDTIME [facility] Last Admin: 01/24/20 22:09 Dose: Not Given Documented by: Saccharomyces Boulardii (Florastor) 250 mg PO BID [facility] Last Admin: 01/25/20 09:18 Dose: 250 mg Documented by: Senna (Senna) 8.6 mg PO DAILY PRN PRN Reason: Constipation Sertraline HCl (Zoloft) 200 mg PO BEDTIME [facility] Last Admin: 01/24/20 21:34 Dose: 200 mg Documented by: Simvastatin (Zocor) 10 mg PO BEDTIME [facility] Last Admin: 01/24/20 21:35 Dose: 10 mg Documented by: Sodium Bicarbonate (Sodium Bicarbonate) 1,300 mg PO TID [facility] Last Admin: 01/25/20 09:18 Dose: 1,300 mg Documented by: Sodium Chloride (Saline Flush) 10 ml FLUSH ASDIRECTED PRN PRN Reason: Keep Vein Open Last Admin: 01/20/20 19:48 Dose: 10 ml Documented by: Spironolactone (Aldactone) 25 mg PO BIDDIURETIC [facility] Last Admin: 01/25/20 06:22 Dose: 25 mg Documented by: Tamsulosin HCl (Flomax) 0.4 mg PO BEDTIME [facility] Last Admin: 01/24/20 21:36 Dose: 0.4 mg Documented by: Trazodone HCl (Trazodone) 100 mg PO BEDTIME [facility] Last Admin: 01/24/20 21:35 Dose: 100 mg Documented by: Discontinued Medications Albuterol/Ipratropium (Duoneb 3.0-0.5 Mg/3 Ml) 3 ml INH TIDRT [facility] Last Admin: 01/21/20 08:10 Dose: Not Given Documented by: Bumetanide (Bumex) 2 mg IVPUSH ONETIME ONE Stop: 01/22/20 08:14 Last Admin: 01/22/20 08:37 Dose: 2 mg Documented by: Bumetanide (Bumex) 2 mg IVPUSH ONETIME ONE Stop: 01/23/20 09:20 Last Admin: 01/23/20 09:36 Dose: 2 mg Documented by: Enoxaparin Sodium (Lovenox) 30 mg SUBCUT DAILY [facility] Last Admin: 01/21/20 09:11 Dose: 30 mg Documented by: Glucose Oxid/Lactoperoxid/Muramidas (Biotene Oralbalance Gel) 1 gm MUCMEM ASDIRECTED PRN PRN Reason: dry mouth Hydromorphone HCl (Dilaudid) 0.5 mg IVPUSH ONETIME ONE Stop: 01/20/20 16:56 Last Admin: 01/20/20 17:54 Dose: 0.5 mg Documented by: Sodium Chloride (Normal Saline) 1,000 mls @ 999 mls/hr IV ONETIME ONE Stop: 01/20/20 17:55 Last Admin: 01/20/20 17:49 Dose: 999 mls/hr Documented by: Sodium Chloride (Normal Saline) 1,000 mls @ 100 mls/hr IV ONETIME ONE Stop: 01/21/20 06:01 Last Admin: 01/22/20 01:43 Dose: 100 mls/hr Documented by: Ceftriaxone Sodium 1 gm/ (Sodium Chloride) 100 mls @ 200 mls/hr IV Q24H JACQUI Piperacillin Sod/Tazobactam (Sod 4.5 gm/ Sodium Chloride) 100 mls @ 200 mls/hr IV ONETIME ONE Stop: 01/20/20 22:51 Last Admin: 01/20/20 22:47 Dose: 200 mls/hr Documented by: Sodium Chloride (Normal Saline) 1,000 mls @ 75 mls/hr IV ASDIRECTED JACQUI Last Admin: 01/22/20 22:28 Dose: 75 mls/hr Documented by: Magnesium Sulfate 2 gm/ Premix 50 mls @ 25 mls/hr IV ONETIME ONE Stop: 01/24/20 12:59 Last Admin: 01/24/20 11:45 Dose: 25 mls/hr Documented by: Levothyroxine Sodium (Levothyroxine) 225 mcg PO ACBREAKFAST [facility] Last Admin: 01/21/20 06:55 Dose: 225 mcg Documented by: Miscellaneous Information (Remove Patch) 1 ea TRDERM Q72H [facility] Non-Formulary Medication (Cranberry [Cranberry]) 405 mg PO TID PRN PRN Reason: uti Non-Formulary Medication (Nystatin) 1 applic TOP BID PRN PRN Reason: Rash Ondansetron HCl (Zofran) 4 mg IVPUSH ONETIME ONE Stop: 01/20/20 16:56 Last Admin: 01/20/20 17:53 Dose: 4 mg Documented by: Polyethylene Glycol (Miralax) 17 gm PO ONETIME ONE Stop: 01/22/20 20:02 Last Admin: 01/22/20 21:57 Dose: Not Given Documented by: Potassium Chloride (Klor-Con M20) 40 meq PO ONETIME ONE Stop: 01/22/20 08:35 Last Admin: 01/22/20 08:47 Dose: 40 meq Documented by: Potassium Chloride (Klor-Con M20) 20 meq PO ONETIME ONE Stop: 01/23/20 17:01 Last Admin: 01/23/20 16:13 Dose: 20 meq Documented by: Potassium Chloride (Klor-Con M20) 40 meq PO ONETIME ONE Stop: 01/23/20 21:02 Last Admin: 01/23/20 22:09 Dose: 40 meq Documented by: Potassium Chloride (Klor-Con M20) 40 meq PO BID [facility] Stop: 01/25/20 09:01 Last Admin: 01/25/20 09:19 Dose: 40 meq Documented by: Spironolactone (Aldactone) 25 mg PO DAILY [facility] Last Admin: 01/22/20 08:11 Dose: 25 mg Documented by: Tamsulosin HCl (Flomax) 0.4 mg PO ONETIME ONE Stop: 01/20/20 19:42 Last Admin: 01/20/20 19:48 Dose: 0.4 mg Documented by: Tramadol HCl (Ultram) 75 mg PO Q8H [facility] Last Admin: 01/21/20 09:12 Dose: 75 mg Documented by:
[2020-01-25] MEDS ORDERED: Magnesium Oxide 400 MG Tab PO ONE (11:29)
--- NOTE | 2020-01-25 12:10 | PCM.PN ---
- General Info Date of Service: 01/25/20 Admission Dx/Problem (Free Text): Admission Diagnosis/Problem Admission Diagnosis/Problem Renal Insufficiency - CHRONIC KIDNEY DISEASE, STAGE IV (SEVERE) Functional Status: Reports: Pain Controlled, Tolerating Diet, Ambulating, Urinating, New Symptoms - Review of Systems General: Reports: No Symptoms, Weakness. Denies: Fever, Fatigue, Malaise, Chills HEENT: Reports: No Symptoms. Denies: Headaches, Sore Throat Pulmonary: Reports: Shortness of Breath (chronic - saturations in upper 90's ). Denies: Pleuritic Chest Pain, Cough Cardiovascular: Reports: No Symptoms Gastrointestinal: Reports: No Symptoms. Denies: Abdominal Pain, Constipation, Diarrhea, Nausea, Vomiting Genitourinary: Reports: Incontinence (chronic ). Denies: Pain Musculoskeletal: Reports: Back Pain (chronic ), Leg Pain (bilateral ) Skin: Reports: No Symptoms Neurological: Reports: No Symptoms, Numbness, Tingling, Weakness. Denies: Confusion Psychiatric: Reports: No Symptoms - Patient Data Vitals - Most Recent: Last Vital Signs Temp 98.2 F 01/25/20 08:47 Pulse 78 01/25/20 09:18 Resp 24 H 01/25/20 08:47 BP 135/56 L 01/25/20 09:18 Pulse Ox 96 01/25/20 08:47 Weight - Most Recent: 273 lb 1.6 oz I&O - Last 24 Hours: Intake & Output 01/24/20 01/25/20 01/25/20 22:59 06:59 14:59 Intake Total 1237 1100 280 Balance 1237 1100 280 Lab Results Last 24 Hours: Laboratory Results - last 24 hr 01/24/20 01/25/20 01/25/20 Range/Units 08:25 04:55 05:50 Sodium 139 (136-145) mEq/L Potassium 3.8 (3.5-5.1) mEq/L Chloride 99 (98-107) mEq/L Carbon Dioxide 37 H (21-32) mEq/L Anion Gap 6.8 (5-15) BUN 28 H (7-18) mg/dL Creatinine 1.3 H (0.55-1.02) mg/dL Est Cr Clr Drug Dosing 39.16 mL/min Estimated GFR (MDRD) 40 (>60) mL/min BUN/Creatinine Ratio 21.5 H (14-18) Glucose 120 H (80-115) mg/dL Calcium 9.1 8.8 (8.5-10.1) mg/dL Magnesium 1.7 L (1.8-2.4) mg/dl Urine Color (Yellow) Urine Appearance (Clear) Urine pH (5.0-8.0) Ur Specific [place] (1.005-1.030) Urine Protein (Negative) Urine Glucose (UA) (Negative) Urine Ketones (Negative) Urine Occult Blood (Negative) Urine Nitrite (Negative) Urine Bilirubin (Negative) Urine Urobilinogen (0.2-1.0) Ur Leukocyte Esterase (Negative) Urine RBC (0-5) /hpf Urine WBC (0-5) /hpf Ur Squamous Epith Cells (0-5) /hpf Amorphous Sediment (NOT SEEN) /hpf Urine Bacteria (FEW) /hpf Urine Mucus (FEW) /hpf COVID-19 (JOSE) Negative (NEGATIVE) 01/25/20 Range/Units 11:15 Sodium (136-145) mEq/L Potassium (3.5-5.1) mEq/L Chloride (98-107) mEq/L Carbon Dioxide (21-32) mEq/L Anion Gap (5-15) BUN (7-18) mg/dL Creatinine (0.55-1.02) mg/dL Est Cr Clr Drug Dosing mL/min Estimated GFR (MDRD) (>60) mL/min BUN/Creatinine Ratio (14-18) Glucose (80-115) mg/dL Calcium (8.5-10.1) mg/dL Magnesium (1.8-2.4) mg/dl Urine Color Yellow (Yellow) Urine Appearance Clear (Clear) Urine pH 7.0 (5.0-8.0) Ur Specific [place] 1.015 (1.005-1.030) Urine Protein Negative (Negative) Urine Glucose (UA) Negative (Negative) Urine Ketones Negative (Negative) Urine Occult Blood Trace-intact H (Negative) Urine Nitrite Negative (Negative) Urine Bilirubin Negative (Negative) Urine Urobilinogen 0.2 (0.2-1.0) Ur Leukocyte Esterase 1+ H (Negative) Urine RBC 5-10 H (0-5) /hpf Urine WBC 10-20 H (0-5) /hpf Ur Squamous Epith Cells 0-5 (0-5) /hpf Amorphous Sediment Rare H (NOT SEEN) /hpf Urine Bacteria Moderate H (FEW) /hpf Urine Mucus Not seen (FEW) /hpf COVID-19 (JOSE) (NEGATIVE) Med Orders - Current: Current Medications Acetaminophen (Tylenol) 650 mg PO Q4H PRN PRN Reason: Pain (Mild 1-3)/fever Last Admin: 01/24/20 17:52 Dose: 650 mg Documented by: Albuterol (Proventil Hfa) 0 gm INH Q6H PRN PRN Reason: shortness of breath Albuterol/Ipratropium (Duoneb 3.0-0.5 Mg/3 Ml) 3 ml INH TID [facility] Last Admin: 01/25/20 08:13 Dose: 3 ml Documented by: Aspirin (Halfprin) 81 mg PO DAILY [facility] Last Admin: 01/25/20 09:18 Dose: 81 mg Documented by: Bisacodyl (Dulcolax) 10 mg PO DAILY PRN PRN Reason: Constipation Bismuth Subsalicylate (Pepto Bismol) 15 ml PO QID PRN PRN Reason: Heartburn Bumetanide (Bumex) 2 mg PO QPM [facility] Last Admin: 01/24/20 17:54 Dose: 2 mg Documented by: Bumetanide (Bumex) 2 mg PO DAILY [facility] Last Admin: 01/25/20 09:19 Dose: 2 mg Documented by: Chlorhexidine Gluconate (Chlorhexidine Gluconate 0.12% Rinse) 15 ml MM BID [facility] Last Admin: 01/25/20 09:24 Dose: 15 ml Documented by: Diphenhydramine HCl (Benadryl) 25 mg IVPUSH Q4H PRN PRN Reason: Rash Docusate Sodium (Colace) 200 mg PO BID PRN PRN Reason: Constipation Fentanyl (Duragesic) 12 mcg TRDERM Q72H [facility] Last Admin: 01/22/20 22:08 Dose: 12 mcg Documented by: Fluticasone Propionate (Flonase) 0 gm NASBOTH DAILY [facility] Last Admin: 01/25/20 09:16 Dose: 1 spray Documented by: Glucose Oxid/Lactoperoxid/Muramidas (Biotene Oralbalance Gel) 0 gm MUCMEM ASDIRECTED PRN PRN Reason: dry mouth Last Admin: 01/25/20 09:37 Dose: 1 applic Documented by: Guaifenesin (Mucinex) 1,200 mg PO BID [facility] Last Admin: 01/25/20 09:18 Dose: 1,200 mg Documented by: Guaifenesin/Phenylephrine HCl (Robitussin Dm) 10 ml PO Q4H PRN PRN Reason: Cough Hydromorphone HCl (Dilaudid) 0.5 mg IVPUSH Q2H PRN PRN Reason: Pain (severe 7-10) Last Admin: 01/24/20 18:44 Dose: 0.5 mg Documented by: Piperacillin Sod/Tazobactam (Sod 4.5 gm/ Sodium Chloride) 100 mls @ 25 mls/hr IV Q8H [facility] Last Admin: 01/25/20 06:23 Dose: 25 mls/hr Documented by: Magnesium Sulfate 4 gm/ Premix 50 mls @ 12.5 mls/hr IV ONETIME ONE Stop: 01/25/20 12:49 Last Admin: 01/25/20 09:13 Dose: 12.5 mls/hr Documented by: Levothyroxine Sodium (Levothyroxine) 200 mcg PO ACBREAKFAST [facility] Last Admin: 01/25/20 06:22 Dose: 200 mcg Documented by: Meclizine HCl (Antivert) 25 mg PO Q8H PRN PRN Reason: Dizziness Metoprolol Tartrate (Lopressor) 25 mg PO BID [facility] Last Admin: 01/25/20 09:18 Dose: 25 mg Documented by: Miscellaneous Information (Remove Patch) 0 ea TRDERM Q72H [facility] Nitroglycerin (Nitrostat) 0.4 mg SL Q5M PRN PRN Reason: Chest Pain Nystatin (Nystop) 0 gm TOP TID PRN PRN Reason: skin breakdown Ondansetron HCl (Zofran) 4 mg IV Q4H PRN PRN Reason: Nausea/Vomiting Ondansetron HCl (Zofran Odt) 4 mg PO TID PRN PRN Reason: Nausea Oxycodone/Acetaminophen (Percocet 325-5 Mg) 1 tab PO Q4H PRN PRN Reason: Pain (moderate 4-6) Last Admin: 01/25/20 06:22 Dose: 1 tab Documented by: Pantoprazole Sodium (Protonix) 40 mg PO ACBREAKFAST [facility] Last Admin: 01/25/20 06:22 Dose: 40 mg Documented by: [place] Hcl 5 Mg 0 each PO TID [facility] Last Admin: 01/25/20 09:19 Dose: Not Given Documented by: Anoro Ellipta 62.5- (25 Mcg Inhaler) 0 each INH BEDTIME [facility] Last Admin: 01/24/20 22:09 Dose: Not Given Documented by: Saccharomyces Boulardii (Florastor) 250 mg PO BID [facility] Last Admin: 01/25/20 09:18 Dose: 250 mg Documented by: Senna (Senna) 8.6 mg PO DAILY PRN PRN Reason: Constipation Sertraline HCl (Zoloft) 200 mg PO BEDTIME [facility] Last Admin: 01/24/20 21:34 Dose: 200 mg Documented by: Simvastatin (Zocor) 10 mg PO BEDTIME [facility] Last Admin: 01/24/20 21:35 Dose: 10 mg Documented by: Sodium Bicarbonate (Sodium Bicarbonate) 1,300 mg PO TID [facility] Last Admin: 01/25/20 09:18 Dose: 1,300 mg Documented by: Sodium Chloride (Saline Flush) 10 ml FLUSH ASDIRECTED PRN PRN Reason: Keep Vein Open Last Admin: 01/20/20 19:48 Dose: 10 ml Documented by: Spironolactone (Aldactone) 25 mg PO BIDDIURETIC [facility] Last Admin: 01/25/20 06:22 Dose: 25 mg Documented by: Tamsulosin HCl (Flomax) 0.4 mg PO BEDTIME [facility] Last Admin: 01/24/20 21:36 Dose: 0.4 mg Documented by: Trazodone HCl (Trazodone) 100 mg PO BEDTIME [facility] Last Admin: 01/24/20 21:35 Dose: 100 mg Documented by: Discontinued Medications Albuterol/Ipratropium (Duoneb 3.0-0.5 Mg/3 Ml) 3 ml INH TIDRT [facility] Last Admin: 01/21/20 08:10 Dose: Not Given Documented by: Bumetanide (Bumex) 2 mg IVPUSH ONETIME ONE Stop: 01/22/20 08:14 Last Admin: 01/22/20 08:37 Dose: 2 mg Documented by: Bumetanide (Bumex) 2 mg IVPUSH ONETIME ONE Stop: 01/23/20 09:20 Last Admin: 01/23/20 09:36 Dose: 2 mg Documented by: Enoxaparin Sodium (Lovenox) 30 mg SUBCUT DAILY [facility] Last Admin: 01/21/20 09:11 Dose: 30 mg Documented by: Glucose Oxid/Lactoperoxid/Muramidas (Biotene Oralbalance Gel) 1 gm MUCMEM ASDIRECTED PRN PRN Reason: dry mouth Hydromorphone HCl (Dilaudid) 0.5 mg IVPUSH ONETIME ONE Stop: 01/20/20 16:56 Last Admin: 01/20/20 17:54 Dose: 0.5 mg Documented by: Sodium Chloride (Normal Saline) 1,000 mls @ 999 mls/hr IV ONETIME ONE Stop: 01/20/20 17:55 Last Admin: 01/20/20 17:49 Dose: 999 mls/hr Documented by: Sodium Chloride (Normal Saline) 1,000 mls @ 100 mls/hr IV ONETIME ONE Stop: 01/21/20 06:01 Last Admin: 01/22/20 01:43 Dose: 100 mls/hr Documented by: Ceftriaxone Sodium 1 gm/ (Sodium Chloride) 100 mls @ 200 mls/hr IV Q24H [facility] Piperacillin Sod/Tazobactam (Sod 4.5 gm/ Sodium Chloride) 100 mls @ 200 mls/hr IV ONETIME ONE Stop: 01/20/20 22:51 Last Admin: 01/20/20 22:47 Dose: 200 mls/hr Documented by: Sodium Chloride (Normal Saline) 1,000 mls @ 75 mls/hr IV ASDIRECTED [facility] Last Admin: 01/22/20 22:28 Dose: 75 mls/hr Documented by: Magnesium Sulfate 2 gm/ Premix 50 mls @ 25 mls/hr IV ONETIME ONE Stop: 01/24/20 12:59 Last Admin: 01/24/20 11:45 Dose: 25 mls/hr Documented by: Levothyroxine Sodium (Levothyroxine) 225 mcg PO ACBREAKFAST [facility] Last Admin: 01/21/20 06:55 Dose: 225 mcg Documented by: Magnesium Oxide (Magnesium Oxide) 800 mg PO ONETIME ONE Stop: 01/25/20 11:30 Last Admin: 01/25/20 11:38 Dose: 800 mg Documented by: Miscellaneous Information (Remove Patch) 1 ea TRDERM Q72H [facility] Non-Formulary Medication (Cranberry [Cranberry]) 405 mg PO TID PRN PRN Reason: uti Non-Formulary Medication (Nystatin) 1 applic TOP BID PRN PRN Reason: Rash Ondansetron HCl (Zofran) 4 mg IVPUSH ONETIME ONE Stop: 01/20/20 16:56 Last Admin: 01/20/20 17:53 Dose: 4 mg Documented by: Polyethylene Glycol (Miralax) 17 gm PO ONETIME ONE Stop: 01/22/20 20:02 Last Admin: 01/22/20 21:57 Dose: Not Given Documented by: Potassium Chloride (Klor-Con M20) 40 meq PO ONETIME ONE Stop: 01/22/20 08:35 Last Admin: 01/22/20 08:47 Dose: 40 meq Documented by: Potassium Chloride (Klor-Con M20) 20 meq PO ONETIME ONE Stop: 01/23/20 17:01 Last Admin: 01/23/20 16:13 Dose: 20 meq Documented by: Potassium Chloride (Klor-Con M20) 40 meq PO ONETIME ONE Stop: 01/23/20 21:02 Last Admin: 01/23/20 22:09 Dose: 40 meq Documented by: Potassium Chloride (Klor-Con M20) 40 meq PO BID [facility] Stop: 01/25/20 09:01 Last Admin: 01/25/20 09:19 Dose: 40 meq Documented by: Spironolactone (Aldactone) 25 mg PO DAILY [facility] Last Admin: 01/22/20 08:11 Dose: 25 mg Documented by: Tamsulosin HCl (Flomax) 0.4 mg PO ONETIME ONE Stop: 01/20/20 19:42 Last Admin: 01/20/20 19:48 Dose: 0.4 mg Documented by: Tramadol HCl (Ultram) 75 mg PO Q8H [facility] Last Admin: 01/21/20 09:12 Dose: 75 mg Documented by: - Exam Quality Assessment: DVT Prophylaxis General: Alert, Oriented, Cooperative, No Acute Distress, Other HEENT: Pupils Equal, Pupils Reactive, Mucous Membr. Moist/[place]ck: Supple, Trachea Midline Lungs: Clear to Auscultation, Normal Respiratory Effort Cardiovascular: Regular Rate, Regular Rhythm GI/Abdominal Exam: Normal Bowel Sounds, Soft, Non-Tender, No Distention (Female) Exam: Deferred Extremities: Normal Inspection, Pedal Edema (trace to 1+ ) Skin: Warm, Dry, Intact Neurological: No New Focal Deficit Psy/Mental Status: Alert, Normal Affect, Normal Mood Sepsis Event Note - Evaluation Sepsis Screening Result: No Definite Risk - Focused Exam Vital Signs: Vital Signs Temp Pulse Resp BP Pulse Ox Pulse Ox 01/25/20 09:18 78 135/56 L 01/25/20 08:47 98.2 F 78 24 H 135/56 L 96 01/25/20 08:13 97 01/25/20 02:32 98.1 F 67 18 154/99 H 98 - Problem List & Annotations (1) [id number]-kdylbhd kidney injury SNOMED Code(s): 907932264 Code(s): N17.9 - ACUTE KIDNEY FAILURE, UNSPECIFIED; N18.9 - CHRONIC KIDNEY DISEASE, UNSPECIFIED Status: Resolved Priority: High Current Visit: Yes Qualifiers: Acute renal failure type: unspecified Chronic kidney disease stage: unspecified stage Qualified Code(s): N17.9 - Acute kidney failure, unspecified; N18.9 - Chronic kidney disease, unspecified (2) Chronic renal insufficiency, stage IV (severe) SNOMED Code(s): 017180499 Code(s): N18.4 - CHRONIC KIDNEY DISEASE, STAGE 4 (SEVERE) Status: Chronic Priority: High Current Visit: Yes (3) Kidney stone on left side SNOMED Code(s): 86330458 Code(s): N20.0 - CALCULUS OF KIDNEY Status: Chronic Priority: Medium Current Visit: Yes (4) History of Clostridioides difficile infection SNOMED Code(s): 314890405, 131542451 Code(s): Z86.19 - PERSONAL HISTORY OF OTHER INFECTIOUS AND PARASITIC DISEASES Status: Chronic Priority: Low Current Visit: No (5) Chronic respiratory failure with hypoxia, on home O2 therapy SNOMED Code(s): 484971109 Code(s): J96.11 - CHRONIC RESPIRATORY FAILURE WITH HYPOXIA; Z99.81 - DEPENDENCE ON SUPPLEMENTAL OXYGEN Status: Chronic Priority: Medium Current Visit: Yes (6) Peripheral neuropathy SNOMED Code(s): 732097764 Code(s): G62.9 - POLYNEUROPATHY, UNSPECIFIED Status: Chronic Priority: Low Current Visit: No Qualifiers: Peripheral neuropathy type: polyneuropathy, unspecified Qualified Code(s): G62.9 - Polyneuropathy, unspecified (7) SLE (systemic lupus erythematosus) SNOMED Code(s): 72369514 Code(s): M32.9 - SYSTEMIC LUPUS ERYTHEMATOSUS, UNSPECIFIED Status: Chronic Priority: Low Current Visit: No Qualifiers: Systemic lupus erythematosus type: unspecified Systemic lupus erythematosus organ involvement: unspecified Qualified Code(s): M32.9 - Systemic lupus erythematosus, unspecified (8) ARYAN (iron deficiency anemia) SNOMED Code(s): 82753489 Code(s): D50.9 - IRON DEFICIENCY ANEMIA, UNSPECIFIED Status: Chronic Priority: Low Current Visit: No Qualifiers: Iron deficiency anemia type: unspecified iron deficiency Qualified Code(s): D50.9 - Iron deficiency anemia, unspecified (9) History of heparin-induced thrombocytopenia SNOMED Code(s): 348839920 Code(s): Z86.2 - PRSNL HISTORY OF DIS OF THE BLD/BLD-FORM ORG/IMMUN MECHNSM Status: Chronic Priority: Low Current Visit: No (10) Obesity SNOMED Code(s): 063819132, 972563956 Code(s): E66.9 - OBESITY, UNSPECIFIED Status: Chronic Priority: Low Current Visit: No Qualifiers: Obesity type: unspecified obesity type Obesity classification: adult class 3 (BMI >= 40) Serious obesity comorbidity presence: unspecified whether serious comorbidity present Body mass index: BMI 40.0-44.9 Qualified Code(s): E66.01 - Morbid (severe) obesity due to excess calories; Z68.41 - Body mass index (BMI) 40.0-44.9, adult (11) Arthritis SNOMED Code(s): 0761208 Code(s): M19.90 - UNSPECIFIED OSTEOARTHRITIS, UNSPECIFIED SITE Status: Chronic Priority: Low Current Visit: No (12) Hemorrhoids SNOMED Code(s): 09186710 Code(s): K64.9 - UNSPECIFIED HEMORRHOIDS Status: Chronic Priority: Low Current Visit: No Qualifiers: Hemorrhoid type: unspecified Qualified Code(s): K64.9 - Unspecified hemorrhoids (13) Hypokalemia SNOMED Code(s): 95518081 Code(s): E87.6 - HYPOKALEMIA Status: Acute Priority: High Current Visit: Yes (14) Hyponatremia SNOMED Code(s): 39202997 Code(s): E87.1 - HYPO-OSMOLALITY AND HYPONATREMIA Status: Acute Priority: High Current Visit: Yes (15) Hypoxia SNOMED Code(s): 690787962 Code(s): R09.02 - HYPOXEMIA Status: Chronic Priority: Medium Current Visit: Yes (16) UTI (lower urinary tract infection) SNOMED Code(s): 3701475 Code(s): N39.0 - URINARY TRACT INFECTION, SITE NOT SPECIFIED Status: Acute Priority: High Current Visit: Yes (17) Anxiety SNOMED Code(s): 00609542 Code(s): F41.9 - ANXIETY DISORDER, UNSPECIFIED Status: Chronic Priority: Low Current Visit: No (18) Bundle branch block SNOMED Code(s): 8820043 Code(s): I45.4 - NONSPECIFIC INTRAVENTRICULAR BLOCK Status: Chronic Priority: Low Current Visit: No (19) CHF (congestive heart failure) SNOMED Code(s): 06898887 Code(s): I50.9 - HEART FAILURE, UNSPECIFIED Status: Chronic Priority: Medium Current Visit: No (20) COPD (chronic obstructive pulmonary disease) SNOMED Code(s): 18967848 Code(s): J44.9 - CHRONIC OBSTRUCTIVE PULMONARY DISEASE, UNSPECIFIED Status: Chronic Priority: Medium Current Visit: No Qualifiers: COPD type: unspecified COPD Qualified Code(s): J44.9 - Chronic obstructive pulmonary disease, unspecified (21) Depression SNOMED Code(s): 88438775 Code(s): F32.9 - MAJOR DEPRESSIVE DISORDER, SINGLE EPISODE, UNSPECIFIED Status: Chronic Priority: Low Current Visit: No Qualifiers: Depression Type: other depression Qualified Code(s): F32.89 - Other specified depressive episodes (22) Diabetes SNOMED Code(s): 86353239 Code(s): E11.9 - TYPE 2 DIABETES MELLITUS WITHOUT COMPLICATIONS Status: Chronic Priority: Medium Current Visit: No Qualifiers: Diabetes mellitus type: type 2 Diabetes mellitus long-term insulin use: with intermediate project manager use Diabetes mellitus complication status: with other specified complication Qualified Code(s): E11.69 - Type 2 diabetes mellitus with other specified complication; Z79.4 - assisted (current) use of insulin (23) Hyperlipidemia SNOMED Code(s): 31354113 Code(s): E78.5 - HYPERLIPIDEMIA, UNSPECIFIED Status: Chronic Priority: Low Current Visit: No Qualifiers: Hyperlipidemia type: unspecified Qualified Code(s): E78.5 - Hyperlipidemia, unspecified (24) Hypertension SNOMED Code(s): 09100834 Code(s): I10 - ESSENTIAL (PRIMARY) HYPERTENSION Status: Chronic Priority: Medium Current Visit: No Qualifiers: Hypertension type: unspecified Qualified Code(s): I10 - Essential (primary) hypertension (25) Lymphedema SNOMED Code(s): 930905256 Code(s): I89.0 - LYMPHEDEMA, NOT ELSEWHERE CLASSIFIED Status: Chronic Priority: Low Current Visit: No (26) Hypomagnesemia SNOMED Code(s): 930394513 Code(s): E83.42 - HYPOMAGNESEMIA Status: Acute Priority: High Current Visit: Yes (27) Back pain SNOMED Code(s): 204935206 Code(s): M54.9 - DORSALGIA, UNSPECIFIED Status: Chronic Priority: Medium Current Visit: Yes Qualifiers: Back pain location: low back pain Chronicity: chronic Back pain laterality: midline Sciatica presence: without sciatica Qualified Code(s): M54.5 - Low back pain; G89.29 - Other chronic pain (28) Compression fracture of L1 lumbar vertebra SNOMED Code(s): 708769872 Code(s): S32.010A - WEDGE COMPRESSION FRACTURE OF FIRST LUMBAR VERTEBRA, INIT Status: Chronic Priority: Medium Current Visit: No Qualifiers: Encounter type: sequela Qualified Code(s): S32.010S - Wedge compression fracture of first lumbar vertebra, sequela - Problem List Review Problem List Initiated/Reviewed/Updated: Yes - My Orders Last 24 Hours: My Active Orders 01/25/20 08:50 Magnesium Sulfate/Water [Magnesium Sulfate in Water Premix] 4 gm Premix Bag 1 bag IV ONETIME 01/25/20 09:31 Durable Medical Equipment for Discharge [DME for Discharge] [COMM] Routine 01/25/20 12:01 CULTURE URINE [RM] Routine 01/26/20 05:11 BASIC METABOLIC PANEL,BMP [CHEM] AM MAGNESIUM [CHEM] AM 01/27/20 05:11 BASIC METABOLIC PANEL,BMP [CHEM] AM MAGNESIUM [CHEM] AM 01/28/20 05:11 BASIC METABOLIC PANEL,BMP [CHEM] AM MAGNESIUM [CHEM] AM - Assessment Assessment:: Assessment 01/20/2020day of admission * Acute on chronic renal insufficiency * It appears patient may be a bit dry with prerenal kidney disease. She is on 3 diuretics and her BUN to creatinine ratio is 23.2. * On admit: Estimated GFR 26, creatinine 1.9 * Baseline GFR 1.4 * Patient given 1 L fluids in the emergency department * Possible UTI versus asymptomatic bacteriuria * UA: WBC 5-10 per high-powered field, RBC 5-10 per high-powered field, epithelial cells 0-5 * Urine culture ordered * Hyponatremia * Sodium 130 * Likely worsened by metolazone a thiazide diuretic * Thrombocytopenia * Admit platelet count 69,000 * Platelet count 86,000 on 01/02/2020 * Unknown cause * Metaxalone could be contributing to this as a known side effect * Congestive heart failurechronic * Patient appears to be a bit hypovolemic. * Home medications include bumetanide 3 mg in the morning and 2 mg in the evening, spironolactone 25 mg twice daily, metolazone 2.5 mg on Thursday and Thursday, metoprolol 25 mg twice daily, losartan 25 mg daily * 5 mm Obstructing stone in the distal left ureter. (Omitted in previous notes in error.) * Not obstructive. * On Flomax. Plan * Admit to medical floor with telemetry * Cautious IV rehydration * Hold metaxalone and bumetanide tomorrow morning * Zosyn * Urinary culture * Follow CBC, CMP, magnesium * C-reactive protein, procalcitonin, TSH * VTE prophylaxis with SCDs secondary to chemoprophylaxis contraindicated due to thrombocytopenia * CODE STATUS: Full code * Disposition: Admit to floor for gentle rehydration, IV antibiotics, and close follow-up of her platelets and kidney function. Plan discharge in 1 to 2 days. 01/21/2020 * Acute on chronic renal insufficiency * No significant change * Estimated GFR 26 and creatinine 1.9, no change from overnight * IV fluids not started overnight * Possible UTI versus asymptomatic bacteriuria * Currently on Zosyn * Urine culture pending * C-reactive protein 21.5 * Hyponatremia * No change * Sodium 130 * Thrombocytopenia * Stable * Platelet count 67,000 * Chronic congestive heart failure * No change * Bumetanide held this morning * Hypothyroidism * TSH low 0.121 * On 225 mcg of levothyroxine daily * 5 mm Obstructing stone in the distal left ureter. (Omitted in previous notes in error.) * Not obstructive. * On Flomax. Plan * Start normal saline 75 mL/h * Continue holding bumetanide * Spironolactone 25 mg twice daily * Continue Zosyn * Awaiting urinary culture * Recheck CBC, CMP, mag, C-reactive protein in the morning * Continue SCDs for VTE prophylaxis * Length of stay 1-2 more days. 01/22/2020 * Acute on chronic renal insufficiency * No change from yesterday. Creatinine 1.9 and GFR 26 * Patient insistent on Bumex * UTI - 5 mm left ureteral stone. * Proteus mirabilis sensitive to Zosyn and Bactrim * White count normal at 4.7, C-reactive protein decreased to 19.8. C- reactive protein is probably not elevated solely due to infection. * On Zosyn * Hyponatremiaimproved * Sodium 132 * On IV normal saline * Thrombocytopenia-improved * Platelets of 74,000 * Congestive heart failure stable * On home O2 of 2 L nasal cannula * Hypothyroidism * TSH low 0.121 * Decreased levothyroxine to 200 mcg daily * 5 mm Obstructing stone in the distal left ureter. (Omitted in previous notes in error.) * Not obstructive. * On Flomax. Plan * Continue cautious IV rehydration * Bumex 2 mg IV now * Continue Zosyn, but if afebrile overnight will switch to Bactrim * Follow CBC, CMP, magnesium,C-reactive protein, * VTE prophylaxis with SCDs secondary to chemoprophylaxis contraindicated due to thrombocytopenia * CODE STATUS: Full code * Disposition: Admit to floor for gentle rehydration, IV antibiotics, and close follow-up of her platelets and kidney function. Plan discharge in 1 to 2 days. 01/23/2020 * Acute on chronic renal insufficiency * Improved with IV fluids * GFR 34, creatinine 1.5, BUN 36, BUN/creatinine ratio 24 * Still signs of prerenal disease. BUN/creatinine ratio greater than 20. * She has had a 4 kg weight gain since yesterday questioning accurate weights for the day before. * Received Bumex 2 mg IV in the morning yesterday, but evening dose held * UTI * Culture positive for Proteus mirabilis and Pseudomonas both sensitive to Zosyn. * Hyponatremiaresolved; hypokalemia * Sodium 138 * Potassium 3.0 * Received 40 mEq potassium yesterday * On spironolactone 25 mg twice daily * Thrombocytopenia * Stable with platelets 71,000 * COPDstable * Patient states that her home O2 is 3 L per nasal cannula * FiO2 2 L/min per nasal cannula with SPO2 in the upper 90% * 5 mm Obstructing stone in the distal left ureter. * Not obstructive. * On Flomax. * Pain improved Plan * Stop IV fluids * Bumex 2 mg p.o. twice daily * Continue Zosyn, for total of 5 days. * Follow CBC, CMP, magnesium,C-reactive protein, * VTE prophylaxis with SCDs secondary to chemoprophylaxis contraindicated due to thrombocytopenia * CODE STATUS: Full code * Disposition: Admit to floor for gentle rehydration, IV antibiotics, and close follow-up of her platelets and kidney function. Plan discharge in 1 to 2 days. 01/24/2020 * Acute on chronic renal insufficiency * Continues to improve * GFR 40, creatinine 1.3, BUN 28, BUN/creatinine ratio 21.5 * Still signs of prerenal disease. BUN/creatinine ratio greater than 20. * 4Lb weight loss today * Continue Bumex * UTI * Culture positive for Proteus mirabilis and Pseudomonas both sensitive to Zosyn. * Day 4 of treatment. Will discontinue tomorrow * Hyponatremiaresolved; hypokalemia improved * Sodium 139 * Potassium 3.3 * Received 60 mEq potassium PO yesterday * On spironolactone 25 mg twice daily * Thrombocytopenia * Stable with platelets 82,000 * COPDstable * Patient states that her home O2 is 3 L per nasal cannula * FiO2 2 L/min per nasal cannula with SPO2 in the upper 90% * 5 mm Obstructing stone in the distal left ureter. * Not obstructive * On Flomax * Pain improved * Hypomagnesemia * Magnesium 1.7 Plan * Stop IV fluids * Bumex 2 mg p.o. twice daily * Continue Zosyn, for total of 5 days. Today is day 4 - discontinue tomorrow * Follow CBC, CMP, magnesium * VTE prophylaxis with SCDs secondary to chemoprophylaxis contraindicated due to thrombocytopenia * CODE STATUS: Full code * Disposition: Admit to floor for gentle rehydration, IV antibiotics, and close follow-up of her platelets and kidney function. Plan discharge tomorrow back to [facility]. * Supplement Magnesium * 40meq potassium BID x 3 doses 01/25/2020 * Acute on chronic renal insufficiency * Continued stability * GFR 40, creatinine 1.3, BUN 28, BUN/creatinine ratio 21.5 * Still signs of prerenal disease. BUN/creatinine ratio greater than 20. * Continue Bumex * UTI * Culture positive for Proteus mirabilis and Pseudomonas both sensitive to Zosyn. * Day 5 of treatment * Repeat UA drawn after discussion with patient * Repeat urine culture * Continue IV meds * Pt. reports continued symptoms * Hyponatremiaresolved; hypokalemia resolved * Sodium 139 * Potassium 3.8 * On spironolactone 25 mg twice daily * Thrombocytopenia * Stable * COPDstable * Patient states that her home O2 is 3 L per nasal cannula * FiO2 2 L/min per nasal cannula with SPO2 in the upper 90% * 5 mm Non-obstructing stone in the distal left ureter. * Not obstructive * On Flomax * Pain improved * Hypomagnesemia * Magnesium 1.7 * Compression fracture of L1 vertebra/back pain * Noted on prior CT * PT working with patient * Requesting back brace * Will need continued PT and follow-up after discharge * Pain medications ordered Chronic: Hypertension, obstructive sleep apnea, centrilobular emphysema, hypothyroidism, type 2 diabetes with diabetic nephropathy, hyperlipidemia, vitamin B12 deficiency, morbid obesity, chronic depression, thrombocytopenia, chronic constipation, chronic gastritis without bleeding, history of C. difficile infection, calculus of kidney, urinary retention, recurrent UTIs, SLE, chronic pain syndrome. - Plan Plan:: Plan * Repeat Urine culture on new UA * Bumex 2 mg p.o. twice daily * Continue Zosyn * Follow CBC, CMP, magnesium * VTE prophylaxis with SCDs secondary to chemoprophylaxis contraindicated due to thrombocytopenia * CODE STATUS: Full code * Disposition: Admit to floor for gentle rehydration, IV antibiotics, and close follow-up of her platelets and kidney function. Plan discharge pending repeat culture * Supplement Magnesium * Back brace if able * Continue PT * Pain medications as directed
[2020-01-25] MEDS: Tamsulosin 0.4 MG Cap.ER PO SCH (20:57)
[2020-01-25] MEDS: Simvastatin 10 MG Tab PO SCH (20:59)
[2020-01-25] MEDS ORDERED: Polyethylene Glycol 3350 Powder 17 GM Packet PO ONE (21:00)
[2020-01-25] MEDS: traZODone 50 MG Tab PO SCH (21:02)
[2020-01-25] MEDS: Sertraline 50 MG Tab PO SCH (21:03)
[2020-01-25] MEDS: fentaNYL 12 MCG/HR Transdermal Patch TRDERM SCH (21:33)
[2020-01-26] MEDS: HYDROmorphone 0.5 MG/0.5 ML Syringe IVPUSH PRN (04:33)
[2020-01-26] MEDS: Spironolactone 25 MG Tab PO SCH (05:10)
[2020-01-26] MEDS: Pantoprazole 40 MG Tab.CR PO SCH (05:10)
[2020-01-26] MEDS: Piperacillin/Tazobactam 4.5 GM in Sodium Chloride 0.9% 100 ML IV SCH (05:11)
[2020-01-26] MEDS: Albuterol/Ipratropium 3.0-0.5 MG/3 ML Neb Soln INH SCH (08:00)
[2020-01-26] MEDS ORDERED: Magnesium Oxide 400 MG Tab PO SCH (09:00)
[2020-01-26] MEDS: Fluticasone Propionate Nasal Spray 16 GM Bottle NASBOTH SCH (09:22)
[2020-01-26] MEDS: guaiFENesin 600 MG Tab.ER PO SCH (09:24)
[2020-01-26] MEDS: Bumetanide 1 MG Tab PO SCH (09:24)
[2020-01-26] MEDS: Sodium Bicarbonate 650 MG Tab PO SCH (09:24)
[2020-01-26] MEDS: Aspirin 81 MG Tab.EC PO SCH (09:25)
[2020-01-26] MEDS: Metoprolol Tartrate 25 MG Tab PO SCH (09:25)
[2020-01-26] MEDS: Acetaminophen/oxyCODONE 325-5 MG Tab PO PRN ×2 (09:25→13:57)
[2020-01-26] MEDS: Saccharomyces Boulardii (Probiotic) 250 MG Cap PO SCH (09:25)
[2020-01-26] MEDS: Chlorhexidine Gluconate 0.12% Oral Rinse 118 ML Bottle MM SCH (09:26)
[2020-01-26] MEDS: Pilocarpine Hcl 5 MG PO SCH (09:26)
[2020-01-26] MEDS: Lactoperoxi/Gluc Oxid/Pot Thio 42 GM Tube MUCMEM PRN (09:26)
--- NOTE | 2020-01-26 10:27 | PCM.DCSUM1 ---
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 Potassium (3.5-5.1) mEq/L Chloride (98-107) mEq/L Carbon Dioxide (21-32) mEq/L Anion Gap (5-15) BUN (7-18) mg/dL Creatinine (0.55-1.02) mg/dL Est Cr Clr Drug Dosing mL/min Estimated GFR (MDRD) (>60) mL/min BUN/Creatinine Ratio (14-18) Glucose (80-115) mg/dL Calcium (8.5-10.1) mg/dL Magnesium (1.8-2.4) mg/dl C-Reactive Protein 3.7 H* (<1.0) mg/dL Procalcitonin <0.05 (<0.10) ng/mL Urine Color Yellow (Yellow) Urine Appearance Clear (Clear) Urine pH 7.0 (5.0-8.0) Ur Specific [place] 1.015 (1.005-1.030) Urine Protein Negative (Negative) Urine Glucose (UA) Negative (Negative) Urine Ketones Negative (Negative) Urine Occult Blood Trace-intact H (Negative) Urine Nitrite Negative (Negative) Urine Bilirubin Negative (Negative) Urine Urobilinogen 0.2 (0.2-1.0) Ur Leukocyte Esterase 1+ H (Negative) Urine RBC 5-10 H (0-5) /hpf Urine WBC 10-20 H (0-5) /hpf Ur Squamous Epith Cells 0-5 (0-5) /hpf Amorphous Sediment Rare H (NOT SEEN) /hpf Urine Bacteria Moderate H (FEW) /hpf Urine Mucus Not seen (FEW) /hpf 01/26/20 01/26/20 Range/Units 04:35 04:35 WBC 4.52 (3.98-10.04) K/mm3 RBC 3.25 L (3.98-5.22) M/mm3 Hgb 10.1 L (11.2-15.7) gm/dl Hct 32.7 L (34.1-44.9) % MCV 100.6 H (79.4-94.8) fl MCH 31.1 (25.6-32.2) pg MCHC 30.9 L (32.2-35.5) g/dl RDW Std Deviation 45.0 (36.4-46.3) fL Plt Count 119 L (182-369) K/mm3 MPV 12.2 (9.4-12.3) fl Neut % (Auto) 71.4 H (34.0-71.1) % Lymph % (Auto) 12.4 L (19.3-51.7) % [place] % (Auto) 9.3 (4.7-12.5) % Eos % (Auto) 5.1 (0.7-5.8) Baso % (Auto) 0.9 (0.1-1.2) % Neut # (Auto) 3.23 (1.56-6.13) K/mm3 Lymph # (Auto) 0.56 L (1.18-3.74) K/mm3 [place] # (Auto) 0.42 H (0.24-0.36) K/mm3 Eos # (Auto) 0.23 (0.04-0.36) K/mm3 Baso # (Auto) 0.04 (0.01-0.08) K/mm3 Sodium 139 (136-145) mEq/L Potassium 3.6 (3.5-5.1) mEq/L Chloride 97 L (98-107) mEq/L Carbon Dioxide 39 H (21-32) mEq/L Anion Gap 6.6 (5-15) BUN 29 H (7-18) mg/dL Creatinine 1.4 H (0.55-1.02) mg/dL Est Cr Clr Drug Dosing 36.36 mL/min Estimated GFR (MDRD) 37 (>60) mL/min BUN/Creatinine Ratio 20.7 H (14-18) Glucose 120 H (80-115) mg/dL Calcium 9.0 (8.5-10.1) mg/dL Magnesium 2.1 (1.8-2.4) mg/dl C-Reactive Protein (<1.0) mg/dL Procalcitonin (<0.10) ng/mL Urine Color (Yellow) Urine Appearance (Clear) Urine pH (5.0-8.0) Ur Specific [place] (1.005-1.030) Urine Protein (Negative) Urine Glucose (UA) (Negative) Urine Ketones (Negative) Urine Occult Blood (Negative) Urine Nitrite (Negative) Urine Bilirubin (Negative) Urine Urobilinogen (0.2-1.0) Ur Leukocyte Esterase (Negative) Urine RBC (0-5) /hpf Urine WBC (0-5) /hpf Ur Squamous Epith Cells (0-5) /hpf Amorphous Sediment (NOT SEEN) /hpf Urine Bacteria (FEW) /hpf Urine Mucus (FEW) /hpf Med Orders - Current: Current Medications Acetaminophen (Tylenol) 650 mg PO Q4H PRN PRN Reason: Pain (Mild 1-3)/fever Last Admin: 01/24/20 17:52 Dose: 650 mg Documented by: Albuterol (Proventil Hfa) 0 gm INH Q6H PRN PRN Reason: shortness of breath Albuterol/Ipratropium (Duoneb 3.0-0.5 Mg/3 Ml) 3 ml INH TID [facility] Last Admin: 01/26/20 08:00 Dose: 3 ml Documented by: Aspirin (Halfprin) 81 mg PO DAILY [facility] Last Admin: 01/26/20 09:25 Dose: 81 mg Documented by: Bisacodyl (Dulcolax) 10 mg PO DAILY PRN PRN Reason: Constipation Bismuth Subsalicylate (Pepto Bismol) 15 ml PO QID PRN PRN Reason: Heartburn Bumetanide (Bumex) 2 mg PO QPM [facility] Last Admin: 01/25/20 17:04 Dose: Not Given Documented by: Bumetanide (Bumex) 2 mg PO DAILY [facility] Last Admin: 01/26/20 09:24 Dose: 2 mg Documented by: Chlorhexidine Gluconate (Chlorhexidine Gluconate 0.12% Rinse) 15 ml MM BID [facility] Last Admin: 01/26/20 09:26 Dose: 15 ml Documented by: Diphenhydramine HCl (Benadryl) 25 mg IVPUSH Q4H PRN PRN Reason: Rash Docusate Sodium (Colace) 200 mg PO BID PRN PRN Reason: Constipation Fentanyl (Duragesic) 12 mcg TRDERM Q72H [facility] Last Admin: 01/25/20 21:33 Dose: 12 mcg Documented by: Fluticasone Propionate (Flonase) 0 gm NASBOTH DAILY [facility] Last Admin: 01/26/20 09:22 Dose: 1 spray Documented by: Glucose Oxid/Lactoperoxid/Muramidas (Biotene Oralbalance Gel) 0 gm MUCMEM ASDIRECTED PRN PRN Reason: dry mouth Last Admin: 01/26/20 09:26 Dose: 1 applic Documented by: Guaifenesin (Mucinex) 1,200 mg PO BID [facility] Last Admin: 01/26/20 09:24 Dose: 1,200 mg Documented by: Guaifenesin/Phenylephrine HCl (Robitussin Dm) 10 ml PO Q4H PRN PRN Reason: Cough Hydromorphone HCl (Dilaudid) 0.5 mg IVPUSH Q2H PRN PRN Reason: Pain (severe 7-10) Last Admin: 01/26/20 04:33 Dose: 0.5 mg Documented by: Piperacillin Sod/Tazobactam (Sod 4.5 gm/ Sodium Chloride) 100 mls @ 25 mls/hr IV Q8H [facility] Last Admin: 01/26/20 05:11 Dose: 25 mls/hr Documented by: Levothyroxine Sodium (Levothyroxine) 200 mcg PO ACBREAKFAST [facility] Last Admin: 01/26/20 05:11 Dose: 200 mcg Documented by: Magnesium Oxide (Magnesium Oxide) 400 mg PO DAILY [facility] Last Admin: 01/26/20 09:25 Dose: 400 mg Documented by: Meclizine HCl (Antivert) 25 mg PO Q8H PRN PRN Reason: Dizziness Metoprolol Tartrate (Lopressor) 25 mg PO BID [facility] Last Admin: 01/26/20 09:25 Dose: 25 mg Documented by: Miscellaneous Information (Remove Patch) 0 ea TRDERM Q72H [facility] Last Admin: 01/25/20 21:05 Dose: 1 ea Documented by: Nitroglycerin (Nitrostat) 0.4 mg SL Q5M PRN PRN Reason: Chest Pain Nystatin (Nystop) 0 gm TOP TID PRN PRN Reason: skin breakdown Ondansetron HCl (Zofran) 4 mg IV Q4H PRN PRN Reason: Nausea/Vomiting Ondansetron HCl (Zofran Odt) 4 mg PO TID PRN PRN Reason: Nausea Oxycodone/Acetaminophen (Percocet 325-5 Mg) 1 tab PO Q4H PRN PRN Reason: Pain (moderate 4-6) Last Admin: 01/26/20 09:25 Dose: 1 tab Documented by: Pantoprazole Sodium (Protonix) 40 mg PO ACBREAKFAST [facility] Last Admin: 01/26/20 05:10 Dose: 40 mg Documented by: [place] Hcl 5 Mg 0 each PO TID [facility] Last Admin: 01/26/20 09:26 Dose: Not Given Documented by: Anoro Ellipta 62.5- (25 Mcg Inhaler) 0 each INH BEDTIME [facility] Last Admin: 01/25/20 22:25 Dose: Not Given Documented by: Saccharomyces Boulardii (Florastor) 250 mg PO BID [facility] Last Admin: 01/26/20 09:25 Dose: 250 mg Documented by: Senna (Senna) 8.6 mg PO DAILY PRN PRN Reason: Constipation Sertraline HCl (Zoloft) 200 mg PO BEDTIME [facility] Last Admin: 01/25/20 21:03 Dose: 200 mg Documented by: Simvastatin (Zocor) 10 mg PO BEDTIME [facility] Last Admin: 01/25/20 20:59 Dose: 10 mg Documented by: Sodium Bicarbonate (Sodium Bicarbonate) 1,300 mg PO TID [facility] Last Admin: 01/26/20 09:24 Dose: 1,300 mg Documented by: Sodium Chloride (Saline Flush) 10 ml FLUSH ASDIRECTED PRN PRN Reason: Keep Vein Open Last Admin: 01/20/20 19:48 Dose: 10 ml Documented by: Spironolactone (Aldactone) 25 mg PO BIDDIURETIC [facility] Last Admin: 01/26/20 05:10 Dose: 25 mg Documented by: Tamsulosin HCl (Flomax) 0.4 mg PO BEDTIME [facility] Last Admin: 01/25/20 20:57 Dose: 0.4 mg Documented by: Trazodone HCl (Trazodone) 100 mg PO BEDTIME [facility] Last Admin: 01/25/20 21:02 Dose: 100 mg Documented by: Discontinued Medications Albuterol/Ipratropium (Duoneb 3.0-0.5 Mg/3 Ml) 3 ml INH TIDRT [facility] Last Admin: 01/21/20 08:10 Dose: Not Given Documented by: Bumetanide (Bumex) 2 mg IVPUSH ONETIME ONE Stop: 01/22/20 08:14 Last Admin: 01/22/20 08:37 Dose: 2 mg Documented by: Bumetanide (Bumex) 2 mg IVPUSH ONETIME ONE Stop: 01/23/20 09:20 Last Admin: 01/23/20 09:36 Dose: 2 mg Documented by: Enoxaparin Sodium (Lovenox) 30 mg SUBCUT DAILY [facility] Last Admin: 01/21/20 09:11 Dose: 30 mg Documented by: Glucose Oxid/Lactoperoxid/Muramidas (Biotene Oralbalance Gel) 1 gm MUCMEM ASDIRECTED PRN PRN Reason: dry mouth Hydromorphone HCl (Dilaudid) 0.5 mg IVPUSH ONETIME ONE Stop: 01/20/20 16:56 Last Admin: 01/20/20 17:54 Dose: 0.5 mg Documented by: Sodium Chloride (Normal Saline) 1,000 mls @ 999 mls/hr IV ONETIME ONE Stop: 01/20/20 17:55 Last Admin: 01/20/20 17:49 Dose: 999 mls/hr Documented by: Sodium Chloride (Normal Saline) 1,000 mls @ 100 mls/hr IV ONETIME ONE Stop: 01/21/20 06:01 Last Admin: 01/22/20 01:43 Dose: 100 mls/hr Documented by: Ceftriaxone Sodium 1 gm/ (Sodium Chloride) 100 mls @ 200 mls/hr IV Q24H [facility] Piperacillin Sod/Tazobactam (Sod 4.5 gm/ Sodium Chloride) 100 mls @ 200 mls/hr IV ONETIME ONE Stop: 01/20/20 22:51 Last Admin: 01/20/20 22:47 Dose: 200 mls/hr Documented by: Sodium Chloride (Normal Saline) 1,000 mls @ 75 mls/hr IV ASDIRECTED [facility] Last Admin: 01/22/20 22:28 Dose: 75 mls/hr Documented by: Magnesium Sulfate 2 gm/ Premix 50 mls @ 25 mls/hr IV ONETIME ONE Stop: 01/24/20 12:59 Last Admin: 01/24/20 11:45 Dose: 25 mls/hr Documented by: Magnesium Sulfate 4 gm/ Premix 50 mls @ 12.5 mls/hr IV ONETIME ONE Stop: 01/25/20 12:49 Last Admin: 01/25/20 09:13 Dose: 12.5 mls/hr Documented by: Levothyroxine Sodium (Levothyroxine) 225 mcg PO ACBREAKFAST [facility] Last Admin: 01/21/20 06:55 Dose: 225 mcg Documented by: Magnesium Oxide (Magnesium Oxide) 800 mg PO ONETIME ONE Stop: 01/25/20 11:30 Last Admin: 01/25/20 11:38 Dose: 800 mg Documented by: Miscellaneous Information (Remove Patch) 1 ea TRDERM Q72H [facility] Non-Formulary Medication (Cranberry [Cranberry]) 405 mg PO TID PRN PRN Reason: uti Non-Formulary Medication (Nystatin) 1 applic TOP BID PRN PRN Reason: Rash Ondansetron HCl (Zofran) 4 mg IVPUSH ONETIME ONE Stop: 01/20/20 16:56 Last Admin: 01/20/20 17:53 Dose: 4 mg Documented by: Polyethylene Glycol (Miralax) 17 gm PO ONETIME ONE Stop: 01/22/20 20:02 Last Admin: 01/22/20 21:57 Dose: Not Given Documented by: Polyethylene Glycol (Miralax) 17 gm PO ONETIME ONE Stop: 01/25/20 21:01 Last Admin: 01/25/20 20:56 Dose: 17 gm Documented by: Potassium Chloride (Klor-Con M20) 40 meq PO ONETIME ONE Stop: 01/22/20 08:35 Last Admin: 01/22/20 08:47 Dose: 40 meq Documented by: Potassium Chloride (Klor-Con M20) 20 meq PO ONETIME ONE Stop: 01/23/20 17:01 Last Admin: 01/23/20 16:13 Dose: 20 meq Documented by: Potassium Chloride (Klor-Con M20) 40 meq PO ONETIME ONE Stop: 01/23/20 21:02 Last Admin: 01/23/20 22:09 Dose: 40 meq Documented by: Potassium Chloride (Klor-Con M20) 40 meq PO BID [facility] Stop: 01/25/20 09:01 Last Admin: 01/25/20 09:19 Dose: 40 meq Documented by: Spironolactone (Aldactone) 25 mg PO DAILY [facility] Last Admin: 01/22/20 08:11 Dose: 25 mg Documented by: Tamsulosin HCl (Flomax) 0.4 mg PO ONETIME ONE Stop: 01/20/20 19:42 Last Admin: 01/20/20 19:48 Dose: 0.4 mg Documented by: Tramadol HCl (Ultram) 75 mg PO Q8H [facility] Last Admin: 01/21/20 09:12 Dose: 75 mg Documented by: - Exam Quality Assessment: Reports: Supplemental Oxygen (3L with saturations in upper 90's ), DVT Prophylaxis General: Reports: Alert, Oriented, Cooperative, No Acute Distress HEENT: Reports: Pupils Equal, Pupils Reactive, Mucous Membr. Moist/[place] Neck: Reports: Supple, Trachea Midline Lungs: Reports: Clear to Auscultation, Normal Respiratory Effort Cardiovascular: Reports: Regular Rate, Regular Rhythm GI/Abdominal Exam: Normal Bowel Sounds, Soft, Non-Tender, No Distention (Female) Exam: Deferred Rectal (Female) Exam: Deferred Extremities: Normal Inspection, Non-Tender, Pedal Edema (trace ) Skin: Reports: Warm, Dry, Intact Neurological: Reports: No New Focal Deficit Psy/Mental Status: Reports: Alert, Normal Affect, Normal Mood
[2020-01-26 12:56] VITALS: BP 128/56; PULSE 64
== END 2020-01-26 14:40 | DRG 683 ==
LOC: JD.ED 15:56 → JD.MS 20:03 → OBSVTOIN 01-23 09:58
PROVIDERS: ADMIT Family Medicine; ATTEND Family Medicine
DX: N17.9 Acute kidney failure, unspecified (principal); N20.1 Calculus of ureter; J96.11 Chronic respiratory failure with hypoxia; E11.9 Type 2 diabetes mellitus without complications; Z68.41 Body mass index [BMI] 40.0-44.9, adult; E87.1 Hypo-osmolality and hyponatremia; I13.0 Hypertensive heart and chronic kidney disease with heart failure and stage 1 through stage 4 chronic kidney disease, or unspecified chronic kidney disease; N20.2 Calculus of kidney with calculus of ureter; H54.7 Unspecified visual loss; E78.00 Pure hypercholesterolemia, unspecified; J44.9 Chronic obstructive pulmonary disease, unspecified; N39.0 Urinary tract infection, site not specified; Z20.828 Contact with and (suspected) exposure to other viral communicable diseases; N18.4 Chronic kidney disease, stage 4 (severe); G62.9 Polyneuropathy, unspecified; M32.9 Systemic lupus erythematosus, unspecified; E66.9 Obesity, unspecified; G47.00 Insomnia, unspecified; D50.9 Iron deficiency anemia, unspecified; Z85.828 Personal history of other malignant neoplasm of skin; H26.9 Unspecified cataract; Z90.49 Acquired absence of other specified parts of digestive tract; Z96.649 Presence of unspecified artificial hip joint; Z98.890 Other specified postprocedural states; E66.01 Morbid (severe) obesity due to excess calories; M19.90 Unspecified osteoarthritis, unspecified site; K64.9 Unspecified hemorrhoids; E87.6 Hypokalemia; F41.9 Anxiety disorder, unspecified; I45.4 Nonspecific intraventricular block; I50.9 Heart failure, unspecified; F32.89 Other specified depressive episodes; E78.5 Hyperlipidemia, unspecified; E11.22 Type 2 diabetes mellitus with diabetic chronic kidney disease; I89.0 Lymphedema, not elsewhere classified; E83.42 Hypomagnesemia; M54.5 Low back pain; G89.29 Other chronic pain; D69.6 Thrombocytopenia, unspecified; E03.9 Hypothyroidism, unspecified; B96.4 Proteus (mirabilis) (morganii) as the cause of diseases classified elsewhere; B96.5 Pseudomonas (aeruginosa) (mallei) (pseudomallei) as the cause of diseases classified elsewhere; G47.33 Obstructive sleep apnea (adult) (pediatric); J43.2 Centrilobular emphysema; E11.42 Type 2 diabetes mellitus with diabetic polyneuropathy; K59.09 Other constipation; K29.50 Unspecified chronic gastritis without bleeding; E53.8 Deficiency of other specified B group vitamins; F41.0 Panic disorder [episodic paroxysmal anxiety]; F32.9 Major depressive disorder, single episode, unspecified; R33.9 Retention of urine, unspecified; Z86.19 Personal history of other infectious and parasitic diseases; S32.010S Wedge compression fracture of first lumbar vertebra, sequela; Z99.81 Dependence on supplemental oxygen; Z88.1 Allergy status to other antibiotic agents; Z88.7 Allergy status to serum and vaccine; Z88.8 Allergy status to other drugs, medicaments and biological substances; Z79.82 Long term (current) use of aspirin; Z79.890 Hormone replacement therapy; Z79.01 Long term (current) use of anticoagulants; Z79.84 Long term (current) use of oral hypoglycemic drugs; Z79.899 Other long term (current) drug therapy; Z86.2 Personal history of diseases of the blood and blood-forming organs and certain disorders involving the immune mechanism
CPT/HCPCS: 36415 ×4; 80053 ×4; 81001; 83605; 83735 ×3; 84443; 85025 ×4; 86140 ×2; 87086; 87088 ×2; 87186 ×2; 87641; 94640 ×7; 96374; 96375; 97110; 97161; 99284; A9270 ×62; J1170; J1650; J2405; J2543 ×8; J3490 ×2; J7030 ×6; J7050 ×8; U0002; 80048; 84145; 94760; 94761; 96361; 96365; 96366; 96372; 96376; 97530-GP; 99285; G0378; J3475; J7620-GY

== ENCOUNTER 2020-03-04 07:25 | Emergency (ER) | payer MEDICARE ==
--- NOTE | 2020-03-04 07:39 | EDM.PDOC ---
ED HPI GENERAL MEDICAL PROBLEM - General Chief Complaint: Flank Pain Stated Complaint: [facility] Time Seen by Provider: 03/04/20 07:34 - History of Present Illness INITIAL COMMENTS - FREE TEXT/NARRATIVE: 69-year-old female presents by EMS with left flank and back pain. Patient has a history of recurrent kidney stones renal insufficiency, urinary tract infections and multiple medical problems. With this episode the pain started yesterday. The patient had a fever at the [facility] this morning they did give Tylenol and she is afebrile here. Patient denies any other complaints at this time. Left Lower Back Pain Score (Numeric/FACES): 5 - Related Data Allergies Allergy/AdvReac Type Severity Reaction Status Date / Time levofloxacin [From Levaquin] Allergy Severe Anaphylactic Verified 03/04/20 07:34 Shock metronidazole [From Flagyl] Allergy Intermediate Rash Verified 03/04/20 07:34 cefepime Allergy Mild Hives Verified 03/04/20 07:34 ciprofloxacin [From Cipro] Allergy Mild Hives Verified 03/04/20 07:34 ciprofloxacin HCl Allergy Mild Hives Verified 03/04/20 07:34 [From Cipro] fosfomycin Allergy Mild Hives Verified 03/04/20 07:34 Metronidazole HCl Allergy Mild Hives Verified 03/04/20 07:34 [From Flagyl] pertussis vaccine,adsorbed Allergy Mild Cannot Verified 03/04/20 07:34 [Pertussis Vaccine,Adsorbed] Remember vancomycin Allergy Mild Hives Verified 03/04/20 07:34 meperidine HCl [From Demerol] AdvReac Mild Vomiting Verified 03/04/20 07:34 Home Meds: Home Meds Aspirin [Halfprin] 81 mg PO DAILY 10/10/14 [History] Multivitamin [Daily Vitamin] 1 tab PO DAILY 10/10/14 [History] Chlorhexidine Gluconate [Peridex 0.12% Rinse] 15 ml MM BID PRN 02/07/17 [History] Nitroglycerin [Nitrostat] 0.4 mg SL Q5M PRN 02/07/17 [History] Bismuth Subsalicylate [Bismatrol] 262 mg PO QID PRN 09/05/17 [History] Lactobacillus Acidophilus [Acidophilus] 1 each PO BID 09/05/17 [History] Cranberry 405 mg PO TID PRN 10/16/18 [History] Losartan [Cozaar] 25 mg PO WITHLUNCH 10/16/18 [History] Metoprolol Tartrate [Lopressor] 25 mg PO BID 10/16/18 [History] Omeprazole 20 mg PO ACBREAKFAST 10/16/18 [History] Ondansetron [Zofran ODT] 4 mg PO TID PRN 10/16/18 [History] Pilocarpine HCl [Salagen] 5 mg PO TID 10/16/18 [History] Sodium Bicarbonate 650 mg PO TID 10/16/18 [History] Umeclidinium Brm/Vilanterol Tr [Anoro Ellipta 62.5-25 MCG] 1 each IH BEDTIME 10/16/18 [History] fentaNYL [Fentanyl] 12 mcg TOP ASDIRECTED 10/16/18 [History] Ipratropium/Albuterol Sulfate [Iprat-Albut 0.5-3(2.5) mg/3 ml] 3 ml INH TID 11/26/18 [History] Sertraline [Zoloft] 200 mg PO BEDTIME 11/26/18 [History] Spironolactone [Aldactone] 25 mg PO DAILY 11/26/18 [History] Triamcinolone Acetonide [Nasacort] 1 spray INH DAILY 11/26/18 [History] atorvaSTATin [Lipitor] 10 mg PO BEDTIME 11/26/18 [History] bisacodyL [Dulcolax] 10 mg PO DAILY PRN 11/26/18 [History] guaiFENesin [Mucus ER] 1,200 mg PO BID 11/26/18 [History] guaiFENesin/Dextromethorphan [Tussin DM Clear] 2 tsp PO Q4HR PRN 11/26/18 [History] polyethylene glycoL 3350 [Miralax] 17 gm PO DAILY PRN 11/26/18 [History] traZODone HCl [Trazodone HCl] 100 mg PO BEDTIME 11/26/18 [History] Bumetanide [Bumex] 2 mg PO QPM 01/20/20 [History] Docusate Sodium [Colace] 200 mg PO BID PRN 01/20/20 [History] Acetaminophen [Tylenol] 975 mg PO BID PRN 01/21/20 [History] Albuterol [Proventil HFA] 90 mcg INH Q6H PRN 01/21/20 [History] Hydrocortisone Acetate [Anusol-Hc] 25 mg RECTAL BEDTIME PRN 01/21/20 [History] Sennosides [Senna] 8.6 mg PO DAILY PRN 01/21/20 [History] traMADol [Ultram] 75 mg PO Q8H 01/21/20 [History] Bumetanide [Bumex] 2 mg PO DAILY #20 tablet 01/25/20 [Rx] Levothyroxine 200 mcg PO ACBREAKFAST #20 tablet 01/25/20 [Rx] Magnesium Oxide [Magnesium] 400 mg PO DAILY #4 tablet 01/26/20 [Rx] Tamsulosin [Flomax] 0.4 mg PO BEDTIME #15 cap.er 01/26/20 [Rx] Famotidine [Acid Controller] 20 mg PO Q24H #9 tablet 03/04/20 [Rx] cefUROXime axetiL [Ceftin] 250 mg PO BID #18 tablet 03/04/20 [Rx] Past Medical History HEENT History: Reports: Impaired Vision Other HEENT History: wears eyeglasses Cardiovascular History: Reports: Heart Failure, High Cholesterol, Hypertension, Other (See Below) Other Cardiovascular History: bundle branch block, lymphedema Respiratory History: Reports: COPD Other Respiratory History: wears O2 3 liters nasal cannula all the time at [facility]. Gastrointestinal History: Reports: Hemorrhoids Other Gastrointestinal History: hx:cdiff Genitourinary History: Reports: Chronic Renal Insuffiency, Renal Calculus Other Genitourinary History: renal failure from an infection, stage 3 kidney disease, stents placed in ureters for kidney stones but now gone [employer] History: Reports: None Musculoskeletal History: Reports: Arthritis, Fracture Neurological History: Reports: Neuropathy, Peripheral Other Neuro History: Lupus Psychiatric History: Reports: Anxiety, Depression, Panic Attack, Other (See Below) Other Psychiatric History: insomnia Endocrine/Metabolic History: Reports: Diabetes, Type II, Hypothyroidism, Obesity/BMI 30+ Hematologic History: Reports: Heparin Induced Thrombocytopenia, Iron Deficiency Immunologic History: Reports: SLE Oncologic (Cancer) History: Reports: Basal Cell Carcinoma Other Oncologic History: Basal cell carcinoma face Dermatologic History: Reports: Cellulitis, Other (See Below) Other Dermatologic History: Lymphedema, severe dry skin, Chronic sores to backs of legs, history of pressure ulcers - Infectious Disease History Infectious Disease History: Reports: C-Difficile, Chicken Pox, Hepatitis A, Influenza, Measles, Mumps, Rubella, Shingles - Past Surgical History Head Surgeries/Procedures: Reports: None HEENT Surgical History: Reports: Adenoidectomy, Oral Surgery, Tonsillectomy Other HEENT Surgeries/Procedures: states she needs cataract surgery but has not got it done yet. Cardiovascular Surgical History: Reports: None Respiratory Surgical History: Reports: None GI Surgical History: Reports: Appendectomy, Cholecystectomy Endocrine Surgical History: Reports: None Neurological Surgical History: Reports: Lumbar Spine Musculoskeletal Surgical History: Reports: Arthroscopic Knee, Carpal Tunnel, Hip Replacement Other Musculoskeletal Surgeries/Procedures:: 2005 broke back after getting knocked down by a cow. L 2 or 3 she reports having had surgery....doesn't remember what kind. Oncologic Surgical History: Reports: None Dermatological Surgical History: Reports: None Social & Family History - Family History Family Medical History: Noncontributory Cardiac: Reports: Heart Failure : Reports: Renal Disease/Insufficiency Oncologic: Reports: Lung - Caffeine Use Caffeine Use: Reports: Tea Other Caffeine Use: one cup or tea or coffee every day with breakfast - Living Situation & Occupation Living situation: Reports: Single, Extended Care Facility ([facility] Occupation: Retired ED ROS GENERAL - Review of Systems Review Of Systems: See Below Constitutional: Reports: Fever, Weight Gain. Denies: Chills, Diaphoresis HEENT: Reports: No Symptoms Respiratory: Reports: No Symptoms Cardiovascular: Reports: No Symptoms Endocrine: Reports: No Symptoms GI/Abdominal: Reports: No Symptoms : Reports: Flank Pain. Denies: Frequency, Urgency Musculoskeletal: Reports: No Symptoms Skin: Reports: No Symptoms Neurological: Reports: No Symptoms ED EXAM, GI/ABD - Physical Exam Exam: See Below Exam Limited By: No Limitations General Appearance: Alert, No Apparent Distress, Obese Head: Atraumatic, Normocephalic Neck: Normal Inspection, Supple, Non-Tender, Full Range of Motion Respiratory/Chest: No Respiratory Distress, Normal Breath Sounds, Crackles (Lateral lung bases). No: Respiratory Distress Cardiovascular: Normal Peripheral Pulses, Regular Rate, Rhythm, Systolic Murmur (2/6 systolic murmur heard best along left sternal border) GI/Abdominal Exam: Normal Bowel Sounds, Soft, Tender (She has tenderness in the left side not aggravated with palpation), Other (Morbid obesity) Back Exam: CVA Tenderness (L). No: CVA Tenderness (R) Extremities: Other (She has large legs due to her body habitus but she appears to have a small amount of pitting edema) Course - Vital Signs Last Recorded V/S: Last Vital Signs Temp 37.2 C 03/04/20 12:05 Pulse 87 03/04/20 12:05 Resp 17 03/04/20 07:34 BP 126/71 03/04/20 12:05 Pulse Ox 100 03/04/20 12:05 - Orders/Labs/Meds Orders: Active Orders 24 hr Category Date Time Status Abdomen Pelvis wo Cont [CT] Stat Exams 03/04/20 07:47 Taken Chest 1V Frontal [CR] Stat Exams 03/04/20 07:45 Taken CULTURE BLOOD [BC] Stat Lab 03/04/20 11:25 Received CULTURE BLOOD [BC] Stat Lab 03/04/20 12:24 Received CULTURE URINE [RM] Stat Lab 03/04/20 08:40 Received Sodium Chloride 0.9% [Normal Saline] 1,000 ml Med 03/04/20 11:15 Active IV ASDIRECTED Blood Culture x2 Reflex Set [OM.PC] Stat Oth 03/04/20 11:04 Ordered Medication Orders Sodium Chloride (Normal Saline) 1,000 mls @ 125 mls/hr IV ASDIRECTED [facility], [facility] Last Admin: 03/04/20 11:56 Dose: 125 mls/hr Documented by: DERRICK Labs: Laboratory Tests 03/04/20 03/04/20 03/04/20 Range/Units 08:25 08:25 08:25 WBC 10.57 H (3.98-10.04) K/mm3 RBC 3.70 L (3.98-5.22) M/mm3 Hgb 11.7 D (11.2-15.7) gm/dl Hct 37.9 (34.1-44.9) % MCV 102.4 H (79.4-94.8) fl MCH 31.6 (25.6-32.2) pg MCHC 30.9 L (32.2-35.5) g/dl RDW Std Deviation 52.2 H (36.4-46.3) fL Plt Count 89 L (182-369) K/mm3 MPV 12.7 H (9.4-12.3) fl Neut % (Auto) 91.3 H (34.0-71.1) % Lymph % (Auto) 3.1 L (19.3-51.7) % [place] % (Auto) 5.3 (4.7-12.5) % Eos % (Auto) 0 L (0.7-5.8) Baso % (Auto) 0.1 (0.1-1.2) % Neut # (Auto) 9.65 H (1.56-6.13) K/mm3 Lymph # (Auto) 0.33 L (1.18-3.74) K/mm3 [place] # (Auto) 0.56 H (0.24-0.36) K/mm3 Eos # (Auto) 0.00 L (0.04-0.36) K/mm3 Baso # (Auto) 0.01 (0.01-0.08) K/mm3 Manual Slide Review Abnormal smear Sodium 134 L (136-145) mEq/L Potassium 4.1 (3.5-5.1) mEq/L Chloride 94 L (98-107) mEq/L Carbon Dioxide 38 H (21-32) mEq/L Anion Gap 6.1 (5-15) BUN 35 H (7-18) mg/dL Creatinine 1.7 H (0.55-1.02) mg/dL Est Cr Clr Drug Dosing 28.83 mL/min Estimated GFR (MDRD) 30 (>60) mL/min BUN/Creatinine Ratio 20.6 H (14-18) Glucose 169 H (80-115) mg/dL Lactic Acid 1.2 (0.4-2.0) mmol/L Calcium 9.0 (8.5-10.1) mg/dL Total Bilirubin 0.6 (0.2-1.0) mg/dL AST 15 (15-37) U/L ALT 19 (14-59) U/L Alkaline Phosphatase 81 (46-116) U/L Total Protein 8.3 H (6.4-8.2) g/dl Albumin 3.2 L (3.4-5.0) g/dl Globulin 5.1 gm/dL Albumin/Globulin Ratio 0.6 L (1-2) Urine Color (Yellow) Urine Appearance (Clear) Urine pH (5.0-8.0) Ur Specific [place] (1.005-1.030) Urine Protein (Negative) Urine Glucose (UA) (Negative) Urine Ketones (Negative) Urine Occult Blood (Negative) Urine Nitrite (Negative) Urine Bilirubin (Negative) Urine Urobilinogen (0.2-1.0) Ur Leukocyte Esterase (Negative) Urine RBC (0-5) /hpf Urine WBC (0-5) /hpf Ur Squamous Epith Cells (0-5) /hpf Urine Bacteria (FEW) /hpf Urine Mucus (FEW) /hpf 03/04/20 Range/Units 08:40 WBC (3.98-10.04) K/mm3 RBC (3.98-5.22) M/mm3 Hgb (11.2-15.7) gm/dl Hct (34.1-44.9) % MCV (79.4-94.8) fl MCH (25.6-32.2) pg MCHC (32.2-35.5) g/dl RDW Std Deviation (36.4-46.3) fL Plt Count (182-369) K/mm3 MPV (9.4-12.3) fl Neut % (Auto) (34.0-71.1) % Lymph % (Auto) (19.3-51.7) % [place] % (Auto) (4.7-12.5) % Eos % (Auto) (0.7-5.8) Baso % (Auto) (0.1-1.2) % Neut # (Auto) (1.56-6.13) K/mm3 Lymph # (Auto) (1.18-3.74) K/mm3 [place] # (Auto) (0.24-0.36) K/mm3 Eos # (Auto) (0.04-0.36) K/mm3 Baso # (Auto) (0.01-0.08) K/mm3 Manual Slide Review Sodium (136-145) mEq/L Potassium (3.5-5.1) mEq/L Chloride (98-107) mEq/L Carbon Dioxide (21-32) mEq/L Anion Gap (5-15) BUN (7-18) mg/dL Creatinine (0.55-1.02) mg/dL Est Cr Clr Drug Dosing mL/min Estimated GFR (MDRD) (>60) mL/min BUN/Creatinine Ratio (14-18) Glucose (80-115) mg/dL Lactic Acid (0.4-2.0) mmol/L Calcium (8.5-10.1) mg/dL Total Bilirubin (0.2-1.0) mg/dL AST (15-37) U/L ALT (14-59) U/L Alkaline Phosphatase (46-116) U/L Total Protein (6.4-8.2) g/dl Albumin (3.4-5.0) g/dl Globulin gm/dL Albumin/Globulin Ratio (1-2) Urine Color Yellow (Yellow) Urine Appearance Cloudy H (Clear) Urine pH 7.0 (5.0-8.0) Ur Specific [place] 1.015 (1.005-1.030) Urine Protein 2+ H (Negative) Urine Glucose (UA) Negative (Negative) Urine Ketones Negative (Negative) Urine Occult Blood 3+ H (Negative) Urine Nitrite Negative (Negative) Urine Bilirubin Negative (Negative) Urine Urobilinogen 0.2 (0.2-1.0) Ur Leukocyte Esterase 3+ H (Negative) Urine RBC >100 H (0-5) /hpf Urine WBC Too numerous to cnt H (0-5) /hpf Ur Squamous Epith Cells 0-5 (0-5) /hpf Urine Bacteria Moderate H (FEW) /hpf Urine Mucus Not seen (FEW) /hpf Meds: Medications Generic Name Dose Route Start Last Admin Trade Name Freq PRN Reason Stop Dose Admin Sodium Chloride 1,000 mls @ 125 mls/hr 03/04/20 11:15 03/04/20 11:56 Normal Saline IV 125 mls/hr ASDIRECTED JACQUI Administration Discontinued Medications Generic Name Dose Route Start Last Admin Trade Name Freq PRN Reason Stop Dose Admin Diphenhydramine HCl 25 mg 03/04/20 10:56 03/04/20 11:56 Benadryl IVPUSH 03/04/20 10:57 25 mg ONETIME ONE Administration Famotidine 40 mg 03/04/20 10:56 03/04/20 11:53 Pepcid IVPUSH 03/04/20 10:57 40 mg ONETIME ONE Administration Lactated Ringer's 1,000 mls @ 125 mls/hr 03/04/20 08:15 03/04/20 09:01 Ringers, Lactated IV 125 mls/hr ASDIRECTED JACQUI Administration Ceftriaxone Sodium 2 gm/ 100 mls @ 200 mls/hr 03/04/20 10:56 03/04/20 12:35 Sodium Chloride IV 03/04/20 11:25 200 mls/hr ONETIME ONE Administration - Re-Assessments/Exams Free Text/Narrative Re-Assessment/Exam: 03/04/20 11:02 Urine is urine is strongly suggestive of infectious process. The patient has multiple allergies and we have limited beds. She has a mild allergy to cefepime that caused a rash we will pretreat her with Benadryl and famotidine and give her 2 g of Rocephin anticipating discharge back to [facility] with oral Ceftin. Discussed admission, however the patient prefers to go back to the senior living facility. She had a CT KUB that did not show an obstructive kidney stone. 03/04/20 15:03 Tolerated IV Rocephin after getting Benadryl and famotidine. We will start her on famotidine 20 mg twice daily while taking the Ceftin and Ceftin 250 mg twice daily adjusted for her renal insufficiency 03/04/20 15:06 Departure - Departure Time of Disposition: 15:05 Disposition: DC/Tfer to [facility] 03 Clinical Impression: Pyelonephritis - Discharge Information Prescriptions: Famotidine [Acid Controller] 20 mg PO Q24H #9 tablet cefUROXime axetiL [Ceftin] 250 mg PO BID #18 tablet Referrals: Alexandra Samuels MD [Primary Care Provider] - Forms: ED Department Discharge Additional Instructions: Return to the emergency room with any questions or problems. Take the medications as directed start both of them tomorrow morning. Hold your omeprazole while taking the antibiotics. Follow-up with your physician after you finish the antibiotics and discuss if further evaluation by urology is needed. Sepsis Event Note (ED) - Focused Exam Vital Signs: Vital Signs Temp Pulse Resp BP Pulse Ox 03/04/20 12:05 37.2 C 87 126/71 100 03/04/20 09:03 76 81/38 L 99 03/04/20 07:34 37.0 C 85 17 100/76 100 - My Orders Last 24 Hours: My Active Orders 03/04/20 07:45 Chest 1V Frontal [CR] Stat 03/04/20 07:47 Abdomen Pelvis wo Cont [CT] Stat 03/04/20 08:40 CULTURE URINE [RM] Stat 03/04/20 11:04 Blood Culture x2 Reflex Set [OM.PC] Stat 03/04/20 11:15 Sodium Chloride 0.9% [Normal Saline] 1,000 ml IV ASDIRECTED 03/04/20 11:25 CULTURE BLOOD [BC] Stat 03/04/20 12:24 CULTURE BLOOD [BC] Stat - Assessment/Plan Last 24 Hours: My Active Orders 03/04/20 07:45 Chest 1V Frontal [CR] Stat 03/04/20 07:47 Abdomen Pelvis wo Cont [CT] Stat 03/04/20 08:40 CULTURE URINE [RM] Stat 03/04/20 11:04 Blood Culture x2 Reflex Set [OM.PC] Stat 03/04/20 11:15 Sodium Chloride 0.9% [Normal Saline] 1,000 ml IV ASDIRECTED 03/04/20 11:25 CULTURE BLOOD [BC] Stat 03/04/20 12:24 CULTURE BLOOD [BC] Stat
[2020-03-04] MEDS ORDERED: Lactated Ringers 1,000 ML IV SCH (08:15)
[2020-03-04] MEDS ORDERED: diphenhydrAMINE 50 MG/ML SDV IVPUSH ONE (10:56)
[2020-03-04] MEDS ORDERED: cefTRIAXone 2 GM in Sodium Chloride 0.9% 100 ML IV ONE (10:56)
[2020-03-04] MEDS ORDERED: Famotidine 20 MG/2 ML SDV IVPUSH ONE (10:56)
[2020-03-04] MEDS ORDERED: Sodium Chloride 0.9% 1,000 ML IV SCH (11:15)
[2020-03-04 15:36] VITALS: BP 117/50; PULSE 86
--- NOTE | 2020-04-02 15:38 | CT ---
"PROCEDURE INFORMATION: Exam: CT Abdomen And Pelvis Without Contrast Exam date and time: 03/04/2020 7:57 AM Age: 69 years old Clinical indication: Abdominal pain; Left; Patient HX: Lt sided flank pain TECHNIQUE: Imaging protocol: Computed tomography of the abdomen and pelvis without contrast. Radiation optimization: All CT scans at this facility use at least one of these dose optimization techniques: automated exposure control; mA and/or kV adjustment per patient size (includes targeted exams where dose is matched to clinical indication); or iterative reconstruction. COMPARISON: CT Abdomen Pelvis wo Cont 02/15/2020 10:39 AM FINDINGS: Heart: There is calcification of the mitral valve annulus. Liver: Normal. No mass. Gallbladder and bile ducts: Cholecystectomy Pancreas: Normal. No ductal dilation. Spleen: The spleen demonstrates punctate calcifications, consistent with remote granulomatous organism exposure. Adrenals: Normal. No mass. Kidneys and ureters: Mild dilatation of LEFT collecting system and LEFT ureter. The left kidney is edematous and there is left perirenal stranding [place] ureteral inflammatory changes extend along the course of the ureter from the left kidney into the pelvis. Inflammatory changes are seen in the lateral aspect of the left hemipelvis and extending anterior to the sacrum.This appearance has exacerbated since the prior study. No definite ureteral calculus but this area is obscured by artifact from the left total hip replacement. Nonobstructing left renal calculus Stomach and bowel: Unremarkable. No obstruction. No mucosal thickening. Appendix: No evidence of appendicitis. [facility] | Final Radiology Report CONFIDENTIALITY STATEMENT This report is intended only for use by the referring physician, and only in accordance with law. If you received this in error, call [phone]. Page 2 of 2 Intraperitoneal space: Again noted are calcifications in the right internal up to rate her muscle. Unknown etiology. It was present on the prior study Vasculature: Unremarkable. No abdominal aortic aneurysm. Lymph nodes: Enlarged node in the left para-aortic region 13 x 10 mm. Peripancreatic nodes Urinary bladder: Stable calcifications between the bladder and the right acetabulum. Reproductive: Unremarkable as visualized. Bones/joints: Left total hip replacement Internal fixation device in the lumbar spine L2 through L5 Soft tissues: Small umbilical hernia contains fat Other findings: Inflammatory changes in the left pericolic gutter IMPRESSION: 1. Mild dilatation of LEFT collecting system and LEFT ureter. The left kidney is edematous and there is left perirenal stranding [place] ureteral inflammatory changes extend along the course of the ureter from the left kidney into the pelvis. Inflammatory changes are seen in the lateral aspect of the left hemipelvis and extending anterior to the sacrum.This appearance has exacerbated since the prior study. The findings could be due to a recently passed stone, a noncalcified stone or clot or soft tissue process in the left ureter, or an infectious/inflammatory process of the left collecting system. Recommend urology consult 2. No definite ureteral calculus but this area is obscured by artifact from the left total hip replacement. Thank you for allowing us to participate in the care of your patient. Dictated and Authenticated by: Jose Ramon Carreon MD 04/02/2020 4:19 PM Central Time ([place] & [place]) TERES[facility]"
--- NOTE | 2020-04-02 15:39 | CR ---
PROCEDURE INFORMATION: Exam: XR Chest, 1 View Exam date and time: 03/04/2020 7:51 AM Age: 69 years old Clinical indication: Fever TECHNIQUE: Imaging protocol: XR of the chest Views: 1 view. COMPARISON: No relevant prior studies available. FINDINGS: Tubes, catheters and devices: Overlying EKG wires Lungs: Hyperexpanded lung beltran consistent with COPD Pleural space: Unremarkable. No pleural effusion. No pneumothorax. Heart/Mediastinum: Unremarkable. No cardiomegaly. Bones/joints: Severe degenerative changes in the glenohumeral joints IMPRESSION: Hyperexpanded lung beltran consistent with COPD Thank you for allowing us to participate in the care of your patient. Dictated and Authenticated by: Jose Ramon Carreon MD 04/02/2020 4:22 PM Central Time ([place] & [place]) [facility]PITALKarissa
== END 2020-03-04 15:52 ==
LOC: JD.ED 07:25
DX: N12 Tubulo-interstitial nephritis, not specified as acute or chronic (principal); I13.0 Hypertensive heart and chronic kidney disease with heart failure and stage 1 through stage 4 chronic kidney disease, or unspecified chronic kidney disease; E11.22 Type 2 diabetes mellitus with diabetic chronic kidney disease; N18.30 Chronic kidney disease, stage 3 unspecified; I50.9 Heart failure, unspecified; E11.42 Type 2 diabetes mellitus with diabetic polyneuropathy; E78.00 Pure hypercholesterolemia, unspecified; J44.9 Chronic obstructive pulmonary disease, unspecified; M19.90 Unspecified osteoarthritis, unspecified site; F41.9 Anxiety disorder, unspecified; F32.9 Major depressive disorder, single episode, unspecified; E03.9 Hypothyroidism, unspecified; E66.01 Morbid (severe) obesity due to excess calories; Z68.41 Body mass index [BMI] 40.0-44.9, adult; Z90.49 Acquired absence of other specified parts of digestive tract; Z88.1 Allergy status to other antibiotic agents; Z88.8 Allergy status to other drugs, medicaments and biological substances; Z88.7 Allergy status to serum and vaccine; Z88.6 Allergy status to analgesic agent; Z79.82 Long term (current) use of aspirin; Z79.899 Other long term (current) drug therapy
CPT/HCPCS: 36415; 71045; 74176; 80053; 81001; 83605; 85025; 87040; 87086; 87088; 87186; 96361; 96365; 96375; 99285; J0696; J1200; J3490; J7030; J7050; J7120; 99283

== ENCOUNTER 2021-01-28 06:51 | Day surgery (SDC) | payer MEDICARE ==
[~2021-01-28 06:51] MED LIST: Lactated Ringers 1,000 ML IV SCH; Lidocaine 1%/Sod Bicarbonate in NS 8.4% 1 ML Syringe IDERM PRN; Sodium Chloride 0.9% 10 ML Syringe FLUSH PRN
--- NOTE | 2021-01-28 07:19 | PCM.PREANE ---
Preanesthetic Assessment - Procedure Proposed Procedure: Bone marrow biopsy with aspiration - Anesthesia/Transfusion/Family Hx Anesthesia History: Prior Anesthesia Without Reaction Family History of Anesthesia Reaction: No Transfusion History: Prior Transfusion Without Reaction - Review of Systems General: Weakness, Fatigue, Malaise Pulmonary: No Symptoms Cardiovascular: Dyspnea on Exertion Gastrointestinal: No Symptoms Neurological: Numbness (left fingers) Other: Reports: Easy Bruising, Diabetes, Liver Problems ("fatty liver" ), Thyroid Problems (hypothyroid), Neck Pain, Depression - Physical Assessment NPO Status Date: 01/28/21 NPO Status Time: 05:00 Height: 1.7 m Weight: 121.563 kg ASA Class: 3 Mental Status: Alert & Oriented x3 Airway Class: Mallampati = 3 Dentition: Reports: Normal Dentition, [place](s) Thyro-Mental Finger Breadths: 1 Mouth Opening Finger Breadths: 2 ROM/Head Extension: Limited/Partial (arthritis) Lungs: Clear to Auscultation, Normal Respiratory Effort Cardiovascular: Regular Rate, Regular Rhythm - Imaging/EKG Impressions: EKG SR with LBBB - Allergies Allergies/Adverse Reactions: Allergies Allergy/AdvReac Type Severity Reaction Status Date / Time levofloxacin [From Levaquin] Allergy Severe Anaphylactic Verified 01/25/21 15:43 Shock metronidazole [From Flagyl] Allergy Intermediate Rash Verified 01/25/21 15:43 cefepime Allergy Mild Hives Verified 01/25/21 15:43 ciprofloxacin [From Cipro] Allergy Mild Hives Verified 01/25/21 15:43 ciprofloxacin HCl Allergy Mild Hives Verified 01/25/21 15:43 [From Cipro] fosfomycin Allergy Mild Hives Verified 01/25/21 15:43 Metronidazole HCl Allergy Mild Hives Verified 01/25/21 15:43 [From Flagyl] pertussis vaccine,adsorbed Allergy Mild Cannot Verified 01/25/21 15:43 [Pertussis Vaccine,Adsorbed] Remember vancomycin Allergy Mild Hives Verified 01/25/21 15:43 meperidine HCl [From Demerol] AdvReac Mild Vomiting Verified 01/25/21 15:43 - Blood Blood Available: No Product(s) Available: None - Anesthesia Plan Pre-Op Medication Ordered: Beta Klarissa Beta Klarissa: Metoprolol Med Last Dose Date: 01/27/21 Med Last Dose Time: 20:00 - Acknowledgements Anesthesia Type Planned: MAC Pt an Appropriate Candidate for the Planned Anesthesia: Yes Alternatives and Risks of Anesthesia Discussed w Pt/Guardian: Yes Pt/Guardian Understands and Agrees with Anesthesia Plan: Yes PreAnesthesia Questionnaire HEENT History: Reports: Impaired Vision Other HEENT History: wears eyeglasses Cardiovascular History: Reports: Heart Failure, High Cholesterol, Hypertension, Other (See Below) Other Cardiovascular History: bundle branch block, lymphedema Respiratory History: Reports: COPD Other Respiratory History: wears O2 3 liters nasal cannula all the time at [facility]. Gastrointestinal History: Reports: Hemorrhoids Other Gastrointestinal History: hx:cdiff Genitourinary History: Reports: Chronic Renal Insuffiency, Renal Calculus Other Genitourinary History: renal failure from an infection, stage 3 kidney disease, stents placed in ureters for kidney stones but now gone RESTAURANT RECRUITER History: Reports: None Musculoskeletal History: Reports: Arthritis, Fracture Neurological History: Reports: Neuropathy, Peripheral Other Neuro History: Lupus Psychiatric History: Reports: Anxiety, Depression, Panic Attack, Other (See Below) Other Psychiatric History: insomnia Endocrine/Metabolic History: Reports: Diabetes, Type II, Hypothyroidism, Obesity/BMI 30+ Hematologic History: Reports: Heparin Induced Thrombocytopenia, Iron Deficiency Immunologic History: Reports: SLE Oncologic (Cancer) History: Reports: Basal Cell Carcinoma Other Oncologic History: Basal cell carcinoma face Dermatologic History: Reports: Cellulitis, Other (See Below) Other Dermatologic History: Lymphedema, severe dry skin, Chronic sores to backs of legs, history of pressure ulcers - Infectious Disease History Infectious Disease History: Reports: C-Difficile, Chicken Pox, Hepatitis A, Influenza, Measles, Mumps, Rubella, Shingles - Past Surgical History Head Surgeries/Procedures: Reports: None HEENT Surgical History: Reports: Adenoidectomy, Oral Surgery, Tonsillectomy Other HEENT Surgeries/Procedures: states she needs cataract surgery but has not got it done yet. Cardiovascular Surgical History: Reports: None Respiratory Surgical History: Reports: None GI Surgical History: Reports: Appendectomy, Cholecystectomy Female Surgical History: Reports: Kidney stone extraction Endocrine Surgical History: Reports: None Other Endocrine Surgeries/Procedures: Radioactive iodine to remove goiter Neurological Surgical History: Reports: Lumbar Spine Musculoskeletal Surgical History: Reports: Arthroscopic Knee, Carpal Tunnel, Hip Replacement Other Musculoskeletal Surgeries/Procedures:: 2005 broke back after getting knocked down by a cow. L 2 or 3 she reports having had surgery....doesn't remember what kind. Oncologic Surgical History: Reports: None Dermatological Surgical History: Reports: None - SUBSTANCE USE Tobacco Use Status *Q: Never Tobacco User Tobacco Use Within Last Twelve Months: No Second Hand Smoke Exposure: No Days Per Week of Alcohol Use: 0 Number of Drinks Per Day: 0 Total Drinks Per Week: 0 Recreational Drug Use History: No - HOME MEDS Home Medications: Home Meds Aspirin [Halfprin] 81 mg PO DAILY 10/10/14 [History] Multivitamin [Daily Vitamin] 1 tab PO DAILY 10/10/14 [History] Chlorhexidine Gluconate [Peridex 0.12% Rinse] 15 ml MM BID PRN 02/07/17 [History] Nitroglycerin [Nitrostat] 0.4 mg SL Q5M PRN 02/07/17 [History] Lactobacillus Acidophilus [Acidophilus] 1 each PO BID 09/05/17 [History] Cranberry 400 mg PO TID PRN 10/16/18 [History] Losartan [Cozaar] 25 mg PO WITHLUNCH 10/16/18 [History] Metoprolol Tartrate [Lopressor] 25 mg PO BID 10/16/18 [History] Omeprazole 20 mg PO ACBREAKFAST 10/16/18 [History] Ondansetron [Zofran ODT] 4 mg PO TID PRN 10/16/18 [History] Pilocarpine HCl [Salagen] 5 mg PO TID 10/16/18 [History] Sodium Bicarbonate 650 mg PO TID 10/16/18 [History] Umeclidinium Brm/Vilanterol Tr [Anoro Ellipta 62.5-25 MCG] 1 each IH BEDTIME 10/16/18 [History] fentaNYL [Fentanyl] 12 mcg TOP ASDIRECTED 10/16/18 [History] Ipratropium/Albuterol Sulfate [Iprat-Albut 0.5-3(2.5) mg/3 ml] 3 ml INH TID 11/26/18 [History] Sertraline [Zoloft] 200 mg PO BEDTIME 11/26/18 [History] Spironolactone [Aldactone] 12.5 mg PO DAILY 11/26/18 [History] bisacodyL [Dulcolax] 10 mg PO DAILY PRN 11/26/18 [History] guaiFENesin [Mucus ER] 1,200 mg PO BID 11/26/18 [History] guaiFENesin/Dextromethorphan [Tussin DM Clear] 10 ml PO Q4HR PRN 11/26/18 [History] polyethylene glycoL 3350 [Miralax] 17 gm PO DAILY PRN 11/26/18 [History] traZODone HCl [Trazodone HCl] 100 mg PO BEDTIME 11/26/18 [History] Bumetanide [Bumex] 2 mg PO BID 01/20/20 [History] Docusate Sodium [Colace] 200 mg PO BID PRN 01/20/20 [History] Albuterol [Proventil HFA] 90 mcg INH Q6H PRN 01/21/20 [History] Hydrocortisone Acetate [Anusol-Hc] 25 mg RECTAL BEDTIME PRN 01/21/20 [History] Sennosides [Senna] 8.6 mg PO DAILY PRN 01/21/20 [History] traMADol [Ultram] 50 mg PO Q8H 01/21/20 [History] Levothyroxine 200 mcg PO ACBREAKFAST #20 tablet 01/25/20 [Rx] Magnesium Oxide [Magnesium] 400 mg PO DAILY #4 tablet 01/26/20 [Rx] Tamsulosin [Flomax] 0.4 mg PO BEDTIME #15 cap.er 01/26/20 [Rx] Albuterol Sulfate [Albuterol Sulfate HFA] 1 puff INH Q6H PRN 01/25/21 [History] Cyanocobalamin (Vitamin B-12) [Vitamin B-12] 500 mcg PO DAILY 01/25/21 [History] Fluticasone Propionate [Flonase Allergy Relief] 1 dose NASBOTH DAILY 01/25/21 [History] Magnesium Hydroxide [Milk of Magnesia] 30 ml PO DAILY PRN 01/25/21 [History] Menthol/Zinc Oxide [Calmoseptine Ointment Packet] 1 dose TOP ASDIRECTED PRN 01/25/21 [History] Methenamine Hippurate [Hiprex] 1 gm PO BID 01/25/21 [History] Nystatin [Nystatin Crm] 1 dose TOP ASDIRECTED PRN 01/25/21 [History] atorvaSTATin Calcium [Lipitor] 20 mg PO BEDTIME 01/25/21 [History] - CURRENT (IN HOUSE) MEDS Current Meds: Current Medications Lactated Ringer's (Ringers, Lactated) 1,000 mls @ 125 mls/hr IV ASDIRECTED JACQUI Stop: 01/28/21 23:00 Lidocaine/Sodium Bicarbonate (Lidocaine 1%/Sod Bicarbonate In Ns 8.4% 1 Ml Syringe) 0.25 ml IDERM ONETIME PRN PRN Reason: Prior to IV Start Stop: 01/28/21 23:00 Sodium Chloride (Sodium Chloride 0.9% 10 Ml Syringe) 10 ml FLUSH ASDIRECTED PRN PRN Reason: Keep Vein Open Stop: 01/28/21 23:00
[2021-01-28] MEDS ORDERED: Propofol 200 MG/20 ML SDV ONE (07:40)
[2021-01-28] MEDS ORDERED: ceFAZolin 1 GM Vial ONE (07:41)
[2021-01-28] MEDS ORDERED: Lidocaine 1% 4 ML ONE (07:41)
[2021-01-28] MEDS ORDERED: Midazolam 1 MG/ML 2 ML SDV ONE ×2 (07:41→08:47)
[2021-01-28] MEDS ORDERED: Lidocaine 1% with EPINEPHrine 1:100,000 10 ML MDV ONE ×2 (08:11→08:21)
[2021-01-28] MEDS ORDERED: Bupivacaine 0.5%/EPINEPHrine 1:200,000 50 ML MDV ONE (08:11)
--- NOTE | 2021-01-28 09:24 | PCM48HPAN ---
Post Anesthesia Note - EVALUATION WITHIN 48HRS OF ANESTHETIC Vital Signs in Normal Range: Yes Patient Participated in Evaluation: Yes Respiratory Function Stable: Yes Airway Patent: Yes Cardiovascular Function Stable: Yes Hydration Status Stable: Yes Pain Control Satisfactory: Yes Nausea and Vomiting Control Satisfactory: Yes Mental Status Recovered: Yes Vital Signs: Last Vital Signs Temp 36.7 C 01/28/21 07:00 Pulse 50 L 01/28/21 07:00 Resp 16 01/28/21 07:00 BP 137/38 L 01/28/21 07:00 Pulse Ox 99 01/28/21 07:00 - COMMENTS/OBSERVATIONS Free Text/Narrative:: no anesthesia complications noted
--- NOTE | 2021-01-28 09:48 | PROC ---
DATE OF OPERATION: 01/28/2021 SURGEON: Rodger Sales MD PREOPERATIVE DIAGNOSIS: Pancytopenia. POSTOPERATIVE DIAGNOSIS: Pancytopenia. PROCEDURE: Bone marrow biopsy and aspiration. ANESTHESIA: Monitored anesthesia care with local anesthetic consisting of 1% lidocaine with epinephrine 1:100,000. COMPLICATIONS: None. INDICATIONS AND CONSENT: The patient is a 70-year-old female with lupus. The patient has been having pancytopenia over the past year and this has been persistent. The patient saw Dr. Mims from [facility], who wanted to rule out myelodysplastic syndrome, and for this, a bone marrow biopsy is required. The patient was referred to me for this procedure. We discussed the procedure, risks, benefits, and alternatives. The patient agreed to proceed with the procedure and informed consent was obtained. Of note, the patient has severe chronic obstructive pulmonary disease. The patient is constantly on 2 to 3 L of oxygen as an outpatient. DETAILS OF PROCEDURE: The patient was taken to the procedure room, placed in left lateral decubitus position. Monitored anesthesia care was induced. Preop antibiotics consisting of Ancef were provided. A time-out was performed. The right posterior hip bone was palpated and an area of posterior superior iliac spine was palpated. This was marked at the skin level and the area was prepped and draped in the usual sterile fashion. Then, 20 mL of local anesthetic was infiltrated at the skin, deeper tissue, and periosteum. A small juan daniel was made and a core needle was placed into the bone. Initially, aspiration was taken, about 15 mL of bone marrow blood. Then, a core sample was obtained as well. Of note, the patient's bone was very thin and easily penetrated. Once this was done, pressure was placed at the site of entry. Dermabond was applied, Band-Aid and pressure dressing. The patient tolerated the procedure well. She will be taken to the recovery area and discharged home later today. The patient will follow up with Dr. Mims as previously scheduled, and if any complications arise, the patient will call my office. MMODAL /[id number] MTDKarissa
[2021-01-28 14:07] VITALS: BP 117/64; PULSE 72
== END 2021-01-28 10:22 | disposition home or self-care (01) ==
LOC: JD.SDS 06:51
PROVIDERS: ATTEND Surgery
DX: D61.818 Other pancytopenia (principal); D53.9 Nutritional anemia, unspecified; J44.9 Chronic obstructive pulmonary disease, unspecified; I50.9 Heart failure, unspecified; E11.9 Type 2 diabetes mellitus without complications; I11.0 Hypertensive heart disease with heart failure; E66.9 Obesity, unspecified; F17.210 Nicotine dependence, cigarettes, uncomplicated; E03.9 Hypothyroidism, unspecified; Z79.82 Long term (current) use of aspirin; Z98.890 Other specified postprocedural states; Z79.899 Other long term (current) drug therapy; Z88.8 Allergy status to other drugs, medicaments and biological substances; Z91.038 Other insect allergy status
CPT/HCPCS: 38222; 82947; 85007; 85027; 85046; 88237; J0690; J1642; J2250; J2704; J7120; 01112; 36415; 85097; 88184; 88187; 88305; 88311; 88313; 99100; J3490

== ENCOUNTER 2021-04-06 04:34 | Emergency (ER) | payer MEDICARE ==
[2021-04-06 04:45] VITALS: BP 140/120; PULSE 67
[2021-04-06] MEDS ORDERED: Oxymetazoline 0.05% Nasal Spray 30 ML Bottle NAS ONE (04:50)
--- NOTE | 2021-04-06 05:09 | EDM.PDOC ---
ED HPI GENERAL MEDICAL PROBLEM - General Chief Complaint: ENT Problem Stated Complaint: [facility] Time Seen by Provider: 04/06/21 04:43 Source of Information: Reports: Patient, EMS, RN Notes Reviewed - History of Present Illness INITIAL COMMENTS - FREE TEXT/NARRATIVE: 70 yr old female comes in with L sided nosebleed that started about 3 hrs ago. Unable to stop with pressure. Draining anteriorly and also getting drainage down the back of her throat. Takes daily aspirin in addition to many other meds. Has had occasional nose bleeds in the past but they have all stopped with pressure. - Related Data Allergies Allergy/AdvReac Type Severity Reaction Status Date / Time levofloxacin [From Levaquin] Allergy Severe Anaphylactic Verified 04/06/21 04:53 Shock metronidazole [From Flagyl] Allergy Intermediate Rash Verified 04/06/21 04:53 cefepime Allergy Mild Hives Verified 04/06/21 04:53 ciprofloxacin [From Cipro] Allergy Mild Hives Verified 04/06/21 04:53 ciprofloxacin HCl Allergy Mild Hives Verified 04/06/21 04:53 [From Cipro] fosfomycin Allergy Mild Hives Verified 04/06/21 04:53 Metronidazole HCl Allergy Mild Hives Verified 04/06/21 04:53 [From Flagyl] pertussis vaccine,adsorbed Allergy Mild Cannot Verified 04/06/21 04:53 [Pertussis Vaccine,Adsorbed] Remember vancomycin Allergy Mild Hives Verified 04/06/21 04:53 meperidine HCl [From Demerol] AdvReac Mild Vomiting Verified 04/06/21 04:53 Home Meds: Home Meds Aspirin [Halfprin] 81 mg PO DAILY 10/10/14 [History] Multivitamin [Daily Vitamin] 1 tab PO DAILY 10/10/14 [History] Chlorhexidine Gluconate [Peridex 0.12% Rinse] 15 ml MM BID PRN 02/07/17 [History] Nitroglycerin [Nitrostat] 0.4 mg SL Q5M PRN 02/07/17 [History] Lactobacillus Acidophilus [Acidophilus] 1 each PO BID 09/05/17 [History] Cranberry 400 mg PO TID PRN 10/16/18 [History] Losartan [Cozaar] 25 mg PO WITHLUNCH 10/16/18 [History] Metoprolol Tartrate [Lopressor] 25 mg PO BID 10/16/18 [History] Omeprazole 20 mg PO ACBREAKFAST 10/16/18 [History] Ondansetron [Zofran ODT] 4 mg PO TID PRN 10/16/18 [History] Pilocarpine HCl [Salagen] 5 mg PO TID 10/16/18 [History] Sodium Bicarbonate 650 mg PO TID 10/16/18 [History] Umeclidinium Brm/Vilanterol Tr [Anoro Ellipta 62.5-25 MCG] 1 each IH BEDTIME 10/16/18 [History] fentaNYL [Fentanyl] 12 mcg TOP ASDIRECTED 10/16/18 [History] Ipratropium/Albuterol Sulfate [Iprat-Albut 0.5-3(2.5) mg/3 ml] 3 ml INH TID 11/26/18 [History] Sertraline [Zoloft] 200 mg PO BEDTIME 11/26/18 [History] Spironolactone [Aldactone] 12.5 mg PO DAILY 11/26/18 [History] bisacodyL [Dulcolax] 10 mg PO DAILY PRN 11/26/18 [History] guaiFENesin [Mucus ER] 1,200 mg PO BID 11/26/18 [History] guaiFENesin/Dextromethorphan [Tussin DM Clear] 10 ml PO Q4HR PRN 11/26/18 [History] polyethylene glycoL 3350 [Miralax] 17 gm PO DAILY PRN 11/26/18 [History] traZODone HCl [Trazodone HCl] 100 mg PO TID 11/26/18 [History] Bumetanide [Bumex] 2 mg PO BID 01/20/20 [History] Docusate Sodium [Colace] 200 mg PO BID PRN 01/20/20 [History] Albuterol [Proventil HFA] 90 mcg INH Q6H PRN 01/21/20 [History] Hydrocortisone Acetate [Anusol-Hc] 25 mg RECTAL BEDTIME PRN 01/21/20 [History] Sennosides [Senna] 8.6 mg PO DAILY PRN 01/21/20 [History] Levothyroxine 200 mcg PO ACBREAKFAST #20 tablet 01/25/20 [Rx] Magnesium Oxide [Magnesium] 400 mg PO DAILY #4 tablet 01/26/20 [Rx] Tamsulosin [Flomax] 0.4 mg PO BEDTIME #15 cap.er 01/26/20 [Rx] Albuterol Sulfate [Albuterol Sulfate HFA] 1 puff INH Q6H PRN 01/25/21 [History] Cyanocobalamin (Vitamin B-12) [Vitamin B-12] 500 mcg PO DAILY 01/25/21 [History] Fluticasone Propionate [Flonase Allergy Relief] 1 dose NASBOTH DAILY 01/25/21 [History] Magnesium Hydroxide [Milk of Magnesia] 30 ml PO DAILY PRN 01/25/21 [History] Menthol/Zinc Oxide [Calmoseptine Ointment Packet] 1 dose TOP ASDIRECTED PRN 01/25/21 [History] Nystatin [Nystatin Crm] 1 dose TOP ASDIRECTED PRN 01/25/21 [History] atorvaSTATin Calcium [Lipitor] 20 mg PO BEDTIME 01/25/21 [History] Past Medical History HEENT History: Reports: Impaired Vision Other HEENT History: wears eyeglasses Cardiovascular History: Reports: Heart Failure, High Cholesterol, Hypertension, Other (See Below) Other Cardiovascular History: bundle branch block, lymphedema Respiratory History: Reports: COPD Other Respiratory History: wears O2 3 liters nasal cannula all the time at [facility]. Gastrointestinal History: Reports: Hemorrhoids Other Gastrointestinal History: hx:cdiff Genitourinary History: Reports: Chronic Renal Insuffiency, Renal Calculus Other Genitourinary History: renal failure from an infection, stage 3 kidney disease, stents placed in ureters for kidney stones but now gone STOCK CHASER History: Reports: None Musculoskeletal History: Reports: Arthritis, Fracture Neurological History: Reports: Neuropathy, Peripheral Other Neuro History: Lupus Psychiatric History: Reports: Anxiety, Depression, Panic Attack, Other (See Below) Other Psychiatric History: insomnia Endocrine/Metabolic History: Reports: Diabetes, Type II, Hypothyroidism, Obesity/BMI 30+ Hematologic History: Reports: Heparin Induced Thrombocytopenia, Iron Deficiency Immunologic History: Reports: SLE Oncologic (Cancer) History: Reports: Basal Cell Carcinoma Other Oncologic History: Basal cell carcinoma face Dermatologic History: Reports: Cellulitis, Other (See Below) Other Dermatologic History: Lymphedema, severe dry skin, Chronic sores to backs of legs, history of pressure ulcers - Infectious Disease History Infectious Disease History: Reports: C-Difficile, Chicken Pox, Hepatitis A, Influenza, Measles, Mumps, Rubella, Shingles - Past Surgical History Head Surgeries/Procedures: Reports: None HEENT Surgical History: Reports: Adenoidectomy, Oral Surgery, Tonsillectomy Other HEENT Surgeries/Procedures: states she needs cataract surgery but has not got it done yet. Cardiovascular Surgical History: Reports: None Respiratory Surgical History: Reports: None GI Surgical History: Reports: Appendectomy, Cholecystectomy Female Surgical History: Reports: Kidney stone extraction Endocrine Surgical History: Reports: None Other Endocrine Surgeries/Procedures: Radioactive iodine to remove goiter Neurological Surgical History: Reports: Lumbar Spine Musculoskeletal Surgical History: Reports: Arthroscopic Knee, Carpal Tunnel, Hip Replacement Other Musculoskeletal Surgeries/Procedures:: 2005 broke back after getting knocked down by a cow. L 2 or 3 she reports having had surgery....doesn't remember what kind. Oncologic Surgical History: Reports: None Dermatological Surgical History: Reports: None Social & Family History - Family History Family Medical History: No Pertinent Family History Cardiac: Reports: Heart Failure : Reports: Renal Disease/Insufficiency Oncologic: Reports: Lung - Tobacco Use Tobacco Use Status *Q: Former Tobacco User Used Tobacco, but Quit: Yes Month/Year Tobacco Last Used: 1986 - Caffeine Use Caffeine Use: Reports: Coffee, Soda Other Caffeine Use: one cup or tea or coffee every day with breakfast - Recreational Drug Use Recreational Drug Use: No - Living Situation & Occupation Living situation: Reports: Single, Extended Care Facility ([facility] Occupation: Retired ED ROS ENT - Review of Systems Review Of Systems: See Below Constitutional: Reports: No Symptoms HEENT: Reports: Nosebleed Respiratory: Denies: Shortness of Breath Cardiovascular: Denies: Chest Pain GI/Abdominal: Denies: Abdominal Pain, Vomiting Musculoskeletal: Reports: No Symptoms Skin: Reports: No Symptoms Neurological: Reports: No Symptoms ED EXAM, ENT - Physical Exam Exam: See Below General Appearance: Alert, Anxious, Mild Distress Nose: Active Bleeding (L nares, unable to see source due to vigorous bleeding at time of exam) Mouth/Throat: Other (there is blood visible down back of throat) Neck: Supple Respiratory/Chest: No Respiratory Distress, Lungs Clear Cardiovascular: Regular Rate, Rhythm Extremities: Normal Inspection Neurological: Alert, Oriented, No Motor/Sensory Deficits Skin: Warm, Dry, Normal Color ED ENT PROCEDURES - Epistaxis Procedure Indication: Uncontrolled Recent anticoagulants/antiplatlets: Yes Site of bleeding: Left Nare Clearing of clots: Patient Blew Nose Topical Meds: Topical Cocaine Chemical cautery: Silver Nitrate Topical Anterior Packing: Inflatable Nasal Tampon Course - Vital Signs Last Recorded V/S: Last Vital Signs Temp 97.7 F 04/06/21 04:39 Pulse 67 04/06/21 04:39 Resp 20 04/06/21 04:39 BP 140/120 H 04/06/21 04:39 Pulse Ox 96 04/06/21 04:39 - Orders/Labs/Meds Labs: Laboratory Tests 04/06/21 Range/Units 05:25 WBC 4.18 (3.98-10.04) K/mm3 RBC 3.35 L (3.98-5.22) M/mm3 Hgb 10.8 L (11.2-15.7) gm/dl Hct 35.7 (34.1-44.9) % MCV 106.6 H D (79.4-94.8) fl MCH 32.2 (25.6-32.2) pg MCHC 30.3 L (32.2-35.5) g/dl RDW Std Deviation 46.1 (36.4-46.3) fL Plt Count 92 L (182-369) K/mm3 MPV 11.2 (9.4-12.3) fl Neut % (Auto) 74.6 H (34.0-71.1) % Lymph % (Auto) 14.8 L (19.3-51.7) % [place] % (Auto) 7.7 (4.7-12.5) % Eos % (Auto) 2.9 (0.7-5.8) Baso % (Auto) 0.0 L (0.1-1.2) % Neut # (Auto) 3.12 (1.56-6.13) K/mm3 Lymph # (Auto) 0.62 L (1.18-3.74) K/mm3 [place] # (Auto) 0.32 (0.24-0.36) K/mm3 Eos # (Auto) 0.12 (0.04-0.36) K/mm3 Baso # (Auto) 0.00 L (0.01-0.08) K/mm3 Manual Slide Review Abnormal smear Meds: Medications Discontinued Medications Generic Name Dose Route Start Last Admin Trade Name Cele PRN Reason Stop Dose Admin Hydrocodone Bitart/Acetaminophen 1 tab 04/06/21 06:34 04/06/21 06:50 Acetaminophen/Hydrocodone 325-5 Mg Tab PO 04/06/21 06:35 1 tab ONETIME ONE Administration Cocaine HCl 4 ml 04/06/21 04:50 04/06/21 05:01 Cocaine 4 Ml Bottle TOP 04/06/21 04:51 4 ml ONETIME ONE Administration Cocaine HCl Confirm 04/06/21 04:50 04/06/21 05:02 Cocaine 4 Ml Bottle Administered 04/06/21 04:51 Not Given Dose 4 ml .ROUTE .STK-MED ONE Oxymetazoline HCl 2 ml 04/06/21 04:50 04/06/21 05:01 Oxymetazoline 0.05% Nasal Flora 30 Ml Bottle VÍCTOR 04/06/21 04:51 2 ml ONETIME ONE Administration - Re-Assessments/Exams Free Text/Narrative Re-Assessment/Exam: 04/06/21 06:23 Bleeding stopped after afrin nasal spray, cocaine and pressure L nares. Area of probable bleeding cauterized with silv. nitrate, had one brief episode of less severe bleeding that stopped, than started oozing again down the back of her throat. 6.[address] a few minutes ago. No further bleeding. Departure - Departure Time of Disposition: 06:47 Disposition: Home, Self-Care 01 Condition: Fair Clinical Impression: Epistaxis - Discharge Information Instructions: Nosebleed, Adult Referrals: Alexandra Samuels MD [Primary Care Provider] - Forms: ED Department Discharge Additional Instructions: A 6.5 cm Ant. Post. rhino balloon has been placed L nare. That should stay in until Thursday. That can be removed by [facility] staff if they are comfortable with that. Otherwise that can be removed at the clinic or return to ED to have that done. Tylenol 3 to 4 times daily for discomfort as needed. Sepsis Event Note (ED) - Evaluation Sepsis Screening Result: No Definite Risk
[2021-04-06] MEDS ORDERED: Acetaminophen/HYDROcodone 325-5 MG Tab PO ONE (06:34)
== END 2021-04-06 08:08 | disposition home or self-care (01) ==
LOC: JD.ED 04:34
DX: R04.0 Epistaxis (principal); I13.0 Hypertensive heart and chronic kidney disease with heart failure and stage 1 through stage 4 chronic kidney disease, or unspecified chronic kidney disease; E11.22 Type 2 diabetes mellitus with diabetic chronic kidney disease; N18.30 Chronic kidney disease, stage 3 unspecified; I50.9 Heart failure, unspecified; E78.00 Pure hypercholesterolemia, unspecified; J44.9 Chronic obstructive pulmonary disease, unspecified; M19.90 Unspecified osteoarthritis, unspecified site; E11.42 Type 2 diabetes mellitus with diabetic polyneuropathy; E03.9 Hypothyroidism, unspecified; E66.9 Obesity, unspecified; Z68.41 Body mass index [BMI] 40.0-44.9, adult; Z87.891 Personal history of nicotine dependence; Z88.1 Allergy status to other antibiotic agents; Z88.7 Allergy status to serum and vaccine; Z88.5 Allergy status to narcotic agent; Z79.82 Long term (current) use of aspirin; Z79.899 Other long term (current) drug therapy
CPT/HCPCS: 30903; 36415; 85025; 99283; A9270

== ENCOUNTER 2021-06-24 08:16 | Day surgery (SDC) | payer MEDICARE ==
[~2021-06-24 08:16] MED LIST changes: +Albuterol 0.083% 2.5 MG/3 ML Neb Soln NEB SCH; +Lidocaine 1% 4 ML ONE; +Propofol 200 MG/20 ML SDV ONE; -Sodium Chloride 0.9% 10 ML Syringe FLUSH PRN; +Sodium Chloride 0.9% 10 ML Syringe FLUSH SCH
[2021-06-24] MEDS ORDERED: Propofol 200 MG/20 ML SDV ONE (09:38)
[2021-06-24 11:04] VITALS: BP 128/76; PULSE 78
== END 2021-06-24 11:00 | disposition home or self-care (01) ==
LOC: JD.SDS 08:16
PROVIDERS: ATTEND Surgery
DX: D12.0 Benign neoplasm of cecum (principal); D12.2 Benign neoplasm of ascending colon; K29.71 Gastritis, unspecified, with bleeding; K64.1 Second degree hemorrhoids; J44.9 Chronic obstructive pulmonary disease, unspecified; G47.33 Obstructive sleep apnea (adult) (pediatric); I50.9 Heart failure, unspecified; F41.9 Anxiety disorder, unspecified; F32.A Depression, unspecified; I13.0 Hypertensive heart and chronic kidney disease with heart failure and stage 1 through stage 4 chronic kidney disease, or unspecified chronic kidney disease; E11.22 Type 2 diabetes mellitus with diabetic chronic kidney disease; N18.30 Chronic kidney disease, stage 3 unspecified; E66.9 Obesity, unspecified; Z90.49 Acquired absence of other specified parts of digestive tract; Z98.890 Other specified postprocedural states; Z88.8 Allergy status to other drugs, medicaments and biological substances; Z88.7 Allergy status to serum and vaccine; Z87.891 Personal history of nicotine dependence; Z68.41 Body mass index [BMI] 40.0-44.9, adult
CPT/HCPCS: 43239; 45380; 45385; 82947; 88305; J2704; J7120; 00813; 99100

== ENCOUNTER 2021-09-04 14:36 | Emergency (ER) | payer MEDICARE ==
[2021-09-04 14:49] VITALS: BP 99/78; PULSE 75
[2021-09-04] MEDS ORDERED: HYDROmorphone 0.5 MG/0.5 ML Syringe IM ONE (15:13)
== END 2021-09-04 17:20 | disposition home or self-care (01) ==
LOC: JD.ED 14:36
DX: M17.12 Unilateral primary osteoarthritis, left knee (principal); E11.22 Type 2 diabetes mellitus with diabetic chronic kidney disease; I13.0 Hypertensive heart and chronic kidney disease with heart failure and stage 1 through stage 4 chronic kidney disease, or unspecified chronic kidney disease; N18.30 Chronic kidney disease, stage 3 unspecified; I50.9 Heart failure, unspecified; E78.00 Pure hypercholesterolemia, unspecified; J44.9 Chronic obstructive pulmonary disease, unspecified; Z88.1 Allergy status to other antibiotic agents; Z88.5 Allergy status to narcotic agent; Z88.8 Allergy status to other drugs, medicaments and biological substances; Z79.82 Long term (current) use of aspirin; Z79.899 Other long term (current) drug therapy
CPT/HCPCS: 36415; 73560-26-LT; 73560-LT; 84550; 85025; 85652; 86140; 93971-26-LT; 93971-LT; 96372; 99284; 99284-25; J1170

== ENCOUNTER 2022-03-28 14:56 | Emergency (ER) | payer MEDICARE ==
[2022-03-28 15:45] VITALS: BP 152/77; PULSE 84
[2022-03-28] MEDS ORDERED: Magnesium Oxide 400 MG Tab PO ONE (17:04)
[2022-03-28] MEDS ORDERED: Polyethylene Glycol 3350 Powder 17 GM Packet PO ONE (17:05)
== END 2022-03-28 21:30 | disposition home or self-care (01) ==
LOC: JD.ED 14:56
DX: M51.87 Other intervertebral disc disorders, lumbosacral region (principal); M46.96 Unspecified inflammatory spondylopathy, lumbar region; K59.01 Slow transit constipation; S32.010S Wedge compression fracture of first lumbar vertebra, sequela; I11.0 Hypertensive heart disease with heart failure; I50.9 Heart failure, unspecified; J44.9 Chronic obstructive pulmonary disease, unspecified; E78.00 Pure hypercholesterolemia, unspecified; E11.9 Type 2 diabetes mellitus without complications; E66.9 Obesity, unspecified; Z68.38 Body mass index [BMI] 38.0-38.9, adult; Z88.1 Allergy status to other antibiotic agents; Z88.8 Allergy status to other drugs, medicaments and biological substances; Z88.7 Allergy status to serum and vaccine; Z79.82 Long term (current) use of aspirin; Z79.899 Other long term (current) drug therapy; Z90.49 Acquired absence of other specified parts of digestive tract
CPT/HCPCS: 74176; 74176-26; 99284; A9270-GY

== ENCOUNTER 2023-03-19 14:49 | Day surgery (SDC) | payer MEDICARE ==
[2023-03-19] MEDS: Polymyxin B/Trimethoprim 10 ML Bottle EYERT SCH ×3 (13:41→15:04)
[2023-03-19] MEDS: Brimonidine 0.2% Ophth Soln 5 ML Bottle EYERT SCH ×3 (13:44→15:04)
[2023-03-19] MEDS: Phenylephrine 2.5% Ophth Soln 2 ML Bot EYERT SCH ×5 (13:47→14:24)
[2023-03-19] MEDS: Tropicamide 1% Ophth Soln 3 ML Bottle EYERT SCH ×4 (13:50→14:15)
[2023-03-19] MEDS: Tetracaine HCl/PF 0.5% 4 ML Bottle EYEBOTH SCH ×4 (14:19→14:42)
[~2023-03-19 14:49] MED LIST changes: -Albuterol 0.083% 2.5 MG/3 ML Neb Soln NEB SCH; +Cefuroxime 10 MG/ML SYRINGE EYERT SCH; -Lactated Ringers 1,000 ML IV SCH; -Lidocaine 1% 4 ML ONE; +Lidocaine 1% PF 2 ML SDV INJECT SCH; -Lidocaine 1%/Sod Bicarbonate in NS 8.4% 1 ML Syringe IDERM PRN; +Pilocarpine 4% Ophth Soln 15 ML Bot EYERT SCH; -Propofol 200 MG/20 ML SDV ONE; -Sodium Chloride 0.9% 10 ML Syringe FLUSH SCH
[2023-03-19 15:18] VITALS: BP 141/80; PULSE 74
== END 2023-03-19 15:30 ==
LOC: JD.SDS 14:49
PROVIDERS: ATTEND Ophthalmology
DX: E11.36 Type 2 diabetes mellitus with diabetic cataract (principal); H25.813 Combined forms of age-related cataract, bilateral; H17.13 Central corneal opacity, bilateral; H21.81 Floppy iris syndrome; F41.9 Anxiety disorder, unspecified; J44.9 Chronic obstructive pulmonary disease, unspecified; F03.90 Unspecified dementia, unspecified severity, without behavioral disturbance, psychotic disturbance, mood disturbance, and anxiety; I13.0 Hypertensive heart and chronic kidney disease with heart failure and stage 1 through stage 4 chronic kidney disease, or unspecified chronic kidney disease; N18.30 Chronic kidney disease, stage 3 unspecified; I50.9 Heart failure, unspecified; E11.22 Type 2 diabetes mellitus with diabetic chronic kidney disease; H21.41 Pupillary membranes, right eye; F32.A Depression, unspecified; H40.9 Unspecified glaucoma; E11.42 Type 2 diabetes mellitus with diabetic polyneuropathy; E78.00 Pure hypercholesterolemia, unspecified; K21.9 Gastro-esophageal reflux disease without esophagitis; G47.33 Obstructive sleep apnea (adult) (pediatric); E03.9 Hypothyroidism, unspecified; E66.9 Obesity, unspecified; Z68.41 Body mass index [BMI] 40.0-44.9, adult; Z90.89 Acquired absence of other organs; Z87.891 Personal history of nicotine dependence; Z90.49 Acquired absence of other specified parts of digestive tract; Z79.82 Long term (current) use of aspirin; Z79.51 Long term (current) use of inhaled steroids; Z79.899 Other long term (current) drug therapy; Z79.890 Hormone replacement therapy; Z88.1 Allergy status to other antibiotic agents; Z88.8 Allergy status to other drugs, medicaments and biological substances; Z88.7 Allergy status to serum and vaccine
CPT/HCPCS: A9270-GY; J3490; V2632

== ENCOUNTER 2023-04-20 17:43 | Emergency (ER) | payer MEDICARE ==
[2023-04-20 17:52] VITALS: BP 138/75; PULSE 69
[2023-04-20] MEDS ORDERED: Sodium Chloride 0.9% 10 ML Syringe FLUSH PRN (18:46)
[2023-04-20 19:32] LABS: BASOPHILS PERCENT AUTO 0.3 % (0.0-1.0); EOSINOPHILS ABSOLUTE AUTO 0.1 K/mm3 (0.0-0.4); HEMATOCRIT 38.8 % (37.0-47.0); HEMOGLOBIN 12.4 gm/dl (12.0-16.0); IMMATURE GRAN ABSOLUTE AUTO 0.02 K/mm3 (0.00-0.05); IMMATURE GRAN PERCENT AUTO 0.3 % (0.0-0.4); LYMPHOCYTES ABSOLUTE AUTO 0.8 K/mm3 (1.0-4.8); LYMPHOCYTES PERCENT AUTO 10.5 % (24.0-44.0); MEAN CORPUSCULAR HEMOGLOBIN 33.6 pg (28.0-32.0); MEAN CORPUSCULAR VOLUME 105.1 fl (83.0-99.0); MEAN PLATELET VOLUME 11.1 fl (9.4-12.3); MONOCYTES ABSOLUTE AUTO 0.7 K/mm3 (0.0-0.8); MONOCYTES PERCENT AUTO 9.9 % (0.0-8.0); NEUTROPHILS ABSOLUTE AUTO 5.5 K/mm3 (1.8-7.7); PLATELET COUNT,PLT 88 K/mm3 (150-400); RED BLOOD CELL COUNT 3.69 M/mm3 (4.10-5.30); WHITE BLOOD CELL COUNT,WBC 7.14 K/mm3 (3.9-11.3)
[2023-04-20 19:51] LABS: PROTHROMBIN TIME 10.7 SECONDS (9.7-12.0)
[2023-04-20 20:05] LABS: A/G RATIO 0.8 (1-2); ALBUMIN 3.5 g/dl (3.4-5.0); ANION GAP 7.3 (5-15); BILIRUBIN TOTAL 0.4 mg/dL (0.2-1.0); BUN/CREATININE RATIO 25.5 (14-18); CALCIUM 9.5 mg/dL (8.5-10.1); CREATININE 1.1 mg/dL (0.55-1.02); EST CRCL DRUG DOSING (CG) 47.6 mL/min; MAGNESIUM 2.2 mg/dL (1.8-2.4); POTASSIUM,K 4.3 mEq/L (3.5-5.1); PROTEIN TOTAL,TP 7.8 g/dl (6.4-8.2)
[2023-04-20] MEDS ORDERED: Ketorolac 15 MG/ML SDV IVPUSH ONE (22:53)
== END 2023-04-21 | disposition home or self-care (01) ==
LOC: JD.ED 17:43
DX: R07.89 Other chest pain (principal); I13.0 Hypertensive heart and chronic kidney disease with heart failure and stage 1 through stage 4 chronic kidney disease, or unspecified chronic kidney disease; I50.9 Heart failure, unspecified; N18.30 Chronic kidney disease, stage 3 unspecified; E78.00 Pure hypercholesterolemia, unspecified; J44.9 Chronic obstructive pulmonary disease, unspecified; E11.40 Type 2 diabetes mellitus with diabetic neuropathy, unspecified; E03.9 Hypothyroidism, unspecified; E66.9 Obesity, unspecified; Z90.49 Acquired absence of other specified parts of digestive tract; Z87.891 Personal history of nicotine dependence; Z79.82 Long term (current) use of aspirin; Z79.899 Other long term (current) drug therapy; Z88.1 Allergy status to other antibiotic agents; Z88.5 Allergy status to narcotic agent; Z88.8 Allergy status to other drugs, medicaments and biological substances; Z88.7 Allergy status to serum and vaccine; Z68.39 Body mass index [BMI] 39.0-39.9, adult
CPT/HCPCS: 36415; 71045; 80053; 83735; 84484; 85025; 85610; 93005; 96374; 99285; J1885; J3490

== ENCOUNTER 2023-04-25 11:56 | Emergency (ER) | payer MEDICARE ==
[2023-04-25 13:59] LABS: BASOPHILS PERCENT AUTO 0.2 % (0.0-1.0); EOSINOPHILS ABSOLUTE AUTO 0.1 K/mm3 (0.0-0.4); EOSINOPHILS PERCENT AUTO 0.8 % (0.0-6.0); HEMATOCRIT 38.6 % (37.0-47.0); HEMOGLOBIN 12.3 gm/dl (12.0-16.0); IMMATURE GRAN ABSOLUTE AUTO 0.04 K/mm3 (0.00-0.05); IMMATURE GRAN PERCENT AUTO 0.5 % (0.0-0.4); LYMPHOCYTES ABSOLUTE AUTO 0.6 K/mm3 (1.0-4.8); LYMPHOCYTES PERCENT AUTO 6.5 % (24.0-44.0); MEAN CORPUSCULAR HEMOGLOBIN 33.9 pg (28.0-32.0); MEAN CORPUSCULAR HGB CONC 31.9 g/dl (32.0-36.0); MEAN CORPUSCULAR VOLUME 106.3 fl (83.0-99.0); MEAN PLATELET VOLUME 10.8 fl (9.4-12.3); MONOCYTES ABSOLUTE AUTO 0.9 K/mm3 (0.0-0.8); MONOCYTES PERCENT AUTO 10.1 % (0.0-8.0); NEUTROPHILS ABSOLUTE AUTO 7.1 K/mm3 (1.8-7.7); NEUTROPHILS PERCENT AUTO 81.9 % (41.0-71.0); PLATELET COUNT,PLT 113 K/mm3 (150-400); RED BLOOD CELL COUNT 3.63 M/mm3 (4.10-5.30); WHITE BLOOD CELL COUNT,WBC 8.65 K/mm3 (3.9-11.3)
[2023-04-25 14:20] LABS: APPEARANCE,URINE CLEAR (Clear); BILIRUBIN,URINE NEGATIVE (Negative); COLOR,URINE YELLOW (Yellow); GLUCOSE,URINE NEGATIVE (Negative); KETONES,URINE NEGATIVE (Negative); LEUKOCYTE ESTERASE,URINE 1+ (Negative); NITRITE,URINE NEGATIVE (Negative); OCCULT BLOOD,URINE NEGATIVE (Negative); PROTEIN,URINE 1+ (Negative); UROBILINOGEN,URINE 0.2 (0.2-1.0)
[2023-04-25 14:27] LABS: A/G RATIO 0.6 (1-2); ALANINE AMINOTRANSFERASE,ALT 17 U/L (14-59); ALBUMIN 3.2 g/dl (3.4-5.0); ALKALINE PHOSPHATASE 102 U/L (46-116); ANION GAP 5.1 (5-15); ASPARTATE AMNIOTRANSFERASE,AST 17 U/L (15-37); BILIRUBIN TOTAL 0.6 mg/dL (0.2-1.0); BLOOD UREA NITROGEN,BUN 20 mg/dL (7-18); BUN/CREATININE RATIO 18.2 (14-18); CALCIUM 10.1 mg/dL (8.5-10.1); CHLORIDE,CL 97 mEq/L (98-107); CREATININE 1.1 mg/dL (0.55-1.02); ESTIMATED GFR 53 mL/min (>60); GLUCOSE RANDOM 134 mg/dL (70-99); POTASSIUM,K 4.1 mEq/L (3.5-5.1); PROTEIN TOTAL,TP 8.5 g/dl (6.4-8.2); SODIUM,NA 139 mEq/L (136-145); TROPONIN I HIGH SENSITIVITY 27 pg/mL (<=51)
[2023-04-25 14:28] LABS: BACTERIA,URINE MODERATE /hpf (FEW); EPITHELIAL CELLS,URINE 0-5 /hpf (0-5); MUCUS,URINE FEW /hpf (FEW); RBC,URINE 0-5 /hpf (0-5)
[2023-04-25 14:34] LABS: CARBON DIOXIDE,CO2 41 mEq/L (21-32)
[2023-04-25] MEDS ORDERED: Bumetanide 1 MG/4 ML MDV IVPUSH ONE (14:56)
[2023-04-25 15:00] LABS: CORONAVIRUS COVID-19 NAA NEGATIVE (NEGATIVE); INFLUENZA A NAA NEGATIVE (NEGATIVE); RESPIRATORY SYNCYTIAL VIR NAA NEGATIVE (NEGATIVE)
[2023-04-25] MEDS ORDERED: Albuterol/Ipratropium 3.0-0.5 MG/3 ML Neb Soln NEB ONE (15:02)
[2023-04-25] MEDS ORDERED: predniSONE 20 MG Tab PO ONE (15:04)
[2023-04-25] MEDS ORDERED: Doxycycline Monohydrate 100 MG Cap PO ONE (15:46)
[2023-04-25] MEDS ORDERED: Amoxicillin/Clavulanate K 875-125 MG Tab PO ONE (15:50)
[2023-04-25 16:16] VITALS: BP 173/82; PULSE 95
== END 2023-04-25 16:30 | disposition home or self-care (01) ==
LOC: JD.ED 11:56
DX: J18.9 Pneumonia, unspecified organism (principal); N39.0 Urinary tract infection, site not specified; J44.9 Chronic obstructive pulmonary disease, unspecified; I13.0 Hypertensive heart and chronic kidney disease with heart failure and stage 1 through stage 4 chronic kidney disease, or unspecified chronic kidney disease; I50.9 Heart failure, unspecified; N18.30 Chronic kidney disease, stage 3 unspecified; E11.22 Type 2 diabetes mellitus with diabetic chronic kidney disease; E03.9 Hypothyroidism, unspecified; E66.9 Obesity, unspecified; E78.00 Pure hypercholesterolemia, unspecified; E11.42 Type 2 diabetes mellitus with diabetic polyneuropathy; Z79.899 Other long term (current) drug therapy; Z79.82 Long term (current) use of aspirin; Z20.822 Contact with and (suspected) exposure to COVID-19; Z88.1 Allergy status to other antibiotic agents; Z88.7 Allergy status to serum and vaccine; Z88.8 Allergy status to other drugs, medicaments and biological substances
CPT/HCPCS: 0241U; 36415; 70450; 70450-26; 71045; 71045-26; 80053; 81001; 83880; 84484; 85025; 87086; 87088; 87186; 93005; 93010; 94640; 96374; 99284; 99285-25; A9270-GY; J3490; J7512; J7620-GY

== ENCOUNTER 2023-05-18 11:00 | Day surgery (SDC) | payer MEDICARE ==
[2023-05-18] MEDS: Polymyxin B/Trimethoprim 10 ML Bottle EYELF SCH ×3 (10:47→12:27)
[2023-05-18] MEDS: Brimonidine 0.2% Ophth Soln 5 ML Bottle EYELF SCH ×3 (10:52→12:27)
[2023-05-18] MEDS: Phenylephrine 2.5% Ophth Soln 2 ML Bot EYELF SCH ×5 (10:57→11:56)
[~2023-05-18 11:00] MED LIST changes: +Brimonidine 0.2% Ophth Soln 5 ML Bottle EYELF SCH; +Cefuroxime 10 MG/ML SYRINGE EYELF SCH; -Cefuroxime 10 MG/ML SYRINGE EYERT SCH; +Phenylephrine 2.5% Ophth Soln 2 ML Bot EYELF SCH; +Pilocarpine 4% Ophth Soln 15 ML Bot EYELF SCH; -Pilocarpine 4% Ophth Soln 15 ML Bot EYERT SCH; +Polymyxin B/Trimethoprim 10 ML Bottle EYELF SCH; +Tetracaine HCl/PF 0.5% 4 ML Bottle EYEBOTH SCH; +Tropicamide 1% Ophth Soln 3 ML Bottle EYELF SCH
[2023-05-18] MEDS: Tropicamide 1% Ophth Soln 3 ML Bottle EYELF SCH ×4 (11:02→11:37)
[2023-05-18] MEDS: Proparacaine 0.5% Ophth Soln 15 ML Bottle EYEBOTH SCH ×3 (11:49→12:11)
[2023-05-18 12:45] VITALS: BP 159/84; PULSE 86
== END 2023-05-18 12:40 | disposition home or self-care (01) ==
LOC: JD.SDS 11:00
PROVIDERS: ATTEND Ophthalmology
DX: H26.9 Unspecified cataract (principal); H21.81 Floppy iris syndrome; H21.40 Pupillary membranes, unspecified eye; J44.9 Chronic obstructive pulmonary disease, unspecified; I13.0 Hypertensive heart and chronic kidney disease with heart failure and stage 1 through stage 4 chronic kidney disease, or unspecified chronic kidney disease; I50.9 Heart failure, unspecified; E11.22 Type 2 diabetes mellitus with diabetic chronic kidney disease; N18.30 Chronic kidney disease, stage 3 unspecified; E11.42 Type 2 diabetes mellitus with diabetic polyneuropathy; E78.00 Pure hypercholesterolemia, unspecified; E03.9 Hypothyroidism, unspecified; E66.9 Obesity, unspecified; F32.A Depression, unspecified; Z90.49 Acquired absence of other specified parts of digestive tract; Z79.82 Long term (current) use of aspirin; Z79.890 Hormone replacement therapy; Z79.899 Other long term (current) drug therapy; Z88.8 Allergy status to other drugs, medicaments and biological substances
CPT/HCPCS: 66982; A9270; C1780; J0697; J3490

== ENCOUNTER 2023-05-25 09:24 | Emergency (ER) | payer MEDICARE ==
[2023-05-25] MEDS ORDERED: Ibuprofen 600 MG Tab PO ONE (10:24)
[2023-05-25 14:25] VITALS: BP 126/81; PULSE 65
== END 2023-05-25 10:55 | disposition home or self-care (01) ==
LOC: JD.ED 09:24
DX: S93.401A Sprain of unspecified ligament of right ankle, initial encounter (principal); I13.0 Hypertensive heart and chronic kidney disease with heart failure and stage 1 through stage 4 chronic kidney disease, or unspecified chronic kidney disease; I50.9 Heart failure, unspecified; N18.9 Chronic kidney disease, unspecified; E11.22 Type 2 diabetes mellitus with diabetic chronic kidney disease; E03.9 Hypothyroidism, unspecified; E66.9 Obesity, unspecified; J44.9 Chronic obstructive pulmonary disease, unspecified; Z79.899 Other long term (current) drug therapy; Z79.82 Long term (current) use of aspirin; Z88.7 Allergy status to serum and vaccine; Z88.1 Allergy status to other antibiotic agents; Z88.8 Allergy status to other drugs, medicaments and biological substances; Z88.6 Allergy status to analgesic agent; Z68.41 Body mass index [BMI] 40.0-44.9, adult; X50.1XXA Overexertion from prolonged static or awkward postures, initial encounter; Y92.002 Bathroom of unspecified non-institutional (private) residence as the place of occurrence of the external cause
CPT/HCPCS: 73610-26-RT; 73610-RT; 99283

== ENCOUNTER 2023-06-03 14:21 | Inpatient (IN) | payer MEDICARE ==
[2023-06-03] MEDS ORDERED: Sodium Chloride 0.9% 10 ML Syringe FLUSH PRN ×2 (14:27→14:47)
[2023-06-03] MEDS ORDERED: Albuterol/Ipratropium 3.0-0.5 MG/3 ML Neb Soln NEB ONE (14:44)
[2023-06-03] MEDS ORDERED: Iopamidol 755 Mg/ML 100 ML Bottle IVPUSH ONE (14:47)
[2023-06-03 14:50] LABS: BASOPHILS PERCENT AUTO 0.2 % (0.0-1.0); EOSINOPHILS ABSOLUTE AUTO 0.2 K/mm3 (0.0-0.4); EOSINOPHILS PERCENT AUTO 2.6 % (0.0-6.0); HEMATOCRIT 38.2 % (37.0-47.0); HEMOGLOBIN 11.3 gm/dl (12.0-16.0); IMMATURE GRAN ABSOLUTE AUTO 0.04 K/mm3 (0.00-0.05); IMMATURE GRAN PERCENT AUTO 0.7 % (0.0-0.4); LYMPHOCYTES PERCENT AUTO 15.9 % (24.0-44.0); MEAN CORPUSCULAR HEMOGLOBIN 32.6 pg (28.0-32.0); MEAN CORPUSCULAR HGB CONC 29.6 g/dl (32.0-36.0); MEAN CORPUSCULAR VOLUME 110.1 fl (83.0-99.0); MEAN PLATELET VOLUME 9.9 fl (9.4-12.3); MONOCYTES ABSOLUTE AUTO 0.5 K/mm3 (0.0-0.8); MONOCYTES PERCENT AUTO 8.1 % (0.0-8.0); NEUTROPHILS ABSOLUTE AUTO 4.4 K/mm3 (1.8-7.7); NEUTROPHILS PERCENT AUTO 72.5 % (41.0-71.0); PLATELET COUNT,PLT 128 K/mm3 (150-400); RED BLOOD CELL COUNT 3.47 M/mm3 (4.10-5.30); WHITE BLOOD CELL COUNT,WBC 6.05 K/mm3 (3.9-11.3)
[2023-06-03] MEDS ORDERED: Sodium Chloride 0.9% 45 ML IV SCH (15:00)
[2023-06-03 15:20] LABS: A/G RATIO 0.6 (1-2); ALANINE AMINOTRANSFERASE,ALT 17 U/L (14-59); ALBUMIN 2.8 g/dl (3.4-5.0); ALKALINE PHOSPHATASE 99 U/L (46-116); ASPARTATE AMNIOTRANSFERASE,AST 13 U/L (15-37); BILIRUBIN TOTAL 0.5 mg/dL (0.2-1.0); BLOOD UREA NITROGEN,BUN 17 mg/dL (7-18); CHLORIDE,CL 97 mEq/L (98-107); ESTIMATED GFR 59 mL/min (>60); GLUCOSE RANDOM 143 mg/dL (70-99); POTASSIUM,K 3.7 mEq/L (3.5-5.1); PROTEIN TOTAL,TP 7.7 g/dl (6.4-8.2); SODIUM,NA 142 mEq/L (136-145)
[2023-06-03 15:32] LABS: ANION GAP -3.3 (5-15); C-REACTIVE PROTEIN < 0.2 mg/dL (<1.0)
[2023-06-03 15:33] LABS: CARBON DIOXIDE,CO2 52 mEq/L (21-32)
[2023-06-03 15:47] LABS: SLIDE REVIEW ABNORMAL SMEAR
[2023-06-03 15:49] LABS: BASE EXCESS ARTERIAL 21.8 (-2-2.0); BICARBONATE,ARTERIAL 51.5 meq/L (22.0-26.0); O2 SATURATION ARTERIAL 91.5 % (96.0-97.0)
[2023-06-03 15:51] LABS: PCO2 ARTERIAL 96.3 mmHg (35.0-45.0)
[2023-06-03] MEDS ORDERED: methylPREDNISolone Sodium Succinate 125 MG/2 ML SDV IVPUSH ONE (16:02)
[2023-06-03] MEDS ORDERED: cefTRIAXone 2 GM in Sodium Chloride 0.9% 100 ML IV ONE (16:02)
[2023-06-03] MEDS ORDERED: Furosemide 40 MG/4 ML VIAL IVPUSH ONE (16:13)
[2023-06-03 16:37] LABS: CORONAVIRUS COVID-19 NAA NEGATIVE (NEGATIVE); INFLUENZA A NAA NEGATIVE (NEGATIVE); RESPIRATORY SYNCYTIAL VIR NAA NEGATIVE (NEGATIVE)
[2023-06-03] MEDS ORDERED: Ondansetron 4 MG Tab.DIS PO PRN (18:24)
[2023-06-03] MEDS ORDERED: Morphine 2 MG/ML SYRINGE IVPUSH PRN (18:24)
[2023-06-03] MEDS ORDERED: Acetaminophen 325 MG Tab PO PRN (18:24)
[2023-06-03] MEDS ORDERED: Albuterol 0.083% 2.5 MG/3 ML Neb Soln NEB PRN (18:24)
[2023-06-03] MEDS ORDERED: Acetaminophen/HYDROcodone 325-5 MG Tab PO PRN (18:24)
[2023-06-03] MEDS ORDERED: Zolpidem 5 MG Tab PO PRN (18:24)
[2023-06-03] MEDS ORDERED: Docusate Sodium 100 MG Cap PO PRN (18:24)
[2023-06-03] MEDS ORDERED: Chlorhexidine Gluconate 0.12% Oral Rinse 118 ML Bottle MM PRN (18:29)
[2023-06-03] MEDS ORDERED: guaiFENesin/Dextromethorphan 100-10 MG/5 ML Soln 5 ML Cup PO PRN (18:29)
[2023-06-03] MEDS ORDERED: Bisacodyl 5 MG Tab PO PRN (18:29)
[2023-06-03] MEDS ORDERED: cefTRIAXone 1 GM Vial IM SCH (18:45)
[2023-06-03] MEDS: methylPREDNISolone Sodium Succinate 40 MG/1 ML SDV IVPUSH SCH (20:53)
[2023-06-03] MEDS: Heparin Sodium 5,000 Units/ML Vial SUBCUT SCH (20:54)
[2023-06-03] MEDS: Metoprolol Tartrate 50 MG Tab PO SCH (20:54)
[2023-06-03] MEDS: traMADol 50 MG Tab PO SCH (20:54)
[2023-06-03] MEDS: traZODone 50 MG Tab PO SCH (20:55)
[2023-06-03] MEDS: atorvaSTATin 20 MG Tab PO SCH (20:55)
[2023-06-03] MEDS: Sertraline 50 MG Tab PO SCH (20:55)
[2023-06-03] MEDS: guaiFENesin 600 MG Tab.ER PO SCH (20:55)
[2023-06-03] MEDS: Tamsulosin 0.4 MG Cap.ER PO SCH (20:56)
[2023-06-03] MEDS ORDERED: LACTOBACILLUS ACIDOPHILUS PO SCH (21:00)
[2023-06-03] MEDS ORDERED: Sodium Bicarbonate 650 MG Tab PO SCH ×2 (21:00)
[2023-06-03] MEDS ORDERED: PILOCARPINE 5 MG PO SCH (21:00)
[2023-06-03] MEDS: Furosemide 20 MG/2 ML VIAL IVPUSH SCH (21:00)
[2023-06-03] MEDS: Albuterol/Ipratropium 3.0-0.5 MG/3 ML Neb Soln NEB SCH (21:32)
[2023-06-04] MEDS: Albuterol/Ipratropium 3.0-0.5 MG/3 ML Neb Soln NEB SCH ×5 (01:44→21:14)
[2023-06-04] MEDS: methylPREDNISolone Sodium Succinate 40 MG/1 ML SDV IVPUSH SCH ×2 (03:29→11:44)
[2023-06-04] MEDS: traMADol 50 MG Tab PO SCH ×3 (03:29→20:44)
[2023-06-04] MEDS: Furosemide 20 MG/2 ML VIAL IVPUSH SCH ×3 (05:00→21:01)
[2023-06-04] MEDS: Omeprazole 20 MG Cap.CR PO SCH (05:00)
[2023-06-04] MEDS: Levothyroxine 100 MCG Tab PO SCH (05:00)
[2023-06-04 06:09] LABS: HEMATOCRIT 36.7 % (37.0-47.0); HEMOGLOBIN 11.4 gm/dl (12.0-16.0); MEAN CORPUSCULAR HEMOGLOBIN 33.3 pg (28.0-32.0); MEAN CORPUSCULAR HGB CONC 31.1 g/dl (32.0-36.0); MEAN CORPUSCULAR VOLUME 107.3 fl (83.0-99.0); MEAN PLATELET VOLUME 10.5 fl (9.4-12.3); PLATELET COUNT,PLT 136 K/mm3 (150-400); RED BLOOD CELL COUNT 3.42 M/mm3 (4.10-5.30)
[2023-06-04 06:26] LABS: BUN/CREATININE RATIO 24.5 (14-18); CALCIUM 8.9 mg/dL (8.5-10.1); CREATININE 1.1 mg/dL (0.55-1.02); MAGNESIUM 2.3 mg/dL (1.8-2.4); PHOSPHORUS 2.2 mg/dL (2.6-4.7); POTASSIUM,K 3.8 mEq/L (3.5-5.1)
[2023-06-04 06:45] LABS: ANION GAP 3.8 (5-15)
[2023-06-04] MEDS: Fluticasone NASAL Spray 16 GM Bottle NASBOTH SCH (08:01)
[2023-06-04] MEDS: Cholestyramine/Sucrose Powder 4 GM Packet PO SCH (08:02)
[2023-06-04] MEDS: ARIPiprazole 5 MG Tab PO SCH (08:02)
[2023-06-04] MEDS: guaiFENesin 600 MG Tab.ER PO SCH ×2 (08:03→20:47)
[2023-06-04] MEDS: traZODone 50 MG Tab PO SCH (08:04)
[2023-06-04] MEDS: Potassium Chloride 10 MEQ Tab.ER PO SCH (08:04)
[2023-06-04] MEDS: Metoprolol Tartrate 50 MG Tab PO SCH ×2 (08:05→20:50)
[2023-06-04] MEDS: Spironolactone 25 MG Tab PO SCH (08:06)
[2023-06-04] MEDS: Magnesium Oxide 400 MG Tab PO SCH (08:06)
[2023-06-04] MEDS: Sodium Bicarbonate 650 MG Tab PO SCH ×3 (08:06→20:51)
[2023-06-04] MEDS: Mirtazapine 30 MG Tab PO SCH (08:07)
[2023-06-04] MEDS: Multivitamin Tab PO SCH (08:07)
[2023-06-04] MEDS: Cyanocobalamin (Vitamin B12) 1,000 MCG Tab PO SCH (08:07)
[2023-06-04] MEDS: Aspirin 81 MG Tab.EC PO SCH (08:07)
[2023-06-04] MEDS: Heparin Sodium 5,000 Units/ML Vial SUBCUT SCH ×2 (08:08→20:46)
[2023-06-04] MEDS ORDERED: CYANOCOBALAMIN 500 MCG PO SCH (09:00)
[2023-06-04] MEDS ORDERED: MAGNESIUM OXIDE 500 MG PO SCH (09:00)
[2023-06-04] MEDS ORDERED: Non-Formulary Medication 1 Each (Sertraline 100 MG Tablet) PO SCH (09:00)
[2023-06-04] MEDS ORDERED: Tamsulosin 0.4 MG Cap.ER PO SCH (09:00)
[2023-06-04] MEDS ORDERED: Levothyroxine 100 MCG Tab PO SCH (09:00)
[2023-06-04] MEDS ORDERED: fentaNYL 12 MCG/HR Transdermal Patch TOP SCH (09:00)
[2023-06-04] MEDS: Losartan 25 MG Tab PO SCH (11:57)
[2023-06-04] MEDS: Phosphorus #1 250 MG Tab PO SCH ×3 (11:59→20:48)
[2023-06-04] MEDS: Insulin Lispro 100 Unit/ML 3 ML KwikPen SUBCUT SCH ×2 (17:40→21:45)
[2023-06-04] MEDS: atorvaSTATin 20 MG Tab PO SCH (20:48)
[2023-06-04] MEDS: Tamsulosin 0.4 MG Cap.ER PO SCH (20:48)
[2023-06-04] MEDS: Sertraline 50 MG Tab PO SCH (20:49)
[2023-06-04] MEDS: cefTRIAXone 1 GM in Sodium Chloride 0.9% 100 ML IV SCH (21:02)
[2023-06-05] MEDS: methylPREDNISolone Sodium Succinate 40 MG/1 ML SDV IVPUSH SCH ×3 (00:24→22:50)
[2023-06-05 00:48] LABS: ANION GAP 0.9 (5-15); BUN/CREATININE RATIO 28.3 (14-18); CALCIUM 8.6 mg/dL (8.5-10.1); CREATININE 1.2 mg/dL (0.55-1.02); EST CRCL DRUG DOSING (CG) 38.5 mL/min; PHOSPHORUS 4.6 mg/dL (2.6-4.7); POTASSIUM,K 3.9 mEq/L (3.5-5.1)
[2023-06-05] MEDS: traMADol 50 MG Tab PO SCH ×3 (03:47→21:34)
[2023-06-05] MEDS: Albuterol/Ipratropium 3.0-0.5 MG/3 ML Neb Soln NEB SCH ×4 (05:31→20:30)
[2023-06-05] MEDS: Levothyroxine 100 MCG Tab PO SCH (05:58)
[2023-06-05] MEDS: Omeprazole 20 MG Cap.CR PO SCH (05:59)
[2023-06-05] MEDS: Furosemide 20 MG/2 ML VIAL IVPUSH SCH ×3 (05:59→21:37)
[2023-06-05] MEDS: Potassium Chloride 10 MEQ Tab.ER PO SCH (09:20)
[2023-06-05] MEDS: Heparin Sodium 5,000 Units/ML Vial SUBCUT SCH ×2 (09:20→21:39)
[2023-06-05] MEDS: guaiFENesin 600 MG Tab.ER PO SCH ×2 (09:20→21:35)
[2023-06-05] MEDS: Cyanocobalamin (Vitamin B12) 1,000 MCG Tab PO SCH (09:21)
[2023-06-05] MEDS: Multivitamin Tab PO SCH (09:21)
[2023-06-05] MEDS: Phosphorus #1 250 MG Tab PO SCH ×4 (09:21→21:34)
[2023-06-05] MEDS: Aspirin 81 MG Tab.EC PO SCH (09:22)
[2023-06-05] MEDS: Mirtazapine 30 MG Tab PO SCH (09:22)
[2023-06-05] MEDS: Spironolactone 25 MG Tab PO SCH (09:22)
[2023-06-05] MEDS: Magnesium Oxide 400 MG Tab PO SCH (09:23)
[2023-06-05] MEDS: Metoprolol Tartrate 50 MG Tab PO SCH ×2 (09:23→21:36)
[2023-06-05] MEDS: ARIPiprazole 5 MG Tab PO SCH (09:23)
[2023-06-05] MEDS: Cholestyramine/Sucrose Powder 4 GM Packet PO SCH (09:24)
[2023-06-05] MEDS: Insulin Lispro 100 Unit/ML 3 ML KwikPen SUBCUT SCH ×4 (09:24→21:44)
[2023-06-05] MEDS: Fluticasone NASAL Spray 16 GM Bottle NASBOTH SCH (09:25)
[2023-06-05] MEDS: Sodium Bicarbonate 650 MG Tab PO SCH ×3 (09:25→22:10)
[2023-06-05] MEDS: Losartan 25 MG Tab PO SCH (12:03)
[2023-06-05] MEDS ORDERED: Ibuprofen 800 MG Tab PO ONE (12:25)
[2023-06-05] MEDS ORDERED: fentaNYL 12 MCG/HR Transdermal Patch TOP SCH (15:00)
[2023-06-05] MEDS: cefTRIAXone 1 GM in Sodium Chloride 0.9% 100 ML IV SCH (21:31)
[2023-06-05] MEDS: Sennosides/Docusate Sodium 50-8.6 MG Tab PO SCH (21:33)
[2023-06-05] MEDS: Sertraline 50 MG Tab PO SCH (21:33)
[2023-06-05] MEDS: Tamsulosin 0.4 MG Cap.ER PO SCH (21:35)
[2023-06-05] MEDS: atorvaSTATin 20 MG Tab PO SCH (21:35)
[2023-06-06] MEDS: traMADol 50 MG Tab PO SCH ×3 (03:56→20:57)
[2023-06-06] MEDS: Albuterol/Ipratropium 3.0-0.5 MG/3 ML Neb Soln NEB SCH ×4 (05:03→21:07)
[2023-06-06] MEDS: Levothyroxine 100 MCG Tab PO SCH (06:03)
[2023-06-06] MEDS: Furosemide 20 MG/2 ML VIAL IVPUSH SCH ×3 (06:04→21:38)
[2023-06-06] MEDS: Omeprazole 20 MG Cap.CR PO SCH (06:04)
[2023-06-06] MEDS: Insulin Lispro 100 Unit/ML 3 ML KwikPen SUBCUT SCH ×4 (08:06→21:36)
[2023-06-06] MEDS: Metoprolol Tartrate 50 MG Tab PO SCH ×2 (09:08→20:57)
[2023-06-06] MEDS: Heparin Sodium 5,000 Units/ML Vial SUBCUT SCH ×2 (09:08→20:59)
[2023-06-06] MEDS: guaiFENesin 600 MG Tab.ER PO SCH ×2 (09:08→20:55)
[2023-06-06] MEDS: ARIPiprazole 5 MG Tab PO SCH (09:09)
[2023-06-06] MEDS: Cholestyramine/Sucrose Powder 4 GM Packet PO SCH (09:10)
[2023-06-06] MEDS: Aspirin 81 MG Tab.EC PO SCH (09:10)
[2023-06-06] MEDS: Fluticasone NASAL Spray 16 GM Bottle NASBOTH SCH (09:10)
[2023-06-06] MEDS: Mirtazapine 30 MG Tab PO SCH (09:10)
[2023-06-06] MEDS: Potassium Chloride 10 MEQ Tab.ER PO SCH (09:10)
[2023-06-06] MEDS: Magnesium Oxide 400 MG Tab PO SCH (09:10)
[2023-06-06] MEDS: Spironolactone 25 MG Tab PO SCH (09:10)
[2023-06-06] MEDS: Sennosides/Docusate Sodium 50-8.6 MG Tab PO SCH ×2 (09:11→20:56)
[2023-06-06] MEDS: Cyanocobalamin (Vitamin B12) 1,000 MCG Tab PO SCH (09:11)
[2023-06-06] MEDS: Sodium Bicarbonate 650 MG Tab PO SCH ×3 (09:11→20:56)
[2023-06-06] MEDS: Multivitamin Tab PO SCH (09:11)
[2023-06-06] MEDS: Losartan 25 MG Tab PO SCH (11:53)
[2023-06-06] MEDS: methylPREDNISolone Sodium Succinate 40 MG/1 ML SDV IVPUSH SCH ×2 (11:53→23:36)
[2023-06-06] MEDS: Tamsulosin 0.4 MG Cap.ER PO SCH (20:53)
[2023-06-06] MEDS: Sertraline 50 MG Tab PO SCH (20:54)
[2023-06-06] MEDS: atorvaSTATin 20 MG Tab PO SCH (20:55)
[2023-06-06] MEDS: cefTRIAXone 1 GM in Sodium Chloride 0.9% 100 ML IV SCH (21:02)
[2023-06-07] MEDS: traMADol 50 MG Tab PO SCH ×2 (03:49→11:36)
[2023-06-07] MEDS: Levothyroxine 100 MCG Tab PO SCH (05:22)
[2023-06-07] MEDS: Omeprazole 20 MG Cap.CR PO SCH (05:22)
[2023-06-07] MEDS: Furosemide 20 MG/2 ML VIAL IVPUSH SCH (05:22)
[2023-06-07] MEDS: Albuterol/Ipratropium 3.0-0.5 MG/3 ML Neb Soln NEB SCH ×3 (05:35→16:19)
[2023-06-07] MEDS: Fluticasone NASAL Spray 16 GM Bottle NASBOTH SCH (08:00)
[2023-06-07] MEDS: Insulin Lispro 100 Unit/ML 3 ML KwikPen SUBCUT SCH ×2 (08:24→11:36)
[2023-06-07] MEDS: Cholestyramine/Sucrose Powder 4 GM Packet PO SCH (08:24)
[2023-06-07] MEDS: Heparin Sodium 5,000 Units/ML Vial SUBCUT SCH (08:24)
[2023-06-07] MEDS: ARIPiprazole 5 MG Tab PO SCH (08:25)
[2023-06-07] MEDS: Magnesium Oxide 400 MG Tab PO SCH (08:25)
[2023-06-07] MEDS: Mirtazapine 30 MG Tab PO SCH (08:25)
[2023-06-07] MEDS: Aspirin 81 MG Tab.EC PO SCH (08:25)
[2023-06-07] MEDS: Potassium Chloride 10 MEQ Tab.ER PO SCH (08:25)
[2023-06-07] MEDS: Cyanocobalamin (Vitamin B12) 1,000 MCG Tab PO SCH (08:25)
[2023-06-07] MEDS: Sodium Bicarbonate 650 MG Tab PO SCH (08:26)
[2023-06-07] MEDS: Sennosides/Docusate Sodium 50-8.6 MG Tab PO SCH (08:26)
[2023-06-07] MEDS: guaiFENesin 600 MG Tab.ER PO SCH (08:33)
[2023-06-07] MEDS: Spironolactone 25 MG Tab PO SCH (08:34)
[2023-06-07] MEDS: Multivitamin Tab PO SCH (08:34)
[2023-06-07] MEDS: Losartan 25 MG Tab PO SCH (11:33)
[2023-06-07 11:37] VITALS: BP 159/68
[2023-06-07] MEDS: methylPREDNISolone Sodium Succinate 40 MG/1 ML SDV IVPUSH SCH (11:37)
[2023-06-07] MEDS: Metoprolol Tartrate 50 MG Tab PO SCH (11:42)
[2023-06-07 13:13] VITALS: PULSE 74
== END 2023-06-07 13:18 | DRG 193 ==
LOC: JD.ED 14:21 → JD.MS 17:54
PROVIDERS: ADMIT Internal Medicine; ATTEND Internal Medicine
DX: I11.0 Hypertensive heart disease with heart failure (principal); J18.9 Pneumonia, unspecified organism; I50.43 Acute on chronic combined systolic (congestive) and diastolic (congestive) heart failure; R50.9 Fever, unspecified; J96.21 Acute and chronic respiratory failure with hypoxia; E11.9 Type 2 diabetes mellitus without complications; E03.9 Hypothyroidism, unspecified; J96.22 Acute and chronic respiratory failure with hypercapnia; J44.1 Chronic obstructive pulmonary disease with (acute) exacerbation; Z88.7 Allergy status to serum and vaccine; I13.0 Hypertensive heart and chronic kidney disease with heart failure and stage 1 through stage 4 chronic kidney disease, or unspecified chronic kidney disease; Z68.41 Body mass index [BMI] 40.0-44.9, adult; E78.00 Pure hypercholesterolemia, unspecified; Z20.822 Contact with and (suspected) exposure to COVID-19; K59.09 Other constipation; N18.30 Chronic kidney disease, stage 3 unspecified; M19.90 Unspecified osteoarthritis, unspecified site; F41.9 Anxiety disorder, unspecified; F32.A Depression, unspecified; G47.00 Insomnia, unspecified; Z96.649 Presence of unspecified artificial hip joint; E11.22 Type 2 diabetes mellitus with diabetic chronic kidney disease; E11.42 Type 2 diabetes mellitus with diabetic polyneuropathy; E66.9 Obesity, unspecified; Z90.89 Acquired absence of other organs; Z90.49 Acquired absence of other specified parts of digestive tract; Z91.199 Patient's noncompliance with other medical treatment and regimen due to unspecified reason; Z99.81 Dependence on supplemental oxygen; Z88.8 Allergy status to other drugs, medicaments and biological substances; Z88.1 Allergy status to other antibiotic agents; Z79.51 Long term (current) use of inhaled steroids; Z79.899 Other long term (current) drug therapy; Z98.890 Other specified postprocedural states; Z87.891 Personal history of nicotine dependence
CPT/HCPCS: 0241U; 36415; 36600; 71045; 71275; 80048; 80053; 82803; 82947; 83735; 83880; 84100; 84484; 85025; 85027; 85379; 86140; 87641; 93005; 93307; 94640; 94660; 94667; 94668; 94760; 94761; 97162; 97530; 93010; 99284; A9270-GY; J0696; J1644; J1815; J1940; J2920; J2930; J3490; J7620-GY; Q9967